=== PATIENT | female | born 1940 | race African-American/Black ===

== ENCOUNTER 2017-08-25 09:55 | Inpatient (IN) | payer MEDICARE, OTHER ==
[2017-08-25 10:29] LABS: #Eosinphils 0.1 thou/uL (0.0-0.7); #Lymphocytes 1.7 thou/uL (1.20-3.40); #Monocytes 0.5 thou/uL (0.11-0.59); #Neutrophils 5.6 thou/uL (1.40-6.50); %Basophils 0.5 % (0.0-1.0); %Eosinophils 0.6 % (0.0-10.0); %Lymphocytes 21.4 % (21.0-51.0); %Monocytes 6.2 % (0.0-10.0); Hematocrit 33.9 % (36.0-47.0); Mean Platelet Volume 8.8 fL (7.4-10.4); White Blood Cell (WBC) Count 7.8 thou/uL (4.8-10.8)
[2017-08-25] MEDS ORDERED: Furosemide 40 MG/4 ML VIAL ONE ×2 (10:45→12:10)
[2017-08-25 10:56] LABS: ALT (SGPT) 34 U/L (8-55); AST (SGOT) 26 U/L (5-34); Alkaline Phosphatase 83 U/L (40-150); Anion Gap 12 mmol/L (10-20); BUN (Urea Nitrogen) 51 mg/dL (9.8-20.1); Bilirubin, Total 0.4 mg/dL (0.2-1.2); CK (CPK) 75 U/L (29-168); Calc. Creatinine Clearance 0 mL/min (70-130); Calcium 8.8 mg/dL (7.8-10.44); Carbon Dioxide 16 mmol/L (23-31); Chloride 123 mmol/L (98-107); Estimated GFR-MDRD 13; Globulin 3.3 g/dL (2.4-3.5); Protein, Total 6.5 g/dL (6.0-8.3)
[2017-08-25 11:00] LABS: Troponin I 0.119 ng/mL (< 0.028)
--- NOTE | 2017-08-25 11:25 | RAD ---
AP VIEW OF THE CHEST: INDICATION: Dyspnea and shortness of breath. FINDINGS: There is cardiomegaly, pulmonary vascular congestion, and perihilar interstitial airspace opacities s uspicious for edema. There are tiny bilateral pleural effusions. There is a dual-lead pacemaker ove rlying the left chest wall. Chronic osseous changes are similar to a comparison dated 10/09/16. IMPRESSION: Findings suspicious for congestive heart failure. POS: BREANN
[2017-08-25 12:35] LABS: Bilirubin Negative (Negative); Blood, Urine Small (Negative); Glucose, Urine (Dipstick) Negative (Negative); Ketone, Urine Negative (Negative); Nitrite Negative (Negative); Protein, Urine (Dipstick) 300 mg/dL (Neg-Trace); Urobilinogen 0.2 mg/dL (0.2-1.0)
[2017-08-25 12:37] LABS: Bacteria/HPF None Seen HPF (None Seen); Hyaline Casts/LPF 4-6 HYALINE CAST LPF (0-3 Hyaline); WBC/HPF 0-3 HPF (0-3)
[2017-08-25 12:39] LABS: Renal Epithelial None Seen HPF (0-3); Transitional Epithelial NONE SEEN HPF (0-3)
[2017-08-25 14:08] LABS: Troponin I 0.108 ng/mL (< 0.028)
--- NOTE | 2017-08-25 15:25 | PDOC.EVN ---
Attending Addendum - Attending Addendum I personally evaluated the patient and discussed the management with Dr. Orlando. I agree with the History, Examination, Assessment and Plan documented in her H& P with any addition or exceptions noted below. Patient with 2 weeks of productive cough of bloody sputum, increased lower extremity swelling, orthopnea, and PND presenting due to 1 day of worsening shortness of breath. Patient with history of combined CHF with last EF 45-50% in 09/2016. She reports medication compliance. She is clinically hypervolemic, with 2+ pitting to mid melo, as well as rales bilaterally on lung exam. CXR consistent with CHF. Her BNP is greatly elevated above baseline. 1. cCHF with exacerbation- admit to tele, strict I/O, diuresis as tolerable though renal function may prohibit max diuresis. Will repeat echo as has been near 1 year since last. Trend troponins. Med augmentation to ensure she is maximally treated for CHF. 2. CKD4 with exacerbation- could be due to decreased intravascular volume. Will consult Dr. Anderson. Will need to keep close eye on patient renal function with effective diuresis. 3. Hyperchloremic metabolic acidosis- likely 2/2 renal function. Normal anion gap. Monitor. 4. HTN- maximize control with diuresis and med adjustments as necessary. 5. Hemoptysis- new onset. Sputum is grossly bloody. Unknown in pulmonary in origin or related to airway trauma due to cough though there is no evidence of that at this time. CXR does not show mass, but patient does have history of tobacco abuse with no history of similar issues. Will consult Pulm for possible further eval with bronchoscopy versus CT scanning.
[2017-08-25] MEDS ORDERED: Ondansetron ODT 4 MG TAB SL PRN (17:08)
[2017-08-25] MEDS ORDERED: Ondansetron HCl/PF 4 MG/2 ML Vial IVP PRN (17:08)
[2017-08-25] MEDS ORDERED: Acetaminophen 325 MG TAB PO PRN ×2 (17:08→17:47)
[2017-08-25] MEDS ORDERED: Dextrose 5% in Water 1,000 ML IV PRN (17:47)
[2017-08-25] MEDS ORDERED: Dextrose 50% Abboject 50 ML SYRINGE SLOW IVP PRN (17:47)
[2017-08-25] MEDS ORDERED: HumaLOG 300 UNITS/3 ML VIAL SC PRN ×2 (17:47)
[2017-08-25] MEDS ORDERED: Furosemide 40 MG/4 ML VIAL SLOW IVP SCH (18:00)
[2017-08-25 18:03] LABS: Troponin I 0.112 ng/mL (< 0.028)
[2017-08-25] MEDS ORDERED: FLU VACC TS2017-18 (>65YR) 0.5 ML SYRINGE IM ONE (18:15)
[2017-08-25 18:25] LABS: Amphetamine Not Detected (NotDetected); Methadone Not Detected (NotDetected); Methamphetamine Not Detected (NotDetected)
[2017-08-25 19:02] LABS: #Lymphocytes 0.9 thou/uL (1.20-3.40); #Monocytes 0.1 thou/uL (0.11-0.59); #Neutrophils 5.4 thou/uL (1.40-6.50); %Basophils 0.1 % (0.0-1.0); %Eosinophils 0.2 % (0.0-10.0); %Lymphocytes 14.3 % (21.0-51.0); %Monocytes 1.1 % (0.0-10.0); Hematocrit 33.1 % (36.0-47.0); Mean Platelet Volume 8.3 fL (7.4-10.4); Red Blood Cell (RBC) Count 3.31 mill/uL (4.20-5.40); White Blood Cell (WBC) Count 6.4 thou/uL (4.8-10.8)
[2017-08-25 19:10] LABS: Hemoglobin A1c 5.5 % (4.0-6.0)
[2017-08-25] MEDS: Nicotine 14 MG PATCH TD SCH (19:40)
[2017-08-25] MEDS ORDERED: Haloperidol 1 MG TAB PO SCH (23:45)
[2017-08-26] MEDS ORDERED: Sodium Chloride 0.9% 10 ML ONE ×3 (04:38→09:33)
[2017-08-26] MEDS ORDERED: Furosemide 40 MG/4 ML VIAL SLOW IVP SCH ×2 (06:00→09:00)
--- NOTE | 2017-08-26 06:11 | HP-2 ---
DATE OF ADMISSION: 08/25/2017 RESIDENT PHYSICIAN: Phillip Orlando M.D. ATTENDING PHYSICIAN: Marek Elias M.D. PRIMARY CARE PHYSICIAN: Virgie Jasso M.D. CHIEF COMPLAINT: Difficulty breathing. HISTORY OF PRESENT ILLNESS: This is a 77-year-old -F[place] female with past medical history as below, who presents to the ED via the EMS with complaint of shortness of breath since yesterday af ternoon when she is cleaning the house. Associated with productive cough and bloody sputum for about 2 weeks, but no fevers or chills. Patient also endorses increased lower extremity edema over the sa me time along with worsening paroxysmal nocturnal dyspnea. Patient was given a DuoNeb x1 and 125 mg of Solu-Medrol by EMS en route. She does not usually require oxygen at home. Denies any chest pain, palpitation. Denies missing any of her daily doses of her medications recently. Does not fluid res trict at home. 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 She states that she last saw her several months ago and wa s due to see her again tomorrow. Patient is slightly confused upon my interview and is a poor histor ngozi. In the ER, the patient received 40 mg of Lasix x2 and DuoNeb x1. PAST MEDICAL HISTORY: 1. Coronary artery disease, status post NSTEMI in 08/2016. 2. Hypertension. 3. Hyperlipidemia. 4. Type 2 diabetes mellitus. 5. Combined systolic and diastolic congestive heart failure (with EF of 45%-50% with global hypokine sis, on PTE in 09/2016.) 6. 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 7. Chronic kidney disease. 8. Chronic normocytic anemia. 9. Urge incontinence. 10. Peripheral vascular disease. PAST SURGICAL HISTORY: 1. Left femoral popliteal bypass. 2. Hysterectomy. 3. Thyroidectomy. 4. Pacemaker placement in 2012. SOCIAL HISTORY: Patient currently smokes 1 pack per day and has smoked for the past 50 years. Denie s alcohol or other illicit drug use. FAMILY HISTORY: Father had type 2 diabetes mellitus. Mother had hypertension and cancer. ALLERGIES: No known drug allergies. HOME MEDICATIONS: Patient was unable to supply me with an accurate list of her current home medicati ons, but preliminary list obtained from EMR. 1. Lasix 40 mg daily. 2. DuoNebs q.4 hours p.r.n. 3. Potassium chloride 20 mEq daily. 4. Tramadol 100 mg daily as needed. 5. Pletal 100 mg b.i.d. a.c. 6. Aspirin 81 mg daily. 7. Crestor 20 mg at bedtime. 8. Ranitidine 150 mg b.i.d. 9. Coreg 25 mg b.i.d. 10. Calcitriol 0.25 mcg daily. 11. Norvasc 10 mg daily. 12. Imdur 60 mg daily. Nurse to call pharmacy to verify her current medications; and it appears patient has not been taking her medications consistently. REVIEW OF SYSTEMS: Ten point review of systems including general, eyes, ENT, respiratory, CV, GI, , skin, musculoskeletal, and neurologic all negative except for those pertinent positives listed in t he HPI. PHYSICAL EXAMINATION: VITAL SIGNS: Temperature 97.9, respiratory rate 18, heart rate 65, blood pressure is 163/90, oxygen saturation 96% on 2 liters. Weight with 81.65 kg. Patient's I's and O's, the patient had put out 28 5 mL of urine on the 2-3 hours since arrival to the ED. GENERAL: Patient in no acute distress, awake, alert, and oriented x2. Slightly lethargic at time. EYES: EOMI, PERRLA, nonicteric. ENT: Mucous membranes dry. Oropharynx clear. CARDIOVASCULAR: Regular rate and rhythm. Pulses are equal, but diminished in lower extremities. RESPIRATORY: Mildly labored. Patient breathing with pursed lips, rales in the bilateral bases with scattered expiratory wheezes. ABDOMEN: Nontender, nondistended. No guarding or rebound, and central obesity. EXTREMITIES: She had 2+ pitting edema to the knee bilaterally. Equal movements bilaterally. SKIN: No rash or ulcer. No palpable lesions. NEUROLOGIC: Cranial nerves II through XII intact. No focal deficits. PSYCHIATRIC: She had mild confusion. Overall, mood and affect were appropriate. Judgment and insig ht intact. LABORATORY DATA: CBC: White blood cells 7.8, platelets 168, hemoglobin 10.6, hematocrit 32.9, MCV 9 9.7, RDW 15.8. CMP: Sodium 146, potassium 2.9, chloride 123, bicarbonate 16, BUN 51, creatinine 3.9 7. Glucose 128, calcium 8.8, GFR was 13, total protein 6.5, albumin 3.2, total bilirubin 0.4, AST 26 , ALT 34, alkaline phosphatase 83. CK was 75, CK-MB 4.3, troponin 0.119. BNP was extremely elevated at 9989 with patient's baseline in the 6590-7787 range. UA showed 300 protein, small blood, 4-6 squ amous cells, and 4-6 hyaline casts. IMAGING: EKG showed a left axis deviation and was ventricularly paced. Chest x-ray showed cardiomeg jadyn, pulmonary vascular congestion. Perihilar interstitial opacities, indicative of edema, and small bilateral pleural effusions. She had dual lead pacemaker over the left chest. ASSESSMENT AND PLAN: This is a 77-year-old black female with: 1. Acute hypoxic respiratory failure secondary to #2. Continue as needed heart failure treatment an d oxygen as needed. We will admit to telemetry. 2. Systolic and diastolic congestive heart failure exacerbation. We will repeat an echo. Continue 4 0 mg intravenous Lasix b.i.d. starting tomorrow. Continue oxygen, daily weights, strict I's and O's. We will consult the Cardiology if not improving or status deteriorates. Patient currently satting okay on 2 liters of oxygen, but will have low threshold for noninvasive positive pressure ventilation if required. 3. Acute kidney injury on chronic kidney 4. Patient appears intravascularly depleted due to third s pacing. We will continue Lasix and monitor daily checks of kidney function. If GFR continues to dec rease, patient may need dialysis. We will go ahead and get Nephrology on broad to follow. 4. Elevated troponin at baseline, possibly secondary to chronic kidney disease versus demand. We wi ll trend and see if worsening. 5. Metabolic acidosis. We will check lactate, no anion gap, likely secondary to renal failure versu s less likely hypoxia from heart failure. We will get ABG if worsening. 6. Suspected anemia of chronic disease. This is consistent with iron studies from 09/2016. 7. Anemia. Now appears more macrocytic. B12 has been normal in the past, but we will repeat and ch jose RBC folate to complete workup. 8. Hypertension. Home medications following a nurse med rec. 9. Hyperlipidemia. Continue statin. 10. Coronary artery disease, trending troponins. Continue aspirin, statin, and beta-hong. 11. Prediabetes versus type 2 diabetes mellitus, last known A1c was 6. We will recheck and verify t he patient is not on any antihyperglycemic medications at home. Mild sliding scale insulin. Accu-Ch eks a.c. and at bedtime. 12. Confusion. Check UDS. Unclear if this is her baseline. 13. Tobacco abuse, cessation counseling. 14. Peripheral vascular disease. Continue Pletal. 15. Continue Guevara, deep venous thrombosis prophylaxis with renally dosed Lovenox. PT, OT ordered. Symptomatic medications will be provided. History and physical exam as well as assessment and plan discussed with the attending physician, Dr. Elias, who agrees with above.
[2017-08-26 06:52] LABS: Anion Gap 16 mmol/L (10-20); BUN (Urea Nitrogen) 64 mg/dL (9.8-20.1); Calc. Creatinine Clearance 14 mL/min (70-130); Calcium 8.6 mg/dL (7.8-10.44); Carbon Dioxide 14 mmol/L (23-31); Chloride 122 mmol/L (98-107); Estimated GFR-MDRD 12
--- NOTE | 2017-08-26 08:22 | PDOC.FM ---
- Subjective Subjective: The patient reports that her breathing has improved some since yesterday. She was resting comfortably. Has no specific complaints. She states that her cough has not improved, but it is less bloody than it has been. - Objective MAR Reviewed: Yes Vital Signs & Weight: Vital Signs (12 hours) Temp Pulse Resp BP Pulse Ox 08/26/17 03:39 97.9 F 65 20 164/99 H 96 08/26/17 01:38 95 08/25/17 23:35 97 F L 65 20 137/74 96 Weight Weight 82.645 kg I&O: 08/25/17 08/26/17 08/27/17 06:59 06:59 06:59 Intake Total 134 Output Total 700 Balance -566 Result Diagrams: 08/25/17 18:47 08/26/17 05:55 <Pamella German - Last Filed: 08/26/17 08:20> - Objective Vital Signs & Weight: Vital Signs (12 hours) Temp Pulse Resp BP Pulse Ox 08/26/17 11:16 98.1 F 65 16 148/74 H 99 08/26/17 10:26 65 08/26/17 08:00 97.7 F 65 20 138/84 94 L 08/26/17 03:39 97.9 F 65 20 164/99 H 96 08/26/17 01:38 95 Weight Weight 82.645 kg I&O: 08/25/17 08/26/17 08/27/17 06:59 06:59 06:59 Intake Total 134 Output Total 700 Balance -566 Result Diagrams: 08/25/17 18:47 08/26/17 05:55 <Marek Elias - Last Filed: 08/26/17 12:42> Phys Exam - Physical Examination Constitutional: NAD HEENT: moist MMs Respiratory: wheezing present (expiratory wheezes bilaterally) rales at bilateral bases Cardiovascular: RRR, no significant murmur, no rub Gastrointestinal: soft, non-tender, no distention, positive bowel sounds Musculoskeletal: no edema, pulses present Neurological: non-focal, moves all 4 limbs Psychiatric: normal affect, A&O x 3 Skin: no rash, cap refill <2 seconds <Pamella German - Last Filed: 08/26/17 08:20> Dx/Plan (1) Acute respiratory failure with hypoxia Code(s): J96.01 - ACUTE RESPIRATORY FAILURE WITH HYPOXIA Status: Acute Plan: This is 2/2 CHF exacerbation with BNP 9989.9. Patient currently has a 2L O2 requirement, satting 95-96%, patient not on oxygen at home. -Will continue O2 prn, wean as tolerated -Monitor on tele -Duonebs with patients h/o COPD and expiratory wheezes on exam -Lasix for CHF exacerbation (2) CHF exacerbation Code(s): I50.9 - HEART FAILURE, UNSPECIFIED Status: Acute QualifierTitle: Congestive heart failure type: combined Qualified Code(s) : I50.43 - Acute on chronic combined systolic (congestive) and diastolic ( congestive) heart failure Plan: Patient does not fluid restrict and has been having increased PND, LE edema -Lasix 40mg IV BID -O2 prn -Fluid restrict -Strict I/O's -Daily weights -Echo as it has been about a year since last documented here. (3) Hemoptysis Code(s): R04.2 - HEMOPTYSIS Status: Acute Plan: Patient has been having about 2 wks of hemoptysis. Has 50 pack year smoking history. Concern for malignancy vs infection The sputum is less bloody this AM. -Will get CT chest -Will consult pulmonology -Will monitor closely (4) [id number]-hqpqoxf kidney injury Code(s): N17.9 - ACUTE KIDNEY FAILURE, UNSPECIFIED; N18.9 - CHRONIC KIDNEY DISEASE, UNSPECIFIED Status: Acute QualifierTitle: Acute renal failure type: unspecified Chronic kidney disease stage: stage 4 (severe) Qualified Code(s): N17.9 - Acute kidney failure, unspecified; N18.4 - Chronic kidney disease, stage 4 (severe); N18.4 - Chronic kidney disease, stage 4 (severe); N18.4 - Chronic kidney disease, stage 4 (severe); N18.4 - Chronic kidney disease, stage 4 (severe) Plan: This is likely 2/2 third spacing with fluid overload. Will fluid restrict patient 2/2 CHF exacerbation. -Monitor renal function closely. -Dr. Anderson with nephrology has been consulted (5) Hyperchloremic metabolic acidosis Code(s): E87.2 - ACIDOSIS Status: Acute Plan: Non-anion gap metabolic acidosis. Likely 2/2 renal failure. Lactate normal. Will monitor (6) Confusion Code(s): R41.0 - DISORIENTATION, UNSPECIFIED Status: Acute Plan: Patient is mildly confused during the day. Overnight she had some sundowning and became pleasantly agitated and required a small dose of haldol to not pull out her IV and Oxygen. Will get her a sitter for tonight. will restart all her home medications. (7) Elevated troponin Code(s): R79.89 - OTHER SPECIFIED ABNORMAL FINDINGS OF BLOOD CHEMISTRY Status : Resolved Plan: Will trend trops (8) Tobacco abuse Code(s): Z72.0 - TOBACCO USE Status: Acute Plan: 50 pack year smoking history -Nicoderm patch -Counseling (9) Hyperlipidemia Code(s): E78.5 - HYPERLIPIDEMIA, UNSPECIFIED Status: Acute QualifierTitle: Hyperlipidemia type: unspecified Qualified Code(s): E78.5 - Hyperlipidemia, unspecified Plan: Will continue rosuvastatin (10) Hypertension Code(s): I10 - ESSENTIAL (PRIMARY) HYPERTENSION Status: Acute QualifierTitle: Hypertension type: essential hypertension Qualified Code( s): I10 - Essential (primary) hypertension Plan: Will continue home meds and monitor <Pamella German - Last Filed: 08/26/17 08:20> Attending Addendum - Attending Addendum I personally evaluated the patient and discussed the management with Dr. German. I agree with the History, Examination, Assessment and Plan documented above with any addition or exceptions noted below. Patient with improvement in respiratory status as well as lower extremity edema with diuresis. However, her renal function continues to decline. Electrolytes are not abnormal, but her GFR is placing her in the ESRD category. Nephrology is on board. We may be in a place where we cannot effectively diurese due to further risk to kidneys. Her BP is increased and we will need to make medication changes to obtain better control. We will add breathing treatments due to wheezing. Further, patient has continued to have blood tinged sputum, in addition to the kathi blood yesterday. CT of chest has been obtained and we will consult Pulmonology. <Marek Elias - Last Filed: 08/26/17 12:42>
--- NOTE | 2017-08-26 09:37 | CON ---
DATE OF CONSULTATION: 08/26/2017 HISTORY OF PRESENT ILLNESS: Ms. Maya is a 77-year-old black female with known history of chronic renal failure secondary to presumed hypertensive nephropathy. She was admitted due to progressive sh ortness of breath. She was empirically treated with IV Lasix yesterday. Her shortness of breath is much improved this morning. In addition, the diuretics has been placed on hold due to the higher cre atinine today. We are being consulted for further management of her chronic renal failure and acute kidney injury. REVIEW OF SYSTEMS: Positive for shortness of breath, no nausea, no vomiting, no chest pain, no synco pal episodes. Decreased appetite, decreased energy level. No headache, no diplopia, no fever or chi lls. No gross hematuria. No dysuria, no urinary frequency. No abdominal pain. No occasional joint pains, no new skin rash, no headache, no diplopia, no sore throat. MEDICATIONS: Tylenol 650 mg q.4 hours p.r.n., Coreg 12.5 mg p.o. b.i.d., Norvasc 10 mg daily, Pletal 100 mg tablet b.i.d., Catapres 0.2 mg b.i.d., Lasix 40 mg IV q.12 hours, Humalog sliding scale, Imdu r ER 60 mg daily, and rosuvastatin 20 mg tablet at bedtime. PAST MEDICAL HISTORY: 1. Peripheral vascular disease. 2. Type 2 diabetes mellitus, on diet. 3. Hyperlipidemia. 4. Chronic low back pain secondary to lumbar spondylosis. 5. Chronic renal failure with hypertensive nephropathy. 6. Longstanding hypertension. PAST SURGICAL HISTORY: 1. Status post hysterectomy. 2. Status post colonoscopy. 3. Status post pacemaker placement secondary to severe bradycardia, status post left common femoral artery endarterectomy, status post left fem-pop bypass. SOCIAL HISTORY: The patient lives alone, lives in [place]. No children. Smoked for 40 years, half a pack per day. Still occasional smoking. Alcohol none. Education high school. 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 No IV drug abuse. FAMILY HISTORY: No family history of ESRD. ALLERGIES: None. TRAUMA: None. IMMUNIZATIONS: Up to date. HOSPITALIZATIONS: Please see past medical history. PHYSICAL EXAMINATION: VITAL SIGNS: Blood pressure is noted at 164/99, heart rate 65, respiratory rate 20, temperature 97.9 , and pulse ox 96%. GENERAL: Noted to be awake, supine, comfortable, not in distress. SKIN: Adequate turgor. HEENT: Pinkish conjunctivae, anicteric sclerae. NECK: No neck mass, no carotid bruits, no JVD. CHEST: No deformities. LUNGS: Decreased breath sounds. No wheezing, no crackles. HEART: Normal sinus rhythm. No murmur, no gallops, no rubs. ABDOMEN: Globular, soft, nontender, no masses. EXTREMITIES: No edema, no deformities. NEUROLOGIC: Awake, alert, not moving all extremities. No tremors or asterixis. Oriented to 3 spher es. LABORATORY DATA: 08/25/2017 - White count 6.4, hemoglobin 10.7. Sodium 147, potassium 4.9, chloride 122, carbon dioxide 14, BUN 64, creatinine 4.21, glucose 121, calcium 8.6. Urinalysis of 08/25/2017, protein is 300. Chest x-ray of 08/25/2017 shows findings of congestive heart failure. ASSESSMENT AND PLAN: 1. Acute kidney injury on top of her chronic renal failure superimposed hemodynamically mediated richard al dysfunction secondary to her underlying congestive heart failure. Due to the much improved shortn ess of breath with this patient, I would suggest that we decrease the Lasix 40 mg IV from q.12 to onc e a day dosing for the moment. If renal function further worsens, we can always empirically hold off the diuretics. 2. Congestive heart failure, clinically much improved with IV diuresis. 3. Borderline anemia. We will simply observe this. There is no indication at the present time for any dialytic intervention. Overall, agree with current management.
[2017-08-26 09:50] LABS: Troponin I 0.199 ng/mL (< 0.028)
[2017-08-26] MEDS: Sodium Bicarbonate Tab 325 MG TAB PO SCH ×3 (10:24→20:33)
[2017-08-26] MEDS: Enoxaparin Sodium 30 MG/0.3 ML SYRINGE SC SCH (10:25)
[2017-08-26] MEDS: cloNIDine 0.2 MG TAB PO SCH (10:26)
[2017-08-26] MEDS: Amlodipine 10 MG TAB PO SCH (10:26)
[2017-08-26] MEDS: Carvedilol 25 MG TAB PO SCH ×2 (10:26→20:33)
[2017-08-26] MEDS: Calcitriol 0.25 MCG CAP PO SCH (10:26)
[2017-08-26] MEDS: Famotidine 20 MG TAB PO SCH (10:35)
--- NOTE | 2017-08-26 11:26 | CT ---
CT CHEST WITHOUT CONTRAST: Date: 08/26/17 HISTORY: Hemoptysis, tobacco abuse. FINDINGS: Absence of IV contrast reduces the sensitivity of exam, particularly for evaluation of mediastinal, h ilar, and vascular structures. There are vascular calcifications without evidence of aneurysmal dilatation of the thoracic aorta. No pericardial effusion is seen. There are bilateral pleural effusions, right larger than left. No lung masses are identified in the visualized lung keita. Patchy ground-glass opacities are seen in the m id and lower lung ekita. There are degenerative changes in the spine. There is a 4.0 cm lesion in th e right lobe of the thyroid gland. IMPRESSION: 1. Cardiomegaly. 2. Bilateral pleural effusions (right greater than left). 3. Mild patchy ground-glass opacities. 4. 4.0 cm right thyroid lobe lesion. Dedicated thyroid ultrasound would be helpful. POS: BREANN
[2017-08-26] MEDS: Potassium Chloride 20 MEQ TAB PO SCH (11:55)
--- NOTE | 2017-08-26 12:54 | CON ---
DATE OF CONSULTATION: 08/26/2017 She is a 77-year-old female who has been in the hospital several days. We were cons ulted this morning regarding hemoptysis. When I came to ask the patient how much blood she has coughed, the sitter who was at the bedside stat ed that she was coughing maybe no more than a quarter of a teaspoon of dark blood. It appears she ny s no epistasis. She has done this before. She has seen Dr. Gary in the past. I felt more than lik kami this was secondary to bronchitis aggravated by her congestive heart failure. She was a smoker in the past. She denies any difficulty breathing at the present time. She denies any chest pain, chills or sweats . It was difficult to get additional information from the patient. She was here in September with symptoms of hemoptysis. PAST MEDICAL HISTORY: Pertinent for congestive heart failure, renal failure, diabetes, chronic obstr uctive pulmonary disease. Previous sepsis syndrome. Hypertension, degenerative joint disease. PAST SURGICAL HISTORY: Hysterectomy, thyroid, pacemaker, left femoral popliteal bypass. REVIEW OF SYSTEMS: Otherwise 10-point negative. ALLERGIES: None. PHYSICAL EXAMINATION: VITAL SIGNS: Blood pressure 138/84, sats are 96%, respirations 20. CHEST: Chest revealed bilateral crackles. CARDIAC: Normal S1, S2. ABDOMEN: Soft, no masses. LABORATORY: White count 6, H&H 10 and 30, platelet count normal. Creatinine is 4.2, BUN 64. X-ray shows cardiomegaly, cephalization. CAT scan showed bilateral pleural effusion. IMPRESSION: 1. Hemoptysis. 2. Bronchitis. 3. Congestive heart failure. 4. Worsening renal failure. PLAN: Regarding the hemoptysis no other further workup is needed. They put her on empiric antibioti cs. Dr. Gary will follow at a later time.
[2017-08-26] MEDS: Cilostazol 100 MG TAB PO SCH (16:10)
[2017-08-26] MEDS: Cefuroxime Axetil 250 MG TAB PO SCH (20:34)
[2017-08-26] MEDS: Nicotine 14 MG PATCH TD SCH (20:36)
[2017-08-26] MEDS: Cyclobenzaprine 10 MG TAB PO SCH (20:40)
[2017-08-27] MEDS: cloNIDine 0.2 MG TAB PO SCH ×4 (00:14→23:59)
[2017-08-27 06:16] LABS: Anion Gap 13 mmol/L (10-20); BUN (Urea Nitrogen) 72 mg/dL (9.8-20.1); Calc. Creatinine Clearance 15 mL/min (70-130); Calcium 8.1 mg/dL (7.8-10.44); Carbon Dioxide 15 mmol/L (23-31); Chloride 120 mmol/L (98-107); Estimated GFR-MDRD 13
--- NOTE | 2017-08-27 08:22 | PDOC.FM ---
- Subjective Subjective: The patient reports that she is doing much better this AM. She is breathing comfortably on RA. She reports that her cough has improved some and she is producing less sputum. She is tolerating PO well. - Objective MAR Reviewed: Yes Vital Signs & Weight: Vital Signs (12 hours) Temp Pulse Resp BP BP Pulse Ox 08/27/17 07:46 96.4 F L 75 18 132/79 95 08/27/17 03:30 97.7 F 65 16 121/69 97 08/27/17 00:14 137/68 08/26/17 23:32 98.0 F 65 16 137/68 95 Weight Weight 82.554 kg I&O: 08/26/17 08/27/17 08/28/17 06:59 06:59 06:59 Intake Total 134 1400 Output Total 700 1000 Balance -566 400 Result Diagrams: 08/25/17 18:47 08/27/17 05:13 <Pamella German - Last Filed: 08/27/17 08:20> - Objective Vital Signs & Weight: Vital Signs (12 hours) Temp Pulse Resp BP BP Pulse Ox 08/27/17 09:17 75 132/79 08/27/17 08:00 96.4 F L 65 16 95 08/27/17 07:46 96.4 F L 75 18 132/79 95 08/27/17 03:30 97.7 F 65 16 121/69 97 08/27/17 00:14 137/68 Weight Weight 82.554 kg I&O: 08/26/17 08/27/17 08/28/17 06:59 06:59 06:59 Intake Total 134 1400 Output Total 700 1000 200 Balance -566 400 -200 Result Diagrams: 08/25/17 18:47 08/27/17 05:13 <Marek Elias - Last Filed: 08/27/17 12:01> Phys Exam - Physical Examination Constitutional: NAD HEENT: moist MMs Respiratory: no wheezing Rales in bilateral lung bases Cardiovascular: RRR, no significant murmur, no rub Gastrointestinal: soft, non-tender, positive bowel sounds Musculoskeletal: edema present (1+ pitting edema to mid melo bilaterally) Neurological: non-focal, moves all 4 limbs Psychiatric: normal affect, A&O x 3 (mildly confused) <Pamella German - Last Filed: 08/27/17 08:20> Dx/Plan (1) Acute respiratory failure with hypoxia Code(s): J96.01 - ACUTE RESPIRATORY FAILURE WITH HYPOXIA Status: Acute Plan: This is 2/2 CHF exacerbation with BNP 9989.9. Patient currently has a 2L O2 requirement, satting 95-96%, patient not on oxygen at home. -Patient is now satting great on RA, will continue to monitor -Monitor on tele -Duonebs with patients h/o COPD -Lasix for CHF exacerbation (2) CHF exacerbation Code(s): I50.9 - HEART FAILURE, UNSPECIFIED Status: Acute QualifierTitle: Congestive heart failure type: combined Qualified Code(s) : I50.43 - Acute on chronic combined systolic (congestive) and diastolic ( congestive) heart failure Plan: Patient does not fluid restrict and has been having increased PND, LE edema -Lasix 40mg IV daily -O2 prn -Fluid restrict -Strict I/O's -Daily weights -Echo as it has been about a year since last documented here. (3) Hemoptysis Code(s): R04.2 - HEMOPTYSIS Status: Acute Plan: Patient has been having about 2 wks of hemoptysis. Has 50 pack year smoking history. This is likely 2/2 bronchitis The sputum is less bloody this AM. CT chest showed bilateral pleural effusions, mild patchy ground glass opacities -Pulmonology has been consulted, recommended Cefuroxime for bronchitis -Cefuroxime day 2 -Will monitor closely (4) Acute bronchitis Code(s): J20.9 - ACUTE BRONCHITIS, UNSPECIFIED Status: Resolved QualifierTitle: Bronchitis organism: unspecified organism Qualified Code( s): J20.9 - Acute bronchitis, unspecified Plan: Patient has acute bronchitis and has had episodes of this in the past. She has seen Dr. Gary for this problem before -Cefuroxime day 2 -Pulm has been consulted, appreciate recs (5) Ligqi-gv-jpvekfh kidney injury Code(s): N17.9 - ACUTE KIDNEY FAILURE, UNSPECIFIED; N18.9 - CHRONIC KIDNEY DISEASE, UNSPECIFIED Status: Acute QualifierTitle: Acute renal failure type: unspecified Chronic kidney disease stage: stage 4 (severe) Qualified Code(s): N17.9 - Acute kidney failure, unspecified; N18.4 - Chronic kidney disease, stage 4 (severe); N18.4 - Chronic kidney disease, stage 4 (severe); N18.4 - Chronic kidney disease, stage 4 (severe); N18.4 - Chronic kidney disease, stage 4 (severe) Plan: This is likely 2/2 third spacing with fluid overload. Will fluid restrict patient 2/2 CHF exacerbation. -Monitor renal function closely. -Dr. Anderson with nephrology has been consulted (6) Hyperchloremic metabolic acidosis Code(s): E87.2 - ACIDOSIS Status: Acute Plan: Non-anion gap metabolic acidosis. Likely 2/2 renal failure. Lactate normal. Will monitor (7) Confusion Code(s): R41.0 - DISORIENTATION, UNSPECIFIED Status: Acute Plan: Patient is mildly confused during the day. Overnight she had some sundowning and became pleasantly agitated and required a small dose of haldol to not pull out her IV and Oxygen. Will get her a sitter for tonight. will restart all her home medications. (8) Tobacco abuse Code(s): Z72.0 - TOBACCO USE Status: Acute Plan: 50 pack year smoking history -Nicoderm patch -Counseling (9) Hyperlipidemia Code(s): E78.5 - HYPERLIPIDEMIA, UNSPECIFIED Status: Acute QualifierTitle: Hyperlipidemia type: unspecified Qualified Code(s): E78.5 - Hyperlipidemia, unspecified Plan: Will continue rosuvastatin (10) Hypertension Code(s): I10 - ESSENTIAL (PRIMARY) HYPERTENSION Status: Acute QualifierTitle: Hypertension type: essential hypertension Qualified Code( s): I10 - Essential (primary) hypertension Plan: Will continue home meds and monitor (11) Thyroid nodule Code(s): E04.1 - NONTOXIC SINGLE THYROID NODULE Status: Acute Plan: 4.0 cm R thyroid lobe lesion seen on CT chest. Patient is asymptomatic and has no history of thyroid disease. -Will consider outpatient f/u for work-up of this lesion <Pamella German - Last Filed: 08/27/17 08:20> Attending Addendum - Attending Addendum I personally evaluated the patient and discussed the management with Dr. German. I agree with the History, Examination, Assessment and Plan documented above with any addition or exceptions noted below. Patient reports improvement in breathing status today. We will decrease Lasix therapy to help with salvaging renal function. Await further recs per Dr. Anderson. Renal function overall stable. Will discuss with family and CM the potential of SNF or rehab placement after ready for discharge. <Marek Elias - Last Filed: 08/27/17 12:01>
[2017-08-27] MEDS: Furosemide 40 MG/4 ML VIAL SLOW IVP SCH (09:15)
[2017-08-27] MEDS: Enoxaparin Sodium 30 MG/0.3 ML SYRINGE SC SCH (09:15)
[2017-08-27] MEDS: Carvedilol 25 MG TAB PO SCH ×3 (09:16→21:50)
[2017-08-27] MEDS: Cilostazol 100 MG TAB PO SCH ×2 (09:17→16:01)
[2017-08-27] MEDS: Calcitriol 0.25 MCG CAP PO SCH (09:17)
[2017-08-27] MEDS: Cefuroxime Axetil 250 MG TAB PO SCH ×2 (09:17→21:04)
[2017-08-27] MEDS: Amlodipine 10 MG TAB PO SCH (09:17)
[2017-08-27] MEDS: Sodium Bicarbonate Tab 325 MG TAB PO SCH ×3 (09:18→21:50)
--- NOTE | 2017-08-27 09:26 | PRG ---
DATE OF SERVICE: 08/27/2017 SERVICE: Renal Medicine. SUBJECTIVE: Ms. Maya is a 77-year-old black female with chronic renal failure and admitted for sh ortness of breath. She was found to be in congestive heart failure. She was started on Lasix and di uresed. Her shortness of breath is actually much improved this morning. No new complaints. She denies any chest pain. Appetite fair. OBJECTIVE: VITAL SIGNS: Blood pressure is 132/79, heart rate 75, respiratory rate 18, temperature 96.4, pulse o x 95%. GENERAL: Awake, alert, supine, comfortable, not in distress. SKIN: Adequate turgor. HEENT: She has pinkish conjunctivae, anicteric sclerae. NECK: No neck mass, no carotid bruits, no JVD. CHEST: No deformities. LUNGS: Decreased breath sounds. HEART: Normal sinus rhythm. No murmur, no gallops, no rubs. ABDOMEN: Globular, soft, nontender, no masses. EXTREMITIES: No edema, no deformities. MEDICATIONS: Of 08/27/2017 was reviewed. LABORATORY DATA: Of 08/25/2017, hemoglobin 10.7. On 08/27/2017, sodium 143, potassium 4.6, chloride 120, carbon dioxide 15, BUN 72, creatinine of 4.13, GFR 13 mL per minute, glucose 86, calcium 8.1. ASSESSMENT AND PLAN: 1. Shortness of breath - secondary to possible congestive heart failure versus chronic obstructive p ulmonary disease exacerbation. Shortness of breath is much better. Adjustment of diuretics has been on made. Continue supportive care. 2. Acute kidney injury on top of her chronic renal failure, superimposed prerenal azotemia. Creatin ine is plateauing in the last 24 hours. Continue current management. As previously mentioned, she i s on decreased dose of her diuretics. There is no indication for any dialytic intervention with this patient. 3. Metabolic acidosis. Sodium bicarbonate 650 mg 1 tab t.i.d. was initiated yesterday. 4. Recheck basic met and CBC in a.m.
[2017-08-27] MEDS: Potassium Chloride 20 MEQ TAB PO SCH (13:13)
[2017-08-27 13:16] LABS: Hematocrit 30.8 % (34.0-46.6); RBC Folate Test Component 1799 ng/mL (>498)
[2017-08-27] MEDS: Nicotine 14 MG PATCH TD SCH (19:16)
[2017-08-27] MEDS: Cyclobenzaprine 10 MG TAB PO SCH (21:04)
--- NOTE | 2017-08-27 22:05 | PRG ---
DATE OF SERVICE: 08/27/2017 SUBJECTIVE: Ms. Maya was seen in followup. She is doing well. She is sitting up in the chair at bedside. She said she was feeling well. She said she right out of the gate and wanted to be home [facility]. OBJECTIVE: VITAL SIGNS: She is afebrile, heart rate 76, respiratory rate 17, blood pressure 108/58 this afterno on. LUNGS: Remarkable for crackles at both bases. She is in no distress. HEART: Regular rhythm. ABDOMEN: Soft. IMPRESSION: 1. Acute bronchitis. 2. Cardiomyopathy. 3. Chronic kidney disease. 4. Anemia with a normal mean corpuscular volume. PLAN: Continue current care and should continue with p.o. antimicrobial therapy.
[2017-08-28 05:32] VITALS: BMI 29.5
[2017-08-28 05:58] LABS: #Eosinphils 0.1 thou/uL (0.0-0.7); #Lymphocytes 1.3 thou/uL (1.20-3.40); #Monocytes 0.6 thou/uL (0.11-0.59); #Neutrophils 3.6 thou/uL (1.40-6.50); %Basophils 0.4 % (0.0-1.0); %Eosinophils 1.7 % (0.0-10.0); %Lymphocytes 23.3 % (21.0-51.0); %Monocytes 10.2 % (0.0-10.0); Hematocrit 28.5 % (36.0-47.0); Mean Platelet Volume 7.7 fL (7.4-10.4); Red Blood Cell (RBC) Count 2.88 mill/uL (4.20-5.40); White Blood Cell (WBC) Count 5.5 thou/uL (4.8-10.8)
[2017-08-28 06:14] LABS: Anion Gap 12 mmol/L (10-20); BUN (Urea Nitrogen) 77 mg/dL (9.8-20.1); Calc. Creatinine Clearance 15 mL/min (70-130); Calcium 8.1 mg/dL (7.8-10.44); Carbon Dioxide 16 mmol/L (23-31); Chloride 121 mmol/L (98-107); Estimated GFR-MDRD 12
[2017-08-28] MEDS: Cilostazol 100 MG TAB PO SCH ×2 (09:04→15:17)
[2017-08-28] MEDS ORDERED: Epoetin (ESRD) 20,000 UNITS/ML SC SCH (09:30)
[2017-08-28] MEDS: Cefuroxime Axetil 250 MG TAB PO SCH ×2 (09:56→20:26)
[2017-08-28] MEDS: Carvedilol 25 MG TAB PO SCH ×2 (09:56→20:26)
[2017-08-28] MEDS: cloNIDine 0.2 MG TAB PO SCH ×2 (09:57→20:27)
[2017-08-28] MEDS: Sodium Bicarbonate Tab 325 MG TAB PO SCH ×3 (09:57→20:28)
[2017-08-28] MEDS: Amlodipine 10 MG TAB PO SCH (09:58)
[2017-08-28] MEDS: Calcitriol 0.25 MCG CAP PO SCH (09:58)
[2017-08-28] MEDS: Famotidine 20 MG TAB PO SCH (09:58)
[2017-08-28] MEDS: Enoxaparin Sodium 30 MG/0.3 ML SYRINGE SC SCH (09:59)
[2017-08-28] MEDS: Furosemide 40 MG/4 ML VIAL SLOW IVP SCH (10:00)
--- NOTE | 2017-08-28 10:30 | PDOC.FM ---
- Subjective Subjective: Patient feeling better this morning and reports wanting to go home. She states she will consider rehab next week if she does not do well at home but refused rehab at this time. Cough improved. - Objective MAR Reviewed: Yes Vital Signs & Weight: Vital Signs (12 hours) Temp Pulse Resp BP BP BP Pulse Ox 08/28/17 09:58 65 127/61 08/28/17 09:57 127/61 08/28/17 08:05 97.6 F 65 18 127/61 98 08/28/17 05:07 98.2 F 66 21 H 124/67 95 08/27/17 23:59 131/78 08/27/17 23:58 97.8 F 65 18 131/78 93 L Weight Weight 85.139 kg I&O: 08/27/17 08/28/17 08/29/17 06:59 06:59 06:59 Intake Total 1400 1050 Output Total 1000 800 Balance 400 250 Result Diagrams: 08/28/17 05:26 08/28/17 05:26 <Pamella Tinajero A - Last Filed: 08/28/17 10:29> - Objective Vital Signs & Weight: Vital Signs (12 hours) Temp Pulse Resp BP BP BP Pulse Ox 08/28/17 09:58 65 127/61 08/28/17 09:57 127/61 08/28/17 08:05 97.6 F 65 18 127/61 98 08/28/17 05:07 98.2 F 66 21 H 124/67 95 08/27/17 23:59 131/78 08/27/17 23:58 97.8 F 65 18 131/78 93 L Weight Weight 85.139 kg I&O: 08/27/17 08/28/17 08/29/17 06:59 06:59 06:59 Intake Total 1400 1050 Output Total 1000 800 Balance 400 250 Result Diagrams: 08/28/17 05:26 08/28/17 05:26 <Marek Elias - Last Filed: 08/28/17 11:13> Phys Exam - Physical Examination Constitutional: NAD Respiratory: no wheezing, no rales, no rhonchi crackles in Bilateral lower lobes Cardiovascular: RRR systolic murmur Gastrointestinal: soft, non-tender 1 + pitting edema BLE Neurological: non-focal, normal sensation Psychiatric: normal affect <LiorPamella - Last Filed: 08/28/17 10:29> Dx/Plan (1) Acute respiratory failure with hypoxia Code(s): J96.01 - ACUTE RESPIRATORY FAILURE WITH HYPOXIA Status: Resolved Plan: No longer requiring oxygen. 2/2 CHF exacerbation, improving. (2) CHF exacerbation Code(s): I50.9 - HEART FAILURE, UNSPECIFIED Status: Acute QualifierTitle: Congestive heart failure type: combined Qualified Code(s) : I50.43 - Acute on chronic combined systolic (congestive) and diastolic ( congestive) heart failure Plan: BNP 9989. eveidence for fluid overload in presence of CKD . on 30 mg IV lasix and will cont for today and discuss with nephrology home dosing. Possibly home alter today if cont to do well throughout the day. Will need close follow up with nephrology. ECHO performed but not resulted. (3) Hfxyj-lw-yieqgde kidney injury Code(s): N17.9 - ACUTE KIDNEY FAILURE, UNSPECIFIED; N18.9 - CHRONIC KIDNEY DISEASE, UNSPECIFIED Status: Chronic QualifierTitle: Acute renal failure type: unspecified Chronic kidney disease stage: stage 4 (severe) Qualified Code(s): N17.9 - Acute kidney failure, unspecified; N18.4 - Chronic kidney disease, stage 4 (severe); N18.4 - Chronic kidney disease, stage 4 (severe); N18.4 - Chronic kidney disease, stage 4 (severe); N18.4 - Chronic kidney disease, stage 4 (severe) Plan: Following up with Dr. Anderson. Not currently requiring dialysis. (4) Hemoptysis Code(s): R04.2 - HEMOPTYSIS Status: Acute Plan: suspected bronchitis and placed on ceftin. Improving. (5) Hyperchloremic metabolic acidosis Code(s): E87.2 - ACIDOSIS Status: Acute Plan: 2/2 renal failure. Currently on bicarb tab with little improvement. Ultimately will need f/u with nephrology (6) Thyroid nodule Code(s): E04.1 - NONTOXIC SINGLE THYROID NODULE Status: Acute Plan: outpatient thyroid US recommended. (7) Tobacco abuse Code(s): Z72.0 - TOBACCO USE Status: Acute Plan: currently on nicotine patch. Can DC with nicotine patch. (8) Hyperlipidemia Code(s): E78.5 - HYPERLIPIDEMIA, UNSPECIFIED Status: Acute QualifierTitle: Hyperlipidemia type: unspecified Qualified Code(s): E78.5 - Hyperlipidemia, unspecified (9) Hypertension Code(s): I10 - ESSENTIAL (PRIMARY) HYPERTENSION Status: Acute QualifierTitle: Hypertension type: essential hypertension Qualified Code( s): I10 - Essential (primary) hypertension Plan: well controlled on home regimen. <Pamella Tinajero - Last Filed: 08/28/17 10:29> Attending Addendum - Attending Addendum I personally evaluated the patient and discussed the management with Dr. Tinajero. I agree with the History, Examination, Assessment and Plan documented above with any addition or exceptions noted below. Patient feels well today and desires to go home. Her respiratory status is improved and she reports being at baseline activity without significant dyspnea. Will discuss case with Dr. Anderson and see if changes to her diuretic regimen is needed. If doing well, consider discharge this afternoon. <Marek Elias - Last Filed: 08/28/17 11:13>
[2017-08-28] MEDS: Potassium Chloride 20 MEQ TAB PO SCH (12:14)
--- NOTE | 2017-08-28 13:40 | PRG ---
DATE OF SERVICE: 08/28/2017 SUBJECTIVE: Ms. Maya is a 77-year-old black female, who was seen for acute kidney injury on top o f her chronic renal failure. She has a superimposed prerenal azotemia. She came in with shortness o f breath with multifactorial etiology. She has also been gently diuresed with this. has been adjusted. This morning she is feeling better. She is noted be sitting down and comfortable. Her sh ortness of breath is much improved. OBJECTIVE: VITAL SIGNS: Blood pressure is noted at 127/61, heart rate 65, respiratory rate 18, temperature 97.6 , and pulse ox 98%. GENERAL: Noted to be awake, sitting comfortable, not in distress. SKIN: Adequate turgor. HEENT: She has slightly pale conjunctivae, anicteric sclerae. NECK: No neck mass. No carotid bruits, no JVD. CHEST: No deformities. LUNGS: Decreased breath sounds, positive for basilar crackles. HEART: Normal sinus rhythm. No murmur, no gallops, no rubs. ABDOMEN: Globular, soft, nontender, no masses. EXTREMITIES: No edema. MEDICATIONS: 08/28/2017 was reviewed. LABORATORY DATA: 08/28/2017 - White count 5.5, hemoglobin 9.1. Sodium 143, potassium 4.6, chloride 120, carbon dioxide 15, BUN 72, creatinine 4.13, glucose 86, and calcium 8.1. ASSESSMENT AND PLAN: 1. Acute kidney injury/chronic renal failure, relatively stable renal function. GFR still 13 mL per minute. Clinically, the patient is not uremic. There is no indication for any emergent dialytic in tervention with this patient. Overall, agree with current management. Please note the patient is cu rrently on diuretic regimen. She is also on antibiotics. 2. Shortness of breath - multifactorial - congestive heart failure/bronchitis - on diuretics and ant ibiotics. 3. Anemia. We will start Epogen and iron supplementation. We will give Epogen 7500 units subcu q. day and start with p.o. ferrous sulfate. Overall, agree with current management.
[2017-08-28] MEDS: Ferrous Sulfate 325 MG TAB PO SCH (15:17)
[2017-08-28] MEDS: Nicotine 14 MG PATCH TD SCH (17:00)
[2017-08-28] MEDS: Cyclobenzaprine 10 MG TAB PO SCH (20:25)
--- NOTE | 2017-08-28 21:19 | PRG ---
DATE OF SERVICE: 08/28/2017 SUBJECTIVE: Dana Maya continues to be stable. She is afebrile. She says she is feeling well. OBJECTIVE: VITAL SIGNS: Heart rate 65, respiratory rate 15, oximetry is 95 on room air. Blood pressure 110/78. LUNGS: Remarkable for fine crackles at the lung bases. CARDIOVASCULAR: Regular rhythm. ABDOMEN: Soft. Intake and output is positive 250 mL White count 5.5, hemoglobin 9.1, platelets 172,000. Sodium 144, potassium 4.5, chloride 121, bicarbo lauren 16, BUN 77, creatinine 4.23. Yesterday, creatinine was 4.13. IMPRESSION: 1. Acute on chronic kidney disease. 2. Acute bronchitis. 3. Cardiomyopathy. 4. Anemia with a normal mean corpuscular volume. PLAN: Continue to monitor renal function. Continue with antimicrobial therapy. If we can document stability of her renal function, she would hopefully be a candidate to be followed closely as an outp atient, so she could be at home by [facility].
[2017-08-29 06:31] LABS: Anion Gap 12 mmol/L (10-20); BUN (Urea Nitrogen) 71 mg/dL (9.8-20.1); Calc. Creatinine Clearance 16 mL/min (70-130); Calcium 7.7 mg/dL (7.8-10.44); Carbon Dioxide 15 mmol/L (23-31); Chloride 119 mmol/L (98-107); Estimated GFR-MDRD 14
--- NOTE | 2017-08-29 07:53 | PDOC.FM ---
- Subjective Subjective: Patient cont to do well this morning and is sitting up in bed. She states she has gotten up to bathroom yesterday. - Objective MAR Reviewed: Yes Vital Signs & Weight: Vital Signs (12 hours) Temp Pulse Resp BP BP Pulse Ox 08/29/17 07:26 97.9 F 65 17 94 L 08/29/17 07:25 97.9 F 65 17 125/70 94 L 08/29/17 04:00 97.4 F L 65 20 127/76 95 08/28/17 20:27 121/64 08/28/17 20:00 97.5 F L 70 22 H 121/64 98 Weight Weight 86.545 kg I&O: 08/28/17 08/29/17 08/30/17 06:59 06:59 06:59 Intake Total 1050 775 Output Total 800 1150 Balance 250 -375 Result Diagrams: 08/28/17 05:26 08/29/17 05:26 Phys Exam - Physical Examination Constitutional: NAD Respiratory: no wheezing, no rhonchi BLL crackles, good air movement Cardiovascular: RRR systolic murmur Gastrointestinal: soft, non-tender 1+ edema BLE Dx/Plan (1) CHF exacerbation Code(s): I50.9 - HEART FAILURE, UNSPECIFIED Status: Acute Qualifiers: Congestive heart failure type: combined Qualified Code(s): I50.43 - Acute on chronic combined systolic (congestive) and diastolic (congestive) heart failure Plan: BNP 9989. evidence for fluid overload in presence of CKD . Home on lasix PO 20 mg Home this morning and this has been discussed with pt's sister Will need close follow up with nephrology, planned for 08/31. If at that time she would benefit from rehab, she has agree to go to the [facility]. ECHO performed but not resulted. (2) Acute respiratory failure with hypoxia Code(s): J96.01 - ACUTE RESPIRATORY FAILURE WITH HYPOXIA Status: Resolved Plan: No longer requiring oxygen. 2/2 CHF exacerbation, improving. (3) Wbskl-rp-sdavcmd kidney injury Code(s): N17.9 - ACUTE KIDNEY FAILURE, UNSPECIFIED; N18.9 - CHRONIC KIDNEY DISEASE, UNSPECIFIED Status: Chronic Qualifiers: Acute renal failure type: unspecified Chronic kidney disease stage: stage 4 (severe) Qualified Code(s): N17.9 - Acute kidney failure, unspecified; N18.4 - Chronic kidney disease, stage 4 (severe); N18.4 - Chronic kidney disease , stage 4 (severe); N18.4 - Chronic kidney disease, stage 4 (severe); N18.4 - Chronic kidney disease, stage 4 (severe) Plan: Following up with Dr. Anderson. Not currently requiring dialysis. (4) Hemoptysis Code(s): R04.2 - HEMOPTYSIS Status: Acute Plan: suspected bronchitis and placed on ceftin. Improving. Home on 7 additional day ceftin. (5) Hyperchloremic metabolic acidosis Code(s): E87.2 - ACIDOSIS Status: Acute Plan: 2/2 renal failure. Currently on bicarb tab with little improvement. Home on bicarb tabs. Ultimately will need f/u with nephrology (6) Thyroid nodule Code(s): E04.1 - NONTOXIC SINGLE THYROID NODULE Status: Acute Plan: outpatient thyroid US recommended. (7) Tobacco abuse Code(s): Z72.0 - TOBACCO USE Status: Acute Plan: currently on nicotine patch. Plan to DC on nicotine patch. (8) Hyperlipidemia Code(s): E78.5 - HYPERLIPIDEMIA, UNSPECIFIED Status: Acute Qualifiers: Hyperlipidemia type: unspecified Qualified Code(s): E78.5 - Hyperlipidemia , unspecified (9) Hypertension Code(s): I10 - ESSENTIAL (PRIMARY) HYPERTENSION Status: Acute Qualifiers: Hypertension type: essential hypertension Qualified Code(s): I10 - Essential (primary) hypertension Plan: well controlled on home regimen.
[2017-08-29] MEDS: Cilostazol 100 MG TAB PO SCH ×2 (08:53→16:15)
[2017-08-29] MEDS: Carvedilol 25 MG TAB PO SCH ×2 (08:53→22:11)
[2017-08-29] MEDS: Sodium Bicarbonate Tab 325 MG TAB PO SCH ×3 (08:53→22:11)
[2017-08-29] MEDS: Cefuroxime Axetil 250 MG TAB PO SCH ×2 (08:53→22:10)
[2017-08-29] MEDS: Ferrous Sulfate 325 MG TAB PO SCH ×2 (08:53→16:15)
[2017-08-29] MEDS: cloNIDine 0.2 MG TAB PO SCH ×2 (08:54→22:10)
[2017-08-29] MEDS: Calcitriol 0.25 MCG CAP PO SCH (08:54)
[2017-08-29] MEDS: Amlodipine 10 MG TAB PO SCH (08:54)
[2017-08-29] MEDS: Furosemide 20 MG TAB PO SCH (08:54)
[2017-08-29] MEDS: Enoxaparin Sodium 30 MG/0.3 ML SYRINGE SC SCH (08:55)
--- NOTE | 2017-08-29 10:27 | PRG ---
DATE OF SERVICE: 08/29/2017 RENAL MEDICINE SUBJECTIVE: No new complaints today. Patient is ambulating, no worsening shortness of breath. OBJECTIVE: VITAL SIGNS: Blood pressure is 125/70, heart rate 65, respiratory rate 17, temperature 97.9, and pul se ox 94%. GENERAL: Awake, alert, ambulatory, comfortable, not in overt distress. SKIN: Adequate turgor. HEENT: She has slightly pale conjunctivae, anicteric sclerae. NECK: No neck mass, no carotid bruits, no JVD. CHEST: No deformities. LUNGS: Decreased breath sounds. Occasional basilar crackles. HEART: Normal sinus rhythm. No murmurs, gallops or rubs. ABDOMEN: Globular, soft, nontender, no masses. EXTREMITIES: Trace edema. MEDICATIONS: Of 08/29/2017 reviewed. LABORATORY DATA: Of 08/28/2017, white count 5.5, hemoglobin 9.1. 08/29/2017. Sodium 142, potassium 4.3, chloride 119, carbon dioxide 15, BUN 71, creatinine 3.85, GFR of 14 mL per minute. Calcium 7.7 . ASSESSMENT AND PLAN: 1. Acute kidney injury on top of her chronic renal failure - superimposed prerenal azotemia, slowly improving renal function. Lasix has been decreased to 20 mg tab once a day. Continue supportive car e. There is no indication for any dialytic intervention. I feel that she will equilibrate with her renal function. 2. Anemia - we will continue weekly Epogen. We will make arrangements as an outpatient. 3. Metabolic acidosis. Continue sodium bicarbonate 650 mg tab t.i.d. 4. Shortness of breath, multifactorial. 5. Possible chronic obstructive pulmonary disease with mild congestive heart failure. Continue low dose diuretics. I would suggest we continue DuoNeb at home. Agree with current management.
--- NOTE | 2017-08-29 12:15 | PDOC.EVN ---
Attending Addendum - Attending Addendum I personally evaluated the patient and discussed the management with Dr. Tinajero. I agree with the History, Examination, Assessment and Plan documented above with any addition or exceptions noted below. Patient doing well. She is ambulating at baseline with no shortness of breath. Will work to discharge patient home this morning. She has close follow up with Dr. Anderson on Wednesday and will consider SNF at the [facility] after that visit. She will also need follow up with her [employer] outpatient.
[2017-08-29] MEDS: Potassium Chloride 20 MEQ TAB PO SCH (12:17)
[2017-08-29] MEDS: Nicotine 14 MG PATCH TD SCH (18:52)
[2017-08-29] MEDS: Cyclobenzaprine 10 MG TAB PO SCH (22:09)
[2017-08-29] MEDS: hydrALAZINE 25 MG TAB PO SCH (22:10)
--- NOTE | 2017-08-29 23:40 | CON ---
DATE OF CONSULTATION: 08/29/2017 HISTORY OF PRESENT ILLNESS: The patient is a 77-year-old woman with a history of congestive heart fa ilure, who presented with increasing dyspnea. The patient has previous history of pacemaker placemen t. She has been admitted previously with diastolic heart failure. She also has chronic renal insuff iciency. Earlier this year, she was found to have a mild decreased left ventricular ejection fractio n 40-45%. She has been on medical therapy. She presented several days ago with increasing dyspnea a nd lower extremity swelling. The patient denied having any chest discomfort. PAST MEDICAL HISTORY: Significant for, 1. Congestive heart failure. 2. Hypertension. 3. Hyperlipidemia. 4. Diabetes mellitus. 5. Peripheral vascular disease. 6. Chronic renal failure. PAST SURGICAL HISTORY: She has had a left femoral popliteal bypass. She has had a hysterectomy, and thyroidectomy. SOCIAL HISTORY: Long history of tobacco abuse. FAMILY HISTORY: Positive family history of coronary artery disease. ALLERGIES: None. MEDICATIONS: See nursing list. REVIEW OF SYSTEMS: No bright red blood per rectum or hematuria. Ten-point system otherwise unremark able. PHYSICAL EXAMINATION: GENERAL: Elderly woman with a blood pressure of 125/73. NECK: Showed jugular venous distention. LUNGS: Few crackles in both bases. HEART: Regular rate and rhythm, normal S1, S2 with a 2/6 systolic murmur. ABDOMEN: Mildly distended. EXTREMITIES: Showed severe bilateral edema. SKIN: Warm and dry. NEUROLOGIC: Nonfocal. VASCULAR: Radial pulses are 2+. LABORATORY RESULTS: Sodium of 142, potassium 4.3, chloride 119, bicarbonate 19, BUN 71, creatinine 3 .85. Her white blood cell count is 5.5, hemoglobin 9.1, hematocrit 28.5 and her platelets were 172. Her EKG revealed an electronic ventricular pacemaker. IMPRESSION: 1. Congestive heart failure. 2. Cardiomyopathy. 3. Hypertension. 4. Diabetes mellitus. 5. Chronic renal failure. 6. Peripheral vascular disease. 7. History of pacemaker placement. This patient presents with worsening congestive heart failure. Her ejection fraction has significant ly decreased. The patient is on Coreg with her renal insufficiency. She is not on an PATRICIA inhibitor therapy, would recommend that the patient be started on BiDil or nitrates or Imdur or Isordil and hyd ralazine. The patient's prognosis is guarded. The patient has been highly advised to discontinue sm oking. We will follow this patient with you. We will obtain a LifeVest for this patient and follow her with you through her hospitalization placement in my office.
[2017-08-30 06:02] LABS: Anion Gap 13 mmol/L (10-20); BUN (Urea Nitrogen) 66 mg/dL (9.8-20.1); Calc. Creatinine Clearance 16 mL/min (70-130); Carbon Dioxide 17 mmol/L (23-31); Chloride 117 mmol/L (98-107); Estimated GFR-MDRD 14
--- NOTE | 2017-08-30 07:39 | PDOC.FM ---
- Subjective Subjective: The patient is improving significantly. She has no complaints this AM. She is breathing comfortably on room air with minimal cough. She denies any chest pain. - Objective MAR Reviewed: Yes Vital Signs & Weight: Vital Signs (12 hours) Temp Pulse Resp BP BP BP Pulse Ox 08/30/17 04:00 97.9 F 65 18 143/83 H 96 08/30/17 00:00 97.5 F L 65 18 146/78 H 94 L 08/29/17 22:10 65 120/73 08/29/17 21:05 97.5 F L 65 18 120/73 95 Weight Weight 86.545 kg I&O: 08/29/17 08/30/17 08/31/17 06:59 06:59 06:59 Intake Total 775 1220 Output Total 1150 1000 Balance -375 220 Result Diagrams: 08/28/17 05:26 08/30/17 04:48 <Pamella German - Last Filed: 08/30/17 07:37> - Objective Vital Signs & Weight: Vital Signs (12 hours) Temp Pulse Resp BP BP BP Pulse Ox 08/30/17 08:05 128/72 08/30/17 08:04 64 08/30/17 08:00 97.8 F 64 17 128/72 94 L 08/30/17 04:00 97.9 F 65 18 143/83 H 96 08/30/17 00:00 97.5 F L 65 18 146/78 H 94 L 08/29/17 22:10 65 120/73 Weight Weight 86.545 kg I&O: 08/29/17 08/30/17 08/31/17 06:59 06:59 06:59 Intake Total 775 1220 Output Total 1150 1000 Balance -375 220 Result Diagrams: 08/28/17 05:26 08/30/17 04:48 <Marek Elias - Last Filed: 08/30/17 10:06> Phys Exam - Physical Examination Constitutional: NAD HEENT: moist MMs Respiratory: no wheezing, no rales, no rhonchi, clear to auscultation bilateral Cardiovascular: RRR, no significant murmur, no rub Gastrointestinal: soft, non-tender, no distention, positive bowel sounds Musculoskeletal: edema present (1+ pitting edema to mid-calves) Neurological: non-focal, moves all 4 limbs Psychiatric: normal affect, A&O x 3 <Pamella German - Last Filed: 08/30/17 07:37> Dx/Plan (1) Acute respiratory failure with hypoxia Code(s): J96.01 - ACUTE RESPIRATORY FAILURE WITH HYPOXIA Status: Resolved Plan: This is 2/2 CHF exacerbation with BNP 9989.9. Patient currently has a 2L O2 requirement, satting 95-96%, patient not on oxygen at home. -Patient is now satting great on RA, will continue to monitor -Monitor on tele -Duonebs with patients h/o COPD -Lasix 20mg po for CHF (2) CHF exacerbation Code(s): I50.9 - HEART FAILURE, UNSPECIFIED Status: Acute QualifierTitle: Congestive heart failure type: combined Qualified Code(s) : I50.43 - Acute on chronic combined systolic (congestive) and diastolic ( congestive) heart failure Plan: Patient does not fluid restrict and has been having increased PND, LE edema -Dr. Estrada with Cards has been consulted, appreciate recs -Lasix has been decreased to 20mg PO due to patient's kidney function -O2 prn -Fluid restrict -Strict I/O's -Daily weights -Echo showed EF of 20-25%, patient is being evaluated for Life Vest and was started on Hydralazine (3) Hemoptysis Code(s): R04.2 - HEMOPTYSIS Status: Acute Plan: Patient has been having about 2 wks of hemoptysis. Has 50 pack year smoking history. This is likely 2/2 bronchitis This has improved. CT chest showed bilateral pleural effusions, mild patchy ground glass opacities -Pulmonology has been consulted, recommended Cefuroxime for bronchitis -Cefuroxime day 5 -Will monitor closely (4) Mvbtk-ew-okfbium kidney injury Code(s): N17.9 - ACUTE KIDNEY FAILURE, UNSPECIFIED; N18.9 - CHRONIC KIDNEY DISEASE, UNSPECIFIED Status: Chronic QualifierTitle: Acute renal failure type: unspecified Chronic kidney disease stage: stage 4 (severe) Qualified Code(s): N17.9 - Acute kidney failure, unspecified; N18.4 - Chronic kidney disease, stage 4 (severe); N18.4 - Chronic kidney disease, stage 4 (severe); N18.4 - Chronic kidney disease, stage 4 (severe); N18.4 - Chronic kidney disease, stage 4 (severe) Plan: This is likely 2/2 third spacing with fluid overload. Will fluid restrict patient 2/2 CHF exacerbation. -Monitor renal function closely. -Dr. Anderson with nephrology has been consulted -Decreased patient's lasix dose (5) Hyperchloremic metabolic acidosis Code(s): E87.2 - ACIDOSIS Status: Acute Plan: Non-anion gap metabolic acidosis. Likely 2/2 renal failure. Lactate normal. -Continue sodium bicarb (6) Confusion Code(s): R41.0 - DISORIENTATION, UNSPECIFIED Status: Resolved Plan: Patient was mildly confused initially with some sundowning, but this has improved. (7) Tobacco abuse Code(s): Z72.0 - TOBACCO USE Status: Acute Plan: 50 pack year smoking history -Nicoderm patch -Counseling (8) Hyperlipidemia Code(s): E78.5 - HYPERLIPIDEMIA, UNSPECIFIED Status: Acute QualifierTitle: Hyperlipidemia type: unspecified Qualified Code(s): E78.5 - Hyperlipidemia, unspecified Plan: Will continue rosuvastatin (9) Hypertension Code(s): I10 - ESSENTIAL (PRIMARY) HYPERTENSION Status: Acute QualifierTitle: Hypertension type: essential hypertension Qualified Code( s): I10 - Essential (primary) hypertension Plan: Will continue home meds and monitor (10) Thyroid nodule Code(s): E04.1 - NONTOXIC SINGLE THYROID NODULE Status: Acute Plan: 4.0 cm R thyroid lobe lesion seen on CT chest. Patient is asymptomatic and has no history of thyroid disease. -Will consider outpatient f/u for work-up of this lesion <Pamella German - Last Filed: 08/30/17 07:37> Attending Addendum - Attending Addendum I personally evaluated the patient and discussed the management with Dr. German. I agree with the History, Examination, Assessment and Plan documented above with any addition or exceptions noted below. Patient reports feeling well. Her edema is improved, she is breathing well, and has no evidence of volume overload. Echo shows worsening EF compared to previous. Awaiting Lifevest consultation. Consider discharge this afternoon after Lifevest if feeling well. <Marek Elias - Last Filed: 08/30/17 10:06>
[2017-08-30] MEDS: Sodium Bicarbonate Tab 325 MG TAB PO SCH ×3 (08:04→20:19)
[2017-08-30] MEDS: Cefuroxime Axetil 250 MG TAB PO SCH ×2 (08:04→20:17)
[2017-08-30] MEDS: Cilostazol 100 MG TAB PO SCH ×2 (08:04→16:54)
[2017-08-30] MEDS: Ferrous Sulfate 325 MG TAB PO SCH ×2 (08:04→16:54)
[2017-08-30] MEDS: hydrALAZINE 25 MG TAB PO SCH ×3 (08:04→20:19)
[2017-08-30] MEDS: Carvedilol 25 MG TAB PO SCH ×2 (08:05→20:18)
[2017-08-30] MEDS: Aspirin 81 mg Enteric Coated Tablet PO SCH (08:05)
[2017-08-30] MEDS: cloNIDine 0.2 MG TAB PO SCH ×2 (08:05→20:17)
[2017-08-30] MEDS: Furosemide 20 MG TAB PO SCH (08:05)
[2017-08-30] MEDS: Calcitriol 0.25 MCG CAP PO SCH (08:05)
[2017-08-30] MEDS: Famotidine 20 MG TAB PO SCH (08:06)
[2017-08-30] MEDS: Enoxaparin Sodium 30 MG/0.3 ML SYRINGE SC SCH (08:06)
[2017-08-30] MEDS ORDERED: guaiFENesin 100 MG/5 ML UDCUP PO PRN (10:05)
[2017-08-30] MEDS ORDERED: Furosemide 20 MG/2 ML VIAL SLOW IVP SCH (10:15)
[2017-08-30] MEDS: Potassium Chloride 20 MEQ TAB PO SCH (11:15)
[2017-08-30] MEDS ORDERED: Diabetic Tussin 200 MG/10 ML UDCUP PO PRN (11:19)
--- NOTE | 2017-08-30 15:59 | PRG ---
DATE OF SERVICE: 08/30/2017 SUBJECTIVE: Ms. Maya is a 77-year-old female with acute kidney injury on top of her chronic renal failure. She was seen by Cardiology. Her . She has had decreased EF. She denies any new com plaints today. She is on a low dose diuretic. OBJECTIVE: VITAL SIGNS: Blood pressure is (00:32). GENERAL: She is not in distress. SKIN: Adequate turgor. HEENT: Pinkish conjunctivae, anicteric sclerae. NECK: , no carotid bruits, no JVD. CHEST: No deformities. LUNGS: Decreased breath sounds. HEART: Normal sinus rhythm. No murmur, no gallops, no rubs. ABDOMEN: Globular, soft, nontender. No masses. EXTREMITIES: Positive for edema. MEDICATIONS: Medications of 08/30/2017 was reviewed. LABORATORY DATA: Laboratories of 08/30/2017, sodium of 142, potassium 4.5, chloride 117, carbon diox earl 17, BUN , GFR 14 mL per minute. Calcium is 8.0. ASSESSMENT AND PLAN: 1. Acute kidney injury/chronic renal failure, stable renal function. Continue low dose diuretics. No indication for any dialytic intervention. 2. Decreased EF/congestive heart failure. Cardiology following. Lipase is recommended. 3. Anemia. . Continue Epogen. Overall, agree with current management.
[2017-08-30] MEDS: Cyclobenzaprine 10 MG TAB PO SCH (20:17)
[2017-08-30] MEDS: Nicotine 14 MG PATCH TD SCH (20:20)
[2017-08-31 05:32] LABS: #Eosinphils 0.1 thou/uL (0.0-0.7); #Lymphocytes 1.4 thou/uL (1.20-3.40); #Monocytes 0.5 thou/uL (0.11-0.59); #Neutrophils 2.8 thou/uL (1.40-6.50); %Basophils 0.9 % (0.0-1.0); %Eosinophils 1.3 % (0.0-10.0); %Lymphocytes 29.3 % (21.0-51.0); %Monocytes 11.1 % (0.0-10.0); Hematocrit 28.3 % (36.0-47.0); Mean Platelet Volume 7.7 fL (7.4-10.4); Red Blood Cell (RBC) Count 2.86 mill/uL (4.20-5.40); White Blood Cell (WBC) Count 4.8 thou/uL (4.8-10.8)
[2017-08-31 05:56] LABS: Anion Gap 12 mmol/L (10-20); BUN (Urea Nitrogen) 61 mg/dL (9.8-20.1); Calc. Creatinine Clearance 18 mL/min (70-130); Carbon Dioxide 17 mmol/L (23-31); Chloride 116 mmol/L (98-107); Estimated GFR-MDRD 14
--- NOTE | 2017-08-31 08:05 | PRG ---
DATE OF SERVICE: 08/31/2017 SUBJECTIVE: The patient has no new complaints. She denies any chest pain or shortness of breath. S he tells me she is feeling better. She has been evaluated by Cardiology and we are awaiting for a Li feVest ?. PHYSICAL EXAMINATION: VITAL SIGNS: Blood pressure is 148/88, heart rate 65, respiratory rate 18, temperature 97.8, pulse o x 97%. GENERAL: Noted to be awake, supine, comfortable, not in distress. SKIN: Adequate turgor. HEENT: Slightly pale conjunctivae, anicteric sclerae. NECK: No neck mass, no carotid bruits, no JVD. CHEST: No deformities. LUNGS: Decreased breath sounds. HEART: Normal sinus rhythm. No murmur, no gallops, no rubs. ABDOMEN: Globular, soft, nontender, no masses. EXTREMITIES: Trace edema. MEDICATIONS: 08/31/2017 - Reviewed. LABORATORY: 08/31/2017 - White count 4.8, hemoglobin 9.1, sodium 140, potassium 4.5, chloride 116, c arbon dioxide 17, BUN 61, creatinine 3.67. Calcium 8.0. ASSESSMENT AND PLAN: 1. Congestive heart failure/shortness of breath - decreased ejection fraction. Cardiology is follow ing. Awaiting for LifeVest. In addition, symptoms are much improved. She is currently on low dose diuretics. She seems to be tolerating this from the renal point of view. 2. Acute kidney injury/chronic renal failure, stabilizing renal function. Creatinine of 3.67, sligh tly improved from a peak of 4.23 mg percent. Her GFR is noted at 14 mL per minute. There is no seymour cation for any dialytic intervention. Continue current management. Hopefully the renal function peace l further improve over time. Continue current diuretic regimen. 3. Anemia - continuing weekly Epogen and iron supplementation, p.r.n. blood transfusion. Agree with current management, recheck basic metabolic panel and CBC in a.m.
--- NOTE | 2017-08-31 08:25 | PDOC.FM ---
- Subjective Subjective: Patient doing well this AM. She was resting comfortably on RA. She denies any complaints. She reports that she got up and moved around her room a lot yesterday. She has some swelling in her legs, but thinks it's a little better than yesterday. She is tolerating PO well and having regular BM's. - Objective MAR Reviewed: Yes Vital Signs & Weight: Vital Signs (12 hours) Temp Pulse Resp BP Pulse Ox 08/31/17 08:00 98.0 F 65 16 131/70 95 08/31/17 04:00 97.8 F 65 18 148/88 H 97 Weight Weight 87.861 kg I&O: 08/30/17 08/31/17 09/01/17 06:59 06:59 06:59 Intake Total 1220 1180 Output Total 1000 700 Balance 220 480 Result Diagrams: 08/31/17 05:06 08/31/17 05:06 <Pamella German - Last Filed: 08/31/17 08:23> - Objective Vital Signs & Weight: Vital Signs (12 hours) Temp Pulse Resp BP Pulse Ox 08/31/17 08:29 65 08/31/17 08:00 98.0 F 65 16 131/70 95 08/31/17 04:00 97.8 F 65 18 148/88 H 97 Weight Weight 87.861 kg I&O: 08/30/17 08/31/17 09/01/17 06:59 06:59 06:59 Intake Total 1220 1180 Output Total 1000 700 Balance 220 480 Result Diagrams: 08/31/17 05:06 08/31/17 05:06 <Marek Elias - Last Filed: 08/31/17 10:49> Phys Exam - Physical Examination Constitutional: NAD HEENT: moist MMs Respiratory: no wheezing, no rales, no rhonchi, clear to auscultation bilateral Cardiovascular: RRR, no significant murmur, no rub Gastrointestinal: soft, non-tender, no distention, positive bowel sounds Musculoskeletal: pulses present, edema present (1+ pitting edema to bilateral mid calves) Neurological: non-focal, moves all 4 limbs Psychiatric: normal affect, A&O x 3 <Pamella German - Last Filed: 08/31/17 08:23> Dx/Plan (1) Acute respiratory failure with hypoxia Code(s): J96.01 - ACUTE RESPIRATORY FAILURE WITH HYPOXIA Status: Resolved Plan: This is 2/2 CHF exacerbation with BNP 9989.9. Patient currently has a 2L O2 requirement, satting 95-96%, patient not on oxygen at home. -Patient is now satting great on RA, will continue to monitor -Monitor on tele -Duonebs with patients h/o COPD -Lasix 20mg po for CHF (2) CHF exacerbation Code(s): I50.9 - HEART FAILURE, UNSPECIFIED Status: Acute QualifierTitle: Congestive heart failure type: combined Qualified Code(s) : I50.43 - Acute on chronic combined systolic (congestive) and diastolic ( congestive) heart failure Plan: Patient does not fluid restrict and has been having increased PND, LE edema -Dr. Estrada with Cards has been consulted, appreciate recs -Lasix has been decreased to 20mg PO due to patient's kidney function -Fluid restrict -Strict I/O's -Daily weights -Echo showed EF of 20-25%, patient is being evaluated for Life Vest and was started on Hydralazine (3) Hemoptysis Code(s): R04.2 - HEMOPTYSIS Status: Acute Plan: Patient has been having about 2 wks of hemoptysis. Has 50 pack year smoking history. This is likely 2/2 bronchitis This has improved. CT chest showed bilateral pleural effusions, mild patchy ground glass opacities -Pulmonology has been consulted, recommended Cefuroxime for bronchitis -Cefuroxime day 6 -Will monitor closely (4) Hhays-ex-qgpmkro kidney injury Code(s): N17.9 - ACUTE KIDNEY FAILURE, UNSPECIFIED; N18.9 - CHRONIC KIDNEY DISEASE, UNSPECIFIED Status: Chronic QualifierTitle: Acute renal failure type: unspecified Chronic kidney disease stage: stage 4 (severe) Qualified Code(s): N17.9 - Acute kidney failure, unspecified; N18.4 - Chronic kidney disease, stage 4 (severe); N18.4 - Chronic kidney disease, stage 4 (severe); N18.4 - Chronic kidney disease, stage 4 (severe); N18.4 - Chronic kidney disease, stage 4 (severe) Plan: This is likely 2/2 third spacing with fluid overload. Will fluid restrict patient 2/2 CHF exacerbation. -Monitor renal function closely. -Dr. Anderson with nephrology has been consulted -Decreased patient's home lasix dose to 20mg daily (5) Hyperchloremic metabolic acidosis Code(s): E87.2 - ACIDOSIS Status: Acute Plan: Non-anion gap metabolic acidosis. Likely 2/2 renal failure. Lactate normal. -Continue sodium bicarb (6) Confusion Code(s): R41.0 - DISORIENTATION, UNSPECIFIED Status: Resolved Plan: Patient was mildly confused initially with some sundowning, but this has improved. (7) Tobacco abuse Code(s): Z72.0 - TOBACCO USE Status: Acute Plan: 50 pack year smoking history -Nicoderm patch -Counseling (8) Hyperlipidemia Code(s): E78.5 - HYPERLIPIDEMIA, UNSPECIFIED Status: Acute QualifierTitle: Hyperlipidemia type: unspecified Qualified Code(s): E78.5 - Hyperlipidemia, unspecified Plan: Will continue rosuvastatin (9) Hypertension Code(s): I10 - ESSENTIAL (PRIMARY) HYPERTENSION Status: Acute QualifierTitle: Hypertension type: essential hypertension Qualified Code( s): I10 - Essential (primary) hypertension Plan: Will continue home meds and monitor (10) Thyroid nodule Code(s): E04.1 - NONTOXIC SINGLE THYROID NODULE Status: Acute Plan: 4.0 cm R thyroid lobe lesion seen on CT chest. Patient is asymptomatic and has no history of thyroid disease. -Will consider outpatient f/u for work-up of this lesion - Plan Plan: d/c home after getting LifeVest <Pamella German - Last Filed: 08/31/17 08:23> Attending Addendum - Attending Addendum I personally evaluated the patient and discussed the management with Dr. German. I agree with the History, Examination, Assessment and Plan documented above with any addition or exceptions noted below. Patient feels well and has had no clinical change in 48 hours. We have been waiting for discharge due to LifeVest rep not having seen patient. Once they have seen patient today, she is stable for discharge home. <Marek Elias - Last Filed: 08/31/17 10:49>
[2017-08-31] MEDS: Ferrous Sulfate 325 MG TAB PO SCH (08:29)
[2017-08-31] MEDS: Cefuroxime Axetil 250 MG TAB PO SCH (08:29)
[2017-08-31] MEDS: Furosemide 20 MG TAB PO SCH (08:29)
[2017-08-31] MEDS: Sodium Bicarbonate Tab 325 MG TAB PO SCH ×2 (08:29→14:42)
[2017-08-31] MEDS: Aspirin 81 mg Enteric Coated Tablet PO SCH (08:29)
[2017-08-31] MEDS: Calcitriol 0.25 MCG CAP PO SCH (08:29)
[2017-08-31] MEDS: Carvedilol 25 MG TAB PO SCH (08:29)
[2017-08-31] MEDS: cloNIDine 0.2 MG TAB PO SCH (08:29)
[2017-08-31] MEDS: Cilostazol 100 MG TAB PO SCH (08:29)
[2017-08-31] MEDS: hydrALAZINE 25 MG TAB PO SCH ×2 (08:29→14:42)
[2017-08-31] MEDS: Enoxaparin Sodium 30 MG/0.3 ML SYRINGE SC SCH (08:30)
--- NOTE | 2017-08-31 11:42 | PRG ---
DATE OF SERVICE: 08/31/2017 No further hemoptysis. No shortness of breath. Coughing has improved. PHYSICAL EXAMINATION: VITAL SIGNS: Blood pressure is 130/70, sats 90%, temperature is 98, pulse 69. CHEST: Chest revealed no wheezing. CARDIAC: Normal S1, S2, no gallops. ABDOMEN: Soft, no masses. LABORATORY: White count 4000, H&H 9 and 28, platelet count 176, creatinine 3.6. IMPRESSION: 1. Congestive heart failure. 2. Chronic renal failure. 3. Bronchitis. 4. Hemoptysis, stable. PLAN: From a pulmonary standpoint of view she will be discharged home anytime, probably will follow at a distance.
[2017-08-31] MEDS: Potassium Chloride 20 MEQ TAB PO SCH (13:00)
[2017-08-31 16:39] VITALS: BP 132/69; TEMP 97.8
--- NOTE | 2017-09-01 11:55 | DIS-2 ---
DATE OF ADMISSION: 08/25/2017 DATE OF DISCHARGE: 08/31/2017 ADMITTING RESIDENT: Phillip Orlando MD DISCHARGE RESIDENT: Pamella German MD ADMITTING ATTENDING: Marek Elias MD DISCHARGE ATTENDING: Marek Elias MD CONSULTATIONS: Dr. Anderson with Nephrology, Dr. Gary with Pulmonology, and Dr. Estrada with Cardiology . PROCEDURES: None. IMAGIN. Chest x-ray, findings suspicious for congestive heart failure. 2. Echocardiogram, ejection fraction 20% to 25% with mildly dilated left atrium, severe mitral regur gitation, moderate aortic regurgitation, moderate to severe tricuspid regurgitation. 3. Chest CT showed cardiomegaly, bilateral pleural effusions, right greater than left, mild patchy g round-glass opacities, 4.0 cm right thyroid lobe lesion. PRIMARY DIAGNOSES: 1. Acute hypoxic respiratory failure. 2. Systolic congestive heart failure exacerbation. 3. Acute kidney injury on chronic kidney disease, stage 4. 4. Elevated troponins. 5. Hyperchloremic metabolic acidosis. 6. Acute bronchitis. SECONDARY DIAGNOSES: 1. Tobacco abuse. 2. Hyperlipidemia. 3. Hypertension. 4. Thyroid nodule. DISCHARGE MEDICATIONS: 1. Amlodipine 10 mg p.o. daily. 2. Aspirin 81 mg p.o. daily. 3. Calcitriol 0.25 mcg p.o. daily. 4. Carvedilol 12.5 mg p.o. b.i.d. 5. Cefuroxime 250 mg p.o. q.12 hours for 7 days. 6. Cilostazol 100 mg p.o. b.i.d. 7. Clonidine 0.2 mg p.o. b.i.d. 8. Flexeril 5 mg p.o. at bedtime. 9. Procrit 7500 units subcu q.7 days. 10. Ferrous sulfate 325 mg p.o. b.i.d. with meals. 11. Lasix 20 mg p.o. daily. 12. Hydralazine 25 mg p.o. t.i.d. 13. Isosorbide mononitrate 60 mg p.o. daily. 14. Nicotine 14 mg transdermal daily. 15. Potassium chloride 20 mEq p.o. daily. 16. Ranitidine 150 mg p.o. b.i.d. 17. Rosuvastatin 20 mg p.o. at bedtime. 18. Sodium bicarbonate 650 mg p.o. t.i.d. 19. Tramadol 100 mg p.o. daily p.r.n. pain. DISCONTINUED MEDICATIONS: None. HISTORY OF PRESENT ILLNESS AND HOSPITAL COURSE: This is a 77-year-old female, who presented in acute hypoxic respiratory failure, initially requiring 2 liters of oxygen and with gross hemoptysis, who w as found to be in an acute congestive heart failure exacerbation with significant volume overload on chest x-ray as well as lower extremity edema. The patient had an elevated BNP at 9989.9. The patien t received IV Lasix and her swelling and breathing status improved. The patient continued to have th giorgio episodes of hemoptysis and Dr. Castillo was consulted with Pulmonology and stated that this was likel y bronchitis. The patient has had episodes of this before and he prescribed cefuroxime for this. Th e patient's hemoptysis improved through course of her hospitalization. The patient was able to be we aned off of oxygen and her breathing status improved. So, the patient's Lasix dose was decreased. S he had a significant kidney injury with a GFR in the 13-14 range and creatinine around 4. Initially on admission, this is worsened from her baseline. Dr. Anderson was consulted with Nephrology and he recom mended that there was no need for dialysis at this time, but recommended decreasing the Lasix dose as tolerated and started the patient on sodium bicarbonate and decrease the nephrotoxic agents patient was on. The patient's kidney function was improved slightly and stabilized, so she remained on 20 mg p.o. Lasix status and will be monitored, but will likely eventually need to be put on dialysis as the patient's heart failures are significant and she will eventually be in a state of volume over load and will need more Lasix, or her kidney function will get worse. The patient's echo showed that her ejection fraction was 20% to 25%, and so the patient was evaluated for a LifeVest and was approv ed for this and she was discharged with a LifeVest. The patient sees Dr. Liz, who is her cardiologi st and will follow up with her outpatient regarding this. DISPOSITION: Stable. DISCHARGE INSTRUCTIONS: 1. Location: Home. 2. Diet: Heart healthy, renal diet with 1500 mL of fluid restriction. 3. Activity: As tolerated. 4. Follow up with Dr. Ng within 1 week. 5. Follow up with Dr. Anderson within 1 month. 6. Follow up with Dr. Castillo within 1 month. 7. Follow up with cardiac rehabilitation.
== END 2017-08-31 15:20 | disposition home or self-care (01) | DRG 291 ==
LOC: ERS 09:55 → ERHOLD 13:00 → 2NO 17:06
PROVIDERS: ADMIT Student in an Organized Health Care Education/Training Program; ATTEND Student in an Organized Health Care Education/Training Program
DX: I13.0 Hypertensive heart and chronic kidney disease with heart failure and stage 1 through stage 4 chronic kidney disease, or unspecified chronic kidney disease (principal); J96.01 Acute respiratory failure with hypoxia; E87.2 Acidosis; N17.9 Acute kidney failure, unspecified; N18.4 Chronic kidney disease, stage 4 (severe); E11.9 Type 2 diabetes mellitus without complications; D63.1 Anemia in chronic kidney disease; I50.43 Acute on chronic combined systolic (congestive) and diastolic (congestive) heart failure; R04.2 Hemoptysis; F05 Delirium due to known physiological condition; I42.9 Cardiomyopathy, unspecified; E78.5 Hyperlipidemia, unspecified; F17.210 Nicotine dependence, cigarettes, uncomplicated; I25.10 Atherosclerotic heart disease of native coronary artery without angina pectoris; I25.2 Old myocardial infarction; N39.41 Urge incontinence; I73.9 Peripheral vascular disease, unspecified; Z95.0 Presence of cardiac pacemaker; J40 Bronchitis, not specified as acute or chronic; E04.1 Nontoxic single thyroid nodule
CPT/HCPCS: 36415; 36416; 51702; 71010; 71250; 80048; 80053; 80306; 81003; 81015; 82550; 82553; 82607; 82747; 83036; 83605; 83880; 84443; 84484; 85025; 90471; 90682; 93005; 93306; 93798; 94640; 96374; 96376; A4216; G0008; G8978-GP-CM; G8979-GP-CK; G8987-GO-CJ; G8988-GO-CI; J1650; J1940; J7620; Q2036; Q4081

== ENCOUNTER 2017-09-05 22:41 | Inpatient (IN) | payer MEDICARE, OTHER ==
[2017-09-05] MEDS ORDERED: Furosemide 40 MG/4 ML VIAL ONE (22:56)
[2017-09-05] MEDS ORDERED: Nitroglycerin 50 MG/250 ML BOT 250 ML ONE (23:03)
[2017-09-05 23:07] LABS: Actual Bicarbonate (HCO3a) 15.5 mEq/L (22-26); Base Excess (BEa) -8.8 mEq/L (0 (+/-) 2.5); CO2 Tension 27.7 mmHg (35.0-45.0); Calcium, Ionized 1.2 mmol/L (1.12-1.30); Hematocrit-ABG 28.5 % (36.0-47.0); O2 Tension (PaO2) 54.5 mmHg (80.0-100.0); pH, Arterial 7.37 (7.35-7.45)
[2017-09-05 23:08] LABS: Analyzer IN Cardio ER; Puncture Site RR
[2017-09-05 23:09] LABS: ALV-art Gradient 345.875 (0-20)
--- NOTE | 2017-09-05 23:12 | RAD ---
AP VIEW OF THE CHEST: INDICATIONS: History of dyspnea, CHF, and atrial fibrillation. COMPARISON: 08/25/2017 FINDINGS: There is cardiomegaly and mild pulmonary vascular congestion. There is prominent air space opacity o f the right lower lobe, which is suspicious for pneumonia. There are small bilateral pleural effusio ns. There are scattered vascular calcifications seen within the upper extremities, as well as within the thoracic aorta. There is a dual-lead pacemaker overlying the left chest wall. There are areas of prominent osteoarthritic changes of both glenohumeral joints. IMPRESSION: 1. Prominent air space opacity in the right lower lobe is most suspicious for pneumonia. 2. There is suspicion for mild congestive heart failure. There is cardiomegaly, pulmonary vascular congestion, and small bilateral pleural effusions. POS: [facility]
[2017-09-05 23:18] LABS: Hemoglobin 10.7 g/dL (12.0-16.0); Mean Corpuscular Hemoglobin 31.2 pg (27.0-31.0); Mean Platelet Volume 7.8 fL (7.4-10.4); Platelet Count 206 thou/uL (130-400); RBC Distribution Width 15.4 % (11.5-14.5); Red Blood Cell (RBC) Count 3.43 mill/uL (4.20-5.40); White Blood Cell (WBC) Count 11.7 thou/uL (4.8-10.8)
[2017-09-05] MEDS ORDERED: Cefepime 2 GM/10 ML SYR ONE (23:22)
[2017-09-05 23:25] LABS: Bilirubin Negative (Negative); Blood, Urine Small (Negative); Clarity TURBID (Clear); Glucose, Urine (Dipstick) Negative (Negative); Leukocyte Negative (Negative); Nitrite Negative (Negative); Protein, Urine (Dipstick) > or equal to 300 mg/dL (Neg-Trace); Specific Gravity, Urine 1.025 (1.002-1.036); Urobilinogen 0.2 mg/dL (0.2-1.0); pH, Urine 5.5 (5.0-9.0)
[2017-09-05 23:27] LABS: ALT (SGPT) 33 U/L (8-55); AST (SGOT) 19 U/L (5-34); Albumin 3.1 g/dL (3.4-4.8); Alkaline Phosphatase 73 U/L (40-150); Anion Gap 13 mmol/L (10-20); BUN (Urea Nitrogen) 51 mg/dL (9.8-20.1); Bilirubin, Total 0.4 mg/dL (0.2-1.2); Calc. Creatinine Clearance 0 mL/min (70-130); Calcium 8.6 mg/dL (7.8-10.44); Carbon Dioxide 16 mmol/L (23-31); Chloride 117 mmol/L (98-107); Estimated GFR-MDRD 15; Globulin 3.3 g/dL (2.4-3.5); Glucose 146 mg/dL (83-110); Potassium 4.2 mmol/L (3.5-5.1); Protein, Total 6.4 g/dL (6.0-8.3); Sodium 142 mmol/L (136-145)
[2017-09-05 23:27] LABS: Bacteria/HPF None Seen HPF (None Seen); WBC/HPF 0-3 HPF (0-3)
[2017-09-05 23:28] LABS: Pathc Cast-AUWi Flag 4.49 (0-2.49); Yeast-AUWi Flag 41.8 (0-25.0)
[2017-09-05 23:32] LABS: CKMB 4.6 ng/mL (0-6.6); Troponin I 0.099 ng/mL (< 0.028)
[2017-09-05 23:36] LABS: Hyaline Casts/LPF 0-3 HYALINE CAST LPF (0-3 Hyaline)
[2017-09-05 23:42] LABS: Band 11 % (5-11); Lymphocytes 10 % (21-51); MDiff Complete? YES; Manual Diff?? YES; Monocytes 7 % (0-10); Neutrophil 71 % (42-75)
[2017-09-05 23:43] LABS: Anisocytosis SLIGHT = 6-15 cells (100X) (0-5/hpf)
[2017-09-05 23:44] LABS: Macrocytosis SLIGHT = 6-15 cells (100X) (0-5/hpf); Polychromasia SLIGHT = 2-3 cells (100X) (0-2/hpf)
[2017-09-05 23:45] LABS: Ovalocytes SLIGHT = 2-5 cells (100X) (0-1/hpf); Schistocytes SLIGHT = 2-5 cells (100X) (0-1/hpf)
[2017-09-05] MEDS ORDERED: Vancomycin HCl 750 MG in Sodium Chloride 0.9% 250 ML 250 ML IVPB SCH (23:45)
[2017-09-05 23:46] LABS: PLT Morphology Comment Appears Adequate; Target Cells SLIGHT = 2-5 cells (100X) (0-1/hpf)
[2017-09-06] MEDS ORDERED: Ondansetron HCl/PF 4 MG/2 ML Vial IVP PRN (02:13)
[2017-09-06] MEDS ORDERED: Ondansetron ODT 4 MG TAB SL PRN (02:13)
[2017-09-06] MEDS ORDERED: traMADol HCl 50 MG TAB PO PRN (02:21)
[2017-09-06] MEDS ORDERED: Cefepime 2 GM in Sodium Chloride 0.9% 100 ML IVPB SCH ×2 (02:26→23:00)
[2017-09-06] MEDS ORDERED: Acetaminophen 325 MG TAB PO PRN (02:26)
[2017-09-06] MEDS ORDERED: Gentamicin 80 MG/2 ML VIAL IVPB SCH (02:26)
[2017-09-06 04:51] LABS: CKMB 3.8 ng/mL (0-6.6); Troponin I 0.088 ng/mL (< 0.028)
[2017-09-06 04:52] LABS: Anion Gap 16 mmol/L (10-20); BUN (Urea Nitrogen) 52 mg/dL (9.8-20.1); Calc. Creatinine Clearance 19 mL/min (70-130); Calcium 8.1 mg/dL (7.8-10.44); Carbon Dioxide 12 mmol/L (23-31); Chloride 121 mmol/L (98-107); Estimated GFR-MDRD 16; Glucose 103 mg/dL (83-110); Potassium 4.2 mmol/L (3.5-5.1); Sodium 145 mmol/L (136-145)
[2017-09-06 04:54] LABS: Band 10 % (5-11); Hemoglobin 10.1 g/dL (12.0-16.0); Lymphocytes 10 % (21-51); MDiff Complete? YES; Mean Corpuscular HGB CONC 31.9 g/dL (32.0-36.0); Mean Corpuscular Hemoglobin 31.5 pg (27.0-31.0); Mean Corpuscular Volume 98.8 fl (81.0-99.0); Mean Platelet Volume 8.8 fL (7.4-10.4); Monocytes 6 % (0-10); Neutrophil 74 % (42-75); PLT Morphology Comment Appears Decreased; Platelet Count 126 thou/uL (130-400); RBC Distribution Width 15.3 % (11.5-14.5); Red Blood Cell (RBC) Count 3.22 mill/uL (4.20-5.40); White Blood Cell (WBC) Count 10.5 thou/uL (4.8-10.8)
[2017-09-06] MEDS ORDERED: Furosemide 40 MG/4 ML VIAL SLOW IVP SCH (06:00)
[2017-09-06] MEDS: Cilostazol 100 MG TAB PO SCH ×2 (06:27→16:37)
--- NOTE | 2017-09-06 07:03 | HP-2 ---
CODE STATUS: FULL. PRIMARY CARE PHYSICIAN: Dr. Kelly at [facility] ATTENDING PHYSICIAN: Dr. Otis Mitchell RESIDENT: Dr. Shelley Goddard HISTORIAN: Patient. CHIEF COMPLAINT: Shortness of breath. HISTORY OF PRESENT ILLNESS: The patient is a 77-year-old female with recent admission for a congestive heart failure exacerbation, ejection fraction of 20- 25%, presented via EMS for shortness of breath. She was found to have an O2 sat in the 70s upon EMS arrival. Patient reports difficulty breathing for 3 to 4 days associated with worsening cough. The patient denies fever and ill contacts. The patient reports increased leg swelling over the past 3-4 days. The patient was discharged home with fluid restriction and has not been compliant. The patient denies chest pain at this time. Patient is supposed to be wearing lifevest but does not have it with her. In the ER was given DuoNebs, cefepime, gentamicin, vancomycin and 40 mg IV Lasix and placed on a nitro drip. PAST MEDICAL HISTORY: 1. Coronary artery disease. 2. Systolic congestive heart failure with ejection fraction of 20-25% in 2016. 3. Hypertension. 4. Atrial fibrillation. 5. Hyperlipidemia. 6. Chronic kidney disease stage 4. 7. Thyroid nodule. PAST SURGICAL HISTORY: 1. Hysterectomy. 2. Thyroidectomy. 3. Surgery on a vein in her left leg. ALLERGIES: No known drug allergies. MEDICATIONS: 1. Amlodipine 10 mg daily. 2. Aspirin 81 mg. 3. Calcitriol 0.25 mcg daily. 4. Carvedilol 12.5 mg b.i.d. 5. Cefuroxime 250 mg b.i.d. 6. Danazol 100 mg b.i.d. 7. Clonidine 0.2 mg b.i.d. 8. Flexeril 5 mg p.o. 9. Procrit 7500 mg subcu q. 7 days. 10. Ferrous sulfate 325 mg b.i.d. 11. Lasix 20 mg daily. 12. Hydralazine 25 mg t.i.d. 13. Isosorbide mononitrate 60 mg daily. 14. Nicotine 14 mg transdermal patch daily. 15. Potassium chloride 20 mEq daily. 16. Ranitidine 150 mg b.i.d. 17. Rosuvastatin 20 mg daily. 18. Sodium bicarbonate 650 mg t.i.d. 19. Tramadol 100 mg p.r.n. SOCIAL HISTORY: The patient was a smoker, smoking a half pack for greater than 10 years, but quit 10 days ago with recent hospital discharge. Denies alcohol and drug use. The patient lives at home alone, does have home health that comes and sees her. REVIEW OF SYSTEMS: GENERAL: Patient denies fever or chills. Does report increased weight gain. No night sweats. EYES: No vision changes. ENT: Denies nasal congestion, rhinorrhea. RESPIRATORY: Reports cough, no congestion. Does report shortness of breath. CARDIOVASCULAR: Denies chest pain, palpitations. Reports edema and orthopnea. GI: Denies nausea, vomiting, diarrhea, constipation, abdominal pain. GENITOURINARY: Denies dysuria and polyuria. SKIN: Denies rashes. MUSCULOSKELETAL: Denies pain. NEURO: Denies weakness. PSYCHIATRIC: Denies anxiety or depression. PHYSICAL EXAMINATION: VITAL SIGNS: Blood pressure 131/66, pulse 67, respiratory rate 32, T-max 100.2 , pulse ox 98% on BiPAP, current weight 89.37 kilograms. GENERAL: The patient is alert and oriented x4 and on the BiPAP, does have a little bit of increased work of breathing, but in no acute distress, obese, and appropriately interactive. HEENT: EOMI. ENT: Did not examine mouth. The patient is on BiPAP. CARDIAC: Regular rate and rhythm. No murmurs, but does have distant heart sounds. RESPIRATORY: Increased effort, no retractions. Coarse sounding breath sounds that appear wet. SKIN: Warm and dry. ABDOMEN: Soft, nontender with hypoactive bowel sounds. The patient does have mild erythema under pannus. EXTREMITIES: 2+ pitting edema in bilateral lower extremities. MUSCULOSKELETAL: Structure within normal limits. Tone within normal limits. NEUROLOGIC: No focal deficits. GCS 15. PSYCHIATRIC: Appropriate. LABORATORY DATA: CBC; white blood cell count 11.7, hemoglobin 10.7, hematocrit 34.6, platelets 206, MCV 101, 11% bands, 71% neutrophils. Chemistry: Sodium 142, potassium 4.2, chloride 117, CO2 16, BUN 51, creatinine 3.53, glucose 146, GFR 15, calcium 8.6, total protein 6.4, albumin 3.1, AST 19, ALT 33, alkaline phosphatase 73, total bilirubin 0.4. Troponin 0.099. BNP is 8419. Lactic acid 1.7. UA; specific gravity 1.025, blood small, protein greater than or equal to 300, leukocyte esterase negative, nitrate negative, ketones negative, glucose negative, red blood cells 7-10, white blood cells 0-3, bacteria none, squamous 11-20. ABG; pH 7.37, pCO2 of 27.7, PaO2 54.5, bicarb 15.5. EKG with T-wave inversion in lead V1 through V6, paced rhythm, does have prolonged QT at 502. Chest x-ray reveals a right lower lobe airspace opacity consistent with pneumonia, mild CHF findings with bilateral pleural effusion. ASSESSMENT AND PLAN: 1. Acute hypoxic respiratory failure secondary to hospital acquired pneumonia and compounded by congestive heart failure exacerbation. We will continue broad spectrum antibiotics for hospital acquired pneumonia, gentamicin, cefepime and vancomycin. Blood cultures are pending. We will also get a respiratory viral panel, Tylenol for fever. DuCyrilbs p.r.n. Repeat ABG in 4-6 hours, place on BiPAP and admit to the ICU. The patient will receive IV Lasix. Strict I's and O's, daily weights, and fluid restriction for congestive heart failure exacerbation, oxygen as needed. The patient does have baseline oxygen requirement of 1 liter at night. 2. Systolic congestive heart failure. Last echo was 20-25% this past month. We will continue home medication and increase the Lasix dose currently at 20 mg daily p.o. We will do 40 mg IV Lasix b.i.d. for now and discharged home on increased Lasix dose. 3. Increased troponins. The patient's lowest troponin levels since last year according to records. We will continue to trend these, but likely at baseline. 4. Hypertension. The patient was placed on a nitro drip in the ED for congestive heart failure exacerbation. We will discontinue the nitro drip and slowly start back on home hypertensive medications. Blood pressure is stable at this time. 5. Chronic kidney disease, stage 4. The patient at baseline. We will renally dose meds. 6. Coronary artery disease. We will repeat the EKG and trend the troponins, likely EKG and troponins are stable and at baseline. We will gather up old EKG to compare, and continue home medications. 7. Hyperlipidemia. We will continue home statin. 8. Atrial fibrillation. The patient is not on any rate controlling medication at this time and aspirin for anticoagulation. We will continue to monitor for now. 9. Macrocytic anemia, stable from last discharge. 10. VTE prophylaxis, give Lovenox. DISPOSITION/LENGTH OF HOSPITAL STAY: 1-2 days. Symptomatic medications will be provided. History and physical exam as well as management was discussed with Dr. Otis Mitchell. RADHA
--- NOTE | 2017-09-06 07:41 | HP ---
DATE OF ADMISSION: 09/06/2017 CHIEF COMPLAINT: Shortness of breath. HISTORY OF PRESENT ILLNESS: This is a 77-year-old female with recent discharge 5 days ago; at that time was diagnosed with new onset congestive heart failure, ejection fraction 20% to 25%. Discharged home on LifeVest after diuresis and with diagnosis also of bronchitis. She presents with worsening shortness of breath over the last 2 days associated with a cough and some congestion. She also feels like her legs are getting more swollen and she is not urinating as much. She is unsure she has had any fever, has had some chills. Denies chest pain or palpitations. All other systems are reviewed and are negative. PAST MEDICAL HISTORY: Significant for systolic congestive heart failure, chronic kidney disease stage 4, tobacco abuse, hyperlipidemia, hypertension, and thyroid nodule. PAST SURGICAL HISTORY: Significant for left fem-pop bypass, hysterectomy, thyroidectomy, pacemaker placement in 2012. SOCIAL HISTORY: She smokes 1 pack per day. Denies alcohol or drug use. FAMILY HISTORY: Positive for diabetes mellitus, hypertension, and cancer in her mother. ALLERGIES: No known drug allergies. MEDICATIONS: Upon discharge included Norvasc 10 mg, aspirin 81, calcitriol 0.25 mcg, Coreg 12.5 mg, cefuroxime 250 mg q.12 for 7 days, cilostazol 100 mg p.o. b.i.d., clonidine 0.2 mg p.o. b.i.d., Flexeril 5 mg p.o. at bedtime, Procrit 7500 units subcu q.7 days, ferrous sulfate 325 mg p.o. b.i.d. with meals , Lasix 20 mg p.o. daily, hydralazine 25 mg p.o. t.i.d., isosorbide mononitrate 60 mg p.o. daily, nicotine 14 mg transdermal daily, potassium chloride 20 mEq p.o. daily, ranitidine 150 mg p.o. b.i.d., rosuvastatin 20 mg p.o. at bedtime, sodium bicarbonate 650 mg p.o. t.i.d. and tramadol 100 mg p.o. daily p.r.n. pain. PHYSICAL EXAMINATION: VITAL SIGNS: Most recent vital were heart rate in the 60s, blood pressure 130/ 80, satting 100%, respirations 18. She is on BiPAP settings of 15/5 with 60% FiO2. GENERAL: She is in no acute distress. Talks with me conversantly and is joking. HEENT: Without icterus or injection. Pupils equal, round, reactive to light. Nares patent. No obvious rhinorrhea and unable to assess oropharynx because of mask and we will defer at this time. NECK: Trachea midline and mobile. CARDIOVASCULAR: Regular rate and rhythm, no prominent murmur, but difficult to hear over the mask. She is on BiPAP. LUNGS: She has diffuse crackles in the bases and rhonchi in the right lung. No expiratory wheezes on my exam. ABDOMEN: Bowel sounds positive, nontender to palpation. No palpable organomegaly. GENITOURINARY: Deferred. MUSCULOSKELETAL: No obvious deformity or contracture. She does have 3+ pitting edema in bilateral lower extremities. SKIN: No obvious wound or rash. Warm and dry. She has nitro paste on her chest. NEUROLOGIC: Cranial nerves II-XII intact and symmetric. Motor 5/5 in upper extremities and lower extremities. PSYCHIATRIC: Alert and oriented x3. Mood and affect: Quite jovial for current medical condition. LABORATORY DATA: Include a blood gas with a pH of 7.37, CO2 of 27.7, base deficit of 8.8, deoxyhemoglobin of 11.7, a gradient of 345. White count of 11.7 , hemoglobin 10.7, MCV 101, platelets 206. CMP includes a sodium 142, potassium 4.2, chloride 117, bicarbonate 16, gap 13, BUN of 51, creatinine 3.53 , both of which are lower than on discharge. Glucose 146. Normal LFTs with the exception of albumin of 3.1 and a BNP of 8419. Troponin of 0.099, which are also decreased from her admission last time. Urine today is greater than 300 protein, small blood, 17 rbc's, and 11-12 squamous cells. Toxicology from last visit was negative. Chest x-ray, my read demonstrates cardiomegaly, infiltrate and suspected bilateral effusions and mild cephalization of vessels. ECG, I have to check down. ASSESSMENT AND PLAN: This is a 77-year-old female with: 1. Sepsis secondary to pneumonia. She has been given vancomycin, gentamicin, and cefepime, I presume because of her recent history of cefuroxime use. We will reassess this after the dose of gentamicin is given. Blood cultures to be drawn as appropriate. 2. Acute hypoxic respiratory failure, presumably secondary to pneumonia as well as congestive heart failure exacerbation. We will begin diuresis, support with BiPAP as necessary, and closely monitor her. Repeat blood gas in several hours. 3. Acute on chronic systolic heart failure. Will go ahead and give 40 of IV Lasix and begin diuresis. She is not febrile currently here. While she may have a superimposed pneumonia, I believe her primary issue is acute on chronic heart failure. Monitor I's and O's closely. Fluid restrict to 1500 a day. 4. Coronary artery disease. Continue aspirin and statin. Hold all antihypertensives in light of her blood pressure being 130 and she is on a small nitro drip and just been given nitro paste. We will cautiously add them back over the coming hours to days as necessary. 5. Hypertension. See above. 6. Hyperlipidemia. Continue statin. 7. Acute kidney injury on chronic kidney disease. We will consult Nephrology in the morning. Hold off on beginning any of her sodium tablets or restarting them. 8. Peripheral vascular disease. Continue aspirin. 9. Gastroesophageal reflux disease. Continue ranitidine. 10. Tobacco abuse, counseled cessation as well as nicotine patch p.r.n. 11. Elevated TnI, likely 2/2 demand, trend and repeat ECG. Deep venous thrombosis prophylaxis with heparin SQ and sequential compression devices. Gastrointestinal prophylaxis with H2 hong. MTDD
[2017-09-06 08:59] LABS: Troponin I 0.095 ng/mL (< 0.028)
[2017-09-06] MEDS: Epoetin (ESRD) 20,000 UNITS/ML SC SCH (09:27)
[2017-09-06] MEDS: Sodium Bicarbonate Tab 325 MG TAB PO SCH ×3 (09:28→20:03)
[2017-09-06] MEDS: Famotidine 20 MG TAB PO SCH (09:28)
[2017-09-06] MEDS: Aspirin 81 mg Enteric Coated Tablet PO SCH (09:28)
[2017-09-06] MEDS: Potassium Chloride 20 MEQ TAB PO SCH (09:28)
[2017-09-06] MEDS: Calcitriol 0.25 MCG CAP PO SCH (09:28)
[2017-09-06] MEDS: Enoxaparin Sodium 40 MG/0.4 ML SYRINGE SC SCH (09:28)
[2017-09-06] MEDS: Ferrous Sulfate 325 MG TAB PO SCH ×2 (09:28→16:37)
[2017-09-06] MEDS: Piperacillin/Tazobactam 2.25 GM in Sodium Chloride 0.9% 100 ML IVPB SCH ×3 (10:58→23:04)
[2017-09-06] MEDS ORDERED: Albumin 25% 25 GM/100 ML BOT IVPB SCH (11:00)
--- NOTE | 2017-09-06 12:23 | PRG ---
DATE OF SERVICE: 09/06/2017 RENAL MEDICINE SUBJECTIVE: Ms. Maya is a 77-year-old black female with chronic renal failure who was admitted fo r shortness of breath. Chest x-ray suggested concomitant pneumonia and CHF. She was started on IV d iuretics. My plan is to at least increase the Lasix to 80 mg IV q.12 for today and decrease as neede d. This is to tie over from CHF. Shortness of breath may also being contributed by the pneumonia. She is currently on empiric IV antibiotics. Her shortness of breath slightly improved this morning. OBJECTIVE: VITAL SIGNS: Blood pressure is 130/62, heart rate 65, respiratory rate 17, pulse ox 96%. GENERAL: Noted to be awake, alert, comfortable, not in overt distress. SKIN: Adequate turgor. HEENT: Pinkish conjunctivae, anicteric sclerae. NECK: No neck mass, no carotid bruits, no JVD. CHEST: No deformities. LUNGS: Decreased breath sounds. HEART: Normal sinus rhythm. No murmur, no gallops, no rubs. ABDOMEN: Globular, soft, nontender, no masses. EXTREMITIES: Positive for edema. MEDICATIONS: Medications of 09/06/2017 was reviewed. LABORATORY DATA AND IMAGING DATA: 1. Laboratories of 09/06/2017; white count 10.5, hemoglobin 10.1, sodium 145, potassium 4.2, chlorid e 121, carbon dioxide 12, BUN 52, creatinine 3.45, GFR 16 mL per minute. Calcium 8.1. Troponin I 0. 095. 2. BNP 1419, albumin 3.1. 3. White count is 10.5 and hemoglobin 10.1. 4. Chest x-ray shows CHF with airspace opacity in the right lower lobe. ASSESSMENT AND PLAN: 1. Shortness of breath - multifactorial. This could be combined congestive heart failure/pneumonia - on IV diuretic. Lasix is at 80 mg IV q.12. We will be adjusting this as needed. 2. Pneumonia - currently on IV antibiotics. 3. Chronic renal failure - continue supportive care. No indication for any dialytic intervention. We will start patient on Lasix 80 mg IV q.12. Due to the low albumin and renal dysfunction, I would at least start this patient on some salt poor albumin 25 grams IV q.6 x3 days. No indication for any dialytic intervention.
[2017-09-06] MEDS: Furosemide 100 MG/10 ML VIAL SLOW IVP SCH (13:40)
--- NOTE | 2017-09-06 15:24 | ADD-PRG ---
DATE OF SERVICE: 09/06/2017 This is an addendum to the note of Dr. Glen Clark. Ms. Maya was admitted with an exacerbation of heart failure. She is feeling much better, having b een weaned off of BiPAP. We will transfer her to the regular floor possibly later today after consul ting with the hr representative. She also has a very mild anemia which we will begin to workup as well. S he has a history of thyroid nodule as well. In any event, clinically she is much improved from her a dmission shortness of breath.
[2017-09-06] MEDS: Nicotine 14 MG PATCH TD SCH (18:27)
[2017-09-06] MEDS: Cyclobenzaprine 10 MG TAB PO SCH (20:03)
[2017-09-06] MEDS: Rosuvastatin 20 MG TAB PO SCH (20:03)
--- NOTE | 2017-09-06 22:46 | CON ---
DATE OF CONSULTATION: 09/06/2017 SERVICE: Pulmonary Medicine. REASON FOR CONSULTATION: Respiratory failure. HISTORY OF PRESENT ILLNESS: The patient is a pleasant 77-year-old - [place] female with past medical history significant for stage 4 chronic kidney disease, cardiomyopathy, and excessive salt and water intake during the holiday. She has been in the hospital on multiple occasions here recently. Of note, she was discharged from the hospital a week ago. She was told to wear a LifeVest, but ultimately did not wear that thing. She came back to the emergency department because of increasing dyspnea. She was placed on noninvasive ventilation and tucked in the ICU. This was rapidly deescalated and ultimately, her oxygen saturations are fantastic with 2 liters nasal cannula. She indicates her breathing is comfortable. She denies any current fevers, chills, nausea and vomiting that precipitated this event. PAST MEDICAL HISTORY: 1. Coronary artery disease. 2. Chronic systolic heart failure with 20% ejection fraction. 3. Hypertension. 4. Dyslipidemia. 5. Chronic kidney disease, stage 4. 6. Atrial fibrillation, chronic. 7. Thyroid nodule. PAST SURGICAL HISTORY: 1. Hysterectomy. 2. Thyroidectomy. 3. Left leg vein surgery. ALLERGIES: No known drug allergies. MEDICATIONS: List of her inpatient medications were reviewed. No updates were made at this time. SOCIAL HISTORY: Negative for alcohol, tobacco or illicit drug use. She has a greater than [id number] history of smoking, but quit about a week ago. She has no exposure to chemicals, dust, asbestos or tuberculosis. FAMILY HISTORY: Noncontributory. REVIEW OF SYSTEMS: General, head, ears, eyes, nose, throat, cardiovascular, respiratory, GI, , musculoskeletal, neurologic and skin is negative except as mentioned in the HPI. PHYSICAL EXAMINATION: VITAL SIGNS: Afebrile, pulse 65, blood pressure 111/63, respirations 17, saturation 95% on room air. GENERAL: Patient is awake, alert, in no apparent distress. LUNGS: Decent air entry. There is no prolonged expiratory phase or wheezing. There are both crackles and rhonchi present. HEART: Normal rate, regular. ABDOMEN: Soft, nontender, nondistended, bowel sounds positive. MUSCULOSKELETAL: No cyanosis or clubbing. There is diffuse 2+ edema throughout. GENITOURINARY: Guevara catheter in place. NEUROLOGIC: Grossly nonfocal. LABORATORY DATA: WBC 10.5, hemoglobin 10.1, platelets 126,000. Band count is 10%. A pH 7.37, pCO2 27, pO2 54, creatinine 3.45 and gently down trending. Basic metabolic profile is otherwise unremarkable. Chloride is 121 with an elevated sodium of 145. Troponin 0.095 and roughly stable. BNP is 8400. Urinalysis is unremarkable. Respiratory virus profile, PCR is negative. IMAGING: Chest x-ray demonstrates bilateral pleural parenchymal opacification. There is a right lower lobe infiltrate. Interstitial markings are very prominent, but more so in the dependent regions of the lung. The cardiac silhouette is quite enlarged. There is evidence of pulmonary vascular congestion. Overall, these features are likely consistent with volume overload , though an infectious process in the right lung cannot be excluded. ASSESSMENT: 1. Acute hypoxic respiratory failure. 2. Acute on chronic systolic and diastolic heart failure. 3. Healthcare-associated pneumonia, unlikely. 4. Chronic kidney disease, stage 4. 5. Medical noncompliance. PLAN: At this point, I would continue diuresing the patient until she returns to euvolemia. She will ultimately need a repeat chest x-ray in 2-3 days. If the infiltrate is cleared at that point, all antibiotics can be deescalated/ discontinued. If on the other hand it persists, I would treat a full 5-day course with the IV antibiotics that we have currently selected. If her sodium trends upward, we may need to encourage her to drink a little bit of extra free or p.o. free water. Pulmonary will continue to follow up for the time being, but from my perspective, she is stable for transition to the telemetry unit. 70 minutes have been devoted to this patient in various activities. For at least half of this time, I was at the bedside in direct patient interaction or coordinating care with the care team. For the remainder of the time I was immediately available to the patient in the hospital unit. RADHA
[2017-09-07] MEDS ORDERED: Vancomycin HCl 1 GM in Premix Bag 1 BAG IVPB SCH (01:00)
[2017-09-07] MEDS ORDERED: Gentamicin 80 MG/2 ML VIAL IVPB SCH (01:00)
[2017-09-07 05:24] LABS: #Eosinphils 0.1 thou/uL (0.0-0.7); #Lymphocytes 1.4 thou/uL (1.20-3.40); #Monocytes 0.8 thou/uL (0.11-0.59); #Neutrophils 6.9 thou/uL (1.40-6.50); %Basophils 0.1 % (0.0-1.0); %Eosinophils 0.8 % (0.0-10.0); %Lymphocytes 15.1 % (21.0-51.0); %Monocytes 8.4 % (0.0-10.0); %Neutrophils 75.6 % (42.0-75.0); Hemoglobin 9.6 g/dL (12.0-16.0); Mean Corpuscular HGB CONC 32.1 g/dL (32.0-36.0); Mean Corpuscular Hemoglobin 32.1 pg (27.0-31.0); Mean Platelet Volume 8.1 fL (7.4-10.4); Platelet Count 156 thou/uL (130-400); RBC Distribution Width 15.3 % (11.5-14.5); Red Blood Cell (RBC) Count 2.99 mill/uL (4.20-5.40); White Blood Cell (WBC) Count 9.2 thou/uL (4.8-10.8)
--- NOTE | 2017-09-07 05:30 | PDOC.FM ---
- Subjective Subjective: Pt is feeling better today and has no specific complaints. She denies chest pain or SOB. She is not currently wearing her Life Vest, however states that she is working on getting her family to bring it to the hospital. She was moved to [facility] last night, there were no acute events. - Objective MAR Reviewed: Yes Vital Signs & Weight: Vital Signs (12 hours) Temp Pulse Resp BP Pulse Ox 09/07/17 04:00 97.8 F 65 23 H 148/74 H 93 L 09/07/17 01:40 98.2 F 85 18 125/87 94 L 09/07/17 00:00 98.7 F 09/06/17 20:00 98.7 F 65 17 95 Weight Weight 85.502 kg Most Recent Monitor Data Heart Rate from ECG 67 NIBP 146/65 NIBP BP-Mean 74 Respiration from ECG 21 SpO2 95 I&O: 09/05/17 09/06/17 09/07/17 06:59 06:59 06:59 Intake Total 30 1310 Output Total 510 1405 Balance -480 -95 Result Diagrams: 09/07/17 04:34 09/07/17 04:34 EKG Reviewed by me: Yes <Glen Clark - Last Filed: 09/07/17 08:39> - Objective Vital Signs & Weight: Vital Signs (12 hours) Temp Pulse Pulse Pulse Resp BP BP 09/07/17 10:30 65 67 134/64 136/69 09/07/17 04:30 09/07/17 04:00 97.8 F 65 23 H 09/07/17 01:40 98.2 F 85 18 BP Pulse Ox 09/07/17 10:30 09/07/17 04:30 93 L 09/07/17 04:00 148/74 H 93 L 09/07/17 01:40 125/87 94 L Weight Weight 85.23 kg Most Recent Monitor Data Heart Rate from ECG 67 NIBP 146/65 NIBP BP-Mean 74 Respiration from ECG 21 SpO2 95 I&O: 09/06/17 09/07/17 09/08/17 06:59 06:59 06:59 Intake Total 30 1470 Output Total 510 1980 Balance -480 -510 Result Diagrams: 09/07/17 04:34 09/07/17 04:34 <Virgie Jasso - Last Filed: 09/07/17 12:49> Phys Exam - Physical Examination Constitutional: NAD HEENT: PERRLA, moist MMs Neck: no nodes, no JVD rhonchi most apparent in RLL. Decreased air movement throughout Cardiovascular: RRR, no significant murmur Gastrointestinal: soft, non-tender, no distention, positive bowel sounds 2+ pitting edema to mid tib Neurological: non-focal Lymphatic: no nodes Psychiatric: normal affect, A&O x 3 Skin: no rash <Glen Clark - Last Filed: 09/07/17 08:39> Dx/Plan (1) Right lower lobe pneumonia Code(s): J18.1 - LOBAR PNEUMONIA, UNSPECIFIED ORGANISM Status: Acute (2) CHF exacerbation Code(s): I50.9 - HEART FAILURE, UNSPECIFIED Status: Acute QualifierTitle: Congestive heart failure type: combined Qualified Code(s) : I50.43 - Acute on chronic combined systolic (congestive) and diastolic ( congestive) heart failure (3) CKD (chronic kidney disease) stage 3, GFR 30-59 ml/min Status: Chronic (4) COPD (chronic obstructive pulmonary disease) Status: Chronic QualifierTitle: COPD type: COPD with acute lower respiratory infection Qualified Code(s): J44.0 - Chronic obstructive pulmonary disease with acute lower respiratory infection (5) Elevated brain natriuretic peptide (BNP) level Code(s): R79.89 - OTHER SPECIFIED ABNORMAL FINDINGS OF BLOOD CHEMISTRY Status : Chronic - Plan Plan: 1. RLL PNA - O2 sats mid-low 90's on 2L. Will attempt to wean O2 - afebrile - resp rate 18-23 - currently on Vanc, zosy, cefepime. Vanc trough due 09/10. - blood cx pending - resp viral panel is negative 2. CHF exacerbation - net output 500ml yesterday - continue diuresis w/IV lasix - fluid restriction - pt's life vest was brought by family. She agrees to wear it today. EF 20-35% 3. CKD IV - Dr Anderson has been consulted. Pt does not currently need dialysis - Renal dosing for all abx 4. Prolonged QT - currently stable at ~0.483 - pt to wear life vest 5. HTN - currently controlled w/home meds 6. CAD - continue home statin and aspirin <Glen Clark - Last Filed: 09/07/17 08:39> Attending Addendum - Attending Addendum I personally evaluated the patient and discussed the management with Dr. Clark. I agree with the History, Examination, Assessment and Plan documented above with any addition or exceptions noted below. The patient is feeling better. Seen prior to working with PT. Will continue to wean O2. Dr. Anderson is following for CKD4. Continue to monitor electrolytes. <Virgie Jasso - Last Filed: 09/07/17 12:49>
[2017-09-07 05:36] LABS: Anion Gap 16 mmol/L (10-20); BUN (Urea Nitrogen) 59 mg/dL (9.8-20.1); Calc. Creatinine Clearance 18 mL/min (70-130); Calcium 8.7 mg/dL (7.8-10.44); Carbon Dioxide 17 mmol/L (23-31); Chloride 117 mmol/L (98-107); Estimated GFR-MDRD 15; Glucose 98 mg/dL (83-110); Potassium 4.2 mmol/L (3.5-5.1); Sodium 146 mmol/L (136-145)
[2017-09-07] MEDS: Furosemide 100 MG/10 ML VIAL SLOW IVP SCH ×2 (06:11→10:19)
[2017-09-07] MEDS: Piperacillin/Tazobactam 2.25 GM in Sodium Chloride 0.9% 100 ML IVPB SCH ×3 (09:29→21:53)
[2017-09-07] MEDS: Cilostazol 100 MG TAB PO SCH ×2 (09:30→16:25)
[2017-09-07] MEDS: Sodium Bicarbonate Tab 325 MG TAB PO SCH ×3 (09:30→21:55)
[2017-09-07] MEDS: Aspirin 81 mg Enteric Coated Tablet PO SCH (09:30)
[2017-09-07] MEDS: Ferrous Sulfate 325 MG TAB PO SCH ×2 (09:30→16:26)
[2017-09-07] MEDS: Famotidine 20 MG TAB PO SCH (09:30)
[2017-09-07] MEDS: Calcitriol 0.25 MCG CAP PO SCH (09:30)
[2017-09-07] MEDS: Potassium Chloride 20 MEQ TAB PO SCH (09:30)
[2017-09-07] MEDS: Enoxaparin Sodium 40 MG/0.4 ML SYRINGE SC SCH (09:30)
--- NOTE | 2017-09-07 09:36 | PRG ---
DATE OF SERVICE: 09/07/2017 RENAL MEDICINE SUBJECTIVE: Ms. Maya is a 77-year-old black female with chronic renal failure, who was seen by [facility] due to CHF and concomitant chronic renal failure. Her diuretics were increased from 40 to 80 mg IV q.12. She was also incidentally found to have an underlying pneumonia. Everything is a little better. She is noted to be diuresing and made about 1400 mL of urine output in the last 24 hours. PHYSICAL EXAMINATION: VITAL SIGNS: Blood pressure is 148/74, heart rate 65, respiratory rate 23, temperature 97.8, pulse o x 93%. GENERAL: Noted to be awake, alert, comfortable, not in overt distress. SKIN: Adequate turgor. HEENT: She has slightly pale conjunctiva, anicteric sclerae. NECK: No neck mass, no carotid bruits, no JVD. CHEST: No deformities. LUNGS: Decreased breath sounds. Occasional wheezing. HEART: Normal sinus rhythm. No murmur, no gallops, no rubs. ABDOMEN: Globular, soft, nontender, no masses. EXTREMITIES: Positive for edema. MEDICATIONS: Medications of 09/07/2017 was reviewed. LABORATORY DATA: Laboratories of 09/07/2017; white count 9.2, hemoglobin 9.6. Sodium 146, potassium 4.2, chloride 117, carbon dioxide 17, BUN is 59, creatinine 3.54, GFR 15 mL per minute, glucose 98, calcium 8.7, troponin I 0.095. ASSESSMENT AND PLAN: 1. Shortness of breath - multifactorial - combined congestive heart failure with pneumonia. We will decrease now Lasix from 80 to 40 mg IV q.12 to keep adjusting as needed. 2. Chronic renal failure - relatively stable renal function. No indication for any emergent dialyti c intervention. 3. Anemia. Continue weekly Epogen. 4. Pneumonia - on intravenous antibiotics. Recheck basic met and CBC in a.m.
[2017-09-07] MEDS: Nicotine 14 MG PATCH TD SCH (19:39)
[2017-09-07] MEDS: Cyclobenzaprine 10 MG TAB PO SCH (21:53)
[2017-09-07] MEDS: Rosuvastatin 20 MG TAB PO SCH (21:53)
[2017-09-08] MEDS ORDERED: Vancomycin HCl 1 GM in Premix Bag 1 BAG IVPB SCH (01:00)
[2017-09-08] MEDS: Piperacillin/Tazobactam 2.25 GM in Sodium Chloride 0.9% 100 ML IVPB SCH ×4 (03:03→21:19)
[2017-09-08 06:20] LABS: #Eosinphils 0.1 thou/uL (0.0-0.7); #Lymphocytes 1.1 thou/uL (1.20-3.40); #Monocytes 0.7 thou/uL (0.11-0.59); %Basophils 0.5 % (0.0-1.0); %Eosinophils 1.3 % (0.0-10.0); %Lymphocytes 13.9 % (21.0-51.0); %Monocytes 9.1 % (0.0-10.0); %Neutrophils 75.2 % (42.0-75.0); Hemoglobin 9.2 g/dL (12.0-16.0); Mean Corpuscular HGB CONC 32.5 g/dL (32.0-36.0); Mean Corpuscular Hemoglobin 32.2 pg (27.0-31.0); Mean Corpuscular Volume 99.1 fl (81.0-99.0); Mean Platelet Volume 8.2 fL (7.4-10.4); Platelet Count 161 thou/uL (130-400); RBC Distribution Width 15.1 % (11.5-14.5); Red Blood Cell (RBC) Count 2.85 mill/uL (4.20-5.40); White Blood Cell (WBC) Count 7.9 thou/uL (4.8-10.8)
[2017-09-08 06:25] LABS: Anion Gap 15 mmol/L (10-20); BUN (Urea Nitrogen) 60 mg/dL (9.8-20.1); Calc. Creatinine Clearance 17 mL/min (70-130); Calcium 8.4 mg/dL (7.8-10.44); Carbon Dioxide 16 mmol/L (23-31); Chloride 118 mmol/L (98-107); Estimated GFR-MDRD 15; Glucose 106 mg/dL (83-110); Potassium 3.5 mmol/L (3.5-5.1); Sodium 145 mmol/L (136-145)
--- NOTE | 2017-09-08 08:13 | PDOC.FM ---
- Subjective Subjective: Pt feeling well today. She states that she has continued cough, but it is improving. She states that she is trying to be compliant with her fluid restrictions. She is not wearing her life vest. - Objective MAR Reviewed: Yes Vital Signs & Weight: Vital Signs (12 hours) Temp Pulse Resp BP Pulse Ox 09/08/17 04:00 97.9 F 65 20 138/65 96 09/07/17 23:55 97.9 F 66 21 H 144/63 H 96 Weight Weight 84.55 kg Most Recent Monitor Data Heart Rate from ECG 67 NIBP 146/65 NIBP BP-Mean 74 Respiration from ECG 21 SpO2 95 I&O: 09/07/17 09/08/17 09/09/17 06:59 06:59 06:59 Intake Total 147 1780 Output Total 1979 1450 Balance -510 330 Result Diagrams: 09/08/17 05:35 09/08/17 05:35 <Glen Clark - Last Filed: 09/08/17 08:11> - Objective Vital Signs & Weight: Vital Signs (12 hours) Temp Pulse Pulse Pulse Resp BP BP 09/08/17 12:00 97.4 F L 74 21 H 09/08/17 08:12 65 65 169/83 H 187/81 H 09/08/17 04:00 97.9 F 65 20 BP Pulse Ox Pulse Ox Pulse Ox 09/08/17 12:00 179/86 H 95 09/08/17 08:12 93 L 91 L 09/08/17 04:00 138/65 96 Weight Weight 84.55 kg Most Recent Monitor Data Heart Rate from ECG 67 NIBP 146/65 NIBP BP-Mean 74 Respiration from ECG 21 SpO2 95 I&O: 09/07/17 09/08/17 09/09/17 06:59 06:59 06:59 Intake Total 1470 1780 Output Total 1979 145 Balance -510 330 Result Diagrams: 09/08/17 05:35 09/08/17 05:35 <Virgie Jasso - Last Filed: 09/08/17 13:07> Phys Exam - Physical Examination Constitutional: NAD HEENT: PERRLA, moist MMs Neck: no nodes, no JVD, supple Rhonchi most prominent over R mid/lower lobe. Mild crackles throughout Cardiovascular: RRR, no significant murmur Gastrointestinal: soft, non-tender, no distention 2+ pitting edema to knee b/l Neurological: non-focal, normal sensation, moves all 4 limbs Lymphatic: no nodes Psychiatric: normal affect, A&O x 3 Skin: no rash <Glen Clark - Last Filed: 09/08/17 08:11> Dx/Plan (1) Right lower lobe pneumonia Code(s): J18.1 - LOBAR PNEUMONIA, UNSPECIFIED ORGANISM Status: Acute (2) CHF exacerbation Code(s): I50.9 - HEART FAILURE, UNSPECIFIED Status: Acute QualifierTitle: Congestive heart failure type: combined Qualified Code(s) : I50.43 - Acute on chronic combined systolic (congestive) and diastolic ( congestive) heart failure (3) CKD (chronic kidney disease) stage 3, GFR 30-59 ml/min Status: Chronic (4) COPD (chronic obstructive pulmonary disease) Status: Chronic QualifierTitle: COPD type: COPD with acute lower respiratory infection Qualified Code(s): J44.0 - Chronic obstructive pulmonary disease with acute lower respiratory infection (5) Elevated brain natriuretic peptide (BNP) level Code(s): R79.89 - OTHER SPECIFIED ABNORMAL FINDINGS OF BLOOD CHEMISTRY Status : Chronic - Plan Plan: 1. RLL PNA - O2 sats high 90s on 2L, this is an improvement from yesterday. Will attempt to wean O2 - afebrile - resp rate in 20-26 when attempting to wean yesterday - currently on Vanc, zosy, cefepime. Vanc trough due 09/10. - blood cx pending - resp viral panel is negative 2. CHF exacerbation - net volume increase of 330 ml yesterday - rate of diuresis has slowed, will continue to follow Dr Carter recommendation - fluid restriction - pt's life vest was brought by family. She agrees to wear it today. EF 20-35% 3. CKD IV - Dr Anderson has been consulted. Pt does not currently need dialysis - Renal dosing for all abx 4. Prolonged QT - currently stable at ~0.483 - pt to wear life vest 5. HTN - currently controlled w/home meds 6. CAD - continue home statin and aspirin <Glen Clark - Last Filed: 09/08/17 08:11> Attending Addendum - Attending Addendum I personally evaluated the patient and discussed the management with Dr. Clark. I agree with the History, Examination, Assessment and Plan documented above with any addition or exceptions noted below. The patient is sitting up in bed and has life vest on. She was fluid positive in the last 24 hours. Will continue IV lasix per Dr. Anderson's recommendations. Continue PT. <Virgie Jasso - Last Filed: 09/08/17 13:07>
--- NOTE | 2017-09-08 09:02 | PRG ---
DATE OF SERVICE: 09/08/2017 RENAL MEDICINE SUBJECTIVE: Ms. Maya is a 77-year-old black female who was seen for her chronic renal failure/acu te kidney injury. She was admitted for shortness of breath. She has concomitant CHF as well as pneu monia. Adjustment of diuretics has been made. She is now currently on 80 mg IV daily. No worsening of the shortness of breath, but on close questioning, she has shortness of breath on exertion. OBJECTIVE: VITAL SIGNS: Blood pressure is 138/65, heart rate 65, respiratory rate 20, temperature 97.9, pulse o x 96%. GENERAL: Noted to be awake, supine, comfortable, not in overt distress. SKIN: Adequate turgor. HEENT: Slightly pale conjunctivae, anicteric sclerae. NECK: No neck mass, no carotid bruits, no JVD. CHEST: No deformities. LUNGS: Decreased breath sounds. HEART: Normal sinus rhythm. No murmur, no gallops, no rubs. ABDOMEN: Globular, soft, nontender, no masses. EXTREMITIES: Trace edema. MEDICATIONS: Of 09/08/2016 was reviewed. LABORATORY DATA: Of 09/08/2017, white count 7.9, hemoglobin 9.2, sodium 145, potassium 3.5, chloride 118, carbon dioxide 16, BUN 60, creatinine 3.6, GFR of 15 mL per minute, glucose 106, calcium 8.4. ASSESSMENT AND PLAN: 1. Congestive heart failure, slightly improved. However, the patient still has shortness of breath on exertion. Continue current IV diuretics. Currently, on IV Lasix 80 mg IV daily. If no significa nt improvement with shortness of breath on exertion, we can always go back to 80 mg IV q.12 h. 2. Acute kidney injury/chronic renal failure - stable. No indication for any emergent hemodialysis. I have not ruled out initiating the dialysis if the patient's overall CHF does not improve over nelly e. Continue current diuretic regimen. 3. Anemia, continuing weekly Epogen. 4. Pneumonia - continue current IV antibiotics.
--- NOTE | 2017-09-08 09:45 | RAD ---
CHEST TWO VIEWS: History: Pneumonia. Comparison: Chest one view, 09-05-17 FINDINGS: Heart size is enlarged. There are layering effusions. Right basilar airspace opacity is improving, le ft basilar airspace opacity is similar. Severe degenerative change of both glenohumeral joints. No pneumothorax. IMPRESSION: 1. Mild improvement in right basilar airspace opacity. 2. Similar appearance of the left layering pleural effusion . 3. Mild pulmonary edema and pulmonary vascular congestion. POS: [facility]
[2017-09-08] MEDS: Ferrous Sulfate 325 MG TAB PO SCH ×2 (11:03→16:35)
[2017-09-08] MEDS: Calcitriol 0.25 MCG CAP PO SCH (11:03)
[2017-09-08] MEDS: Potassium Chloride 20 MEQ TAB PO SCH (11:03)
[2017-09-08] MEDS: Cilostazol 100 MG TAB PO SCH ×2 (11:03→16:34)
[2017-09-08] MEDS: Sodium Bicarbonate Tab 325 MG TAB PO SCH ×3 (11:03→21:20)
[2017-09-08] MEDS: Enoxaparin Sodium 40 MG/0.4 ML SYRINGE SC SCH (11:03)
[2017-09-08] MEDS: Aspirin 81 mg Enteric Coated Tablet PO SCH (11:04)
[2017-09-08] MEDS: Famotidine 20 MG TAB PO SCH (11:04)
[2017-09-08] MEDS: Furosemide 100 MG/10 ML VIAL SLOW IVP SCH (11:04)
--- NOTE | 2017-09-08 11:44 | PQF ---
CLINICAL DOCUMENTATION IMPROVEMENT CLARIFICATION FORM: ICD-10 Updated PLEASE DO AN ADDENDUM TO THE PROGRESS NOTE WITH ANY DOCUMENTATION UPDATES OR ADDITIONS AND CARRY THROUGH TO DC SUMMARY. THANK YOU. DATE: 09/08 ATTN : DR. KINA KOO/ DR. Alex FIELDS Please exercise your independent, professional judgment in responding to the clarification form. Clinical indicators are provided on the bottom of this form for your review Please check appropriate box(s) to clarify if the following diagnosis has been ruled in or ruled out: SEPSIS 2/2 PNEUMONIA [x ] Ruled in diagnosis [ x ] Continue to treat [ ] Resolved [ ] Ruled out diagnosis [ ] Other diagnosis [ ] Unable to determine For continuity of documentation, please document condition throughout progress notes and discharge summary. Thank You. CLINICAL INDICATORS - SIGNS / SYMPTOMS / LABS ER PRESENTATION 09/06: T: 100.2 RR: 17-38 WBC: 11.7 ER PHYSICIAN DOCUMENTATION 09/06: PNEUMONIA, HYPOXIA, RESPIRATORY FAILURE ATTENDING PHYSICIAN H&P DOCUMENTATION 09/06: HX OF PRESENT ILLNESS: ...SHE IS UNSURE SHE HAS HAD ANY FEVER, HAS HAD SOME CHILLS. ASSESSMENT & PLAN: 1) SEPSIS 2/2 PNEUMONIA; 2) ACUTE HYPOXIC RESPIRATORY FAILURE , PRESUMABLY 2/2 PNEUMONIA; 7) ACUTE KIDNEY INJURY NO FURTHER MENTION OF SEPSIS TO DATE RISK FACTORS: PNEUMONIA WINSOME TREATMENT: IV ANTIBIOTICS (VANCOMYCIN & ZOSYN 09/06 - PRESENT) THANK YOU! Caterina (This form is maintained as a part of the permanent medical record) 2014 [employer] (acquired by [email or web address] All Rights Reserved Caterina Mackay RN, BSN [email or web address] Office: [phone] [facility]
[2017-09-08] MEDS: Cyclobenzaprine 10 MG TAB PO SCH (21:19)
[2017-09-08] MEDS: Nicotine 14 MG PATCH TD SCH (21:19)
[2017-09-08] MEDS: Rosuvastatin 20 MG TAB PO SCH (21:19)
[2017-09-09] MEDS: Piperacillin/Tazobactam 2.25 GM in Sodium Chloride 0.9% 100 ML IVPB SCH ×2 (03:30→09:14)
--- NOTE | 2017-09-09 06:04 | PDOC.FM ---
- Subjective Subjective: Pt states that she feels better today and has improved cough and SOB. She denies worsening of symptoms or onset of new symptoms. There were no acute events over night. She states that she understands her volume and dietary restrictions and is working to comply. - Objective MAR Reviewed: Yes Vital Signs & Weight: Vital Signs (12 hours) Temp Pulse Resp BP Pulse Ox 09/09/17 04:00 97.3 F L 90 20 138/108 H 95 09/08/17 20:00 97.7 F 70 18 157/78 H 92 L Weight Weight 86.183 kg Most Recent Monitor Data Heart Rate from ECG 67 NIBP 146/65 NIBP BP-Mean 74 Respiration from ECG 21 SpO2 95 I&O: 09/07/17 09/08/17 09/09/17 06:59 06:59 06:59 Intake Total 1470 1780 1080 Output Total 1980 1450 1050 Balance -510 330 30 Result Diagrams: 09/09/17 05:44 09/09/17 05:44 <Glen Clark - Last Filed: 09/09/17 11:19> - Objective Vital Signs & Weight: Vital Signs (12 hours) Temp Pulse Resp BP Pulse Ox 09/09/17 08:00 97.6 F 82 20 138/82 95 09/09/17 04:00 97.3 F L 90 20 138/108 H 95 Weight Weight 86.183 kg Most Recent Monitor Data Heart Rate from ECG 67 NIBP 146/65 NIBP BP-Mean 74 Respiration from ECG 21 SpO2 95 I&O: 09/08/17 09/09/17 09/10/17 06:59 06:59 06:59 Intake Total 1780 1560 Output Total 1450 1550 Balance 330 10 Result Diagrams: 09/09/17 05:44 09/09/17 05:44 <Virgie Jasso - Last Filed: 09/09/17 13:01> Phys Exam - Physical Examination Constitutional: NAD HEENT: PERRLA, moist MMs Neck: no nodes, no JVD Improved air movement and crackles throughout. Continued mild rhonchi RLL Cardiovascular: RRR Gastrointestinal: soft, non-tender, no distention 2+ pitting edema to knee bl Neurological: non-focal Lymphatic: no nodes Psychiatric: normal affect, A&O x 3 Skin: no rash <Glen Clark - Last Filed: 09/09/17 11:19> Dx/Plan (1) Right lower lobe pneumonia Code(s): J18.1 - LOBAR PNEUMONIA, UNSPECIFIED ORGANISM Status: Acute (2) CHF exacerbation Code(s): I50.9 - HEART FAILURE, UNSPECIFIED Status: Acute QualifierTitle: Congestive heart failure type: combined Qualified Code(s) : I50.43 - Acute on chronic combined systolic (congestive) and diastolic ( congestive) heart failure (3) CKD (chronic kidney disease) stage 3, GFR 30-59 ml/min Status: Chronic (4) COPD (chronic obstructive pulmonary disease) Status: Chronic QualifierTitle: COPD type: COPD with acute lower respiratory infection Qualified Code(s): J44.0 - Chronic obstructive pulmonary disease with acute lower respiratory infection (5) Elevated brain natriuretic peptide (BNP) level Code(s): R79.89 - OTHER SPECIFIED ABNORMAL FINDINGS OF BLOOD CHEMISTRY Status : Chronic - Plan Plan: 1. RLL PNA - Pt has been slowly weaning from O2 and is largely able to maintain O2 sat w/o supplemental O2. She does still need intermittent O2 by NC - afebrile - resp rate in high teens. - move to PO abx today - blood cx negative - resp viral panel is negative 2. CHF exacerbation - net volume increase of 30 ml yesterday - rate of diuresis has slowed, will continue to follow Dr Carter recommendation - fluid restriction is being met - life vest is in place. EF 20-35% 3. CKD IV - Dr Anderson has been consulted. HD is now being recommended dt worsening kidney fxn. - Renal dosing for all abx 4. Prolonged QT - currently stable at ~0.483 - pt to wear life vest 5. HTN - currently controlled w/home meds 6. CAD - continue home statin and aspirin Dispo: pt is stable, but will still need a few days of inpatient care while weaning O2 and diuresing. <Glen Clark - Last Filed: 09/09/17 11:19> Attending Addendum - Attending Addendum I personally evaluated the patient and discussed the management with Dr. Clark. I agree with the History, Examination, Assessment and Plan documented above with any addition or exceptions noted below. The patient's lasix is not leading to adequate diuresis but kidney function is worsening. Patient will likely need dialysis and the patient is supposed to give Dr. Anderson an answer after speaking with family. Continue therapy. <Virgie Jasso - Last Filed: 09/09/17 13:01>
[2017-09-09 06:21] LABS: #Monocytes 0.6 thou/uL (0.11-0.59); #Neutrophils 5.7 thou/uL (1.40-6.50); %Basophils 0.2 % (0.0-1.0); %Eosinophils 0.7 % (0.0-10.0); %Lymphocytes 13.5 % (21.0-51.0); %Monocytes 8.6 % (0.0-10.0); Hemoglobin 10.1 g/dL (12.0-16.0); Mean Corpuscular HGB CONC 32.7 g/dL (32.0-36.0); Mean Corpuscular Hemoglobin 32.3 pg (27.0-31.0); Mean Corpuscular Volume 98.8 fl (81.0-99.0); Mean Platelet Volume 8.3 fL (7.4-10.4); Platelet Count 175 thou/uL (130-400); RBC Distribution Width 14.9 % (11.5-14.5); Red Blood Cell (RBC) Count 3.12 mill/uL (4.20-5.40); White Blood Cell (WBC) Count 7.4 thou/uL (4.8-10.8)
[2017-09-09 06:46] LABS: Anion Gap 17 mmol/L (10-20); BUN (Urea Nitrogen) 57 mg/dL (9.8-20.1); Calc. Creatinine Clearance 17 mL/min (70-130); Calcium 9.1 mg/dL (7.8-10.44); Carbon Dioxide 17 mmol/L (23-31); Chloride 118 mmol/L (98-107); Estimated GFR-MDRD 14; Glucose 117 mg/dL (83-110); Potassium 3.7 mmol/L (3.5-5.1); Sodium 148 mmol/L (136-145)
[2017-09-09] MEDS: Ferrous Sulfate 325 MG TAB PO SCH ×2 (09:13→16:00)
[2017-09-09] MEDS: Famotidine 20 MG TAB PO SCH (09:13)
[2017-09-09] MEDS: Cilostazol 100 MG TAB PO SCH ×2 (09:13→15:59)
[2017-09-09] MEDS: Aspirin 81 mg Enteric Coated Tablet PO SCH (09:13)
[2017-09-09] MEDS: Calcitriol 0.25 MCG CAP PO SCH (09:14)
[2017-09-09] MEDS: Potassium Chloride 20 MEQ TAB PO SCH (09:14)
[2017-09-09] MEDS: Enoxaparin Sodium 40 MG/0.4 ML SYRINGE SC SCH (09:14)
[2017-09-09] MEDS: Furosemide 100 MG/10 ML VIAL SLOW IVP SCH (09:14)
--- NOTE | 2017-09-09 09:44 | PRG ---
DATE OF SERVICE: 09/09/2017 SUBJECTIVE: Ms. Maya is a 77-year-old black female who was admitted for congestive heart failure. Currently on Lasix 80 mg IV daily. We are following this patient for her chronic renal failure/acu te kidney injury. The patient is still short of breath on exertion. I would maintain her Lasix at 8 0 mg IV daily. At rest she says she is feeling better, but on exertion I noticed she is short of breath. PHYSICAL EXAMINATION: VITAL SIGNS: Blood pressure is 138/108, heart rate 90, temperature 97.3, pulse ox 95%. GENERAL: Awake, alert, comfortable, not in distress. SKIN: Adequate turgor. HEENT: Pinkish conjunctivae. Anicteric sclerae. NECK: No neck mass, no carotid bruits, no JVD. CHEST: No deformities. LUNGS: Decreased breath sounds. HEART: Normal sinus rhythm. No murmur, no gallops or rubs. ABDOMEN: Globular, soft, nontender, no masses. EXTREMITIES: Positive for edema. MEDICATIONS: 09/09/2017 - Reviewed. LABORATORY: 09/09/2017 - White count 7.4, hemoglobin 10.1, sodium 148, potassium 2.7, chloride 118, carbon dioxide 17, BUN 57, creatinine 3.73, GFR 14 mL per minute. Calcium 9.1. ASSESSMENT AND PLAN: 1. Acute kidney injury/chronic renal failure. The patient is still short of breath, still on diuret ics and renal function is not improving, as a matter of fact, slightly worsened from yesterday. My b ias is to initiate hemodialysis with this patient. I do not think she will do well with simple diure tics alone since it will probably worsen the renal dysfunction. I had a long discussion with her. S he would like to think about the dialysis. She will discuss it with her relatives. I told the patie nt to call me anytime if she is ready to proceed with the dialysis. 2. Congestive heart failure. Continue IV Lasix 80 mg IV daily. 3. Anemia, stable, continuing weekly Epogen. Recheck basic met and CBC in a.m.
[2017-09-09] MEDS: Sodium Bicarbonate Tab 325 MG TAB PO SCH ×3 (10:53→21:21)
[2017-09-09] MEDS ORDERED: Amoxicillin/Potassium Clav 500 MG TAB PO SCH (11:30)
[2017-09-09] MEDS: Nicotine 14 MG PATCH TD SCH (20:00)
[2017-09-09] MEDS: Cyclobenzaprine 10 MG TAB PO SCH (21:21)
[2017-09-09] MEDS: Rosuvastatin 20 MG TAB PO SCH (21:21)
[2017-09-10 00:55] LABS: Vancomycin, Trough 10.3 ug/mL
--- NOTE | 2017-09-10 06:17 | PDOC.FM ---
- Subjective Subjective: Pt doing well today. States that she has improved SOB and cough. She is ambulating daily. She denies no new symptoms. There were no acute events over night. We discussed Dr Anderson's recommendation of HD, she states that she has not decided and will wait to speak with him today. - Objective Vital Signs & Weight: Vital Signs (12 hours) Temp Pulse Resp BP Pulse Ox 09/10/17 04:00 97.5 F L 78 20 157/91 H 92 L 09/10/17 00:00 97.5 F L 78 20 142/82 H 98 09/09/17 20:00 97.2 F L 90 18 148/70 H 95 Weight Weight 86.183 kg Most Recent Monitor Data Heart Rate from ECG 67 NIBP 146/65 NIBP BP-Mean 74 Respiration from ECG 21 SpO2 95 I&O: 09/08/17 09/09/17 09/10/17 06:59 06:59 06:59 Intake Total 1780 1560 480 Output Total 1450 1550 950 Balance 330 10 -470 Result Diagrams: 09/10/17 05:39 09/10/17 05:39 <Glen Clark - Last Filed: 09/10/17 11:53> - Objective Vital Signs & Weight: Vital Signs (12 hours) Temp Pulse Resp BP Pulse Ox 09/10/17 16:00 97.2 F L 83 16 135/86 85 L 09/10/17 12:00 97.6 F 80 22 H 148/84 H 93 L 09/10/17 08:00 97.7 F 73 28 H 128/78 92 L Weight Weight 85.729 kg Most Recent Monitor Data Heart Rate from ECG 67 NIBP 146/65 NIBP BP-Mean 74 Respiration from ECG 21 SpO2 95 I&O: 09/09/17 09/10/17 09/11/17 06:59 06:59 06:59 Intake Total 1560 960 Output Total 1550 1350 Balance 10 -390 Result Diagrams: 09/10/17 18:37 09/10/17 05:39 <Virgie Jasso - Last Filed: 09/10/17 19:41> Phys Exam - Physical Examination Constitutional: NAD HEENT: PERRLA, moist MMs Neck: no nodes, full ROM RLL rhonchi, improving. Otherwise clear Cardiovascular: RRR, no significant murmur Gastrointestinal: soft, non-tender, no distention 2+ edema to the knee b/l Neurological: non-focal Lymphatic: no nodes Psychiatric: normal affect, A&O x 3 Skin: no rash <Glen Clark - Last Filed: 09/10/17 11:53> Dx/Plan (1) Right lower lobe pneumonia Code(s): J18.1 - LOBAR PNEUMONIA, UNSPECIFIED ORGANISM Status: Acute (2) CHF exacerbation Code(s): I50.9 - HEART FAILURE, UNSPECIFIED Status: Acute QualifierTitle: Congestive heart failure type: combined Qualified Code(s) : I50.43 - Acute on chronic combined systolic (congestive) and diastolic ( congestive) heart failure (3) CKD (chronic kidney disease) stage 3, GFR 30-59 ml/min Status: Chronic (4) COPD (chronic obstructive pulmonary disease) Status: Chronic QualifierTitle: COPD type: COPD with acute lower respiratory infection Qualified Code(s): J44.0 - Chronic obstructive pulmonary disease with acute lower respiratory infection (5) Elevated brain natriuretic peptide (BNP) level Code(s): R79.89 - OTHER SPECIFIED ABNORMAL FINDINGS OF BLOOD CHEMISTRY Status : Chronic (6) Altered mental status Code(s): R41.82 - ALTERED MENTAL STATUS, UNSPECIFIED Status: Acute QualifierTitle: Altered mental status type: delirium Qualified Code(s): R41.0 - Disorientation, unspecified - Plan Plan: 1. RLL PNA - Pt was without supplemental O2 all day yesterday and has been able to maintain her O2 sat. - afebrile - resp rate 18-20 - Stopped IV abx yesterday in an effort to minimize fluid intake. Tolerating PO abx well - blood cx negative - resp viral panel is negative 2. CHF exacerbation - net diuresis of 470mL - This is an effect of decreased input, not increased output. - fluid restriction is being met - life vest is in place. EF 20-35% 3. CKD IV - Dr Anderson has been consulted. HD is now being recommended dt worsening kidney fxn. - HD pending pt's decision - Renal dosing for all abx 4. AMS - New change this morning. Pt is A&O x4, however is hallucinating - CXR, UA, blood cx, urine ex, trop/ckmb, ekg - It is possible that this is hospital related delirium, however will look for organic cause 4. Prolonged QT - currently stable at ~0.440 - pt to wear life vest 5. HTN - Pt has been elevated for the past day - Continue to monitor and consider adjusting meds if pt does not have HD soon. 6. CAD - continue home statin and aspirin 7. hypernatremia - related to renal failure. pt needs HD 8. 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 pt needs HD Dispo: pt is stable, but CKD is worsening. Discharge planning pending HD <Glen Clark - Last Filed: 09/10/17 11:53> Attending Addendum - Attending Addendum I personally evaluated the patient and discussed the management with Dr. Clark. I agree with the History, Examination, Assessment and Plan documented above with any addition or exceptions noted below. Patient was altered this morning. New blood and urine cultures have been drawn. The patient cleared as the morning progressed but became confused again this afternoon. She also went into atrial fibrillation today but was rate controlled and troponins started increasing. Cardiology has been consulted. Heparin is being started. Continue trending trops. Pt will be startign dialysis as well. <Virgie Jasso - Last Filed: 09/10/17 19:41>
[2017-09-10 06:48] LABS: Anion Gap 19 mmol/L (10-20); BUN (Urea Nitrogen) 58 mg/dL (9.8-20.1); Calc. Creatinine Clearance 16 mL/min (70-130); Calcium 9.2 mg/dL (7.8-10.44); Carbon Dioxide 16 mmol/L (23-31); Chloride 116 mmol/L (98-107); Estimated GFR-MDRD 14; Glucose 123 mg/dL (83-110); Potassium 3.5 mmol/L (3.5-5.1); Sodium 147 mmol/L (136-145)
[2017-09-10 07:40] LABS: Anisocytosis SLIGHT = 6-15 cells (100X) (0-5/hpf); Band 2 % (5-11); Eosinophils 1 % (0-10); Hemoglobin 10.1 g/dL (12.0-16.0); Hypochromia SLIGHT = 6-15 cells (100X) (0-5/hpf); Lymphocytes 6 % (21-51); MDiff Complete? YES; Mean Corpuscular HGB CONC 31.6 g/dL (32.0-36.0); Mean Corpuscular Hemoglobin 31.6 pg (27.0-31.0); Mean Platelet Volume 8.3 fL (7.4-10.4); Monocytes 7 % (0-10); Neutrophil 84 % (42-75); Platelet Count 174 thou/uL (130-400); Poikilocytosis SLIGHT = 6-15 cells (100X) (0-5/hpf); White Blood Cell (WBC) Count 12.9 thou/uL (4.8-10.8)
[2017-09-10] MEDS: Sodium Bicarbonate Tab 325 MG TAB PO SCH ×3 (09:00→21:58)
--- NOTE | 2017-09-10 09:32 | RAD ---
PORTABLE AP CHEST: Date: 09-10-17 History: Acute change in mental status. Comparison: 09-05-17 FINDINGS: Dual-lead left subclavian cardiac pacemaking device remains in place and unchanged in position. Cardi ac silhouette remains enlarged. Pulmonary vasculature is at upper limits of normal, similar to prior exam. Small bilateral pleural effusions are again seen. There is parenchymal opacity again seen at th e right lung base, but there has been mild improvement in aeration compared to the prior exam. Again noted is deviation of the trachea to the left with mass-like area of increased density to the right o f the trachea corresponding to thyroid lesion noted on prior CT thorax on 08-26-17. Vascular calcific ations are again seen in the thoracic aorta and there is severe bilateral glenohumeral osteoarthropat hy. Vascular calcifications are seen in the subclavian and axillary vessels. IMPRESSION: 1. Moderate improvement aeration at the right lung base, but the focal parenchymal opacity does persi st and is suspicious for pneumonia. 2. Small bilateral pleural effusions. 3. Cardiomegaly. 4. Mass in the upper mediastinum to the right of the trachea with tracheal deviation. This correspond s to mass seen within the right lobe of the thyroid gland on CT exam on 08-26-17. POS: [facility]
[2017-09-10] MEDS: Calcitriol 0.25 MCG CAP PO SCH (09:45)
[2017-09-10] MEDS: Famotidine 20 MG TAB PO SCH (09:45)
[2017-09-10] MEDS: Aspirin 81 mg Enteric Coated Tablet PO SCH (09:46)
[2017-09-10] MEDS: Cilostazol 100 MG TAB PO SCH ×2 (09:46→21:24)
[2017-09-10] MEDS: Azithromycin 250 MG TAB PO SCH (09:46)
[2017-09-10] MEDS: Cefdinir 300 MG CAP PO SCH (09:46)
[2017-09-10] MEDS: Furosemide 100 MG/10 ML VIAL SLOW IVP SCH (09:47)
[2017-09-10] MEDS: Ferrous Sulfate 325 MG TAB PO SCH ×2 (09:49→21:08)
[2017-09-10] MEDS: Potassium Chloride 20 MEQ TAB PO SCH (09:54)
[2017-09-10] MEDS ORDERED: Tuberculin PPD 0.1 ML VIAL I-DERMAL SCH (10:30)
[2017-09-10 10:55] LABS: HBSAg Index 0.27 S/CO (0-0.99); Hep B Surf Ag Non-Reactive S/CO (NonReactive)
[2017-09-10 11:50] LABS: CKMB 8.2 ng/mL (0-6.6); Troponin I 1.105 ng/mL (< 0.028)
--- NOTE | 2017-09-10 12:02 | PRG ---
DATE OF SERVICE: 09/10/2017 SUBJECTIVE: Ms. Maya is a 77-year-old black female with chronic renal failure/acute kidney injury and was admitted for shortness of breath. She was found to have concomitant CHF and pneumonia. She is currently on diuretic regimen and IV antibiotics. However, renal function has remained unimprove d and actually has worsened. Her shortness of breath is still persistent this patient in exertion. She continues to have leg edema. I feel strongly that this patient will need to be dialyzed. I had a long discussion with her yesterday regarding this. Today, I will discuss dialysis and she has agre ed to do this. There is also a possibility she need a fci. Shortness of breath still present, this patient with extension. OBJECTIVE: VITAL SIGNS: Blood pressure 128/78, heart rate 73, respiratory rate 20, temperature 97.7, pulse ox 9 2%. GENERAL: She is noted to be awake, supine, comfortable, not in overt distress. SKIN: Adequate turgor. HEENT: She has pinkish conjunctivae, anicteric sclerae. NECK: No neck mass, no carotid bruits, no JVD. CHEST: No deformities. LUNGS: Decreased breath sounds, occasional crackles. HEART: Normal sinus rhythm. No murmur, no gallops, no rubs. ABDOMEN: Globular, soft, nontender. EXTREMITIES: +2 edema. MEDICATIONS: Of 09/10/2017 was reviewed. LABORATORY DATA: Of 09/10/2017 white count 12.9, hemoglobin 10.1, sodium 147, potassium 3.5, chlorid e 116, carbon dioxide 16, BUN 58, creatinine 3.83, GFR 14 mL per minute, glucose 123, calcium is 9.2. ASSESSMENT AND PLAN: 1. Congestive heart failure - continue IV Lasix. Still with persistent shortness of breath on exert ion. Due to the worsening renal dysfunction and continued use of diuretics, may bias is to initiate dialysis with this patient. 2. Chronic renal failure/acute kidney injury - GFR noted at 14 mL per minute. Renal function has be en worsening. Due to the volume overload, we will initiate dialysis. I have consulted Surgery for p lacement of a cuffed dialysis catheter. 3. Anemia. Continue weekly Epogen. 4. Pneumonia, on p.o. antibiotics. 5. Recheck basic met and CBC in a.m.
[2017-09-10 12:51] LABS: CKMB 7.9 ng/mL (0-6.6); Troponin I 1.498 ng/mL (< 0.028)
--- NOTE | 2017-09-10 13:19 | ULT ---
EXAM: DIALYSIS MAPPING: HISTORY: Renal failure. Dialysis. COMPARISON: None. TECHNIQUE: Florez scale, color flow, Doppler imaging, and spectral waveform analysis is performed of the left and right lower extremity venous and arterial system. FINDINGS: RIGHT UPPER EXTREMITY: Brachial artery 6.2 mm Radial artery 1.6 mm Ulnar artery 1.1 mm Cephalic vein: Proximal humerus 1.7 mm Mid humerus 1.0 mm Distal humerus 1.1 mm There is a clot in the antecubital fossa and throughout the entire forearm. Basilic vein: Proximal humerus 6.6 mm Mid humerus 1.9 mm Distal humerus 2.4 mm Antecubital fossa 2.7 mm Proximal forearm 2.5 mm Mid forearm 0.9 mm Distal forearm 1.2 mm LEFT UPPER EXTREMITY: Brachial artery 4.9 mm Radial artery 1.8 mm Ulnar artery 1.2 mm Cephalic vein: Proximal humerus measurement was not given Mid humerus 1.1 mm Distal humerus 2.7 mm Antecubital fossa 2.3 mm Proximal forearm 1.2 mm Mid forearm 1.7 mm Distal forearm 1.4 mm Basilic vein: There is clot in the proximal, mid, and distal humerus. Antecubital fossa 3.5 mm Proximal forearm 1.5 mm Mid forearm 1.5 mm Distal forearm measurement was not given IMPRESSION: Vein mapping as above. POS: BREANN
[2017-09-10] MEDS: Enoxaparin Sodium 40 MG/0.4 ML SYRINGE SC SCH (14:09)
[2017-09-10 14:28] LABS: Bilirubin Negative (Negative); Blood, Urine Moderate (Negative); Clarity CLOUDY (Clear); Glucose, Urine (Dipstick) Negative (Negative); Leukocyte Small (Negative); Nitrite Negative (Negative); Protein, Urine (Dipstick) > or equal to 300 mg/dL (Neg-Trace); Specific Gravity, Urine 1.024 (1.002-1.036); Urobilinogen 0.2 mg/dL (0.2-1.0); pH, Urine 5.5 (5.0-9.0)
[2017-09-10 14:30] LABS: WBC/HPF 21-50 HPF (0-3)
[2017-09-10 14:33] LABS: Pathc Cast-AUWi Flag 2.84 (0-2.49); Yeast-AUWi Flag 473.4 (0-25.0)
[2017-09-10 14:44] LABS: Bacteria/HPF 1+ HPF (None Seen); Hyaline Casts/LPF 0-3 HYALINE CAST LPF (0-3 Hyaline); Manual Microscopic Reviewed? No Path Casts Seen; Yeast-All Forms 1+ HPF (None Seen)
[2017-09-10 15:53] LABS: CKMB 7.6 ng/mL (0-6.6)
--- NOTE | 2017-09-10 16:30 | HP ---
HISTORY OF PRESENT ILLNESS: Dana Maya is a 77-year-old black female who lives alone in [place]. The patient has end-stage renal disease. I have been asked by Dr. Anderson to place a hemodialysis cath eter. [facility] has admitted her. Patient has had ultrasound vein mapping, has had multiple c lots and small veins in her antecubital area bilaterally. She has a left subclavian vein pacemaker. I was called this afternoon, asked to place a hemodialysis catheter; however, I was informed that th e patient ate breakfast. She was to be n.p.o. I entered the room this afternoon and the patient sta misty that she never ate breakfast, never ate a biscuit. She however, ate lunch. I have talked to Dr. Anderson. He wants to initiate dialysis this weekend. Plan is to place a temporary femoral vein dialysi s catheter and then place a cuffed tunneled dialysis catheter on Wednesday. She will need a right arm p rimary fistula, most likely prosthetic graft due to multiple thrombus in her right antecubital area. She possibly could have a basilic vein transposition, pending operative findings, but most likely wi ll need a prosthetic dialysis graft. HOME MEDICATIONS: Calcitriol 0.25 mcg a day, Norvasc 10 mg a day, aspirin 81 mg a day, Ceftin 250 mg b.i.d., carvedilol 12.5 mg b.i.d., Procrit 7500 units every 7 days, Flexeril as needed 5 mg at bedti me, Pletal 100 mg p.o. b.i.d., Imdur 60 mg daily, Lasix 20 mg a day, ferrous sulfate 325 b.i.d., sodi um bicarbonate 650 t.i.d., Crestor 20 mg at bedtime, ranitidine 150 b.i.d., potassium chloride 20 jeremie ry day, nicotine 14 patch, tramadol as needed for pain 100 mg, hydralazine 25 mg t.i.d., Clonidine 0. 2 mg b.i.d. ALLERGIES: None. TOBACCO: None. ALCOHOL: None. PAST SURGICAL HISTORY: Total abdominal hysterectomy. She has had a colonoscopy in the past. Left f em-pop bypass, hysterectomy, thyroidectomy, pacemaker placement in 2012. PAST MEDICAL HISTORY: History of systolic congestive heart failure, history of tobacco abuse, hypert ension. SOCIAL HISTORY: Patient tells me that she does not smoke, but recent history and physical states pola t she smokes a pack a day. She was admitted for dyspnea. PHYSICAL EXAMINATION: VITAL SIGNS: 5 feet 9, 189 pounds, 27 BMI, 97.6 degrees, 80, 148/84. HEENT: Unremarkable. LUNGS: Clear to auscultation. CARDIAC: Regular rate and rhythm without murmur or gallop. ABDOMEN: Soft, nontender, obese. EXTREMITIES: Right mid forearm IV manages antecubital area reflective of blood draws, pacemaker in l eft subclavian vein. Extremities otherwise unremarkable. LABORATORY DATA: White count 12, hemoglobin 10, sodium 147, potassium 3.5, chloride 116, carbon diox earl 16, BUN 58, creatinine 3.83, GFR 14. ASSESSMENT AND PLAN: 1. Pacemaker, left subclavian vein, end-stage renal disease, multiple thrombus of antecubital areas, both arms, probably cephalic veins are unavailable for primary fistula due to iatrogenic venous acce ss. Patient's basilic vein on the right, possibly could be used according to vein ultrasound vein [facility]. Physical examination does not reveal any visible vein. Plan is to place a temporary hemodial ysis catheter in the right groin to initiate dialysis this weekend. Although her potassium is normal , she is acidotic. She is in no distress currently; however. We will then plan 09/13/2017, hemodialysis catheter and placement of right arm dialysis fistula or graft. I have discussed the ris ks and benefits of surgery including infection, bleeding, reoperation and thrombus of the fistula or graft, possible revisional surgery, possibly transposition and she consents. 2. Pacemaker, left subclavian vein. 3. Chronic anemia. 4. History of tobacco abuse. 5. Chronic obstructive pulmonary disease. 6. Peripheral artery disease. 7. History of left fem-pop bypass by Dr. Zaheer Horn, 11/2015, 8 mm ringed Hawley-Victoriano, greater saphe nous vein inadequate for conduit.
[2017-09-10] MEDS ORDERED: Clopidogrel Bisulfate 300 MG TAB PO SCH (17:30)
[2017-09-10] MEDS ORDERED: Carvedilol 6.25 MG TAB PO SCH (18:00)
[2017-09-10] MEDS ORDERED: Heparin 25,000 units/D5W 500 ML IVPB SCH (18:30)
[2017-09-10] MEDS ORDERED: Heparin 10,000 UNITS/ 10 ML VIAL SLOW IVP SCH (18:30)
[2017-09-10 18:48] LABS: Hemoglobin 10.2 g/dL (12.0-16.0); Platelet Count 163 thou/uL (130-400)
--- NOTE | 2017-09-10 18:54 | OP ---
PREOPERATIVE DIAGNOSES: Dyspnea, end-stage renal disease, poor IV access, pacemaker in left subclavi an vein. POSTOPERATIVE DIAGNOSES: Dyspnea, end-stage renal disease, poor IV access, pacemaker in left subclav ngozi vein. PROCEDURE: Right femoral vein Trialysis catheter. SURGEON: Dr. Timbo Arteaga. ANESTHESIA: 1% Xylocaine. PROCEDURE IN DETAIL: At the patient's bedside, her right groin was clipped of hair, prepared with Ch loraPrep, draped in routine fashion. Local anesthetic infiltrated into skin and subcutaneous tissue about the operative site. 1% Xylocaine was used. Trocar catheter cannulated the femoral vein and J- wire threaded. Trocar catheter removed. Skin was incised and enlarged sharply. Smaller and medium sized dilators were placed over the J-wire into the femoral vein and removed. Dialysis catheter was placed over the distal port of the femoral vein and secured with 2 interrupted sutures of 3-0 nylon. J-wire removed. Each port aspirated blood and flushed with heparinized saline solution. Patient to lerated the procedure well.
[2017-09-10 19:25] LABS: CKMB 7.2 ng/mL (0-6.6); Troponin I 1.821 ng/mL (< 0.028)
[2017-09-10] MEDS ORDERED: hydrALAZINE 10 MG TAB PO SCH (21:00)
[2017-09-10] MEDS: Cyclobenzaprine 10 MG TAB PO SCH (21:58)
[2017-09-10] MEDS: Rosuvastatin 20 MG TAB PO SCH (21:58)
[2017-09-10] MEDS: Nicotine 14 MG PATCH TD SCH (21:59)
--- NOTE | 2017-09-10 22:08 | CON ---
DATE OF CONSULTATION: 09/10/2017 HISTORY OF PRESENT ILLNESS: The patient is a 77-year-old woman with a history of cardiomyopathy and chronic renal failure who presents with chest discomfort and dyspnea. The patient has a previous history of pacemaker placement in 2007 for bradycardia. She also has a history of peripheral vascular disease. The patient has a history of congestive heart failure and a known low ejection fraction. She was recently in the hospital with respiratory failure. She had an echocardiogram revealed ejection fraction of 20%. The patient has chronic renal failure and it was felt best for her to be placed on medical therapy. She had previously suffered a non-Q-wave myocardial infarction approximately a year ago. The patient was discharged and several days later returned with increasing dyspnea. She was in congestive heart failure. The patient subsequently has been diuresed. She yesterday reported having substernal chest discomfort and was noted to have elevated cardiac enzymes. The patient denies having any present chest discomfort. PAST MEDICAL HISTORY: 1. Cardiomyopathy. 2. History non-Q-wave myocardial infarction. 3. Hypertension. 4. Hyperlipidemia. 5. Peripheral vascular disease. 6. Diabetes mellitus. 7. Chronic renal failure. PAST SURGICAL HISTORY: Hysterectomy, left femoral popliteal bypass, thyroidectomy. SOCIAL HISTORY: Long history of tobacco abuse. FAMILY HISTORY: Positive family history of heart disease. ALLERGIES: None. MEDICATIONS: See nursing list. REVIEW OF SYSTEMS: Ten point system noticeable for increasing dyspnea. PHYSICAL EXAMINATION: GENERAL: This is an obese woman in mild distress. Blood pressure 148/84. NECK: Full. LUNGS: A few crackles bilateral. HEART: Regular rate and rhythm, normal S1, S2. ADBDOMEN: Mildly distended. EXTREMITIES: Showed severe bilateral edema. SKIN: Warm and dry. NEUROLOGIC: Nonfocal. VASCULAR: Radial pulses are 2+. LABORATORY DATA: White blood cell count 12.9, hemoglobin 10.1, hematocrit 32.0 , platelets were 174. Sodium is 147, potassium 3.5, chloride 116, bicarbonate 58, BUN 3.8. CPK MB was 8.2. Troponin 1.5. EKG revealed wandering atrial pacemaker with a marked ST-T wave abnormality suggestive of ischemia. IMPRESSION: 1. Non-Q-wave myocardial infarction. 2. Congestive heart failure. 3. Severe cardiomyopathy. 4. Peripheral vascular disease. 5. Chronic renal failure. 6. Hypertension. 7. Tobacco abuse. 8. Dyslipidemia. 9. History of pacemaker placement. This woman has suffered a non-Q-wave myocardial infarction. EKG revealed evidence of probable severe ischemia. Would add Plavix to her medical regimen. We will restart the patient on nitrates and beta-hong therapy. The patient 's prognosis is very guarded. We will follow this patient with you through her hospitalization. RADHA
[2017-09-10 22:20] LABS: CKMB 6.4 ng/mL (0-6.6)
[2017-09-10 22:23] LABS: Critical Call Chem Troponin I RESULT DECREASING; Troponin I 1.496 ng/mL (< 0.028)
[2017-09-11 06:14] LABS: Anion Gap 17 mmol/L (10-20); BUN (Urea Nitrogen) 63 mg/dL (9.8-20.1); Calc. Creatinine Clearance 15 mL/min (70-130); Calcium 9.2 mg/dL (7.8-10.44); Carbon Dioxide 15 mmol/L (23-31); Chloride 117 mmol/L (98-107); Estimated GFR-MDRD 12; Glucose 120 mg/dL (83-110); Potassium 4.1 mmol/L (3.5-5.1); Sodium 145 mmol/L (136-145)
[2017-09-11 06:22] LABS: Band 2 % (5-11); Hemoglobin 10.1 g/dL (12.0-16.0); Lymphocytes 3 % (21-51); MDiff Complete? YES; Mean Corpuscular HGB CONC 31.3 g/dL (32.0-36.0); Mean Corpuscular Hemoglobin 31.5 pg (27.0-31.0); Mean Platelet Volume 9.2 fL (7.4-10.4); Monocytes 2 % (0-10); Neutrophil 93 % (42-75); PLT Morphology Comment Appears Decreased; Platelet Count 119 thou/uL (130-400); RBC Distribution Width 15.1 % (11.5-14.5); Red Blood Cell (RBC) Count 3.21 mill/uL (4.20-5.40); White Blood Cell (WBC) Count 12.5 thou/uL (4.8-10.8)
--- NOTE | 2017-09-11 06:33 | PDOC.FM ---
- Subjective Subjective: Patient states she had a good night and is ready to go home. Dr. Estrada saw this patient and told her she didn't need the life vest any longer. She said that she had no problems and slept over night. This AM she was in dialysis. No other concerns. - Objective Vital Signs & Weight: Vital Signs (12 hours) Temp Pulse Resp BP BP Pulse Ox 09/11/17 04:00 96.4 F L 94 22 H 156/72 H 93 L 09/11/17 00:00 96.3 F L 74 18 139/81 100 09/10/17 21:58 68 146/87 H 09/10/17 20:00 96.2 F L 68 20 146/87 H 98 Weight Weight 84.368 kg Most Recent Monitor Data Heart Rate from ECG 67 NIBP 146/65 NIBP BP-Mean 74 Respiration from ECG 21 SpO2 95 I&O: 09/09/17 09/10/17 09/11/17 06:59 06:59 06:59 Intake Total 1560 960 360 Output Total 1550 1350 400 Balance 10 -390 -40 Result Diagrams: 09/11/17 05:07 09/11/17 05:07 <Toni Jaing - Last Filed: 09/11/17 11:13> - Objective Vital Signs & Weight: Vital Signs (12 hours) Temp Pulse Resp BP BP Pulse Ox 09/11/17 15:57 79 107/74 09/11/17 11:35 79 18 135/74 09/11/17 10:29 134/72 09/11/17 10:28 94 134/72 09/11/17 08:15 96.0 F L 80 18 134/72 97 09/11/17 08:00 96.0 F L 94 18 97 Weight Weight 84.368 kg Most Recent Monitor Data Heart Rate from ECG 67 NIBP 146/65 NIBP BP-Mean 74 Respiration from ECG 21 SpO2 95 I&O: 09/10/17 09/11/17 09/12/17 06:59 06:59 06:59 Intake Total 960 360 Output Total 1350 400 Balance -390 -40 Result Diagrams: 09/11/17 05:07 09/11/17 05:07 <Virgie Jasso - Last Filed: 09/11/17 16:51> Phys Exam - Physical Examination HEENT: moist MMs Respiratory: no wheezing, clear to auscultation bilateral Cardiovascular: RRR Gastrointestinal: soft, non-tender, no distention, positive bowel sounds Musculoskeletal: pulses present, edema present Neurological: non-focal, moves all 4 limbs Psychiatric: normal affect <Toni Jiang - Last Filed: 09/11/17 11:13> Dx/Plan (1) Altered mental status Code(s): R41.82 - ALTERED MENTAL STATUS, UNSPECIFIED Status: Acute QualifierTitle: Altered mental status type: delirium Qualified Code(s): R41.0 - Disorientation, unspecified (2) Right lower lobe pneumonia Code(s): J18.1 - LOBAR PNEUMONIA, UNSPECIFIED ORGANISM Status: Acute (3) CHF exacerbation Code(s): I50.9 - HEART FAILURE, UNSPECIFIED Status: Acute QualifierTitle: Congestive heart failure type: combined Qualified Code(s) : I50.43 - Acute on chronic combined systolic (congestive) and diastolic ( congestive) heart failure (4) CKD (chronic kidney disease) stage 3, GFR 30-59 ml/min Status: Chronic (5) COPD (chronic obstructive pulmonary disease) Status: Chronic QualifierTitle: COPD type: COPD with acute lower respiratory infection Qualified Code(s): J44.0 - Chronic obstructive pulmonary disease with acute lower respiratory infection (6) Elevated brain natriuretic peptide (BNP) level Code(s): R79.89 - OTHER SPECIFIED ABNORMAL FINDINGS OF BLOOD CHEMISTRY Status : Chronic - Plan Plan: 1. RLL PNA - Pt was without supplemental O2 all day yesterday and has been able to maintain her O2 sat. - afebrile - resp rate 18-20 - Tolerating PO abx well - blood cx negative - resp viral panel is negative 2. CHF exacerbation - net diuresis of 470mL - This is an effect of decreased input, not increased output. - fluid restriction is being met - life vest is in place. EF 20-35% 3. CKD IV - Dr Anderson has been consulted. HD is now being recommended dt worsening kidney fxn. - HD - Renal dosing for all abx 4. AMS - New change this morning. Pt is A&O x4, however is hallucinating - CXR, UA, blood cx, urine ex, trop/ckmb, ekg - It is possible that this is hospital related delirium, however will look for organic cause 4. Prolonged QT - currently stable at ~0.440 - Dr. Estrada believes non-Q wave etiology and no longer needs life vest. Will initiate beta hong and nitrate therapy. 5. HTN - Pt has been elevated for the past day - Continue to monitor and consider adjusting meds if pt does not have HD soon. 6. CAD - continue home statin and aspirin 7. hypernatremia - resolved with HD 8. 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 pt needs HD Dispo: pt is stable, but CKD is worsening. Will go for permanent HD placement on Wednesday. <Toni Jiang - Last Filed: 09/11/17 11:13> Attending Addendum - Attending Addendum I personally evaluated the patient and discussed the management with Dr. Jiang. I agree with the History, Examination, Assessment and Plan documented above with any addition or exceptions noted below. The patient was able to tolerate dialysis for the first time today. She will get a tunneled dialysis catheter placed on Wednesday. Pt sufferd a Non Q-wave VA. Appreciate cardiology recommendations. pt now on plavix. Continue supportive care. <Virgie Jasso - Last Filed: 09/11/17 16:51>
[2017-09-11] MEDS: Calcitriol 0.25 MCG CAP PO SCH (10:28)
[2017-09-11] MEDS: hydrALAZINE 10 MG TAB PO SCH ×3 (10:28→20:24)
[2017-09-11] MEDS: Cefdinir 300 MG CAP PO SCH (10:28)
[2017-09-11] MEDS: Aspirin 81 mg Enteric Coated Tablet PO SCH (10:29)
[2017-09-11] MEDS: Carvedilol 6.25 MG TAB PO SCH ×2 (10:29→17:24)
[2017-09-11] MEDS: Clopidogrel Bisulfate 75 MG TAB PO SCH (10:30)
[2017-09-11] MEDS: Enoxaparin Sodium 40 MG/0.4 ML SYRINGE SC SCH (10:30)
[2017-09-11] MEDS: Azithromycin 250 MG TAB PO SCH (10:30)
[2017-09-11] MEDS: Ferrous Sulfate 325 MG TAB PO SCH ×2 (10:30→17:24)
[2017-09-11] MEDS: Famotidine 20 MG TAB PO SCH (10:31)
[2017-09-11] MEDS: Potassium Chloride 20 MEQ TAB PO SCH (10:32)
[2017-09-11] MEDS: Furosemide 100 MG/10 ML VIAL SLOW IVP SCH (10:32)
[2017-09-11] MEDS: Sodium Bicarbonate Tab 325 MG TAB PO SCH (10:33)
[2017-09-11] MEDS ORDERED: Losartan 25 MG TAB PO SCH (17:15)
[2017-09-11] MEDS: Nicotine 14 MG PATCH TD SCH (17:25)
--- NOTE | 2017-09-11 18:18 | PDOC.EVN ---
Event Note - Event Note Event Note: Call at 16:00 on 09/11/17 Residents called to bedside to evaluate patient for increased work of breathing. Dr. Carter and Dr. Fregoso at bedside. Patient was initially satting 90% on 2L. Oxygen increased to 3 L and O2 sat increased to 97%. Patient was asymptomatic. Denies chest pain, difficulty breathing, and had no complaints. Patient was A&OX4, in no acute distress, Lung exam was significant for decreased breath sounds over RLL, but lungs were otherwise unremarkable from prior exams. Vitals: 97% on 3 L, Pulse 76, BP 123/77. Plan is to continue to monitor. Patient stable at time of exam. Continue current management. Please notify residents if status changes.
--- NOTE | 2017-09-11 18:58 | PRG ---
DATE OF SERVICE: 09/11/2017 RENAL MEDICINE SUBJECTIVE: Ms. Maya is a 77-year-old black female who was admitted for shortness of breath. She has concomitant CHF/pneumonia. Currently on p.o. antibiotics as well as diuretics. Due to the wors ening renal dysfunction as well as improved CHF, I decided to initiate dialysis. She received her fi rst dialysis today with removal about 1 liter of fluid today. She is actually complaining of shortness of breath early this morning. OBJECTIVE: VITAL SIGNS: Blood pressure is 156/72, heart rate 94, respiratory rate 22, temperature 96.4, pulse o x 93%. GENERAL: Noted to be awake, supine, comfortable, not in distress. SKIN: Adequate turgor. HEENT: She has pinkish conjunctivae, anicteric sclerae. NECK: No neck mass, no carotid bruits, no JVD. CHEST: No deformities. LUNGS: Decreased breath sounds. Occasional crackles. HEART: Normal sinus rhythm. No murmur, no gallops, no rubs. ABDOMEN: Globular, soft, nontender, no masses. EXTREMITIES: Positive for edema. MEDICATIONS: Medications of 09/11/2017 was reviewed. LABORATORY DATA: Laboratories of 09/11/2017 were reviewed; white count 12.5, hemoglobin 10.1. Sodium 145, potassium 4.1, chloride 117, carbon dioxide 15, BUN 63, creatinine 4.19, glucose 120, sarah cium 9.2. ASSESSMENT AND PLAN: 1. Chronic renal failure/acute kidney injury - hemodialysis has been initiated due to the worsening renal dysfunction as well as due to the volume overload. She received her first dialysis today - 1 l iter of fluid was removed today. Due to the initiation of dialysis, I have discontinued her Lasix, p otassium, and sodium bicarbonate. 2. Congestive heart failure - max out fluid removal with dialysis as tolerated. She is again schedu led for dialysis in a.m. I have also started Losartan 25 mg tab at bedtime. 3. Anemia, continuing weekly Epogen with this patient. Overall, prognosis remains guarded. ADDENDUM: Please note that the patient will have a cuffed dialysis catheter placed this coming [place] [employer] Check base met and CBC in a.m.
[2017-09-11] MEDS: Cyclobenzaprine 10 MG TAB PO SCH (20:24)
[2017-09-11] MEDS: Rosuvastatin 20 MG TAB PO SCH (20:25)
[2017-09-12 06:07] LABS: #Lymphocytes 1.1 thou/uL (1.20-3.40); #Monocytes 0.5 thou/uL (0.11-0.59); #Neutrophils 7.1 thou/uL (1.40-6.50); %Basophils 0.1 % (0.0-1.0); %Eosinophils 0.1 % (0.0-10.0); %Monocytes 5.8 % (0.0-10.0); Hemoglobin 9.5 g/dL (12.0-16.0); Mean Corpuscular HGB CONC 31.3 g/dL (32.0-36.0); Mean Corpuscular Hemoglobin 31.4 pg (27.0-31.0); Mean Platelet Volume 9.1 fL (7.4-10.4); Platelet Count 139 thou/uL (130-400); RBC Distribution Width 15.2 % (11.5-14.5); Red Blood Cell (RBC) Count 3.01 mill/uL (4.20-5.40); White Blood Cell (WBC) Count 8.8 thou/uL (4.8-10.8)
[2017-09-12 06:10] LABS: PLT Morphology Comment Appears Adequate
[2017-09-12 06:12] LABS: Anion Gap 16 mmol/L (10-20); BUN (Urea Nitrogen) 63 mg/dL (9.8-20.1); Calc. Creatinine Clearance 14 mL/min (70-130); Calcium 8.9 mg/dL (7.8-10.44); Carbon Dioxide 20 mmol/L (23-31); Chloride 112 mmol/L (98-107); Estimated GFR-MDRD 12; Glucose 125 mg/dL (83-110); Sodium 144 mmol/L (136-145)
--- NOTE | 2017-09-12 06:30 | PDOC.FM ---
- Subjective Subjective: Patient states she had an eventful night. She said she was having good rest, but then around 1AM when she was getting up to use the rest room felt very weak and went down onto the floor. The nurse was in with her at this time and helped her slide to the floor. The nurse states no injury occurred. The patient does not describe any injury either. She notes no sob, chest pain, n/v/d. Dr. Anderson has told her that she will need extermination supervisor dialysis and she will go for that again today. She states after dialysis yesterday her breathing improved and her leg swelling improved as well. - Objective Vital Signs & Weight: Vital Signs (12 hours) Temp Pulse Resp BP Pulse Ox 09/12/17 04:00 98.4 F 74 18 117/69 98 09/12/17 00:00 97.2 F L 72 18 108/59 L 95 09/11/17 20:24 77 09/11/17 20:00 96.9 F L 73 20 118/68 96 Weight Weight 84.323 kg Most Recent Monitor Data Heart Rate from ECG 67 NIBP 146/65 NIBP BP-Mean 74 Respiration from ECG 21 SpO2 95 I&O: 09/10/17 09/11/17 09/12/17 06:59 06:59 06:59 Intake Total 675 640 3902 Output Total 4212 567 2231 Balance -390 -40 400 Result Diagrams: 09/12/17 05:30 09/12/17 05:30 <Toni Jiang - Last Filed: 09/12/17 07:29> - Objective Vital Signs & Weight: Vital Signs (12 hours) Temp Pulse Resp BP BP Pulse Ox 09/12/17 15:10 96.7 F L 83 19 103/67 96 09/12/17 15:08 64 103/67 09/12/17 13:31 99 09/12/17 13:26 64 20 99 09/12/17 13:00 96.5 F L 72 18 106/72 94 L 09/12/17 09:32 120/76 09/12/17 09:29 86 120/76 09/12/17 08:00 97.9 F 86 19 95 09/12/17 07:52 97.9 F 86 19 120/76 95 Weight Weight 84.323 kg Most Recent Monitor Data Heart Rate from ECG 67 NIBP 146/65 NIBP BP-Mean 74 Respiration from ECG 21 SpO2 95 I&O: 09/11/17 09/12/17 09/13/17 06:59 06:59 06:59 Intake Total 360 1400 Output Total 400 1000 Balance -40 400 Result Diagrams: 09/12/17 05:30 09/12/17 05:30 <LouisaVirgie - Last Filed: 09/12/17 16:48> Phys Exam - Physical Examination HEENT: moist MMs Neck: no nodes Respiratory: no wheezing, clear to auscultation bilateral Cardiovascular: RRR, no significant murmur Gastrointestinal: soft, non-tender, no distention, positive bowel sounds Musculoskeletal: edema present 2+ up to shins, improved from yesterday Neurological: non-focal, normal sensation, moves all 4 limbs Lymphatic: no nodes Psychiatric: normal affect, A&O x 3 <Toni Jiang - Last Filed: 09/12/17 07:29> Dx/Plan (1) Altered mental status Code(s): R41.82 - ALTERED MENTAL STATUS, UNSPECIFIED Status: Acute QualifierTitle: Altered mental status type: delirium Qualified Code(s): R41.0 - Disorientation, unspecified (2) Right lower lobe pneumonia Code(s): J18.1 - LOBAR PNEUMONIA, UNSPECIFIED ORGANISM Status: Acute (3) CHF exacerbation Code(s): I50.9 - HEART FAILURE, UNSPECIFIED Status: Acute QualifierTitle: Congestive heart failure type: combined Qualified Code(s) : I50.43 - Acute on chronic combined systolic (congestive) and diastolic ( congestive) heart failure (4) CKD (chronic kidney disease) stage 3, GFR 30-59 ml/min Status: Chronic (5) COPD (chronic obstructive pulmonary disease) Status: Chronic QualifierTitle: COPD type: COPD with acute lower respiratory infection Qualified Code(s): J44.0 - Chronic obstructive pulmonary disease with acute lower respiratory infection (6) Elevated brain natriuretic peptide (BNP) level Code(s): R79.89 - OTHER SPECIFIED ABNORMAL FINDINGS OF BLOOD CHEMISTRY Status : Chronic - Plan Plan: 1. RLL PNA - Pt was without supplemental O2 all day yesterday and has been able to maintain her O2 sat. - afebrile - resp rate 18-20 - Tolerating PO abx well - blood cx negative - resp viral panel is negative 2. CHF exacerbation - This is an effect of decreased input, not increased output. - fluid restriction is being met - Will help diuresis with HD - Initiated Losartan - Lasix d/c per Dr. Anderson's recs 3. CKD IV - Dr Anderson has been consulted. HD is now being recommended dt worsening kidney fxn. - HD - Renal dosing for all abx 4. AMS - New change this morning. Pt is A&O x4, however is hallucinating - CXR, UA, blood cx, urine ex, trop/ckmb, ekg - It is possible that this is hospital related delirium, however will look for organic cause - Resolved, back to baseline 4. Prolonged QT - currently stable at ~0.440 - Dr. Estrada believes non-Q wave etiology and no longer needs life vest. Will initiate beta hong and nitrate therapy. 5. HTN - Pt has been elevated for the past day - Continue to monitor and consider adjusting meds if pt does not have HD soon. 6. CAD - continue home statin and aspirin 7. hypernatremia - resolved with HD 8. 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 pt needs HD Dispo: Guarded, patient will go for permanent HD placement on Wednesday. <Toni Jiang - Last Filed: 09/12/17 07:29> Attending Addendum - Attending Addendum I personally evaluated the patient and discussed the management with Dr. Jiang. I agree with the History, Examination, Assessment and Plan documented above with any addition or exceptions noted below. The patient is doing well. No injury after sliding to the floor overnight. Will have additional dialysis today. Getting tunneled dialysis catheter tomorrow. <Virgie Jasso - Last Filed: 09/12/17 16:48>
[2017-09-12] MEDS ORDERED: Losartan 25 MG TAB PO SCH (09:00)
[2017-09-12] MEDS: hydrALAZINE 10 MG TAB PO SCH ×3 (09:29→20:12)
[2017-09-12] MEDS: Clopidogrel Bisulfate 75 MG TAB PO SCH (09:29)
[2017-09-12] MEDS: Calcitriol 0.25 MCG CAP PO SCH (09:29)
[2017-09-12] MEDS: Azithromycin 250 MG TAB PO SCH (09:29)
[2017-09-12] MEDS: Famotidine 20 MG TAB PO SCH (09:29)
[2017-09-12] MEDS: Cefdinir 300 MG CAP PO SCH (09:29)
[2017-09-12] MEDS: Enoxaparin Sodium 40 MG/0.4 ML SYRINGE SC SCH (09:31)
[2017-09-12] MEDS: Ferrous Sulfate 325 MG TAB PO SCH ×2 (09:32→17:39)
[2017-09-12] MEDS: Carvedilol 6.25 MG TAB PO SCH ×2 (09:32→17:39)
[2017-09-12] MEDS: Aspirin 81 mg Enteric Coated Tablet PO SCH (09:33)
[2017-09-12] MEDS ORDERED: Heparin 1,000 UNITS/ML VIAL ONE (11:11)
--- NOTE | 2017-09-12 11:25 | PRG ---
DATE OF SERVICE: 09/12/2017 RENAL MEDICINE SUBJECTIVE: Ms. Maya is a 77-year-old black female who was admitted for shortness of breath. She has pneumonia/CHF. Due to the worsening renal dysfunction, we initiated dialysis. She is currently undergoing dialysis. My plan is to do another treatment with her for fluid removal. No new complai nts. She tells me that shortness of breath is little better. The patient is still manifesting inter mittent confusion. OBJECTIVE: VITAL SIGNS: Blood pressure is 120/76, heart rate 86, respiratory rate 19, temperature 97.9, pulse o ximetry 95%. GENERAL: Noted to be awake, supine, comfortable, and not in overt distress. HEENT: Slightly pale conjunctivae, anicteric sclerae. NECK: No neck mass, no carotid bruits, no JVD. CHEST: No deformities. LUNGS: Decreased breath sounds. HEART: Normal sinus rhythm. No murmur, no gallops, no rubs. ABDOMEN: Globular, soft, nontender, no masses. EXTREMITIES: Positive for edema, no deformities. MEDICATIONS: Of 09/12/2017 reviewed. LABORATORY DATA: Of 09/12/2017, white count 8.8, hemoglobin 9.5, hematocrit 30.2, platelet count 139 ,000. Sodium 144, potassium 4, chloride 112, carbon dioxide 20, BUN 63, creatinine 4.27, glucose 125 , calcium is 8.9. ASSESSMENT AND PLAN: 1. Chronic renal failure/end-stage renal disease - hemodialysis has been initiated. My plan is to d o a 3-hour hemodialysis today. Again, max out fluid removal as tolerated by this patient. 2. Congestive heart failure/decreased ejection fraction - losartan has been initiated. Maxing out f luid removal. 3. Pneumonia, on p.o. antibiotics. 4. Anemia - patient is on weekly Epogen. Awaiting jail placement and outpatient dialysis placement. Agree with current management.
[2017-09-12] MEDS: Nicotine 14 MG PATCH TD SCH (17:39)
[2017-09-12 18:54] LABS: Hemoglobin 10.1 g/dL (12.0-16.0); Platelet Count 140 thou/uL (130-400)
[2017-09-12] MEDS: Cyclobenzaprine 10 MG TAB PO SCH (20:11)
[2017-09-12] MEDS: Rosuvastatin 20 MG TAB PO SCH (20:12)
[2017-09-12] MEDS ORDERED: READ PPD TEST SITE PO SCH (21:00)
[2017-09-13] MEDS ORDERED: CEFAZOLIN/Water 2 GM/20 ML SYRINGE SLOW IVP SCH ×2 (03:30→11:46)
[2017-09-13 05:38] LABS: Anion Gap 17 mmol/L (10-20); BUN (Urea Nitrogen) 52 mg/dL (9.8-20.1); Calc. Creatinine Clearance 16 mL/min (70-130); Calcium 8.7 mg/dL (7.8-10.44); Carbon Dioxide 22 mmol/L (23-31); Chloride 107 mmol/L (98-107); Estimated GFR-MDRD 14; Glucose 114 mg/dL (83-110); Sodium 142 mmol/L (136-145)
[2017-09-13 05:50] LABS: Hemoglobin 9.8 g/dL (12.0-16.0); Lymphocytes 21 % (21-51); MDiff Complete? YES; Mean Corpuscular HGB CONC 31.1 g/dL (32.0-36.0); Mean Corpuscular Hemoglobin 30.9 pg (27.0-31.0); Mean Corpuscular Volume 99.4 fl (81.0-99.0); Mean Platelet Volume 9.4 fL (7.4-10.4); Monocytes 7 % (0-10); Neutrophil 72 % (42-75); Nucleated RBC 1 % (0); Platelet Count 152 thou/uL (130-400); RBC Distribution Width 15.3 % (11.5-14.5); Red Blood Cell (RBC) Count 3.19 mill/uL (4.20-5.40)
--- NOTE | 2017-09-13 06:25 | PDOC.FM ---
- Subjective Subjective: Pt was in OR, however per nursing pt has been fairly confused all weekend as she has been since Wednesday. She is scheduled to have tunneled cath today. - Objective MAR Reviewed: Yes Vital Signs & Weight: Vital Signs (12 hours) Temp Pulse Resp BP BP Pulse Ox 09/13/17 05:23 98.3 F 65 20 93/53 L 96 09/13/17 00:00 98.5 F 68 20 105/58 L 96 09/12/17 20:12 66 114/58 L 09/12/17 20:00 97.4 F L 66 20 114/58 L 96 Weight Weight 85.502 kg Most Recent Monitor Data Heart Rate from ECG 67 NIBP 146/65 NIBP BP-Mean 74 Respiration from ECG 21 SpO2 95 I&O: 09/11/17 09/12/17 09/13/17 06:59 06:59 06:59 Intake Total 360 1400 880 Output Total 400 1000 1400 Balance -40 400 -520 Result Diagrams: 09/13/17 04:40 09/13/17 04:40 EKG Reviewed by me: Yes <Glen Clark - Last Filed: 09/13/17 11:33> - Objective Vital Signs & Weight: Vital Signs (12 hours) Temp Pulse Resp BP Pulse Ox 09/13/17 07:20 96.3 F L 64 88/48 L 09/13/17 05:23 98.3 F 65 20 93/53 L 96 09/13/17 04:00 97.7 F 86 20 101/59 L 96 Weight Weight 85.502 kg Most Recent Monitor Data Heart Rate from ECG 67 NIBP 146/65 NIBP BP-Mean 74 Respiration from ECG 21 SpO2 95 I&O: 09/12/17 09/13/17 09/14/17 06:59 06:59 06:59 Intake Total 1400 880 Output Total 1000 1400 Balance 400 -520 Result Diagrams: 09/13/17 04:40 09/13/17 04:40 <Marek Elias - Last Filed: 09/13/17 12:18> Phys Exam - Physical Examination Pt in OR, unable to examine pitting edema to the knees bl <Glen Clark - Last Filed: 09/13/17 11:33> Dx/Plan (1) Right lower lobe pneumonia Code(s): J18.1 - LOBAR PNEUMONIA, UNSPECIFIED ORGANISM Status: Acute QualifierTitle: Pneumonia type: due to unspecified organism Qualified Code(s): J18.1 - Lobar pneumonia, unspecified organism (2) CHF exacerbation Code(s): I50.9 - HEART FAILURE, UNSPECIFIED Status: Acute QualifierTitle: Congestive heart failure type: combined Qualified Code(s) : I50.43 - Acute on chronic combined systolic (congestive) and diastolic ( congestive) heart failure (3) CKD (chronic kidney disease) stage 3, GFR 30-59 ml/min Status: Chronic (4) COPD (chronic obstructive pulmonary disease) Status: Chronic QualifierTitle: COPD type: COPD with acute lower respiratory infection Qualified Code(s): J44.0 - Chronic obstructive pulmonary disease with acute lower respiratory infection (5) Elevated brain natriuretic peptide (BNP) level Code(s): R79.89 - OTHER SPECIFIED ABNORMAL FINDINGS OF BLOOD CHEMISTRY Status : Chronic (6) Altered mental status Code(s): R41.82 - ALTERED MENTAL STATUS, UNSPECIFIED Status: Acute QualifierTitle: Altered mental status type: delirium Qualified Code(s): R41.0 - Disorientation, unspecified - Plan Plan: 1. RLL PNA - Pt has required O2 for the past 24 hours. This should improve as she has fluid removed via HD - afebrile - resp rate 18-20 - Tolerating PO abx well - blood cx negative - resp viral panel is negative 2. CHF exacerbation - Net diuresis of at least 520ml yesterday. Voids were not measured, however pt had 1400ml pulled off in HD - fluid restriction is being met - Initiated Losartan - Lasix d/c per Dr. Anderson's recs 3. CKD IV - HD. Pt getting permanent graft today - Renal dosing for all abx 4. AMS - Mental status varies. Pt has not hallucinated over the weekend, however has been difficult to arouse - Cx have been negative - Resolved, back to baseline 4. Prolonged QT - currently stable at ~0.440 - Dr. Estrada believes non-Q wave etiology and no longer needs life vest. Will initiate beta hong and nitrate therapy. 5. HTN - Controlled. Continue home meds 6. CAD - continue home statin and aspirin 7. hypernatremia - resolved with HD 8. 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 pt needs HD Dispo: Guarded, patient will go for tunneled cath today <Glen Clark - Last Filed: 09/13/17 11:33> Attending Addendum - Attending Addendum I personally evaluated the patient and discussed the management with Dr. Clark. I agree with the History, Examination, Assessment and Plan documented above with any addition or exceptions noted below. Patient here with ESRD and CHF exacerbation with superimposed pneumonia. She continues on fluid restriction with dialysis to remove fluid as tolerated. She is feeling somewhat improved. She is having surgery today for more permanent HD access. Cardiology on board for her severe decrease in EF and potential for arrhythmia. <Marek Elias - Last Filed: 09/13/17 12:18>
[2017-09-13] MEDS ORDERED: Fentanyl 100 MCG/2 ML VIAL ONE (08:57)
[2017-09-13] MEDS ORDERED: Lidocaine 2% PF 5 ML VIAL ONE (09:03)
[2017-09-13] MEDS ORDERED: Bupivacaine/Epinephrine 0.25% 30 ML VIAL ONE (09:03)
[2017-09-13] MEDS ORDERED: Heparin 10,000 UNITS/1 ML VIAL ONE (09:03)
[2017-09-13] MEDS ORDERED: Sodium Chloride 0.9% 10 ML ONE (09:03)
[2017-09-13] MEDS ORDERED: Heparin 5,000 UNITS/ML VIAL ONE (09:03)
[2017-09-13] MEDS ORDERED: Protamine Sulfate 50 MG/5 ML VIAL ONE (09:03)
[2017-09-13] MEDS ORDERED: CEFAZOLIN/Water 2 GM/20 ML SYRINGE ONE (09:16)
[2017-09-13] MEDS ORDERED: Ketamine 50 MG/ML VIAL ONE (09:47)
--- NOTE | 2017-09-13 10:14 | PRG ---
DATE OF SERVICE: 09/13/2017 SUBJECTIVE: Ms. Maya, this morning on Wednesday is confused. She will not converse with me. I have spoken with her nurse and she has been like that all weekend long. Progress notes do not reflect th is. This morning, the patient will not converse with me and is not oriented. She does move spontane ously and look at me. She was scheduled for right arm dialysis fistula, most likely prosthetic graft and hemodialysis catheter, but she is not fit for anesthesia for this procedure. She has a known ca rdiomyopathy with cardiac ejection fraction of 20%-25%, left subclavian vein pacemaker. Cardiology h as been following her, Dr. Estrada. Dr. Shirley saw her initially, but signed off. I called Dr. Renny osuna this morning and informed her of her condition and the fact that he should see her again. Plan is to place a hemodialysis catheter and a central line and hold off placing her right arm dialysis a ccess to a future date when she is more stable. She has a right femoral vein Trialysis catheter.
--- NOTE | 2017-09-13 11:27 | OP ---
PREOPERATIVE DIAGNOSES: End-stage renal disease, left subclavian vein pacemaker, congestive heart fa ilure, 20%-25% ejection fraction, dyspnea, hypoxia (not medically safe for right arm fistula or graft today and we will plan that in 48 hours), poor IV access. POSTOPERATIVE DIAGNOSES: End-stage renal disease, left subclavian vein pacemaker, congestive heart f ailure, 20%-25% ejection fraction, dyspnea, hypoxia (not medically safe for right arm fistula or jane t today and we will plan that in 48 hours), poor IV access. PROCEDURES: Right IJ cuffed tunnel hemodialysis catheter, left IJ central line, ultrasound fluorosco py used. SURGEON: Dr. Timbo Arteaga ANESTHESIA: Intravenous sedation and local 0.25% Marcaine with epinephrine, 30 mL, mixed with 2% Xyl ocaine, 10 mL. Of note, this morning we will plan placement also for her right arm fistula graft. She, however, was hypoxic with mental status changes and had been confused over the weekend and this portion of the pr ocedure canceled. We will plan placement of cuffed tunneled dialysis catheter, right IJ and left IJ central line and defer placement of right arm fistula or graft for another 48 hours for medical stabi lity PROCEDURE IN DETAIL: Patient taken to the operating room where under intravenous sedation, neck and chest prepared with ChloraPrep and draped in routine fashion. Local anesthetic mixture infiltrated i nto skin and subcutaneous tissue about the operative site. Using ultrasound guidance, the right and left internal jugular vein was cannulated with trocar catheter and J-wire threaded. Trocar catheter removed. Skin incised and enlarged sharply at J wire entrance site and stab incision made over the r ight chest infraclavicular. Using the tunneling device, precurved angiodynamics cuffed tunnel hemodi alysis catheter tunneled between the two incisions, placing the fabric cuff beneath the skin exit sit e over the right chest and the catheter secured with 2 interrupted sutures of 3-0 nylon. Smaller and medium sized dilators placed over the J-wire into the internal jugular vein and removed. Dilator an d pull-away sheath placed over the J-wire into the superior vena cava and dilator and J-wire removed. Catheter placed through the pull-away sheath. Pull-away sheath removed. Platysma approximated wit h 4-0 Monocryl, skin with subdermal 4-0 Monocryl and DermaGlue applied. Each port aspirated blood an d flushed saline solution and heparinized saline solution 1000 units heparin per mL indicated volume of the port. Seldinger technique used to place a triple lumen catheter on the left, removed the J-wire, securing t he catheter with 3-0 nylon. Each port aspirated with blood and flushed with saline solution and ster ile dressing applied. Fluoroscopic images revealed good placement of both lines. The patient tolera cliff the procedure well.
--- NOTE | 2017-09-13 12:23 | RAD ---
CHEST ONE VIEW: History: Catheter placement. Comparison: 09-10-17 FINDINGS: Interval placement of catheter with tip at the mid SVC. Left IJ central venous catheter, tip also in the SVC. Heart size is enlarged. Moderate sized pleural effusions. Moderate pulmonary edema. No pneumothorax. Severe degenerative disease at both shoulder joints. IMPRESSION: 1. Cardiomegaly with moderate edema and moderate sized pleural effusions. 2. Interval placement of left IJ central venous catheter and dialysis catheter without complication. POS: BREANN
--- NOTE | 2017-09-13 12:28 | CON ---
DATE OF CONSULTATION: 09/13/2017 She was readmitted on 09/10/2017. She has seen Dr. Shirley in the past. Apparently has end-stage re nal disease. She was to have a hemodialysis catheter inserted. Apparently she was taken to the OR where she had a left chest IJ placed in and a right subclavian cat heter inserted. Apparently a fistula was to be planned because she was hypotensive and hypoxic. She was transferred back to the ICU. The surgery was apparently terminated. I am told she was given 20 mg of ketamine. Upon arrival to the ICU, she was hypotensive, blood pressure 88/48, pulse 65, sats were in the 90s. Respiratory 23, she was encephalopathic. She is arousable with painful stimuli and suctioning. Otherwise, at this stage, we are unable to get any additional information. PAST MEDICAL HISTORY: Pertinent for end-stage renal disease, coronary artery disease, congestive hea rt failure, tobacco abuse, COPD. Thyroid nodule, atrial fibrillation, ejection fraction 20%, congest abigail heart failure, coronary artery disease. MEDICATIONS FROM HOME: Includes amlodipine 10, aspirin, Ceftin, Coreg 12.5, Epogen, Pletal 100, ISMO 60, Lasix, bicarbonate, Crestor 20, ranitidine, Nicoderm, Catapres. ALLERGIES: None. REVIEW OF SYSTEMS: Otherwise, difficult to obtain. PHYSICAL EXAMINATION: VITAL SIGNS: Noted her sats are 93-96 on 3 liters, pulse 64, temperature 99, blood pressure 88/48. CHEST: Chest revealed decreased breath sounds, no wheezing. CARDIAC: Normal S1, S2. No gallops. ABDOMEN: Soft, no masses. X-ray shows possibly right-sided infiltrate. IMPRESSION: 1. Chronic obstructive pulmonary disease. 2. Pneumonia, possibly aspiration. 3. Renal failure. 4. Hypotension. PLAN: I will antibiotics by mouth until she is able to swallow. Try to avoid intubation. Blo od gases show adequate oxygenation with normal acid base balance. I ordered a cortisol level. Aggressive neb treatments. Maintain the systolic at 90. I will follow. I will notify Dr. Shirley. Please note this is a 40 minute critical care time.
--- NOTE | 2017-09-13 12:33 | PDOC.CTH ---
<Chikis Cordon - Last Filed: 09/13/17 12:31> Cardiology Progress Note - Subjective The pt was tx from post-op to ICU due to AMS and apnea for more than 40 secs at Post-op. She responded to pain stimulation - Objective Vital Signs Temp Pulse Resp BP Pulse Ox 09/13/17 07:20 96.3 F L 64 88/48 L 09/13/17 05:23 98.3 F 65 20 93/53 L 96 09/13/17 04:00 97.7 F 86 20 101/59 L 96 Weight 188 lb 8 oz 09/12/17 09/13/17 09/14/17 06:59 06:59 06:59 Intake Total 1400 880 Output Total 1000 1400 Balance 400 -520 - Physical Examination Neck: no JVD present Lungs: other: (diminished at bases) Heart: RRR Abdomen: soft Extremities: other: (diminished in BLE) - Telemetry Telemetry Rhythm: SR - Labs Result Diagrams: 09/13/17 04:40 09/13/17 04:40 Troponin/CKMB CK-MB (CK-2) 6.4 ng/mL (0-6.6) 09/10/17 21:44 Troponin I 1.496 ng/mL (< 0.028) H* 09/10/17 21:44 - Assessment/Plan 1. NSTEMI - Stable; on BBlocker, Plavix and ASA; cont. monitor on tele 2. RLL PNA - on IV antibiotic; managed by PCP 3. Acute on Chronic systolic HF - Echo on 08/25/17 showed EF 20-25%; Lasix d/c per Dr. Anderson's recs; cont. monitor 4. CKD - HD access placement with tunneled cath today 5. HTN - Hypotensive; cont. monitor 6. AMS - has been difficult to arouse since she came to ICU from postop. 7. Hyperlipidemia - on Statin 8. Hx of PM placement in 2007 - last PM interrogation showed normal function 9. DM type 2 - on ACHS blood glucose check 10. PVD with Hx of Lt Fem-pop bypass - stable; cont. monitor 11. Current smoker - MAR reviewed Review of Systems - Review of Systems Constitutional: reports: see HPI EENTM: reports: see HPI Respiratory: reports: see HPI Cardiac (ROS): reports: see HPI ABD/GI: reports: see HPI <Kim Liz Fazal - Last Filed: 09/13/17 17:27> Cardiology Progress Note - Objective Vital Signs Temp Pulse Resp BP Pulse Ox 09/13/17 15:30 65 09/13/17 13:53 65 14 09/13/17 13:07 100 09/13/17 11:20 97.4 F L 65 14 09/13/17 07:20 96.3 F L 64 88/48 L Weight 188 lb 8 oz 09/12/17 09/13/17 09/14/17 06:59 06:59 06:59 Intake Total 1400 880 250 Output Total 1000 1400 Balance 400 -520 250 - Labs Result Diagrams: 09/13/17 04:40 09/13/17 04:40 Troponin/CKMB CK-MB (CK-2) 6.4 ng/mL (0-6.6) 09/10/17 21:44 Troponin I 1.496 ng/mL (< 0.028) H* 09/10/17 21:44 - Assessment/Plan Pt. seen and eval. by me. I agree with the A/P by the [employer]OC[employer]. At this time she is on a BI-Pap mask. Still lethargic . Plan for dialysis tomorrow. poor prognosis. We will continue to follow with you.
[2017-09-13] MEDS: Carvedilol 6.25 MG TAB PO SCH ×2 (13:35→17:30)
[2017-09-13] MEDS: Ferrous Sulfate 325 MG TAB PO SCH ×2 (13:36→17:30)
[2017-09-13] MEDS: Famotidine 20 MG TAB PO SCH (13:39)
[2017-09-13] MEDS: Azithromycin 250 MG TAB PO SCH (13:39)
[2017-09-13] MEDS: Clopidogrel Bisulfate 75 MG TAB PO SCH (13:39)
[2017-09-13] MEDS: Calcitriol 0.25 MCG CAP PO SCH (13:39)
[2017-09-13] MEDS: Aspirin 81 mg Enteric Coated Tablet PO SCH (13:39)
[2017-09-13] MEDS: Cefepime 1 GM, Admixture Fee 1 EACH in Sterile Water 10 ML SLOW IVP SCH (13:40)
[2017-09-13] MEDS: Cefdinir 300 MG CAP PO SCH (15:26)
[2017-09-13] MEDS: Enoxaparin Sodium 40 MG/0.4 ML SYRINGE SC SCH (15:27)
[2017-09-13] MEDS ORDERED: ePHEDrine/0.9% NaCl/PF SYRINGE 50 mg/10 ml ONE (16:41)
[2017-09-13] MEDS ORDERED: PHENYLEPHRINE-NS 100 MCG/ML 10 ML SYRINGE ONE (16:41)
[2017-09-13 18:13] LABS: ALV-art Gradient 121.665 (0-20); Actual Bicarbonate (HCO3a) 18.7 mEq/L (22-26); Base Excess (BEa) -5.2 mEq/L (0 (+/-) 2.5); CO2 Tension 30.7 mmHg (35.0-45.0); Calcium, Ionized 1.2 mmol/L (1.12-1.30); Hematocrit-ABG 30.9 % (36.0-47.0); Hemoglobin (Hb) 9.9 g/dL (12.0-16.0); O2 Tension (PaO2) 67.8 mmHg (80.0-100.0); Puncture Site LRA
[2017-09-13] MEDS: Rosuvastatin 20 MG TAB PO SCH (19:45)
[2017-09-13] MEDS: Epoetin (ESRD) 20,000 UNITS/ML SC SCH (21:32)
[2017-09-13] MEDS: Nicotine 14 MG PATCH TD SCH (21:32)
[2017-09-14 05:17] LABS: Anion Gap 18 mmol/L (10-20); BUN (Urea Nitrogen) 62 mg/dL (9.8-20.1); Calc. Creatinine Clearance 13 mL/min (70-130); Calcium 8.4 mg/dL (7.8-10.44); Carbon Dioxide 21 mmol/L (23-31); Chloride 108 mmol/L (98-107); Estimated GFR-MDRD 11; Glucose 78 mg/dL (83-110); Potassium 4.5 mmol/L (3.5-5.1); Sodium 142 mmol/L (136-145)
[2017-09-14 05:56] LABS: Band 7 % (5-11); Hemoglobin 9.4 g/dL (12.0-16.0); Lymphocytes 11 % (21-51); MDiff Complete? YES; Mean Corpuscular HGB CONC 31.8 g/dL (32.0-36.0); Mean Corpuscular Hemoglobin 31.7 pg (27.0-31.0); Mean Corpuscular Volume 99.5 fl (81.0-99.0); Mean Platelet Volume 9.2 fL (7.4-10.4); Monocytes 6 % (0-10); Neutrophil 76 % (42-75); Platelet Count 148 thou/uL (130-400); Red Blood Cell (RBC) Count 2.96 mill/uL (4.20-5.40); White Blood Cell (WBC) Count 6.8 thou/uL (4.8-10.8)
--- NOTE | 2017-09-14 08:41 | PDOC.FM ---
- Subjective Subjective: Since surgery yesterday pt has been difficult to arouse. Over night pt was not responsive to verbal questioning, however would withdraw from pain. This am she will respond to yes/no questions. Per nursing, she was agitated last night and pulled at her BiPAP mask and lines and needed soft restraints. Her vitals have been stable since moving to ICU from PACU and being put on BiPAP. - Objective MAR Reviewed: Yes Vital Signs & Weight: Vital Signs (12 hours) Temp Pulse Resp 09/14/17 04:00 97.9 F 09/14/17 02:19 65 09/13/17 23:53 65 16 09/13/17 23:00 97.9 F 09/13/17 22:06 65 Weight Weight 85.366 kg Most Recent Monitor Data Heart Rate from ECG 65 NIBP 129/47 NIBP BP-Mean 83 Respiration from ECG 19 SpO2 93 I&O: 09/13/17 09/14/17 09/15/17 06:59 06:59 06:59 Intake Total 880 431.8 Output Total 1400 0 Balance -520 431.8 Result Diagrams: 09/14/17 04:00 09/14/17 04:00 <Glen Clark - Last Filed: 09/14/17 08:38> - Objective Vital Signs & Weight: Vital Signs (12 hours) Temp Pulse Resp Pulse Ox 09/14/17 10:54 66 09/14/17 08:59 65 09/14/17 08:56 65 16 09/14/17 08:00 97.9 F 67 17 95 09/14/17 04:00 97.9 F 09/14/17 02:19 65 09/13/17 23:53 65 16 Weight Weight 85.366 kg Most Recent Monitor Data Heart Rate from ECG 65 NIBP 129/47 NIBP BP-Mean 83 Respiration from ECG 19 SpO2 93 I&O: 09/13/17 09/14/17 09/15/17 06:59 06:59 06:59 Intake Total 880 431.8 Output Total 1400 0 Balance -520 431.8 Result Diagrams: 09/14/17 04:00 09/14/17 04:00 <Marek Elias - Last Filed: 09/14/17 11:38> Phys Exam - Physical Examination Unable to determine pts status dt difficulty in arousal HEENT: PERRLA, moist MMs, sclera anicteric Neck: no nodes, no JVD Good air movement. No rhonchi. Mild rales in lower lobes, R in particular Cardiovascular: RRR, no significant murmur Gastrointestinal: soft, non-tender, no distention 2+ pitting edema to knee Withdraws from pain. Will track with eyes/head. Will attempt to follow commands, however is very lethargic Deviation from normal: unable to determine status Skin: no rash, normal turgor <Glen Clark - Last Filed: 09/14/17 08:38> Dx/Plan (1) Right lower lobe pneumonia Code(s): J18.1 - LOBAR PNEUMONIA, UNSPECIFIED ORGANISM Status: Acute QualifierTitle: Pneumonia type: due to unspecified organism Qualified Code(s): J18.1 - Lobar pneumonia, unspecified organism (2) CHF exacerbation Code(s): I50.9 - HEART FAILURE, UNSPECIFIED Status: Acute QualifierTitle: Congestive heart failure type: combined Qualified Code(s) : I50.43 - Acute on chronic combined systolic (congestive) and diastolic ( congestive) heart failure (3) CKD (chronic kidney disease) stage 3, GFR 30-59 ml/min Status: Chronic (4) COPD (chronic obstructive pulmonary disease) Status: Chronic QualifierTitle: COPD type: COPD with acute lower respiratory infection Qualified Code(s): J44.0 - Chronic obstructive pulmonary disease with acute lower respiratory infection (5) Elevated brain natriuretic peptide (BNP) level Code(s): R79.89 - OTHER SPECIFIED ABNORMAL FINDINGS OF BLOOD CHEMISTRY Status : Chronic (6) Altered mental status Code(s): R41.82 - ALTERED MENTAL STATUS, UNSPECIFIED Status: Acute QualifierTitle: Altered mental status type: delirium Qualified Code(s): R41.0 - Disorientation, unspecified - Plan Plan: 1. CHF exacerbation - Pt currently requiring BiPAP. Will attempt to wean today. Pulm has been consulted, appreciate their recommendation with management - Pt was unable to have HD yesterday dt surgery. Net fluid gain of 430 mL. Pt will likely have HD today - fluid restriction is being met - Speech consult if unable to wean BiPAP this morning. Hold PO meds until that time. Dt recent NSTEMI, I want do not want to miss anti platelet meds if possible. Will give ASA NV today. 2. CKD IV - Dr Anderson managing HD. - Pt was unable to have permanent graft yesterday dt declining status, however did have tunneled cath placed. - Renal dosing for all abx 3. RLL PNA - Pt has required O2 for the past 24 hours. This should improve as she has fluid removed via HD - afebrile - resp rate 18-20 - Tolerating PO abx well - blood cx negative - resp viral panel is negative 4. AMS - Mental status varies. Pt has been generally somnolent since this weekend. - Cx have been negative. 4. Prolonged QT - currently stable at ~0.440 - Dr. Estrada believes non-Q wave etiology and no longer needs life vest. Will initiate beta hong and nitrate therapy. 5. HTN - Controlled. Continue home meds 6. CAD - continue home statin and aspirin 7. hypernatremia - resolved with HD 8. 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 pt needs HD Dispo: Guarded, patient will go for tunneled cath today <Glen Clark - Last Filed: 09/14/17 08:38> Attending Addendum - Attending Addendum I personally evaluated the patient and discussed the management with Dr. Clark. I agree with the History, Examination, Assessment and Plan documented above with any addition or exceptions noted below. Patient admitted to CCU yesterday after her HD catheter placement. Fistula placement had to be aborted due to abnormal vitals. She is currently requiring BiPap therapy, likely a result of her fluid overload. She was unable to have HD yesterday, but is undergoing today. We hope that with the 3L planned removal today that her respiratory function will improve. She continues on antibiotics for possible pneumonia, and Pulm is on board the case. Her BP is improved, but mentation continues to wax/wane. She possibly has delirium, and meds that could exacerbate this have been stopped. Will continue to monitor and appreciate specialist input. Condition guarded at this time. <Marek Elias - Last Filed: 09/14/17 11:38>
--- NOTE | 2017-09-14 08:59 | PDOC.CTH ---
<Chikis Cordon - Last Filed: 09/14/17 08:53> Cardiology Progress Note - Subjective the pt seen and examined. No overnight events. Still lethargic and responds to pain stimulation only. On Bipap at this moment. - ROS not able to obtain ROS - Objective Vital Signs Temp Pulse Resp 09/14/17 04:00 97.9 F 09/14/17 02:19 65 09/13/17 23:53 65 16 09/13/17 23:00 97.9 F 09/13/17 22:06 65 Weight 188 lb 3.2 oz 09/13/17 09/14/17 09/15/17 06:59 06:59 06:59 Intake Total 880 431.8 Output Total 1400 0 Balance -520 431.8 - Physical Examination Neck: no JVD present Lungs: other: (diminished at bases) Abdomen: soft Extremities: other: (No edema) - Telemetry Telemetry Rhythm: V paced - Labs Result Diagrams: 09/14/17 04:00 09/14/17 04:00 Troponin/CKMB CK-MB (CK-2) 6.4 ng/mL (0-6.6) 09/10/17 21:44 Troponin I 1.496 ng/mL (< 0.028) H* 09/10/17 21:44 - Assessment/Plan 1. NSTEMI - Stable; on BBlocker, Plavix and ASA; cont. monitor on tele 2. RLL PNA - on Bipap which she will have weaning trial this AM; on IV antibiotic; managed by PCP 3. Acute on Chronic systolic HF - Echo on 08/25/17 showed EF 20-25%; Lasix d/c per Dr. Anderson's recs; cont. monitor 4. CKD - HD access placement with tunneled cath today 5. HTN - Hypotensive; cont. monitor 6. AMS - has been difficult to arouse since she came to ICU from postop. 7. Hyperlipidemia - on Statin 8. Hx of PM placement in 2007 - last PM interrogation showed normal function 9. DM type 2 - on ACHS blood glucose check 10. PVD with Hx of Lt Fem-pop bypass - stable; cont. monitor 11. Current smoker - MAR reviewed Review of Systems - Review of Systems Constitutional: reports: see HPI EENTM: reports: see HPI Respiratory: reports: see HPI Cardiac (ROS): reports: see HPI ABD/GI: reports: see HPI <Kim Liz Fazal - Last Filed: 09/14/17 17:56> Cardiology Progress Note - Objective Vital Signs Temp Pulse Resp BP Pulse Ox 09/14/17 16:10 118/61 09/14/17 15:31 66 09/14/17 15:30 66 16 09/14/17 11:42 114/58 L 09/14/17 10:54 66 09/14/17 08:59 65 09/14/17 08:56 65 16 09/14/17 08:00 97.9 F 67 17 95 Admit Weight 196 lb Weight 188 lb 3.2 oz 09/13/17 09/14/17 09/15/17 06:59 06:59 06:59 Intake Total 880 431.8 Output Total 1400 0 Balance -520 431.8 - Labs Result Diagrams: 09/14/17 17:07 09/14/17 17:07 Troponin/CKMB CK-MB (CK-2) 6.4 ng/mL (0-6.6) 09/10/17 21:44 Troponin I 1.496 ng/mL (< 0.028) H* 09/10/17 21:44 - Assessment/Plan Pt. seen and eval. by me. I agree with the A/P by the FORKL[facility] PICKER.Still little response. Chest clear. RRR.
[2017-09-14] MEDS ORDERED: Aspirin 300 MG Suppository PR SCH (09:00)
[2017-09-14] MEDS ORDERED: Cefepime 1 GM in Sodium Chloride 0.9% 100 ML IVPB SCH (09:00)
--- NOTE | 2017-09-14 10:12 | PRG ---
DATE OF SERVICE: 09/14/2017 RENAL MEDICINE SUBJECTIVE: Ms. Maya is a 77-year-old black female with chronic renal failure and had worsening r enal dysfunction. For that reason, has been initiated on dialysis. I am at the bedside supervising her dialysis. Please note, we held off the dialysis yesterday due to the low blood pressure. She ny s a new cuffed dialysis catheter placed. The patient still noted to be intermittently confused. OBJECTIVE: VITAL SIGNS: Blood pressure is 129/47, heart rate 65, respiratory rate 19. GENERAL EXAM: Awake, confused, not in overt distress, but she is on CPAP. HEENT: She has slightly pale conjunctivae and anicteric sclerae. NECK: No neck mass, no carotid bruits, no JVD. CHEST: No deformities. LUNGS: Decreased breath sounds. HEART: Normal sinus rhythm. No murmur, no gallops, no rubs. ABDOMEN: Globular, soft, nontender, no masses. EXTREMITIES: No edema or deformities. MEDICATIONS: Medications of 09/14/2017 reviewed. LABORATORY DATA: Laboratories of 09/14/2017, white count 6.8, hemoglobin 9.4, sodium 142, potassium 4.5, chloride 108, carbon dioxide 21, BUN 62, creatinine 4.7, glucose 78, calcium 8.4. ASSESSMENT AND PLAN: 1. End-stage renal disease/chronic renal failure - currently undergoing dialysis. My plan is to do a 3-hour hemodialysis today. Fluid removal only as tolerated by the patient. 2. Congestive heart failure - Cardiology is following. Please note losartan has been discontinued d ue to the low blood pressure yesterday. Please note hydralazine is also discontinued. 3. Anemia, continuing weekly Epogen. Overall, prognosis remains guarded with this patient.
[2017-09-14] MEDS ORDERED: Famotidine/PF 20 mg/2ml Vial SLOW IVP SCH (11:15)
[2017-09-14] MEDS: Famotidine/PF 20 mg/2ml Vial SLOW IVP SCH (11:34)
[2017-09-14] MEDS: Carvedilol 6.25 MG TAB PO SCH ×2 (11:42→16:10)
[2017-09-14] MEDS: Ferrous Sulfate 325 MG TAB PO SCH ×2 (11:43→16:09)
[2017-09-14] MEDS: Cefepime 1 GM, Admixture Fee 1 EACH in Sterile Water 10 ML SLOW IVP SCH (13:12)
--- NOTE | 2017-09-14 15:36 | RAD ---
ABDOMEN ONE VIEW 09/14/17 HISTORY: Dobhoff placement. COMPARISON: None. FINDINGS: Dobhoff tube tip in gastric fundus. IMPRESSION: Dobhoff tube tip in gastric fundus. POS: OFF
[2017-09-14] MEDS: Calcitriol 0.25 MCG CAP PO SCH (16:13)
[2017-09-14] MEDS: Clopidogrel Bisulfate 75 MG TAB PO SCH (16:13)
[2017-09-14] MEDS: Aspirin 81 mg Enteric Coated Tablet PO SCH (16:13)
[2017-09-14 17:17] LABS: Hemoglobin 10.1 g/dL (12.0-16.0); Platelet Count 157 thou/uL (130-400)
[2017-09-14] MEDS ORDERED: Dextrose 50% Abboject 50 ML SYRINGE ONE (17:27)
[2017-09-14 17:30] LABS: Glucose 79 mg/dL (83-110)
[2017-09-14] MEDS: Nicotine 14 MG PATCH TD SCH (17:33)
[2017-09-14] MEDS ORDERED: Dextrose 5% in Water 1,000 ML IV PRN (17:37)
[2017-09-14] MEDS ORDERED: Dextrose 50% Abboject 50 ML SYRINGE IVP PRN (17:37)
[2017-09-14] MEDS ORDERED: Sodium Chloride 0.9% 250 ML 250 ML IV SCH (22:00)
[2017-09-14] MEDS: Rosuvastatin 20 MG TAB PO SCH (22:00)
[2017-09-14] MEDS ORDERED: Sodium Chloride 0.9% 250 ML IV SCH (22:15)
[2017-09-15 05:34] LABS: #Monocytes 0.4 thou/uL (0.11-0.59); #Neutrophils 5.3 thou/uL (1.40-6.50); %Basophils 0.1 % (0.0-1.0); %Eosinophils 0.3 % (0.0-10.0); %Lymphocytes 14.1 % (21.0-51.0); %Monocytes 6.5 % (0.0-10.0); Hemoglobin 9.6 g/dL (12.0-16.0); Mean Corpuscular HGB CONC 31.9 g/dL (32.0-36.0); Mean Corpuscular Hemoglobin 31.4 pg (27.0-31.0); Mean Corpuscular Volume 98.5 fl (81.0-99.0); Mean Platelet Volume 8.7 fL (7.4-10.4); Platelet Count 151 thou/uL (130-400); RBC Distribution Width 14.7 % (11.5-14.5); Red Blood Cell (RBC) Count 3.04 mill/uL (4.20-5.40); White Blood Cell (WBC) Count 6.7 thou/uL (4.8-10.8)
[2017-09-15 06:02] LABS: Anion Gap 15 mmol/L (10-20); BUN (Urea Nitrogen) 48 mg/dL (9.8-20.1); Calc. Creatinine Clearance 16 mL/min (70-130); Calcium 8.6 mg/dL (7.8-10.44); Carbon Dioxide 24 mmol/L (23-31); Chloride 104 mmol/L (98-107); Estimated GFR-MDRD 13; Glucose 142 mg/dL (83-110); Potassium 3.8 mmol/L (3.5-5.1); Sodium 139 mmol/L (136-145)
[2017-09-15 06:18] LABS: HBCM Index 0.08 S/CO (0-0.79); Hep A IgM AB Non-Reactive (NonReactive); Hep A IgM S/CO 0.24 S/CO (0-0.79); Hep B Surf Ag Non-Reactive S/CO (NonReactive); Hep C IgG Ab Non-Reactive (NonReactive); Hep C Index 0.54 S/CO (0-0.79); Hepatitis B Core IGM Abs Non-Reactive (NonReactive)
--- NOTE | 2017-09-15 06:58 | PDOC.FM ---
- Subjective Subjective: Pt is much more alert this morning, however unable to answer questions dt BiPAP. Per nursing, she had on low BG reading last night that resolved with an amp of D50. BP has been largely stable. She has tolerated the mast and tube feeds well. Her agitation has improved from last night. - Objective MAR Reviewed: Yes Vital Signs & Weight: Vital Signs (12 hours) Temp Pulse Resp Pulse Ox 09/15/17 04:00 98.1 F 09/15/17 02:35 65 09/15/17 00:22 67 24 H 09/15/17 00:00 98.4 F 09/14/17 22:44 68 09/14/17 20:00 98.1 F 67 24 H 96 09/14/17 19:00 98.1 F Weight Admit Weight 88.904 kg Weight 83.2 kg Most Recent Monitor Data Heart Rate from ECG 65 NIBP 92/47 NIBP BP-Mean 64 Respiration from ECG 21 SpO2 96 I&O: 09/13/17 09/14/17 09/15/17 06:59 06:59 06:59 Intake Total 880 431.8 985 Output Total 1400 0 0 Balance -520 431.8 985 Result Diagrams: 09/15/17 05:15 09/15/17 05:15 Radiology Reviewed by me: Yes (NG tube in place in gastric fundus) <Glen Clark - Last Filed: 09/15/17 06:56> - Objective Vital Signs & Weight: Vital Signs (12 hours) Temp Pulse Resp BP 09/15/17 11:35 110/65 09/15/17 11:03 67 09/15/17 08:00 97.0 F L 09/15/17 07:33 65 09/15/17 07:32 65 20 09/15/17 04:00 98.1 F 09/15/17 02:35 65 09/15/17 00:22 67 24 H Weight Admit Weight 88.904 kg Weight 83.2 kg Most Recent Monitor Data Heart Rate from ECG 66 NIBP 110/65 NIBP BP-Mean 104 Respiration from ECG 20 SpO2 98 I&O: 09/14/17 09/15/17 09/16/17 06:59 06:59 06:59 Intake Total 431.8 985 30 Output Total 0 0 0 Balance 431.8 985 30 Result Diagrams: 09/15/17 05:15 09/15/17 05:15 <Marek Elias - Last Filed: 09/15/17 12:29> Phys Exam - Physical Examination HEENT: PERRLA, moist MMs Neck: no nodes Rales in bases b/l Cardiovascular: RRR, no significant murmur Gastrointestinal: soft, non-tender 2+ pitting edema to knee b/l Neurological: moves all 4 limbs PERRLA, EOMI, equal strength and plantar flexion b/l Skin: no rash <Glen Clark - Last Filed: 09/15/17 06:56> Dx/Plan (1) Right lower lobe pneumonia Code(s): J18.1 - LOBAR PNEUMONIA, UNSPECIFIED ORGANISM Status: Acute QualifierTitle: Pneumonia type: due to unspecified organism Qualified Code(s): J18.1 - Lobar pneumonia, unspecified organism (2) CHF exacerbation Code(s): I50.9 - HEART FAILURE, UNSPECIFIED Status: Acute QualifierTitle: Congestive heart failure type: combined Qualified Code(s) : I50.43 - Acute on chronic combined systolic (congestive) and diastolic ( congestive) heart failure (3) CKD (chronic kidney disease) stage 3, GFR 30-59 ml/min Status: Chronic (4) COPD (chronic obstructive pulmonary disease) Status: Chronic QualifierTitle: COPD type: COPD with acute lower respiratory infection Qualified Code(s): J44.0 - Chronic obstructive pulmonary disease with acute lower respiratory infection (5) Elevated brain natriuretic peptide (BNP) level Code(s): R79.89 - OTHER SPECIFIED ABNORMAL FINDINGS OF BLOOD CHEMISTRY Status : Chronic (6) Altered mental status Code(s): R41.82 - ALTERED MENTAL STATUS, UNSPECIFIED Status: Acute QualifierTitle: Altered mental status type: delirium Qualified Code(s): R41.0 - Disorientation, unspecified - Plan Plan: 1. CHF exacerbation - Pt currently requiring BiPAP. Unable to wean yesterday, will attempt to wean today. Pulm has been consulted, appreciate their recommendation with management - Pt had HD yesterday with 2.9 L pulled off. - fluid restriction is being met, on trickle feed via NG - Dt recent NSTEMI, I want do not want to miss anti platelet meds if possible. Will give ASA NC today. 2. CKD IV - Dr Anderson managing HD. - Pt was unable to have permanent graft yesterday dt declining status, however did have tunneled cath placed. - Renal dosing for all abx 3. RLL PNA - continue IV abx - vitals have improved, however dt continued respiratory failure will continue to treat 4. AMS - Mental status varies. Pt is much more interactive today than yesterday. Unable to determine A&O status. Pt will follow commands and understands simple questions. 4. Prolonged QT - currently stable at ~0.440 - Dr. Estrada believes non-Q wave etiology and no longer needs life vest. Will initiate beta hong and nitrate therapy. 5. HTN - Controlled. Continue home meds 6. CAD - continue home statin and aspirin 7. hypernatremia - resolved with HD 8. 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 pt needs HD Dispo: Guarded, will continue to watch respiratory status. Hopefully with continued diuresis, pt will improve. <Glen Clark - Last Filed: 09/15/17 06:56> Attending Addendum - Attending Addendum I personally evaluated the patient and discussed the management with Dr. Clark. I agree with the History, Examination, Assessment and Plan documented above with any addition or exceptions noted below. Patient somewhat improved this morning. Her mentation is better and she more awake. Undergoing HD at this time. She has Dobhoff tube placed to begin nutrition support. We hope that her mentation and respiratory status will continue to improve as HD is able to take fluid off. Wean Bipap as tolerated. BP improved. <Marek Elias - Last Filed: 09/15/17 12:29>
--- NOTE | 2017-09-15 08:12 | PDOC.CTH ---
<Chikis Cordon - Last Filed: 09/15/17 08:06> Cardiology Progress Note - Subjective The pt seen and examined. No overnight events. She is more arousable than yesterday. Per RN report, she followed commands last night. However, this AM, she was still unable to follow any commands. - ROS not able to obtain ROS - Objective Vital Signs Temp Pulse Resp 09/15/17 07:33 65 09/15/17 07:32 65 20 09/15/17 04:00 98.1 F 09/15/17 02:35 65 09/15/17 00:22 67 24 H 09/15/17 00:00 98.4 F 09/14/17 22:44 68 Admit Weight 196 lb Weight 183 lb 6.793 oz 09/14/17 09/15/17 09/16/17 06:59 06:59 06:59 Intake Total 431.8 985 Output Total 0 0 Balance 431.8 985 - Physical Examination Neck: no JVD present Lungs: other: (coase and diminished at bases) Abdomen: soft Extremities: other: (no edema) - Telemetry Telemetry Rhythm: V paced with PVCs - Labs Result Diagrams: 09/15/17 05:15 09/15/17 05:15 Troponin/CKMB CK-MB (CK-2) 6.4 ng/mL (0-6.6) 09/10/17 21:44 Troponin I 1.496 ng/mL (< 0.028) H* 09/10/17 21:44 - Assessment/Plan 1. NSTEMI - Stable; on BBlocker, on Plavix and ASA 81mg; cont. monitor on tele 2. RLL PNA - still on Bipap; she failed weaning off from Bipap yesterday; on IV antibiotic; managed by PCP 3. Acute on Chronic systolic HF - Echo on 08/25/17 showed EF 20-25%; Lasix d/c per Dr. Anderson's recs; cont. monitor 4. CKD - s/p HD access placement with tunneled cath; she has day 4 HD today 5. HTN - stable; cont. monitor 6. AMS - more arousable than yesterday 7. Hyperlipidemia - on Statin 8. Hx of PM placement in 2007 - last PM interrogation showed normal function 9. DM type 2 - on ACHS blood glucose check 10. PVD with Hx of Lt Fem-pop bypass - stable; cont. monitor 11. Current smoker - MAR reviewed Review of Systems - Review of Systems Constitutional: reports: see HPI EENTM: reports: see HPI Respiratory: reports: see HPI Cardiac (ROS): reports: see HPI ABD/GI: reports: see HPI : reports: see HPI Musculoskeletal: reports: see HPI <Kim Liz - Last Filed: 09/15/17 16:14> Cardiology Progress Note - Objective Vital Signs Temp Pulse Resp BP Pulse Ox 09/15/17 13:56 66 21 H 99 09/15/17 12:00 97.3 F L 09/15/17 11:50 99 09/15/17 11:35 110/65 09/15/17 11:03 67 09/15/17 08:00 97.0 F L 09/15/17 07:33 65 09/15/17 07:32 65 20 Admit Weight 196 lb Weight 183 lb 6.793 oz 09/14/17 09/15/17 09/16/17 06:59 06:59 06:59 Intake Total 431.8 985 130 Output Total 0 0 0 Balance 431.8 985 130 - Labs Result Diagrams: 09/15/17 05:15 09/15/17 05:15 Troponin/CKMB CK-MB (CK-2) 6.4 ng/mL (0-6.6) 09/10/17 21:44 Troponin I 1.496 ng/mL (< 0.028) H* 09/10/17 21:44 - Assessment/Plan Pt. seen and eval. by me. I agree with the A/P by the CREDIT REVIEW ANALYST. On my visit she is more arousable. She remains on the BIPAP mask. She denies any pain.
[2017-09-15] MEDS ORDERED: Heparin 10,000 UNITS/ 10 ML VIAL ONE (09:18)
--- NOTE | 2017-09-15 09:40 | PRG ---
DATE OF SERVICE: 09/15/2017 SUBJECTIVE: Ms. Maya is a 77-year-old black female with chronic renal failure and dialysis has be en initiated. She has become hemodynamically unstable in the last several days. She is undergoing d ialysis today. I am at the bedside supervising her dialysis. She was also noted to be hypoxemic and currently on BiPAP. PHYSICAL EXAMINATION: VITAL SIGNS: Blood pressure is 105/58, heart rate 65, respiratory rate 17. GENERAL: The patient is lethargic, arousable on BiPAP. SKIN: Adequate turgor. HEENT: She has slightly pale conjunctivae, anicteric sclerae. NECK: No neck mass, no carotid bruits, no JVD. CHEST: No deformities. LUNGS: Decreased breath sounds. HEART: Normal sinus rhythm. No murmurs, no gallops, no rubs. ABDOMEN: Globular, soft, nontender, no masses. EXTREMITIES: No edema. MEDICATIONS: Medications of 09/15/2017 was reviewed. LABORATORY DATA: Laboratories of 09/15/2017; white count 6.7, hemoglobin 9.6, hematocrit 29.9. Sodi um 139, potassium 3.8, chloride 104, carbon dioxide 24, BUN 48, creatinine 4.03, calcium 8.6, glucose 135. ASSESSMENT AND PLAN: Chronic renal failure/end-stage renal disease - my plan is to do a 3-hour hemod ialysis. Fluid removal of about 2 liters will be done. In addition, I have decided to again resume back her dialysis tomorrow for another 3-hour session for fluid removal. Consider doing daily dialys is for fluid removal secondary to volume overload with this patient. Overall, prognosis remains guar ded with this patient. Continue supportive care.
[2017-09-15] MEDS: Ferrous Sulfate 325 MG TAB PO SCH ×2 (11:35→17:12)
[2017-09-15] MEDS: Aspirin 81 mg Enteric Coated Tablet PO SCH (11:35)
[2017-09-15] MEDS: Calcitriol 0.25 MCG CAP PO SCH (11:35)
[2017-09-15] MEDS: Carvedilol 6.25 MG TAB PO SCH ×2 (11:35→17:04)
[2017-09-15] MEDS: Clopidogrel Bisulfate 75 MG TAB PO SCH (11:35)
--- NOTE | 2017-09-15 12:31 | PRG ---
DATE OF SERVICE: 09/14/2017 SERVICE: Pulmonary Medicine. INTERVAL HISTORY: The patient remains encephalopathic. She is breathing comfortably. Otherwise, th ere has been no interval change to her condition. Her blood pressures remain marginal. She is katina ating dialysis, however. OBJECTIVE: HEENT: Normocephalic, atraumatic. Sclerae are white, conjunctivae pink. Oral and nasal mucosa is d ry. No lesions. LUNGS: Decent air entry. I do not appreciate a prolonged expiratory phase. Rhonchi are present maureen ar with cough. HEART: Normal rate, regular. ABDOMEN: Soft, nontender, nondistended. Bowel sounds are positive. MUSCULOSKELETAL: No cyanosis or clubbing. No pitting in the bilateral lower extremities. NEUROLOGIC: Grossly nonfocal. LABORATORY DATA: Hemoglobin 10.1, platelets 157,000. Blood sugar ranges from 45-135. Creatinine 4. 76, BUN 62. Bicarbonate 21, chloride 108. Sodium is normal. Cortisol level is also unremarkable. Blood cultures x4, urine culture negative to date. The respiratory virus panel is unremarkable. IMAGIN. X-ray of the abdomen demonstrates good position for the enteric catheter. 2. Chest x-ray demonstrates bibasilar infiltrates, and/or atelectasis. There is likely a right-side d pleural effusion. Large heart with AICD pacemaker/defibrillator in place. An indwelling tunneled catheter is present and terminates in decent position. Left-sided IJ is also in good position. ASSESSMENT: 1. Acute hypoxic respiratory failure, resolving. 2. Metabolic encephalopathy. 3. Chronic systolic and diastolic heart failure. 4. Healthcare-associated pneumonia, currently on antibiotics. PLAN: We will continue supportive care. We will give the patient BiPAP breaks 3 times daily and inc rease as tolerated. She looks to me to be extraordinarily dry. As such, I will initiate some volume resuscitation. Pulmonary Critical Care will continue to follow while she remains in this location. Critical care time: 30 minutes.
[2017-09-15] MEDS: Dextrose 5 %-0.45 % NaCl 1,000 ML IV SCH (12:35)
--- NOTE | 2017-09-15 12:53 | PRG ---
DATE OF SERVICE: 09/13/2017 SERVICE: Pulmonary Medicine. INTERVAL HISTORY: The patient is doing really quite well from a respiratory standpoint. She cannot provide any additional elements of the history. She is a little bit more awake today. She remains s omnolent, but is following some simple commands and responding. Otherwise, there has been no interva l change to her condition. We are going to work on giving her some more breaks off BiPAP today. PHYSICAL EXAMINATION: VITAL SIGNS: Afebrile, pulse 66, blood pressure 110/65, respirations 20, saturation 98% on 27% FiO2. GENERAL: The patient is somnolent. HEENT: Normocephalic, atraumatic. Sclerae are white, conjunctivae pink. Oral and nasal mucosa dry. HEART: Normal rate. Regular. LUNGS: There is no prolonged expiratory phase. Rhonchi are present but no wheezing. ABDOMEN: Soft, nontender, nondistended. Bowel sounds are positive. MUSCULOSKELETAL: No cyanosis or clubbing. No pitting in the bilateral lower extremities. NEUROLOGIC: Grossly nonfocal. LABORATORY DATA: WBC 6.7, hemoglobin 9.6, platelets 151,000. Creatinine 4.03, BUN 48. Basic metabo lic profile is otherwise unremarkable. Blood sugar was low at 45 and is up trending to 135 after 2 a mps of D50. Blood cultures x2, respiratory virus panel, urine cultures negative to date. ASSESSMENT: 1. Acute hypoxic respiratory failure, resolving. 2. Chronic systolic and diastolic heart failure (currently hypovolemic). 3. End-stage renal disease on hemodialysis. 4. Healthcare-associated pneumonia, status post full course of antibiotics. 5. Metabolic encephalopathy, improving. PLAN: The patient appropriately got a couple liters of fluid yesterday. We have been having some lo w blood sugar issues over the past 24 hours, and so I am going to start up D5 half NS at 50 an hour. This is going to supplement her tube feeds, which she is tolerating quite well. Rectal aspirin will be discontinued. I will give her BiPAP breaks 3 times daily and increase as tolerated.
[2017-09-15] MEDS: Cefepime 1 GM, Admixture Fee 1 EACH in Sterile Water 10 ML SLOW IVP SCH (12:57)
[2017-09-15] MEDS: Nicotine 14 MG PATCH TD SCH (18:00)
[2017-09-15] MEDS: Rosuvastatin 20 MG TAB PO SCH (21:32)
[2017-09-16] MEDS: Dextrose 5 %-0.45 % NaCl 1,000 ML IV SCH ×2 (01:18→14:34)
[2017-09-16 05:40] LABS: Anion Gap 13 mmol/L (10-20); BUN (Urea Nitrogen) 32 mg/dL (9.8-20.1); Calc. Creatinine Clearance 18 mL/min (70-130); Calcium 8.2 mg/dL (7.8-10.44); Carbon Dioxide 27 mmol/L (23-31); Chloride 102 mmol/L (98-107); Estimated GFR-MDRD 16; Glucose 146 mg/dL (83-110); Potassium 3.4 mmol/L (3.5-5.1); Sodium 139 mmol/L (136-145)
[2017-09-16 06:09] LABS: Hemoglobin 9.5 g/dL (12.0-16.0); Lymphocytes 15 % (21-51); MDiff Complete? YES; Mean Corpuscular HGB CONC 31.5 g/dL (32.0-36.0); Mean Corpuscular Hemoglobin 31.1 pg (27.0-31.0); Mean Corpuscular Volume 98.7 fl (81.0-99.0); Mean Platelet Volume 9.1 fL (7.4-10.4); Monocytes 4 % (0-10); Neutrophil 81 % (42-75); PLT Morphology Comment Appears Adequate; Platelet Count 142 thou/uL (130-400); RBC Distribution Width 14.5 % (11.5-14.5); Red Blood Cell (RBC) Count 3.06 mill/uL (4.20-5.40); White Blood Cell (WBC) Count 7.2 thou/uL (4.8-10.8)
[2017-09-16] MEDS: Carvedilol 6.25 MG TAB PO SCH ×2 (08:46→17:32)
[2017-09-16] MEDS: Clopidogrel Bisulfate 75 MG TAB PO SCH (08:47)
[2017-09-16] MEDS: Ferrous Sulfate 325 MG TAB PO SCH ×2 (08:47→17:32)
[2017-09-16] MEDS: Aspirin 81 mg Enteric Coated Tablet PO SCH (08:47)
[2017-09-16] MEDS: Famotidine/PF 20 mg/2ml Vial SLOW IVP SCH (08:47)
[2017-09-16] MEDS: Calcitriol 0.25 MCG CAP PO SCH (08:47)
--- NOTE | 2017-09-16 08:52 | PDOC.FM ---
- Subjective Subjective: Pt doing much better this morning. She is interactive and states that she is feeling much better. Per nursing, there were no acute events over night and mentation has continuously improved over the past 24 hours. - Objective Vital Signs & Weight: Vital Signs (12 hours) Temp Pulse Pulse Pulse Resp BP BP 09/16/17 08:46 96/67 09/16/17 07:52 65 65 111/74 09/16/17 07:46 65 20 09/16/17 07:35 98.3 F 64 36 H 09/16/17 04:00 98.4 F 09/16/17 00:33 67 20 09/16/17 00:00 98.3 F BP Pulse Ox Pulse Ox Pulse Ox 09/16/17 08:46 09/16/17 07:52 103/77 100 98 09/16/17 07:46 09/16/17 07:35 100 09/16/17 04:00 09/16/17 00:33 96 09/16/17 00:00 Weight Admit Weight 88.904 kg Weight 83 kg Most Recent Monitor Data Heart Rate from ECG 68 NIBP 132/67 NIBP BP-Mean 75 Respiration from ECG 17 SpO2 98 I&O: 09/15/17 09/16/17 09/17/17 06:59 06:59 06:59 Intake Total 985 1285 Output Total 0 0 Balance 985 1285 Result Diagrams: 09/16/17 05:15 09/16/17 05:15 <Glen Clark - Last Filed: 09/16/17 08:50> - Objective Vital Signs & Weight: Vital Signs (12 hours) Temp Pulse Pulse Pulse Resp BP BP 09/16/17 08:46 96/67 09/16/17 07:52 65 65 111/74 09/16/17 07:46 65 20 09/16/17 07:35 98.3 F 64 36 H 09/16/17 04:00 98.4 F BP Pulse Ox Pulse Ox Pulse Ox 09/16/17 08:46 09/16/17 07:52 103/77 100 98 09/16/17 07:46 09/16/17 07:35 100 09/16/17 04:00 Weight Admit Weight 88.904 kg Weight 83 kg Most Recent Monitor Data Heart Rate from ECG 68 NIBP 132/67 NIBP BP-Mean 75 Respiration from ECG 17 SpO2 98 I&O: 09/15/17 09/16/17 09/17/17 06:59 06:59 06:59 Intake Total 985 1285 Output Total 0 0 Balance 985 1285 Result Diagrams: 09/16/17 05:15 09/16/17 05:15 <Marek Elias - Last Filed: 09/16/17 12:41> Phys Exam - Physical Examination Constitutional: NAD HEENT: PERRLA, moist MMs Neck: no nodes mild rales in bases Cardiovascular: RRR, no significant murmur Gastrointestinal: soft, non-tender, no distention pitting to knee, improved Neurological: non-focal, normal sensation, moves all 4 limbs Lymphatic: no nodes Psychiatric: normal affect, A&O x 3 Skin: no rash Deviation from normal: HD cath and central line in place and clean <Glen Clark - Last Filed: 09/16/17 08:50> Dx/Plan (1) Right lower lobe pneumonia Code(s): J18.1 - LOBAR PNEUMONIA, UNSPECIFIED ORGANISM Status: Acute QualifierTitle: Pneumonia type: due to unspecified organism Qualified Code(s): J18.1 - Lobar pneumonia, unspecified organism (2) CHF exacerbation Code(s): I50.9 - HEART FAILURE, UNSPECIFIED Status: Acute QualifierTitle: Congestive heart failure type: combined Qualified Code(s) : I50.43 - Acute on chronic combined systolic (congestive) and diastolic ( congestive) heart failure (3) CKD (chronic kidney disease) stage 3, GFR 30-59 ml/min Status: Chronic (4) COPD (chronic obstructive pulmonary disease) Status: Chronic QualifierTitle: COPD type: COPD with acute lower respiratory infection Qualified Code(s): J44.0 - Chronic obstructive pulmonary disease with acute lower respiratory infection (5) Elevated brain natriuretic peptide (BNP) level Code(s): R79.89 - OTHER SPECIFIED ABNORMAL FINDINGS OF BLOOD CHEMISTRY Status : Chronic (6) Altered mental status Code(s): R41.82 - ALTERED MENTAL STATUS, UNSPECIFIED Status: Acute QualifierTitle: Altered mental status type: delirium Qualified Code(s): R41.0 - Disorientation, unspecified - Plan Plan: 1. CHF exacerbation - Pt off of BiPAP with sat of 98 on 3L - Major contributor has been ESRD, pt scheduled for HD again today. - fluid restriction is being met, on trickle feed via NG - Pt likely ready to move to tele today 2. CKD IV - Dr Anderson managing HD. - Renal dosing for all abx - likely HD today, will look for Dr Arteaga recs for placement of permanent graft 3. RLL PNA - continue IV abx - consider moving to PO after O2 requirement stops 4. AMS - Marked improvement today. She is able to hold a conversation today and is A&O x2. Unaware of the year. 4. Prolonged QT - currently stable at ~0.440 - Dr. Estrada believes non-Q wave etiology and no longer needs life vest. Will initiate beta hong and nitrate therapy. 5. HTN - Controlled. Continue home meds 6. CAD - continue home statin and aspirin 7. hypernatremia - resolved with HD 8. 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 pt needs HD Dispo: Guarded, will continue to watch respiratory status. She has made good improvement over the past day <Glen Clark - Last Filed: 09/16/17 08:50> Attending Addendum - Attending Addendum I personally evaluated the patient and discussed the management with Dr. Clark. I agree with the History, Examination, Assessment and Plan documented above with any addition or exceptions noted below. Patient with drastic improvement overnight. She has successfully been weaned off BiPap and her mentation is back near baseline. She will be transferred from CCU today, to Tele due to her frequent PVCs. Awaiting further recs from Renal regarding HD therapy. She has completed a 10 day course of abx and those will be stopped today. <Marek Elias - Last Filed: 09/16/17 12:41>
--- NOTE | 2017-09-16 09:36 | PRG ---
DATE OF SERVICE: 09/16/2017 SUBJECTIVE: Ms. Maya is a 77-year-old black female being followed by the Renal Service for her ch ronic renal failure/ESRD. She received dialysis yesterday for 3 hours. Fluid removal was done. Thi s morning the patient is noted to be much improved. She is breathing better. We will be holding her dialysis today. The patient denies any chest pain or any worsening shortness of breath. She is now noted to be more alert. She is also off BiPAP. PHYSICAL EXAMINATION: VITAL SIGNS: Blood pressure is ranging from 96/67-103/77. Heart rate 65, pulse ox 100%, respiratory rate 20, temperature 98.3. GENERAL: Awake, alert, supine, comfortable, not in distress. SKIN: Adequate turgor. HEENT: Slightly pale conjunctivae, anicteric sclerae. NECK: No neck mass, no carotid bruits, no JVD. CHEST: No deformities. LUNGS: Decreased breath sounds. HEART: Normal sinus rhythm. No murmur, no gallops, no rubs. ABDOMEN: Globular, soft, nontender, no masses. EXTREMITIES: Trace edema. MEDICATIONS: 09/16/2017 - Reviewed. LABORATORY: 09/16/2017 - White count 7.2, hemoglobin 9.5, hematocrit 30.2. Sodium 139, potassium 3. 4, chloride 102, carbon dioxide 27, BUN 32, creatinine 3.4, glucose 146, calcium 8.2. ASSESSMENT AND PLAN: 1. Chronic renal failure/end-stage renal disease, stable. No indication for any dialytic interventi on today. I will reschedule her back on her regular Wednesday, Wednesday, Wednesday dialysis. Again, flui d removal only as tolerated. 2. Anemia - currently on weekly Epogen. 3. Shortness of breath - combination of pneumonia and congestive heart failure. Currently on IV an tibiotics. Optimize hemodynamics with this patient. Overall I agree with current management.
--- NOTE | 2017-09-16 10:18 | PRG ---
DATE OF SERVICE: 09/16/2017 SERVICE: Pulmonary Medicine. INTERVAL HISTORY: The patient is doing great from a respiratory standpoint. Mentation prather, things have improved dramatically. She is awake and alert. She indicates she is in no distress, respirator y issues or chest discomfort. Otherwise, there has been no interval change to her condition. PHYSICAL EXAMINATION: VITAL SIGNS: Afebrile, pulse 65, blood pressure 111/74, respirations 20, saturation 100% on 2 liters nasal cannula. GENERAL: Patient is awake, alert, no apparent distress. LUNGS: Excellent air entry. There are no crackles, rhonchi or wheezing. HEART: Normal rate, regular. ABDOMEN: Soft, nontender, nondistended. Bowel sounds are positive. MUSCULOSKELETAL: No cyanosis or clubbing. No pitting in the bilateral lower extremities. NEUROLOGIC: Grossly nonfocal. LABORATORY DATA: WBC 7.2, hemoglobin 9.5, platelets 142,000. Neutrophils 81%, lymphocyte count is 1 5%. Creatinine 3.40, BUN 32. Basic metabolic profile is otherwise unremarkable. Potassium 3.4. Ur ine culture, blood culture x4, and respiratory virus panel are all unremarkable. ASSESSMENT: 1. Acute hypoxic respiratory failure, improving. 2. Metabolic encephalopathy, resolved to baseline. 3. End-stage renal disease. 4. Chronic systolic and diastolic heart failure, currently nearly euvolemic, perhaps on the dry side still. 5. Healthcare-associated pneumonia, status post full course of antibiotics. PLAN: The patient is doing fantastic from a mentation standpoint. As such, she can be transitioned out of the ICU. I see no reason for her to be continued on antibiotics. My suspicion is that previo us pneumonia was fully treated but the thing that brought her back to ICU was more metabolic encephal opathy. I will continue to follow when she goes to the floor.
--- NOTE | 2017-09-16 12:54 | PDOC.CTH ---
<Chikis Cordon - Last Filed: 09/16/17 12:56> Cardiology Progress Note - Subjective The pt seen and examined. No overnight events. No cardiac complaints. She is on 3LNC and can follow commands and answered questions correctly. She denied SOB or CP or discomfort in her chest - Objective Vital Signs Temp Pulse Pulse Pulse Resp BP BP 09/16/17 08:46 96/67 09/16/17 07:52 65 65 111/74 09/16/17 07:46 65 20 09/16/17 07:35 98.3 F 64 36 H 09/16/17 04:00 98.4 F BP Pulse Ox Pulse Ox Pulse Ox 09/16/17 08:46 09/16/17 07:52 103/77 100 98 09/16/17 07:46 09/16/17 07:35 100 09/16/17 04:00 Admit Weight 196 lb Weight 182 lb 15.739 oz 09/15/17 09/16/17 09/17/17 06:59 06:59 06:59 Intake Total 985 1285 Output Total 0 0 Balance 985 1285 - Physical Examination General/Neuro: alert & oriented x3 Neck: no JVD present Lungs: other: (diminished at bases) Heart: RRR (murmur) Abdomen: soft Extremities: other: (no edema) - Telemetry Telemetry Rhythm: V paced - Labs Result Diagrams: 09/16/17 05:15 09/16/17 05:15 Troponin/CKMB CK-MB (CK-2) 6.4 ng/mL (0-6.6) 09/10/17 21:44 Troponin I 1.496 ng/mL (< 0.028) H* 09/10/17 21:44 - Assessment/Plan 1. NSTEMI - Stable; on BBlocker, on Plavix and ASA 81mg; cont. monitor on tele 2. RLL PNA - stable with NC at this time; no longer on IV antibiotic; managed by PCP 3. Acute on Chronic systolic HF - Echo on 08/25/17 showed EF 20-25%; Lasix d/c per Dr. Anderson's recs; cont. monitor 4. CKD - s/p HD access placement with tunneled cath; she will have HD on Wed, Wed, and Wednesday: possible AV fistula placement by [facility] in the future 5. HTN - stable; cont. monitor 6. AMS - improving and now she can eat; but still on wrist restraints 7. Hyperlipidemia - on Statin 8. Hx of PM placement in 2007 - last PM interrogation showed normal function 9. DM type 2 - on ACHS blood glucose check 10. PVD with Hx of Lt Fem-pop bypass - stable; cont. monitor 11. Current smoker - MAR reviewed Review of Systems - Review of Systems Constitutional: reports: no symptoms reported EENTM: reports: no symptoms reported Respiratory: reports: no symptoms reported Cardiac (ROS): reports: no symptoms reported ABD/GI: reports: no symptoms reported : reports: no symptoms reported Musculoskeletal: reports: no symptoms reported <Kim Liz - Last Filed: 09/16/17 18:02> Cardiology Progress Note - Objective Vital Signs Temp Pulse Pulse Pulse Resp BP BP 09/16/17 16:11 97.5 F L 87 16 09/16/17 15:12 96.5 F L 78 18 09/16/17 14:00 96.5 F L 78 18 09/16/17 12:56 68 25 H 09/16/17 12:00 98.4 F 09/16/17 08:46 96/67 09/16/17 07:52 65 65 111/74 09/16/17 07:46 65 20 09/16/17 07:35 98.3 F 64 36 H BP BP Pulse Ox Pulse Ox Pulse Ox 09/16/17 16:11 137/68 95 09/16/17 15:12 96 09/16/17 14:00 157/76 H 96 09/16/17 12:56 09/16/17 12:00 09/16/17 08:46 09/16/17 07:52 103/77 100 98 09/16/17 07:46 09/16/17 07:35 100 Admit Weight 196 lb Weight 182 lb 15.739 oz 09/15/17 09/16/17 09/17/17 06:59 06:59 06:59 Intake Total 985 1285 110 Output Total 0 0 0 Balance 985 1285 110 - Labs Result Diagrams: 09/16/17 05:15 09/16/17 05:15 Troponin/CKMB CK-MB (CK-2) 6.4 ng/mL (0-6.6) 09/10/17 21:44 Troponin I 1.496 ng/mL (< 0.028) H* 09/10/17 21:44 - Assessment/Plan Pt. seen and eval. by me. I agree with the A/P by the HIGH HEEL BUILDER. She is more alert and feeling better. Continue present management.Chest: decreased BS throughout. tele: /V- pacing, occasionally has NSR with /VS.
[2017-09-16] MEDS: Cefepime 1 GM, Admixture Fee 1 EACH in Sterile Water 10 ML SLOW IVP SCH (14:34)
[2017-09-16] MEDS: Nicotine 14 MG PATCH TD SCH (17:32)
--- NOTE | 2017-09-16 19:21 | EKG ---
Test Reason : ROUTINE Blood Pressure : / mmHG Vent. Rate : 067 BPM Atrial Rate : 060 BPM P-R Int : 000 ms QRS Dur : 148 ms QT Int : 484 ms P-R-T Axes : 000 -62 120 degrees QTc Int : 511 ms Ventricular-paced rhythm with occasional Premature ventricular complexes Abnormal ECG When compared with ECG of 05-SEP-2017 22:49, (Unconfirmed) Premature ventricular complexes are now Present Confirmed by RAJ RACHEL (2) on 09/16/2017 7:21:12 PM Referred By: CHING Confirmed By:RAJ RACHEL
--- NOTE | 2017-09-16 19:25 | EKG ---
Test Reason : ? Blood Pressure : / mmHG Vent. Rate : 065 BPM Atrial Rate : 042 BPM P-R Int : 000 ms QRS Dur : 138 ms QT Int : 468 ms P-R-T Axes : 000 -61 115 degrees QTc Int : 486 ms Electronic ventricular pacemaker When compared with ECG of 06-SEP-2017 03:04, (Unconfirmed) Premature ventricular complexes are no longer Present Vent. rate has decreased BY 2 BPM Confirmed by RAJ RACHEL (2) on 09/16/2017 7:24:41 PM Referred By: CHING Confirmed By:RAJ RACHEL
[2017-09-16] MEDS: Famotidine 20 MG TAB PO SCH (19:35)
--- NOTE | 2017-09-16 19:40 | EKG ---
Test Reason : Blood Pressure : / mmHG Vent. Rate : 089 BPM Atrial Rate : 117 BPM P-R Int : 000 ms QRS Dur : 092 ms QT Int : 468 ms P-R-T Axes : 000 051 241 degrees QTc Int : 569 ms Atrial fibrillation with premature ventricular or aberrantly conducted complexes T wave abnormality, consider inferior ischemia or digitalis effect T wave abnormality, consider anterolateral ischemia or digitalis effect Prolonged QT Abnormal ECG When compared with ECG of 06-SEP-2017 19:00, (Unconfirmed) Atrial fibrillation has replaced Electronic ventricular pacemaker Confirmed by RAJ RACHEL (2) on 09/16/2017 7:39:28 PM Referred By: HAYES Confirmed By:RAJ RACHEL
--- NOTE | 2017-09-16 19:41 | EKG ---
Test Reason : Blood Pressure : / mmHG Vent. Rate : 081 BPM Atrial Rate : 100 BPM P-R Int : 000 ms QRS Dur : 088 ms QT Int : 410 ms P-R-T Axes : 000 041 261 degrees QTc Int : 476 ms Atrial fibrillation with occasional ventricular-paced complexes T wave abnormality, consider inferior ischemia T wave abnormality, consider anterolateral ischemia Prolonged QT Abnormal ECG When compared with ECG of 10-SEP-2017 11:36, (Unconfirmed) Electronic ventricular pacemaker has replaced Atrial fibrillation Confirmed by RAJ RACHEL (2) on 09/16/2017 7:40:45 PM Referred By: HAYES Confirmed By:RAJ RACHEL
[2017-09-16] MEDS: Rosuvastatin 20 MG TAB PO SCH (20:26)
[2017-09-17] MEDS: Dextrose 5 %-0.45 % NaCl 1,000 ML IV SCH ×2 (01:53→18:41)
[2017-09-17 06:36] LABS: #Lymphocytes 1.2 thou/uL (1.20-3.40); #Monocytes 0.5 thou/uL (0.11-0.59); #Neutrophils 5.1 thou/uL (1.40-6.50); %Basophils 0.1 % (0.0-1.0); %Eosinophils 0.4 % (0.0-10.0); %Lymphocytes 17.4 % (21.0-51.0); %Monocytes 7.4 % (0.0-10.0); %Neutrophils 74.7 % (42.0-75.0); Hemoglobin 9.7 g/dL (12.0-16.0); Mean Corpuscular HGB CONC 31.6 g/dL (32.0-36.0); Mean Corpuscular Hemoglobin 31.3 pg (27.0-31.0); Mean Corpuscular Volume 98.9 fl (81.0-99.0); Mean Platelet Volume 8.9 fL (7.4-10.4); Platelet Count 154 thou/uL (130-400); RBC Distribution Width 14.6 % (11.5-14.5); Red Blood Cell (RBC) Count 3.09 mill/uL (4.20-5.40); White Blood Cell (WBC) Count 6.8 thou/uL (4.8-10.8)
[2017-09-17 06:39] LABS: Anion Gap 15 mmol/L (10-20); BUN (Urea Nitrogen) 38 mg/dL (9.8-20.1); Calc. Creatinine Clearance 14 mL/min (70-130); Calcium 8.3 mg/dL (7.8-10.44); Carbon Dioxide 25 mmol/L (23-31); Chloride 102 mmol/L (98-107); Estimated GFR-MDRD 12; Glucose 137 mg/dL (83-110); Potassium 3.6 mmol/L (3.5-5.1); Sodium 138 mmol/L (136-145)
--- NOTE | 2017-09-17 08:22 | PDOC.FM ---
- Subjective Subjective: Pt states that she is feeing better today, however she still complains of continued SOB. She has no other specific complaints and denies other symptoms in ROS. Per nursing, she has been hallucinating during the night and pulls at her IV lines. When not hallucinating, she is typically only A&O to location and self. - Objective Vital Signs & Weight: Vital Signs (12 hours) Temp Pulse Resp BP Pulse Ox 09/17/17 07:25 68 18 147/83 H 09/17/17 04:00 97.6 F 72 20 137/70 09/16/17 23:39 98 Weight Admit Weight 88.904 kg Weight 77.791 kg Most Recent Monitor Data Heart Rate from ECG 72 NIBP 136/71 NIBP BP-Mean 111 Respiration from ECG 23 SpO2 89 I&O: 09/16/17 09/17/17 09/18/17 06:59 06:59 06:59 Intake Total 1285 1625 Output Total 0 0 Balance 1285 1625 Result Diagrams: 09/17/17 06:08 09/17/17 06:08 <Glen Clark - Last Filed: 09/17/17 08:18> - Objective Vital Signs & Weight: Vital Signs (12 hours) Temp Pulse Resp BP Pulse Ox 09/17/17 07:25 68 18 147/83 H 09/17/17 04:00 97.6 F 72 20 137/70 09/16/17 23:39 98 Weight Admit Weight 89 kg Weight 77.791 kg Most Recent Monitor Data Heart Rate from ECG 72 NIBP 136/71 NIBP BP-Mean 111 Respiration from ECG 23 SpO2 89 I&O: 09/16/17 09/17/17 09/18/17 06:59 06:59 06:59 Intake Total 1285 1625 Output Total 0 0 Balance 1285 1625 Result Diagrams: 09/17/17 06:08 09/17/17 06:08 <Marek Elias - Last Filed: 09/17/17 11:37> Phys Exam - Physical Examination Constitutional: NAD HEENT: PERRLA, moist MMs Neck: no nodes, no JVD Respiratory: clear to auscultation bilateral Cardiovascular: RRR, no significant murmur Gastrointestinal: soft, non-tender, no distention, positive bowel sounds Musculoskeletal: no edema, pulses present Neurological: non-focal, normal sensation, moves all 4 limbs Psychiatric: normal affect Deviation from normal: A&O x2 person and place. Pt is confused and loses train of thought while speaking Skin: no rash <Glen Clark - Last Filed: 09/17/17 08:18> Dx/Plan (1) Right lower lobe pneumonia Code(s): J18.1 - LOBAR PNEUMONIA, UNSPECIFIED ORGANISM Status: Resolved QualifierTitle: Pneumonia type: due to unspecified organism Qualified Code(s): J18.1 - Lobar pneumonia, unspecified organism (2) CHF exacerbation Code(s): I50.9 - HEART FAILURE, UNSPECIFIED Status: Acute QualifierTitle: Congestive heart failure type: combined Qualified Code(s) : I50.43 - Acute on chronic combined systolic (congestive) and diastolic ( congestive) heart failure (3) COPD (chronic obstructive pulmonary disease) Status: Chronic QualifierTitle: COPD type: COPD with acute lower respiratory infection Qualified Code(s): J44.0 - Chronic obstructive pulmonary disease with acute lower respiratory infection (4) Elevated brain natriuretic peptide (BNP) level Code(s): R79.89 - OTHER SPECIFIED ABNORMAL FINDINGS OF BLOOD CHEMISTRY Status : Chronic (5) Altered mental status Code(s): R41.82 - ALTERED MENTAL STATUS, UNSPECIFIED Status: Acute QualifierTitle: Altered mental status type: delirium Qualified Code(s): R41.0 - Disorientation, unspecified (6) ESRD (end stage renal disease) Code(s): N18.6 - END STAGE RENAL DISEASE Status: Chronic - Plan Plan: 1. CHF exacerbation - O2 98% on 2L - Major contributor has been ESRD, pt now on MWF HD schedule - Dt previous PVCs, will continue tele - pt has continued SOB, will consider repeat CXR if symptoms worsen 2. CKD IV - Dr Anderson managing HD. - Pt will likely need permanent graft at some point. 3. RLL PNA - resolved 4. AMS - Mental status is unchanged from yesterday - Pt has not returned to baseline from admission - no clear organic cause. Likely hospital related delirium. Consider brain imaging if there is no improvement - open windows during day, close at night. Attempt to have sitter/family at bedside 4. Prolonged QT - currently stable at ~0.440 - Dr. Estrada believes non-Q wave etiology and no longer needs life vest. Will initiate beta hong and nitrate therapy. 5. HTN - Controlled. Continue home meds 6. CAD - continue home statin and aspirin 7. hypernatremia - resolved with HD 8. 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 pt needs HD 9. Deconditioning - PT eval, pt will needed SNF/rehab Dispo: Guarded, will continue to monitor improvement. Consider discharge as resp and mental status improves <Glen Clark - Last Filed: 09/17/17 08:18> Attending Addendum - Attending Addendum I personally evaluated the patient and discussed the management with Dr. Clark. I agree with the History, Examination, Assessment and Plan documented above with any addition or exceptions noted below. Patient continues to do well. She is receiving HD today. Her mentation is stable , not quite back to baseline. We are in the process of arranging rehab for this patient once she is cleared to be discharged. Her O2 status is improved and her volume status is better. We are stopping antibiotics on her as no evidence of infection. Consult PT/OT to help with deconditioning. <Marek Elias - Last Filed: 09/17/17 11:37>
[2017-09-17] MEDS: Ferrous Sulfate 325 MG TAB PO SCH (10:14)
[2017-09-17] MEDS: Carvedilol 6.25 MG TAB PO SCH ×2 (10:14→17:24)
--- NOTE | 2017-09-17 11:01 | PDOC.CTH ---
<LeenaChikis hermosillo - Last Filed: 09/17/17 11:03> Cardiology Progress Note - Subjective The Pt seen and examined. No overnight events. No cardiac complaints. She is undergoing HD at this moment. She is alerted and oriented to self, place and situation. However, she is easy to doze off. However, she has been hallucinating during the night and pulls at her IV lines. Still on bilat wrist restraints. - Objective Vital Signs Temp Pulse Resp BP Pulse Ox 09/17/17 07:25 68 18 147/83 H 09/17/17 04:00 97.6 F 72 20 137/70 09/16/17 23:39 98 Admit Weight 196 lb 3.382 oz Weight 171 lb 8 oz 09/16/17 09/17/17 09/18/17 06:59 06:59 06:59 Intake Total 1285 1625 Output Total 0 0 Balance 1285 1625 - Physical Examination General/Neuro: alert & oriented x3 Neck: no JVD present Lungs: CTA (diminished at bases) Heart: RRR Abdomen: soft Extremities: other: (1+ pitting edema to bilat foot) - Telemetry Telemetry Rhythm: V paced - Labs Result Diagrams: 09/17/17 06:08 09/17/17 06:08 Troponin/CKMB CK-MB (CK-2) 6.4 ng/mL (0-6.6) 09/10/17 21:44 Troponin I 1.496 ng/mL (< 0.028) H* 09/10/17 21:44 - Assessment/Plan 1. NSTEMI - Stable; on BBlocker, on Plavix and ASA 81mg; cont. monitor on tele 2. RLL PNA - stable with NC at this time; no longer on IV antibiotic; managed by PCP 3. Acute on Chronic systolic HF - Echo on 08/25/17 showed EF 20-25%; Lasix d/c per Dr. Anderson's recs; cont. monitor 4. CKD - s/p HD access placement with tunneled cath; she will have HD on Wed, Wed, and Wednesday; possible AV fistula placement 5. HTN - stable; cont. monitor 6. AMS - improving and now she can eat; but still on wrist restraints 7. Hyperlipidemia - on Statin 8. Hx of PM placement in 2007 - last PM interrogation showed normal function 9. DM type 2 - on ACHS blood glucose check 10. PVD with Hx of Lt Fem-pop bypass - stable; cont. monitor 11. Current smoker - smoking cessation education given to the pt MAR reviewed Review of Systems - Review of Systems Constitutional: reports: no symptoms reported EENTM: reports: no symptoms reported Respiratory: reports: no symptoms reported Cardiac (ROS): reports: no symptoms reported ABD/GI: reports: no symptoms reported : reports: no symptoms reported Musculoskeletal: reports: no symptoms reported <Kim Liz - Last Filed: 09/17/17 15:41> Cardiology Progress Note - Objective Vital Signs Temp Pulse Resp BP Pulse Ox 09/17/17 13:57 84 18 97 09/17/17 13:15 98.7 F 68 18 138/67 09/17/17 11:00 96.1 F L 84 18 97 09/17/17 10:55 96.1 F L 74 18 150/82 H 09/17/17 07:25 68 18 147/83 H 09/17/17 04:00 97.6 F 72 20 137/70 Admit Weight 196 lb 3.382 oz Weight 171 lb 8 oz 09/16/17 09/17/17 09/18/17 06:59 06:59 06:59 Intake Total 1285 1625 Output Total 0 0 Balance 1285 1625 - Labs Result Diagrams: 09/17/17 06:08 09/17/17 06:08 Troponin/CKMB CK-MB (CK-2) 6.4 ng/mL (0-6.6) 09/10/17 21:44 Troponin I 1.496 ng/mL (< 0.028) H* 09/10/17 21:44 - Assessment/Plan Pt. seen and eval. by me. I agree with the A/P by the WARD ATTENDANT. She is more alert but still confused. She denies any cardiac complaints.She is more stable after dialysis.
[2017-09-17] MEDS: Calcitriol 0.25 MCG CAP PO SCH (11:02)
[2017-09-17] MEDS: Clopidogrel Bisulfate 75 MG TAB PO SCH (11:02)
[2017-09-17] MEDS: Famotidine/PF 20 mg/2ml Vial SLOW IVP SCH (11:02)
[2017-09-17] MEDS: Aspirin 81 mg Enteric Coated Tablet PO SCH (11:03)
[2017-09-17] MEDS ORDERED: Heparin 1,000 UNITS/ML VIAL ONE (11:11)
[2017-09-17] MEDS ORDERED: CEFAZOLIN/Water 2 GM/20 ML SYRINGE SLOW IVP SCH (12:00)
--- NOTE | 2017-09-17 12:23 | PRG ---
DATE OF SERVICE: 09/17/2017 SERVICE: Renal Medicine. SUBJECTIVE: Ms. Maya is a 77-year-old black female who was initiated on dialysis due to volume ov erload. She is undergoing dialysis. I am at the bedside, supervising her dialysis. She still goes into intermittent confusion. OBJECTIVE: VITAL SIGNS: Blood pressure 147/83, heart rate 68, respiratory rate 18. GENERAL: Awake, confused, not in overt distress. SKIN: Adequate turgor. HEENT: Pinkish conjunctivae, anicteric sclerae. NECK: No neck mass, no carotid bruits, no JVD. CHEST: No deformities. LUNGS: Decreased breath sounds. HEART: Normal sinus rhythm. No murmur, no gallops, no rubs. ABDOMEN: Globular, soft, nontender, no masses. EXTREMITIES: No edema, no deformities. MEDICATIONS: Of 09/17/2017 was reviewed. LABORATORY DATA: Of 09/17/2017, white count 6.8, hemoglobin 9.7, sodium 138, potassium 3.6, chloride 102, carbon dioxide 25, BUN 38, creatinine 4.2, glucose 137, calcium 8.3. ASSESSMENT AND PLAN: 1. Chronic renal failure/end-stage renal disease - patient undergoing hemodialysis. Continue Wednesday , Wednesday, Wednesday dialysis with this patient. We will do a fluid removal only as tolerated by the patient. No changes will be made with her current potassium bath. 2. Anemia - on weekly Epogen. 3. Shortness of breath, clinically improved - underlying congestive heart failure and pneumonia. 4. Patient continues to be on antibiotics. Overall, prognosis remains guarded. Continue supportive c are.
--- NOTE | 2017-09-17 12:28 | PRG ---
DATE OF SERVICE: 09/17/2017 Dana Maya has come out of the unit, is on the telemetry floor. She is more alert. I have pl anned a right arm dialysis fistula graft earlier this week, but unable do so because of exacerbation of her congestive heart failure symptoms. The plan at this time is Wednesday to place a right arm dialy sis fistula or graft. I have discussed with the patient and explained the risks and benefits. We wi ll plan this mid morning Wednesday. I have spoken with Dr. Román Anderson who will arrange dialysis on instead of Wednesday. From a surgical standpoint, the patient can be discharged home after dialys is access Wednesday, either the same day or the next day.
[2017-09-17] MEDS: Nicotine 14 MG PATCH TD SCH (17:24)
[2017-09-17] MEDS: Rosuvastatin 20 MG TAB PO SCH (20:03)
--- NOTE | 2017-09-18 06:45 | PDOC.FM ---
- Subjective Subjective: Pt states that she feels well today. She states that her breathing is better and denies SOB, CP, n/v, or any pain. Pt has been confused at night per nursing and has needed soft restraints dt pulling at lines. There were no acute events over night. - Objective Vital Signs & Weight: Vital Signs (12 hours) Temp Pulse Resp BP Pulse Ox 09/18/17 03:36 97.3 F L 71 14 163/80 H 93 L 09/17/17 23:15 95 09/17/17 20:00 96.3 F L 72 18 108/65 99 09/17/17 19:06 80 18 95 Weight Admit Weight 89 kg Weight 78.471 kg Most Recent Monitor Data Heart Rate from ECG 72 NIBP 136/71 NIBP BP-Mean 111 Respiration from ECG 23 SpO2 89 I&O: 09/16/17 09/17/17 09/18/17 06:59 06:59 06:59 Intake Total 1285 1625 1186 Output Total 0 0 2400 Balance 1285 1625 -1214 Result Diagrams: 09/17/17 06:08 09/17/17 06:08 <Glen Clark - Last Filed: 09/18/17 06:43> - Objective Vital Signs & Weight: Vital Signs (12 hours) Temp Pulse Pulse Pulse Resp BP BP 09/18/17 15:40 96.7 F L 69 26 H 09/18/17 13:28 70 16 09/18/17 12:00 70 18 09/18/17 11:47 69 69 146/88 H 09/18/17 08:32 98.3 F 153/80 H 09/18/17 07:12 71 20 09/18/17 07:10 98.3 F 71 18 09/18/17 07:05 69 16 BP BP Pulse Ox 09/18/17 15:40 169/95 H 98 09/18/17 13:28 99 09/18/17 12:00 153/74 H 09/18/17 11:47 109/73 09/18/17 08:32 09/18/17 07:12 153/80 H 99 09/18/17 07:10 99 09/18/17 07:05 99 Weight Admit Weight 89 kg Weight 78.471 kg Most Recent Monitor Data Heart Rate from ECG 72 NIBP 136/71 NIBP BP-Mean 111 Respiration from ECG 23 SpO2 89 I&O: 09/17/17 09/18/17 09/19/17 06:59 06:59 06:59 Intake Total 1625 1186 Output Total 0 2400 Balance 1625 -1214 Result Diagrams: 09/18/17 07:17 09/18/17 07:17 <Otis Mitchell - Last Filed: 09/18/17 17:10> Phys Exam - Physical Examination Constitutional: NAD HEENT: moist MMs Neck: no JVD Crackles in both bases that clear after a cough. Cardiovascular: RRR, no significant murmur Gastrointestinal: soft, non-tender, no distention, positive bowel sounds Musculoskeletal: no edema Neurological: non-focal, normal sensation, moves all 4 limbs Deviation from normal: Pt is difficult to arouse. A&O varies, typically oriented to person/place Skin: no rash <Glen Clark - Last Filed: 09/18/17 06:43> Dx/Plan (1) Right lower lobe pneumonia Code(s): J18.1 - LOBAR PNEUMONIA, UNSPECIFIED ORGANISM Status: Resolved QualifierTitle: Pneumonia type: due to unspecified organism Qualified Code(s): J18.1 - Lobar pneumonia, unspecified organism (2) CHF exacerbation Code(s): I50.9 - HEART FAILURE, UNSPECIFIED Status: Resolved QualifierTitle: Congestive heart failure type: combined Qualified Code(s) : I50.43 - Acute on chronic combined systolic (congestive) and diastolic ( congestive) heart failure (3) COPD (chronic obstructive pulmonary disease) Status: Chronic QualifierTitle: COPD type: COPD with acute lower respiratory infection Qualified Code(s): J44.0 - Chronic obstructive pulmonary disease with acute lower respiratory infection (4) Elevated brain natriuretic peptide (BNP) level Code(s): R79.89 - OTHER SPECIFIED ABNORMAL FINDINGS OF BLOOD CHEMISTRY Status : Chronic (5) Altered mental status Code(s): R41.82 - ALTERED MENTAL STATUS, UNSPECIFIED Status: Acute QualifierTitle: Altered mental status type: delirium Qualified Code(s): R41.0 - Disorientation, unspecified (6) ESRD (end stage renal disease) Code(s): N18.6 - END STAGE RENAL DISEASE Status: Chronic - Plan Plan: 1. CHF exacerbation - O2 98% on 2L - Major contributor has been ESRD, pt now on MWF HD schedule - Dt previous PVCs, will continue tele - attempt to wean off O2 today 2. CKD IV - Dr Anderson managing HD. - Pt scheduled for graft on Wednesday, will get HD tomorrow. 3. RLL PNA - resolved 4. AMS - Mental status is unchanged from yesterday. Will check on her again later in the morning, she was more oriented during the day yesterday. - Likely hospital related delirium exacerbated by uremia - open windows during day, close at night. Attempt to have sitter/family at bedside 4. Prolonged QT - currently stable at ~0.440 - Cards has been consulted, appreciate their recommendation 5. HTN - Controlled. Continue home meds 6. CAD - continue home statin and aspirin 7. hypernatremia - resolved with HD 8. 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 pt needs HD 9. Deconditioning - PT eval, pt will needed SNF/rehab Dispo: Guarded, will continue to monitor improvement. Consider discharge as resp and mental status improves <Glen Clark - Last Filed: 09/18/17 06:43> Attending Addendum - Attending Addendum I personally evaluated the patient and discussed the management with Dr. Clark. I agree with and repeated the History, Examination, Assessment and Plan documented above with any addition or exceptions noted below. Patient doing well this morning, sleeping. No complaints at all, including cp/ sob/n/v/f/c/dr/abd pain. Patient tolerating HD well, planning on fistula Wednesday and hopefully discharge subsequently. BP a bit elevated and can increase control. Hgb stable on epo. Replete K. Glucose at goal while in hospital. Delirious with appropriate precautions initiated. DVT/GI ppx. <Otis Mitchell - Last Filed: 09/18/17 17:10>
[2017-09-18] MEDS: Dextrose 5 %-0.45 % NaCl 1,000 ML IV SCH ×2 (07:11→23:42)
[2017-09-18 07:40] LABS: Anion Gap 12 mmol/L (10-20); BUN (Urea Nitrogen) 27 mg/dL (9.8-20.1); Calc. Creatinine Clearance 16 mL/min (70-130); Calcium 8.5 mg/dL (7.8-10.44); Carbon Dioxide 27 mmol/L (23-31); Chloride 102 mmol/L (98-107); Estimated GFR-MDRD 15; Glucose 132 mg/dL (83-110); Potassium 3.2 mmol/L (3.5-5.1); Sodium 138 mmol/L (136-145)
[2017-09-18 07:59] LABS: #Eosinphils 0.1 thou/uL (0.0-0.7); #Monocytes 0.5 thou/uL (0.11-0.59); #Neutrophils 4.6 thou/uL (1.40-6.50); %Basophils 0.1 % (0.0-1.0); %Eosinophils 0.9 % (0.0-10.0); %Monocytes 7.4 % (0.0-10.0); %Neutrophils 75.6 % (42.0-75.0); Anisocytosis SLIGHT = 6-15 cells (100X) (0-5/hpf); Hemoglobin 9.7 g/dL (12.0-16.0); MDiff Complete? YES; Mean Corpuscular HGB CONC 30.9 g/dL (32.0-36.0); Mean Corpuscular Hemoglobin 30.5 pg (27.0-31.0); Mean Corpuscular Volume 98.5 fl (81.0-99.0); Mean Platelet Volume 8.8 fL (7.4-10.4); PLT Morphology Comment Appears Adequate; Platelet Count 165 thou/uL (130-400); Poikilocytosis SLIGHT = 6-15 cells (100X) (0-5/hpf); Polychromasia MODERATE = 3-4 cells (100X) (0-2/hpf); RBC Distribution Width 14.6 % (11.5-14.5); Red Blood Cell (RBC) Count 3.17 mill/uL (4.20-5.40); Schistocytes SLIGHT = 2-5 cells (100X) (0-1/hpf); Target Cells SLIGHT = 2-5 cells (100X) (0-1/hpf); White Blood Cell (WBC) Count 6.1 thou/uL (4.8-10.8)
[2017-09-18] MEDS: Calcitriol 0.25 MCG CAP PO SCH (08:26)
[2017-09-18] MEDS: Famotidine/PF 20 mg/2ml Vial SLOW IVP SCH (08:31)
[2017-09-18] MEDS: Clopidogrel Bisulfate 75 MG TAB PO SCH (08:32)
[2017-09-18] MEDS: Carvedilol 6.25 MG TAB PO SCH ×2 (08:32→18:13)
[2017-09-18] MEDS: Aspirin 81 mg Enteric Coated Tablet PO SCH (08:33)
--- NOTE | 2017-09-18 10:28 | PRG ---
DATE OF SERVICE: 09/18/2017 RENAL MEDICINE SUBJECTIVE: Ms. Maya is a 77-year-old black female, who is being followed up by the [facility] for her maintenance hemodialysis. She was initiated on dialysis several days ago due to the worseni ng renal dysfunction and volume overload. Everything this morning is much better. She is feeling st ronger. She underwent dialysis yesterday without any difficulty. The plan is to dialyze her this coming Wednesday since on Wednesday. Dr. Arteaga will do an AV fistula. Rylie santiago voices no other complaints. PHYSICAL EXAMINATION: VITAL SIGNS: Blood pressure is 153/80, heart rate 71, respiratory rate 20, pulse ox 99%. GENERAL: Awake, supine, comfortable, not in overt distress. SKIN: Adequate turgor. HEENT: Slightly pale conjunctivae, anicteric sclerae. NECK: No neck mass, no carotid bruits, no JVD. CHEST: No deformities. LUNGS: Decreased breath sounds. HEART: Normal sinus rhythm. No murmurs, no gallops, no rubs. ABDOMEN: Globular, soft, nontender, no masses. EXTREMITIES: Positive for edema, no deformities. MEDICATIONS: Medications of 09/18/2017 was reviewed. LABORATORY DATA: Laboratories of 09/18/2017; white count 6.1, hemoglobin 9.7, hematocrit 31.3. Sodi um 138, potassium 3.2, chloride 102, carbon dioxide 27, BUN 27, creatinine 3.58, glucose 132, and sarah cium 8.5. ASSESSMENT AND PLAN: 1. Chronic renal failure/end-stage renal disease, continuing 3 times a week hemodialysis. My plan i s to do a Wednesday dialysis since the patient will undergo surgery on Wednesday and will not receive any d ialysis. Again, fluid removal only as tolerated. 2. Hypertension, resolved. Once the BP is more stabilized, consider starting back losartan 25 mg ta b once a day. 3. Shortness of breath - underlying congestive heart failure and pneumonia. Doing well and clinical ly much improved. Losartan will eventually be introduced. 4. Anemia on weekly Epogen. Overall, agree with current management. We will recheck base met and CBC in a.m.
[2017-09-18] MEDS ORDERED: Potassium Chloride 40 MEQ in Premix Bag 1 BAG IVPB SCH (11:00)
[2017-09-18] MEDS: Nicotine 14 MG PATCH TD SCH (18:17)
[2017-09-18] MEDS: Rosuvastatin 20 MG TAB PO SCH (21:07)
[2017-09-19 05:29] LABS: #Basophils 0.1 thou/uL (0.0-0.2); #Lymphocytes 0.7 thou/uL (1.20-3.40); #Monocytes 0.4 thou/uL (0.11-0.59); #Neutrophils 5.4 thou/uL (1.40-6.50); %Basophils 0.8 % (0.0-1.0); %Eosinophils 0.1 % (0.0-10.0); %Lymphocytes 10.4 % (21.0-51.0); %Monocytes 6.4 % (0.0-10.0); %Neutrophils 82.2 % (42.0-75.0); Hemoglobin 9.7 g/dL (12.0-16.0); Mean Corpuscular HGB CONC 31.8 g/dL (32.0-36.0); Mean Corpuscular Hemoglobin 31.6 pg (27.0-31.0); Mean Corpuscular Volume 99.2 fl (81.0-99.0); Mean Platelet Volume 9.1 fL (7.4-10.4); Platelet Count 175 thou/uL (130-400); RBC Distribution Width 14.7 % (11.5-14.5); Red Blood Cell (RBC) Count 3.07 mill/uL (4.20-5.40); White Blood Cell (WBC) Count 6.6 thou/uL (4.8-10.8)
[2017-09-19 05:40] LABS: Anion Gap 14 mmol/L (10-20); BUN (Urea Nitrogen) 33 mg/dL (9.8-20.1); Calc. Creatinine Clearance 15 mL/min (70-130); Calcium 8.5 mg/dL (7.8-10.44); Carbon Dioxide 24 mmol/L (23-31); Chloride 103 mmol/L (98-107); Estimated GFR-MDRD 13; Glucose 152 mg/dL (83-110); Potassium 3.7 mmol/L (3.5-5.1); Sodium 137 mmol/L (136-145)
--- NOTE | 2017-09-19 05:57 | PDOC.FM ---
- Subjective Subjective: Pt is interactive and states that she is feeling well. She also states that her SOB has been improving. She denies symptoms such as chest pain, dizziness, heart palpitation, n/v. There were no acute events over night. ROS was negative for new symptoms. - Objective MAR Reviewed: Yes Vital Signs & Weight: Vital Signs (12 hours) Temp Pulse Resp BP BP Pulse Ox 09/19/17 04:06 92 L 09/19/17 04:00 97.6 F 67 20 137/75 92 L 09/19/17 00:35 72 16 93 L 09/19/17 00:01 94 L 09/19/17 00:00 97.9 F 74 20 132/87 94 L 09/18/17 23:46 20 94 L 09/18/17 21:05 97.9 F 94 24 H 148/98 H 93 L 09/18/17 19:12 89 18 93 L 09/18/17 18:13 169/95 H Weight Admit Weight 89 kg Weight 82.6 kg Most Recent Monitor Data Heart Rate from ECG 72 NIBP 136/71 NIBP BP-Mean 111 Respiration from ECG 23 SpO2 89 I&O: 09/17/17 09/18/17 09/19/17 06:59 06:59 06:59 Intake Total 1625 1186 2274 Output Total 0 2400 0 Balance 1625 -1214 2274 Result Diagrams: 09/19/17 05:13 09/19/17 05:13 <Glen Clark - Last Filed: 09/19/17 07:22> - Objective Vital Signs & Weight: Vital Signs (12 hours) Temp Pulse Resp BP Pulse Ox 09/19/17 07:26 91 L 09/19/17 07:22 24 H 84 L 09/19/17 06:39 92 16 99 09/19/17 04:06 92 L 09/19/17 04:00 97.6 F 67 20 137/75 92 L 09/19/17 00:35 72 16 93 L 09/19/17 00:01 94 L 09/19/17 00:00 97.9 F 74 20 132/87 94 L 09/18/17 23:46 20 94 L Weight Admit Weight 89 kg Weight 82.6 kg Most Recent Monitor Data Heart Rate from ECG 72 NIBP 136/71 NIBP BP-Mean 111 Respiration from ECG 23 SpO2 89 I&O: 09/18/17 09/19/17 09/20/17 06:59 06:59 06:59 Intake Total 1186 2384 Output Total 2400 0 Balance -1214 2384 Result Diagrams: 09/19/17 05:13 09/19/17 05:13 <Otis Mitchell - Last Filed: 09/19/17 11:09> Phys Exam - Physical Examination Constitutional: NAD HEENT: PERRLA, moist MMs Neck: no JVD, full ROM mild rales in bases Cardiovascular: RRR, no significant murmur Gastrointestinal: soft, non-tender, no distention, positive bowel sounds Musculoskeletal: no edema Neurological: non-focal, normal sensation, moves all 4 limbs Psychiatric: A&O x 3 Deviation from normal: Pt is more interactive than yesterday, A&O X2-3 Skin: no rash <Glen Clark - Last Filed: 09/19/17 07:22> Dx/Plan (1) Right lower lobe pneumonia Code(s): J18.1 - LOBAR PNEUMONIA, UNSPECIFIED ORGANISM Status: Resolved QualifierTitle: Pneumonia type: due to unspecified organism Qualified Code(s): J18.1 - Lobar pneumonia, unspecified organism (2) CHF exacerbation Code(s): I50.9 - HEART FAILURE, UNSPECIFIED Status: Resolved QualifierTitle: Congestive heart failure type: combined Qualified Code(s) : I50.43 - Acute on chronic combined systolic (congestive) and diastolic ( congestive) heart failure (3) COPD (chronic obstructive pulmonary disease) Status: Chronic QualifierTitle: COPD type: COPD with acute lower respiratory infection Qualified Code(s): J44.0 - Chronic obstructive pulmonary disease with acute lower respiratory infection (4) Elevated brain natriuretic peptide (BNP) level Code(s): R79.89 - OTHER SPECIFIED ABNORMAL FINDINGS OF BLOOD CHEMISTRY Status : Chronic (5) Altered mental status Code(s): R41.82 - ALTERED MENTAL STATUS, UNSPECIFIED Status: Acute QualifierTitle: Altered mental status type: delirium Qualified Code(s): R41.0 - Disorientation, unspecified (6) ESRD (end stage renal disease) Code(s): N18.6 - END STAGE RENAL DISEASE Status: Chronic - Plan Plan: 1. CHF exacerbation - O2 mid 90s on 2-3L - Major contributor has been ESRD, pt now on MWF HD schedule - Dt previous PVCs, will continue tele - Pt has been difficult to wean from O2, she was net positive in fluid intake yesterday. Will stop IVF. Recheck breathing status after HD today 2. CKD IV - Dr Anderson managing HD. - Pt scheduled for graft on Wednesday, will get HD today. 3. RLL PNA - resolved 4. AMS - Mental status is improving, pt is more or less at baseline - Likely hospital related delirium exacerbated by uremia - open windows during day, close at night. Attempt to have sitter/family at bedside - HD today should improve BUN 4. Prolonged QT - currently stable at ~0.440 - Cards has been consulted, appreciate their recommendation 5. HTN - Mild elevation yesterday. Will reevaluate after HD today - She may need to be restarted on ARB 6. CAD - continue home statin and aspirin 7. hypernatremia - resolved with HD 8. 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 pt needs HD 9. Deconditioning - PT eval, pt will needed SNF/rehab Dispo: Stable, will continue to monitor improvement. Consider discharge following placement of HD graft <Glen Clark - Last Filed: 09/19/17 07:22> Attending Addendum - Attending Addendum I personally evaluated the patient and discussed the management with Dr. Clark. I agree with and repeated the History, Examination, Assessment and Plan documented above with any addition or exceptions noted below. Patient in good spirits this morning in dialysis. She is feeling good except for her shortness of breath. Denies cp/n/v/f/c. Acute hypoxic respiratory failure - improving overall. She is quite wheezing this AM, will order neb and continue dialysis in light of below. Continue O2 PRN. BiPAP if any worsening. Acute on chronic heart failure - improving as well CKD now on dialysis - appreciate renal's management DVT and GI ppx <Otis Mitchell - Last Filed: 09/19/17 11:09>
--- NOTE | 2017-09-19 10:54 | PRG ---
DATE OF SERVICE: 09/19/2017 RENAL MEDICINE SUBJECTIVE: Ms. Maya is undergoing dialysis. I am at the bedside supervising her dialysis. We h imanie advanced her dialysis day to Wednesday since Wednesday she would have surgery. My plan is to dialyze donte er again this coming Wednesday. No new complaints today. She is feeling better. She is more awake. OBJECTIVE: VITAL SIGNS: Blood pressure is 137/75, heart rate is 92, respiratory rate 16, pulse ox 99%. GENERAL: Awake, alert, comfortable, not in distress. SKIN: Adequate turgor. HEENT: She has pinkish conjunctivae, anicteric sclerae. NECK: No neck mass, no carotid bruits, no JVD. CHEST: No deformities. LUNGS: Clear breath sounds. HEART: Normal sinus rhythm. No murmur, no gallops, no rubs. ABDOMEN: Globular, soft, nontender, no masses. EXTREMITIES: No edema, no deformities. MEDICATIONS: Of 09/19/2017 was reviewed. LABORATORY DATA: 09/19/2017, white count 6.6, hemoglobin 9.7, sodium 137, potassium 3.7, chloride 10 3, carbon dioxide 24, BUN 33, creatinine 4.07, glucose 152, and calcium 8.5. ASSESSMENT AND PLAN: 1. Chronic renal failure/end-stage renal disease, stable. Continue current 3 times a week hemodialy sis. Fluid removal as tolerated. We will give maintenance heparin dosing at 500 units per hour whil e on dialysis. Fluid removal only as tolerated by the patient. 2. Anemia, on weekly Epogen. 3. Shortness of breath secondary to congestive heart failure/pneumonia, clinically improving. The p atient is scheduled for an AV fistula in a.m. Overall, I agree with current management.
[2017-09-19] MEDS ORDERED: Heparin 1,000 UNITS/ML VIAL ONE (11:11)
[2017-09-19] MEDS: Aspirin 81 mg Enteric Coated Tablet PO SCH (14:59)
[2017-09-19] MEDS: Famotidine/PF 20 mg/2ml Vial SLOW IVP SCH (14:59)
[2017-09-19] MEDS: Calcitriol 0.25 MCG CAP PO SCH (14:59)
[2017-09-19] MEDS: Clopidogrel Bisulfate 75 MG TAB PO SCH (14:59)
[2017-09-19] MEDS: Carvedilol 6.25 MG TAB PO SCH ×2 (15:00→18:31)
[2017-09-19] MEDS: Nicotine 14 MG PATCH TD SCH (20:03)
[2017-09-19] MEDS: Rosuvastatin 20 MG TAB PO SCH (20:03)
--- NOTE | 2017-09-20 05:14 | PDOC.FM ---
- Subjective Subjective: Patient is still experiencing AMS at times. Per the nurse, the patient was agitated and did not sleep at all overnight. She is still requiring O2 especially while sleeping. She was oriented to person, but not to place or time at time of this interview. She states she is in her mother's house in [address]. She denies chest pain, sob, or n/v/d. She notes that she will be going with Dr. Anderson this morning for a procedure. No other complaints offered this morning. - Objective Vital Signs & Weight: Vital Signs (12 hours) Temp Pulse Resp BP BP Pulse Ox 09/20/17 04:00 93 18 160/85 H 09/20/17 00:34 84 20 92 L 09/19/17 20:00 97.0 F L 79 18 141/63 H 09/19/17 19:28 89 18 93 L 09/19/17 18:31 160/84 H Weight Admit Weight 89 kg Weight 82.6 kg Most Recent Monitor Data Heart Rate from ECG 72 NIBP 136/71 NIBP BP-Mean 111 Respiration from ECG 23 SpO2 89 I&O: 09/18/17 09/19/17 09/20/17 06:59 06:59 06:59 Intake Total 1186 2384 120 Output Total 2400 0 1999 Balance -1219 2384 -1880 Result Diagrams: 09/20/17 03:57 09/20/17 03:57 <Toni Jiang - Last Filed: 09/20/17 07:32> - Objective Vital Signs & Weight: Vital Signs (12 hours) Temp Pulse Resp BP BP Pulse Ox 09/20/17 11:21 96.8 F L 75 18 135/71 93 L 09/20/17 09:22 137/77 09/20/17 09:20 96.8 F L 75 18 93 L 09/20/17 09:18 97.7 F 73 16 134/82 95 09/20/17 07:00 78 18 99 09/20/17 04:00 93 18 160/85 H Weight Admit Weight 89 kg Weight 80 kg Most Recent Monitor Data Heart Rate from ECG 72 NIBP 136/71 NIBP BP-Mean 111 Respiration from ECG 23 SpO2 89 I&O: 09/19/17 09/20/17 09/21/17 06:59 06:59 06:59 Intake Total 2384 120 Output Total 0 1999 Balance 2384 -1880 Result Diagrams: 09/20/17 03:57 09/20/17 03:57 <Adilia Chao - Last Filed: 09/20/17 13:29> Phys Exam - Physical Examination HEENT: PERRLA, moist MMs Neck: no nodes Respiratory: no wheezing, clear to auscultation bilateral Cardiovascular: RRR, no significant murmur Gastrointestinal: soft, non-tender, no distention, positive bowel sounds Musculoskeletal: no edema, pulses present Neurological: non-focal, normal sensation, moves all 4 limbs Lymphatic: no nodes Deviation from normal: A&0 x 1 Skin: no rash <Toni Jiang - Last Filed: 09/20/17 07:32> Dx/Plan (1) Right lower lobe pneumonia Code(s): J18.1 - LOBAR PNEUMONIA, UNSPECIFIED ORGANISM Status: Resolved QualifierTitle: Pneumonia type: due to unspecified organism Qualified Code(s): J18.1 - Lobar pneumonia, unspecified organism (2) COPD (chronic obstructive pulmonary disease) Status: Chronic QualifierTitle: COPD type: COPD with acute lower respiratory infection Qualified Code(s): J44.0 - Chronic obstructive pulmonary disease with acute lower respiratory infection (3) Altered mental status Code(s): R41.82 - ALTERED MENTAL STATUS, UNSPECIFIED Status: Acute QualifierTitle: Altered mental status type: delirium Qualified Code(s): R41.0 - Disorientation, unspecified (4) Elevated brain natriuretic peptide (BNP) level Code(s): R79.89 - OTHER SPECIFIED ABNORMAL FINDINGS OF BLOOD CHEMISTRY Status : Chronic (5) ESRD (end stage renal disease) Code(s): N18.6 - END STAGE RENAL DISEASE Status: Chronic - Plan Plan: 1. CHF exacerbation - O2 mid 90s on 2-3L - Major contributor has been ESRD, pt now on MWF HD schedule - SR on tele overnight. - Pt has been difficult to wean from O2. Continue O2 requirement until improved. 2. CKD IV - Dr Anderson managing HD. - Pt scheduled for graft/fistula today. - will get HD today through port 3. RLL PNA - resolved 4. AMS - Mental status is improving, pt is more or less at baseline - Likely hospital related delirium exacerbated by uremia - open windows during day, close at night. Attempt to have sitter/family at bedside - BUN improved from 33 -> 23 today 4. Prolonged QT - currently stable at ~0.440 - Cards has been consulted, appreciate their recommendation 5. HTN - Mild elevation yesterday. Will reevaluate after HD today - She may need to be restarted on ARB 6. CAD - continue home statin and aspirin 7. hypernatremia - resolved with HD 8. Hyperchloridemia - resolved with HD 9. Deconditioning - PT eval, pt will needed SNF/rehab Dispo: Stable, will continue to monitor improvement. Consider discharge following placement of HD graft <Toni Jiang - Last Filed: 09/20/17 07:32> Attending Addendum - Attending Addendum I personally evaluated the patient and discussed the management with Dr. Jiang I agree with the History, Examination, Assessment and Plan documented above with any addition or exceptions noted below- Patient denies any complaints; intermittently confused per nursing. Afebrile VSS A/P: 1) ESRD- plan for AV fistula today; continue HD as per nephrology, 2) Volume overload- improved with HD, 3) NSTEMI- on ASA and bet hong; Continue current meds, 4) CAP- resovled; off abx currently <Adilia Chao - Last Filed: 09/20/17 13:29>
[2017-09-20 05:21] LABS: #Lymphocytes 0.9 thou/uL (1.20-3.40); #Monocytes 0.6 thou/uL (0.11-0.59); #Neutrophils 5.7 thou/uL (1.40-6.50); %Basophils 0.5 % (0.0-1.0); %Eosinophils 0.2 % (0.0-10.0); %Lymphocytes 12.1 % (21.0-51.0); %Monocytes 8.3 % (0.0-10.0); %Neutrophils 78.8 % (42.0-75.0); Hemoglobin 9.7 g/dL (12.0-16.0); Mean Corpuscular HGB CONC 32.4 g/dL (32.0-36.0); Mean Corpuscular Volume 98.8 fl (81.0-99.0); Mean Platelet Volume 9.2 fL (7.4-10.4); Platelet Count 188 thou/uL (130-400); RBC Distribution Width 14.7 % (11.5-14.5); Red Blood Cell (RBC) Count 3.02 mill/uL (4.20-5.40); White Blood Cell (WBC) Count 7.3 thou/uL (4.8-10.8)
[2017-09-20 05:34] LABS: Anion Gap 15 mmol/L (10-20); BUN (Urea Nitrogen) 23 mg/dL (9.8-20.1); Calc. Creatinine Clearance 18 mL/min (70-130); Calcium 8.9 mg/dL (7.8-10.44); Carbon Dioxide 26 mmol/L (23-31); Chloride 100 mmol/L (98-107); Estimated GFR-MDRD 16; Glucose 109 mg/dL (83-110); Potassium 3.7 mmol/L (3.5-5.1); Sodium 137 mmol/L (136-145)
--- NOTE | 2017-09-20 06:39 | PRG ---
DATE OF SERVICE: 09/20/2017 SUBJECTIVE: Ms. Maya is a 77-year-old black female with chronic renal failure, initiated on dial ysis due to volume overload. She was also admitted for reasons of CHF and pneumonia. Clinically imp roving over time. She received dialysis yesterday with fluid removal. She is due for an AV fistula placement today. For this reason, we will not do any dialysis today. No new complaints. No chest pain, shortness of breath. PHYSICAL EXAMINATION: VITAL SIGNS: Blood pressure 160/85, heart rate 93, respiratory rate 18, pulse ox 92%. GENERAL: Awake, supine, comfortable. SKIN: Adequate turgor. HEENT: She has pinkish conjunctivae, anicteric sclerae. NECK: No neck mass, no carotid bruits, no JVD. CHEST: No deformities. LUNGS: Clear breath sounds. No wheezing, no crackles. HEART: Normal sinus rhythm. No murmur, no gallops or rubs. ABDOMEN: Globular, soft, nontender. EXTREMITIES: Trace edema. MEDICATIONS: 09/20/2017 - Reviewed. LABORATORY: 09/20/2017 - White count 7.2, hemoglobin 9.7, sodium 137, potassium 3.7, chloride 100, c arbon dioxide 26, BUN 23, creatinine 3.39, glucose 109, calcium 8.9. ASSESSMENT AND PLAN: 1. Chronic renal failure/end-stage renal disease - tolerating hemodialysis. Continue 3 times a week hemodialysis. No indication for any dialytic intervention today. There is a planned AV fistula kevin cement today by her surgeon. 2. Anemia, continuing current Epogen regimen. No changes to be made. 3. Shortness of breath - multifactorial - underlying congestive heart failure and pneumonia. Clinic ally, much improved in the last several days. Overall, prognosis remains guarded. Continue to recheck basic metabolic panel and CBC in a.m.
[2017-09-20] MEDS: Carvedilol 6.25 MG TAB PO SCH (09:22)
[2017-09-20] MEDS: Aspirin 81 mg Enteric Coated Tablet PO SCH (09:23)
[2017-09-20] MEDS: Famotidine/PF 20 mg/2ml Vial SLOW IVP SCH (09:24)
[2017-09-20] MEDS ORDERED: CEFAZOLIN/Water 2 GM/20 ML SYRINGE ONE ×2 (12:29→14:52)
[2017-09-20] MEDS ORDERED: Fentanyl 100 MCG/2 ML VIAL ONE (12:40)
[2017-09-20] MEDS ORDERED: Protamine Sulfate 50 MG/5 ML VIAL ONE (12:41)
[2017-09-20] MEDS ORDERED: Bupivacaine/Epinephrine 0.25% 30 ML VIAL ONE (12:41)
[2017-09-20] MEDS ORDERED: Heparin 5,000 UNITS/ML VIAL ONE (12:41)
[2017-09-20] MEDS ORDERED: Protamine Sulfate 250 MG/25 ML VIAL ONE (12:41)
[2017-09-20] MEDS ORDERED: PROPOFOL 200 MG/20 ML VIAL ONE (13:29)
[2017-09-20] MEDS ORDERED: EPINEPHrine 1 MG/10 ML Abboject SYRINGE ONE ×2 (13:29→14:52)
[2017-09-20] MEDS ORDERED: PHENYLEPHRINE-NS 100 MCG/ML 10 ML SYRINGE ONE (13:29)
[2017-09-20] MEDS ORDERED: ePHEDrine/0.9% NaCl/PF SYRINGE 50 mg/10 ml ONE (13:29)
[2017-09-20] MEDS ORDERED: Heparin 10,000 UNITS/ 10 ML VIAL ONE (13:29)
[2017-09-20] MEDS ORDERED: Phenylephrine 10 MG/NS 250 ML 250 ML ONE ×2 (14:10→15:23)
[2017-09-20] MEDS ORDERED: Sodium Bicarb 50 MEQ/50 ML Abboject 8.4% SYRINGE ONE (14:55)
--- NOTE | 2017-09-20 15:20 | OP ---
DATE OF PROCEDURE: 09/20/2017 PREOPERATIVE DIAGNOSES: End-stage renal disease, severe chronic obstructive pulmonary disease, and c ardiomyopathy, 20%-25% ejection fraction, pacemaker left subclavian vein, iatrogenic thrombosis, righ t upper arm cephalic vein due to nursing IV access and phlebotomy with blood draws. PROCEDURE PERFORMED: Right arm primary fistula with thrombectomy using a 5 Sheree catheter and ante cubital vein to side proximal radial artery, artery was of excellent caliber. Venous outflow cephali c vein with poor collateral to the basilic vein may exist and fistula established to see what would d evelop as only other option would be a graft and she has chronically low blood pressure. ANESTHESIA: General LMA anesthesia. Local 0.25% Marcaine with epinephrine, 30 mL, mixed with Xyloca ine, 10 mL. PROCEDURE IN DETAIL: Patient was taken to the operating room where under general LMA anesthesia. A pulse oximeter was difficult to acquire but was acquired with a nasal pulse oximeter. Incision was m viola just below the antecubital fossa longitudinally in the proximal forearm, carried down through the skin and subcutaneous tissue and the antecubital vein was identified, had thrombus in it. There was a perforating branch that looked small. The antecubital vein was of excellent caliber, but was thro mbosed. Patient was given 5000 units of heparin intravenously. Antecubital vein on the hand side wa s clamped and ligated with 2-0 silk tie and divided and thrombus removed from it. 5 Guevara catheter a ttempted to replace up the cephalic vein upper arm, but it would not pass. There was a collateral br anch to the basilic vein. This was patent. These were then flushed with heparinized saline solution and then patient was given 5000 units of heparin intravenously. Proximal radial arteries dissected free, was of excellent caliber and good quality without arteriosclerotic disease. Proximal artery pr oximally and distally and clamped with a vascular clamp and longitudinal arteriotomy made sharply and elongated with Rosales scissors and end vein likewise spatulated for 2 cm anastomosis, created with co ntinuous suture of 6-0 Prolene. At completion of the anastomosis, subcutaneous tissues approximated with 3-0 Monocryl, skin with subdermal 4-0 Monocryl and DermaGlue applied. Surgicel had been applied . Patient tolerated the procedure well.
[2017-09-20] MEDS ORDERED: Acetaminophen 500 MG TAB PO PRN (15:24)
[2017-09-20] MEDS ORDERED: Norepinephrine 16 MG in Dextrose 5% in Water 234 ML IVPB SCH ×2 (15:30)
[2017-09-20] MEDS ORDERED: Sodium Chloride 0.9% 1,000 ML IV SCH (15:30)
--- NOTE | 2017-09-20 15:37 | RAD ---
SINGLE VIEW OF THE CHEST: Comparison: 09-13-17 History: Ventilated patient with respiratory failure. FINDINGS: Single view of the chest shows an enlarged cardiomediastinal silhouette. An endotracheal tube is seen with the tip approximately 1.6 cm from the franki. The pacemaker is unchanged in position. The other lines and tubes are unchanged in position. There is a veil-like opacity in the right thorax which li villa represents a moderate layering pleural effusion. IMPRESSION: 1. Slightly low lying endotracheal tube. Recommend withdrawing approximately 1 cm. 2. Moderate right pleural effusion. 3. Cardiomegaly. POS: [facility]
[2017-09-20] MEDS: Epoetin (ESRD) 20,000 UNITS/ML SC SCH (15:39)
[2017-09-20 15:52] LABS: Actual Bicarbonate (HCO3a) 16.3 mEq/L (22-26); Base Excess (BEa) -9.6 mEq/L (0 (+/-) 2.5); CO2 Tension 35.4 mmHg (35.0-45.0); Hematocrit-ABG 25.3 % (36.0-47.0); Hemoglobin (Hb) 7.7 g/dL (12.0-16.0); O2 Tension (PaO2) 81.6 mmHg (80.0-100.0); pH, Arterial 7.28 (7.35-7.45)
[2017-09-20 15:53] LABS: Puncture Site L.B.
[2017-09-20 15:59] LABS: Hemoglobin 8.7 g/dL (12.0-16.0); Mean Corpuscular HGB CONC 30.4 g/dL (32.0-36.0); Mean Corpuscular Hemoglobin 31.3 pg (27.0-31.0); Mean Platelet Volume 8.6 fL (7.4-10.4); Platelet Count 156 thou/uL (130-400); RBC Distribution Width 14.7 % (11.5-14.5); Red Blood Cell (RBC) Count 2.79 mill/uL (4.20-5.40); White Blood Cell (WBC) Count 8.3 thou/uL (4.8-10.8)
[2017-09-20 16:14] LABS: Anion Gap 19 mmol/L (10-20); BUN (Urea Nitrogen) 30 mg/dL (9.8-20.1); Calc. Creatinine Clearance 16 mL/min (70-130); Calcium 8.2 mg/dL (7.8-10.44); Carbon Dioxide 18 mmol/L (23-31); Chloride 104 mmol/L (98-107); Estimated GFR-MDRD 15; Glucose 68 mg/dL (83-110); Potassium 4.3 mmol/L (3.5-5.1); Sodium 137 mmol/L (136-145)
[2017-09-20 16:16] LABS: Anisocytosis SLIGHT = 6-15 cells (100X) (0-5/hpf); Band 5 % (5-11); Lymphocytes 20 % (21-51); MDiff Complete? YES; Macrocytosis SLIGHT = 6-15 cells (100X) (0-5/hpf); Metamyelocyte 1 % (0-0); Monocytes 8 % (0-10); Neutrophil 66 % (42-75); Nucleated RBC 5 % (0); Ovalocytes SLIGHT = 2-5 cells (100X) (0-1/hpf); PLT Morphology Comment Appears Adequate; Polychromasia MODERATE = 3-4 cells (100X) (0-2/hpf); Schistocytes SLIGHT = 2-5 cells (100X) (0-1/hpf); Target Cells SLIGHT = 2-5 cells (100X) (0-1/hpf)
[2017-09-20 16:24] LABS: CKMB 4.1 ng/mL (0-6.6); Troponin I 0.256 ng/mL (< 0.028)
[2017-09-20] MEDS ORDERED: Dextrose 50% Abboject 50 ML SYRINGE ONE (16:24)
[2017-09-20] MEDS: Calcitriol 0.25 MCG CAP PO SCH (16:42)
[2017-09-20] MEDS: Clopidogrel Bisulfate 75 MG TAB PO SCH (16:42)
[2017-09-20] MEDS ORDERED: Phenylephrine 10 MG/NS 250 ML 250 ML IVPB SCH (16:45)
--- NOTE | 2017-09-20 16:46 | PDOC.EVN ---
Event Note - Event Note Event Note: Received a page from a Nurse and also a phone call from Dr. Arteaga regarding this patient. This patient coded intraoperatively during a procedure to have an AV fistula placed for hemodialysis. The details of the code event have not been made readily available this time. This patient was hospitalized in August for CHF exacerbation as well as an WINSOME. This patient was treated and then was re-hospitalized for sepsis secondary Hospital Acquired Pneumonia, Acute hypoxic respiratory failure, and Acute on chronic congestive heart failure. The patient was adequately treated for her infection, but had continual worsening of her renal function and at that time it was opted to plan for fpc HD. All things considered, especially her recent hospitalizations her reduced EF CHF, ESRD on HD, and deterioration of her overall health this patient has a very guarded prognosis. This patient's family have decided to make her a DNR at this time, but have not decided to withdraw care until they are able to speak with this patient's other sister who will be available later today. Per the family medicine team, [facility], care will be transferred to our current ICU 2nd year resident, Dr. Ananda Fregoso. Again this patient has a very guarded prognosis. <Toni Jiang - Last Filed: 09/20/17 16:36> Attending Addendum - Attending Addendum I personally evaluated the patient and discussed the management with Dr. Jiang on 09/20/17. Events during surgery noted. Patient seen in ICU, intubated; not following commands. Afebrile BP 100/60s P65 Lungs-CTA b/l CV-RRR, no murmur Abd- soft, nt/nd Ext- no edema Neuro- moves all extremities spontaneously; not following commands; withdraws to pain Labs: reviewed A/P: 1) Cardiac arrest s/p ROSC- continue supportive care; situation discussed with family by Dr. Arteaga and patient made DNR. 2) ESRD- s/p fistula placement- continue HD as per nephrology 3) Resp failure- pulmonary consulted; Continue vent support. <Adilia Chao - Last Filed: 09/27/17 15:07>
--- NOTE | 2017-09-20 16:51 | PRG ---
DATE OF SERVICE: 09/20/2017 SUBJECTIVE: Ms. Maya underwent right arm primary fistula. During the operation preoperatively, john santiago had trouble obtaining saturations, but were able to obtain saturation using a pediatric pulse oxime ter nasal. Patient was given LMA anesthesia and local. She did not have any narcotics. We complete d her right arm fistula and were removed over to her bed when she became pulseless. CPR initiated. She was given pressors and then bicarbonate and then we obtained a pulse again. She was transferred to ICU on the ventilator. Notified Pulmonary Medicine. I talked to the family regarding code status , in fact I was talking to the family about her poor prognosis with severe COPD, tobacco abuse till t he time of this admission, cardiomyopathy, pacemaker, ejection fraction 20-25%, renal failure, and he r overall poor prognosis. I was asked the family to consider code status and DNR status. The family stated they would talk to the remainder of the family. During that conversation, I was notified. T vanessa were doing CPR on the patient as they were transferring over to her bed postprocedural. Communic ation with the family was made again reiterating her poor prognosis and that they should make decisio ns regarding her care. I have given them my cell phone number and I would talk to the patient's daug hter in [place] if necessary by phone. I have notified Dr. Shirley and Dr. Gary. Currently the patient is in ICU on the ventilator and her pressures are 120.
[2017-09-20] MEDS: Nicotine 14 MG PATCH TD SCH (19:52)
--- NOTE | 2017-09-20 20:12 | RAD ---
PORTABLE AP CHEST RADIOGRAPH: Date: 09-20-17 History: Patient coded. Comparison: 09-20-17 at 1522 hours. FINDINGS: Endotracheal tube and tunneled right internal jugular vein hemodialysis catheter as well as dual-lead left subclavian cardiac pacemaking device remain in place and unchanged in position. There has been interval placement of a nasogastric tube, but the most distal portion of the nasogastric tube is not imaged on this exam. Cardiac silhouette remains enlarged. There are small bilateral pleural effusions . Pulmonary vasculature is increased. No other interval change. IMPRESSION: 1. Cardiomegaly with pulmonary vascular congestion. 2. Increased perihilar interstitial disease, greater on the left. This could be related to asymmetric pulmonary edema. 3. Bilateral pleural effusions. POS: [facility]
--- NOTE | 2017-09-20 21:49 | CON ---
DATE OF CONSULTATION: 09/20/2017 HISTORY OF PRESENT ILLNESS: Ms. Maya is a 77-year-old female who went to the OR for dialysis acce ss. She had pulseless electrical activity in the perioperative period. She subsequently has been in tubated and transferred to the Critical Care Unit. I was consulted to assist in her management. She is on pressors. She is receiving volume resuscitation at this time. She is not awake. PAST MEDICAL HISTORY: Not obtainable from the patient, but obtained from reviewing records. Past me dical history is remarkable for, 1. End-stage renal disease. 2. History of coronary disease. 3. History of cardiomyopathy. 4. History of obstructive lung disease. 5. History of thyroid nodule. 6. History of atrial fibrillation. 7. History of 20% ejection fraction. 8. History of hypertension. MEDICATIONS: Medications earlier in this hospitalization include amiodarone, aspirin, Ceftin, Coreg, Epogen, Pletal, Ismo, Lasix, bicarb, Crestor, ranitidine, nicotine patch, and Catapres. ALLERGIES: There were no reported drug allergies. SOCIAL HISTORY: The patient claimed to be a nonsmoker when she was admitted, but has a history of sm oking according to old records reviewed. She is not a daily drinker or drug user. PAST SURGICAL HISTORY: Remarkable for hysterectomy (total), colonoscopy in the past, fem-pop bypass in the past, hysterectomy, thyroidectomy, and pacemaker placement in 2012. On 09/06/2017, she was 5 feet 9 inches, 189 pounds. REVIEW OF SYSTEMS: Not obtainable because of the patient's intubation. PHYSICAL EXAMINATION: VITAL SIGNS: Blood pressure 105/63, heart rate 65, oximetry is 92. Respiratory rates per mechanical ventilation, this returned from 18 to 24 after the blood gas was reviewed. HEENT: Pupils are sluggish. Sclerae are anicteric. NECK: Without lymphadenopathy. LUNGS: Remarkable for rhonchi bilaterally. HEART: Regular rhythm. S1 and S2 are normal. ABDOMEN: Soft and nontender. EXTREMITIES: Without asymmetry. LABORATORY DATA: White count 8.3, hemoglobin 8.7, platelets 156. Sodium 137, potassium 4.3, chloride 104, bicarbonate 18, BUN 30, creatinine 3.66, glucose 68. She ac tually had a glucose of 46 at 1624 hours. This was treated with D50. There is no chest x-ray done since surgery. This has been ordered by me. IMPRESSION: Respiratory failure after a code in the operating room. Palliative care people met with the family and they wanted her to be a DO NOT RESUSCITATE patient. T his order has been entered. We will order a chest radiograph and do a blood gas in the morning. We will continue to volume resuscitate her. Post-code blood gas showed a pH of 7.28, pCO2 of 35, and pO2 of 81. She will probably need dialysis tomorrow. Family wants to continue with that. Critical care time was 30 minutes.
[2017-09-21] MEDS ORDERED: Dextrose 10% in Water 1,000 ML IV SCH (00:30)
[2017-09-21 05:36] LABS: #Monocytes 0.8 thou/uL (0.11-0.59); #Neutrophils 7.5 thou/uL (1.40-6.50); %Basophils 0.1 % (0.0-1.0); %Lymphocytes 10.9 % (21.0-51.0); %Monocytes 8.4 % (0.0-10.0); %Neutrophils 80.6 % (42.0-75.0); Hemoglobin 8.6 g/dL (12.0-16.0); Mean Corpuscular HGB CONC 31.5 g/dL (32.0-36.0); Mean Corpuscular Hemoglobin 30.8 pg (27.0-31.0); Mean Corpuscular Volume 97.8 fl (81.0-99.0); Mean Platelet Volume 8.5 fL (7.4-10.4); Platelet Count 209 thou/uL (130-400); RBC Distribution Width 14.7 % (11.5-14.5); Red Blood Cell (RBC) Count 2.79 mill/uL (4.20-5.40); White Blood Cell (WBC) Count 9.3 thou/uL (4.8-10.8)
[2017-09-21 05:53] LABS: Anion Gap 16 mmol/L (10-20); BUN (Urea Nitrogen) 36 mg/dL (9.8-20.1); Calc. Creatinine Clearance 15 mL/min (70-130); Calcium 7.9 mg/dL (7.8-10.44); Carbon Dioxide 23 mmol/L (23-31); Chloride 103 mmol/L (98-107); Estimated GFR-MDRD 13; Glucose 139 mg/dL (83-110); Potassium 3.7 mmol/L (3.5-5.1); Sodium 138 mmol/L (136-145)
[2017-09-21 05:56] LABS: ALT (SGPT) 36 U/L (8-55); AST (SGOT) 73 U/L (5-34); Albumin 2.4 g/dL (3.4-4.8); Alkaline Phosphatase 103 U/L (40-150); Bilirubin, Direct 0.4 mg/dL (0.1-0.3); Bilirubin, Total 0.6 mg/dL (0.2-1.2); Protein, Total 5.1 g/dL (6.0-8.3)
[2017-09-21 05:57] LABS: CKMB 5.1 ng/mL (0-6.6)
[2017-09-21 06:03] LABS: Troponin I 0.581 ng/mL (< 0.028)
--- NOTE | 2017-09-21 08:51 | PDOC.FM ---
- Subjective Subjective: Patient awake this morning. She is not following commands, but is taking spontaneous breaths on the ventilator. Noticeable discomfort with deep suctioning of ETT. Retrieval of thick, dark secretions with suctioning. Pressures are stable with levophed. - Objective Vital Signs & Weight: Vital Signs (12 hours) Temp Pulse Resp BP Pulse Ox 09/21/17 08:15 70 96/55 L 09/21/17 08:14 68 21 H 98 09/21/17 08:00 98.3 F 17 09/21/17 04:00 98.2 F 22 H 09/21/17 02:25 65 100/65 09/21/17 00:49 69 91/57 L 09/21/17 00:00 97.9 F 09/20/17 23:59 22 H Weight Admit Weight 89 kg Weight 80.059 kg Most Recent Monitor Data Heart Rate from ECG 64 NIBP 96/55 NIBP BP-Mean 74 Respiration from ECG 22 SpO2 98 I&O: 09/20/17 09/21/17 09/22/17 06:59 06:59 06:59 Intake Total 120 2912.9 Output Total 2000 0 Balance -1880 2912.9 Result Diagrams: 09/21/17 04:00 09/21/17 04:00 <Ananda Fregoso - Last Filed: 09/21/17 08:49> - Objective Vital Signs & Weight: Vital Signs (12 hours) Temp Pulse Pulse Pulse Resp BP BP 09/21/17 11:58 16 09/21/17 11:23 71 136/66 09/21/17 10:15 71 73 109/58 L 09/21/17 10:00 17 09/21/17 08:15 70 96/55 L 09/21/17 08:14 68 21 H 09/21/17 08:00 98.3 F 70 17 09/21/17 04:00 98.2 F 22 H 09/21/17 02:25 65 100/65 BP Pulse Ox Pulse Ox Pulse Ox 09/21/17 11:58 09/21/17 11:23 09/21/17 10:15 100/55 L 99 97 09/21/17 10:00 09/21/17 08:15 09/21/17 08:14 98 09/21/17 08:00 99 09/21/17 04:00 09/21/17 02:25 Weight Admit Weight 89 kg Weight 80.059 kg Most Recent Monitor Data Heart Rate from ECG 69 NIBP 90/56 NIBP BP-Mean 62 Respiration from ECG 13 SpO2 99 I&O: 09/20/17 09/21/17 09/22/17 06:59 06:59 06:59 Intake Total 120 2912.9 Output Total 2000 0 Balance -1880 2912.9 Result Diagrams: 09/21/17 04:00 09/21/17 04:00 <Tina Briones - Last Filed: 09/21/17 13:11> Phys Exam - Physical Examination HEENT: moist MMs Neck: no nodes, supple Respiratory: no wheezing, no rales Cardiovascular: RRR, no significant murmur Gastrointestinal: no distention Musculoskeletal: no edema chest tenderness 2/2 CPR does not follow commands; withdraws from pain; + gag reflex Skin: no rash <Ananda Fregoso - Last Filed: 09/21/17 08:49> Dx/Plan (1) Acute respiratory failure with hypoxia Code(s): J96.01 - ACUTE RESPIRATORY FAILURE WITH HYPOXIA Status: Acute Plan: s/p cardiac arrest in OR with Dr. Arteaga Intubated and started on levophed- VSS ABG pending this AM continue management per Pulm (2) ESRD (end stage renal disease) Code(s): N18.6 - END STAGE RENAL DISEASE Status: Chronic Plan: AV fistula placed yesterday Continue to dialyze per Nephro (3) Anemia Code(s): D64.9 - ANEMIA, UNSPECIFIED Status: Chronic Plan: Hg stable at 8.6 Monitor daily with possible transfusion if drops below 7.0 (4) Hyperlipidemia Code(s): E78.5 - HYPERLIPIDEMIA, UNSPECIFIED Status: Chronic QualifierTitle: Hyperlipidemia type: unspecified Qualified Code(s): E78.5 - Hyperlipidemia, unspecified Plan: hold rosuvastatin while intubated (5) COPD (chronic obstructive pulmonary disease) Status: Chronic QualifierTitle: COPD type: COPD with acute lower respiratory infection Qualified Code(s): J44.0 - Chronic obstructive pulmonary disease with acute lower respiratory infection Plan: continue duonebs - Plan Plan: Plan: -patients secretions are very thick this morning, she will need another day on the vent before weaning is attempted -possible dialysis today, per Nephro -clarify treatment goals with family today after meeting with palliative care <Ananda Fregoso - Last Filed: 09/21/17 08:49> Attending Addendum - Attending Addendum I personally evaluated the patient and discussed the management with Dr. Fregoso. I agree with the History, Examination, Assessment and Plan documented above with any addition or exceptions noted below. On my exam patient followed simple commands by squeezing my hands and appropriately nodded yes and no to questions. s/p PEA in perioperative period s/p AV fistula with ROSC ESRD Systolic and diastolic CHF - Continue vent support per pulmonology. Neurologically appears to be improving. <Tina Briones - Last Filed: 09/21/17 13:11>
--- NOTE | 2017-09-21 09:04 | PRG ---
DATE OF SERVICE: 09/21/2017 SERVICE: Pulmonary Medicine INTERVAL HISTORY: The patient is doing really well from a respiratory standpoint. This morning she is following commands. She is awake and alert. She does not appear to be in any significant distres s. Otherwise, there has been no interval change to her condition. PHYSICAL EXAMINATION: VITAL SIGNS: Afebrile, pulse 70, blood pressure 96/55, respirations 22, saturation 98% on 27% FiO2 a nd a PEEP of 5. GENERAL: The patient is awake, alert, no apparent distress. LUNGS: Excellent air entry. There are crackles present. Rhonchi are also present. I do not apprec iate a prolonged expiratory phase or wheezing. HEART: Normal rate, regular. ABDOMEN: Soft, nontender, nondistended. Bowel sounds are positive. MUSCULOSKELETAL: No cyanosis or clubbing. There is no pitting in the bilateral lower extremities. NEUROLOGIC: Grossly nonfocal. LABORATORY DATA: WBC 9.3, hemoglobin 8.6, platelets 209,000. Sodium 138, potassium 3.7. Creatinine 4.01. Basic metabolic profile is otherwise unremarkable. Troponin is up trending 0.581 Direct frederic irubin is 0.4 and total bilirubin level is normal. Overnight blood sugar was 46. IMAGING: Chest x-ray demonstrates likely bilateral pleural effusions which are layering. Otherwise, I do not appreciate an acute cardiopulmonary abnormality. Endotracheal tube is in good position. ASSESSMENT: 1. Acute hypoxic respiratory failure. 2. Metabolic encephalopathy, improved. 3. PEA arrest in the immediate postop period. 4. End-stage renal disease. 5. Chronic systolic and diastolic heart failure. 6. Healthcare-associated pneumonia, status post full course of antibiotics. PLAN: Multiple ventilator adjustments have been made. The patient has extraordinarily heavy secret ions and they have bloody tinge to them. As such, I do not think that she will be able to handle the secretions if she were extubated. I will leave her intubated for an additional 24 hours unless the patient's family decides to transition her over to comfort care only. Supportive measures will be co ntinued. Since she is waking up so nicely, we will provide her with a small dose of propofol if need ed to takes the edge off. Critical care time: 30 minutes.
[2017-09-21] MEDS ORDERED: Propofol 500 MG/50 ML VIAL IV PRN (09:11)
--- NOTE | 2017-09-21 09:26 | RAD ---
CHEST ONE VIEW: History: Dyspnea. Follow up. Comparison: 09-20-17 FINDINGS: Cardiac silhouette is magnified and enlarged. Pulmonary vasculature remains engorged with bilateral p erihilar infiltrates. Lung bases are predominately obscured by pleural fluid. Mediastinum is midline. Lines and tubes are unchanged in position. collection systems consultant leads overlie the chest. IMPRESSION: CHF and bilateral pleural fluid are stable compared to the previous exam. POS: [facility]
--- NOTE | 2017-09-21 09:44 | PRG ---
DATE OF SERVICE: 09/21/2017 SUBJECTIVE: The events over the last 24 hours was noted. The patient underwent dialysis access plac ement yesterday. After the said procedure she was noted to develop pulseless electrical activity in the perioperative period. She was subsequently intubated and placed on ventilator support. This morning, the patient is awake, can follows simple commands. She is noted to be intubated. OBJECTIVE: VITAL SIGNS: Blood pressure 106/54, heart rate 69, pulse ox 100%. GENERAL: Intubated, following commands, awake, not in overt distress. SKIN: Adequate turgor. HEENT: She has slightly pale conjunctivae, anicteric sclerae. NECK: No neck mass. No carotid bruits, no JVD. CHEST: No deformities. LUNGS: Decreased breath sounds. HEART: Normal sinus rhythm. No murmur, no gallops, no rubs. ABDOMEN: Globular, soft, nontender, no masses. EXTREMITIES: She has trace edema. MEDICATIONS: 09/21/2017 - Reviewed. LABORATORY: 09/21/2017 - White count 9.2, hemoglobin 8.6. Sodium 138, potassium 3.7, chloride 103, carbon dioxide 23, BUN 36, creatinine 4.01, glucose 139, calcium 7.9. Troponin I 0.581. Chest x-ray of 09/21/2017 pending. ASSESSMENT AND PLAN: 1. End-stage renal disease/chronic renal failure - stable. No indication for any dialytic intervent ion. We will reschedule her back tomorrow for her 3 hour hemodialysis. Continue Wednesday, Wednesday, Wednesday dialysis. No indication for any dialytic intervention. 2. Status post cardiorespiratory arrest, clinically much improved. The patient is opening eyes and can follow simple commands. 3. Congestive heart failure, clinically improved. 4. Pneumonia - on IV antibiotics. 5. Anemia, currently on weekly Epogen. I had a long discussion with the family regarding diagnosis and prognosis. Overall, prognosis remain s guarded with this patient.
[2017-09-21] MEDS: Aspirin 81 mg Enteric Coated Tablet PO SCH (10:00)
[2017-09-21] MEDS: Famotidine/PF 20 mg/2ml Vial SLOW IVP SCH (10:00)
[2017-09-21] MEDS ORDERED: Propofol 1,000 MG/100 ML VIAL IV ONE (11:10)
[2017-09-21] MEDS: Dextrose 10% in Water 1,000 ML IV SCH (11:52)
[2017-09-21] MEDS: Propofol 1,000 MG/100 ML VIAL IV PRN ×2 (11:53→20:18)
--- NOTE | 2017-09-21 17:24 | PRG ---
DATE OF SERVICE: 09/21/2017 SUBJECTIVE: Ms. Maya is doing well today. Ms. Maya is on the ventilator, has not been able to be weaned from the ventilator yet today. She has a good thrill and bruit in her right forearm fistu la. Surgical wound looks good. ASSESSMENT AND PLAN: 1. End-stage renal disease, functioning fistula right arm. We will have to reevaluate this in the f uture to find out if this will develop and if it does, then she may need a secondary operation in the next 4-6 weeks. 2. Severe chronic obstructive pulmonary disease with ongoing tobacco abuse. 3. Congestive heart failure with pacemaker, cardiac ejection fraction 20%-25%. 4. Respiratory failure, on the ventilator. 5. Deconditioning. Overall, patient's prognosis is poor with multiple organ failure, cardiac, Renal and Pulmonary. I had to communicate with the family that I made her DNR. Whether they want to with draw care or not is the future decision. At this point, I would recommend seeing in my office in 4-6 weeks and I will be available to see her as needed this hospitalization. Call if needed.
[2017-09-22 06:08] LABS: Anion Gap 18 mmol/L (10-20); BUN (Urea Nitrogen) 45 mg/dL (9.8-20.1); Calc. Creatinine Clearance 13 mL/min (70-130); Calcium 8.1 mg/dL (7.8-10.44); Carbon Dioxide 19 mmol/L (23-31); Chloride 102 mmol/L (98-107); Estimated GFR-MDRD 11; Glucose 134 mg/dL (83-110); Potassium 3.9 mmol/L (3.5-5.1); Sodium 135 mmol/L (136-145)
[2017-09-22 06:34] LABS: Band 4 % (5-11); Hemoglobin 9.1 g/dL (12.0-16.0); Lymphocytes 16 % (21-51); MDiff Complete? YES; Mean Corpuscular HGB CONC 33.5 g/dL (32.0-36.0); Mean Corpuscular Hemoglobin 32.8 pg (27.0-31.0); Mean Platelet Volume 8.5 fL (7.4-10.4); Monocytes 11 % (0-10); Neutrophil 69 % (42-75); Nucleated RBC 1 % (0); PLT Morphology Comment Appears Adequate; Platelet Count 187 thou/uL (130-400); Red Blood Cell (RBC) Count 2.79 mill/uL (4.20-5.40); White Blood Cell (WBC) Count 10.5 thou/uL (4.8-10.8)
[2017-09-22] MEDS: Aspirin 81 mg Enteric Coated Tablet PO SCH (08:26)
[2017-09-22] MEDS: Famotidine 20 MG TAB PO SCH (08:27)
[2017-09-22] MEDS: Dextrose 10% in Water 1,000 ML IV SCH (08:32)
--- NOTE | 2017-09-22 08:32 | PDOC.CTH ---
<Chikis Cordon - Last Filed: 09/22/17 08:34> Cardiology Progress Note - Subjective The pt seen and examined. No overnight events. The pt opens her eyes; however , she is still very drowsy and lethargic. She cannot follow any commands. - Objective Vital Signs Temp Pulse Resp BP 09/22/17 07:50 72 107/61 09/22/17 07:00 97.9 F 09/22/17 06:00 20 09/22/17 04:00 97.9 F 20 09/22/17 02:23 67 127/66 09/22/17 02:00 18 09/22/17 00:27 67 81/48 L 09/22/17 00:00 98.2 F 19 09/21/17 22:03 70 119/56 L 09/21/17 22:00 13 Admit Weight 196 lb 3.382 oz Weight 177 lb 9.6 oz 09/21/17 09/22/17 09/23/17 06:59 06:59 06:59 Intake Total 2912.9 1279.3 Output Total 0 200 0 Balance 2912.9 1079.3 0 - Physical Examination Neck: no JVD present Lungs: other: (coases and diminished at bases) Heart: RRR Extremities: other: (no edema) - Telemetry Telemetry Rhythm: V paced - Labs Result Diagrams: 09/22/17 04:55 09/22/17 04:55 Troponin/CKMB CK-MB (CK-2) 5.1 ng/mL (0-6.6) 09/21/17 04:00 Troponin I 0.581 ng/mL (< 0.028) H* 09/21/17 04:00 - Assessment/Plan 1. Acute Resp. failure 2ndary to S/p Cardiac arrest in OR on 09/20/17 - still intubated; CPap trial at this moment; DNR 2. NSTEMI - Stable; on ASA 81mg; holding BBlocker, on Plavix; cont. monitor on tele 3. Acute on Chronic systolic HF - Echo on 08/25/17 showed EF 20-25%; Lasix d/c per Dr. Anderson's recs; cont. monitor 4. ESRD - s/p AV fistula placement on 09/20/17; undergoing HD today; HD on Wed, Wed, and Wednesday; managed by loom mechanic 5. HTN - on Levophed; cont. monitor 6. AMS - on wrist restraints due to Intubation with vent sedation 7. Hyperlipidemia - Statin is on hold at this moment 8. Hx of PM placement in 2007 - last PM interrogation showed normal function 9. DM type 2 - on ACHS blood glucose check 10. PVD with Hx of Lt Fem-pop bypass - stable; cont. monitor 11. Anemia - stable with Epogen weekly 11. Current smoker - MAR reviewed * Possible Palliative care meeting with the pt's family Review of Systems - Review of Systems Constitutional: reports: see HPI EENTM: reports: see HPI Respiratory: reports: see HPI Cardiac (ROS): reports: see HPI ABD/GI: reports: see HPI : reports: see HPI Musculoskeletal: reports: see HPI Neurological: reports: see HPI <Kim Liz - Last Filed: 09/22/17 11:30> Cardiology Progress Note - Objective Vital Signs Temp Pulse Resp BP 09/22/17 10:29 69 126/63 09/22/17 07:50 72 107/61 09/22/17 07:00 97.9 F 09/22/17 06:00 20 09/22/17 04:00 97.9 F 20 09/22/17 02:23 67 127/66 09/22/17 02:00 18 09/22/17 00:27 67 81/48 L 09/22/17 00:00 98.2 F 19 Admit Weight 196 lb 3.382 oz Weight 177 lb 9.6 oz 09/21/17 09/22/17 09/23/17 06:59 06:59 06:59 Intake Total 2912.9 1279.3 Output Total 0 200 0 Balance 2912.9 1079.3 0 - Labs Result Diagrams: 09/22/17 04:55 09/22/17 04:55 Troponin/CKMB CK-MB (CK-2) 5.1 ng/mL (0-6.6) 09/21/17 04:00 Troponin I 0.581 ng/mL (< 0.028) H* 09/21/17 04:00 - Assessment/Plan Pt. seen and eval. by me. I agree with the A/P by the MANUFACTURING ENGINEER PAINT. However, she is more alert at this time and is following some commands. The monitor indicates atrial flutter with a 3:1 block. She is still intubated but seems comfortable. Undergoing dialysis.
--- NOTE | 2017-09-22 10:07 | PRG ---
DATE OF SERVICE: 09/22/2017 SERVICE: Renal Medicine. SUBJECTIVE: Ms. Maya is a 77-year-old black female with chronic renal failure/end-stage renal dis ease - currently has been placed on maintenance hemodialysis due to volume overload. In the last few days, patient after surgery underwent cardiorespiratory arrest. This morning, she is mentating [facility], able to follow commands; however, she is still intubated. She is currently undergoing dialysis. I am at the bedside, supervising her dialysis. OBJECTIVE: VITAL SIGNS: Blood pressure is 118/81, heart rate 84, respiratory rate 17, pulse ox 100%. GENERAL: Awake, alert, comfortable, not in distress. The patient is intubated on ventilatory suppor t. HEENT: Slightly pale conjunctivae, anicteric sclerae. NECK: No neck mass, no carotid bruits, no JVD. CHEST: No deformities. LUNGS: Decreased breath sounds. HEART: Normal sinus rhythm. No murmur, no gallops, no rubs. ABDOMEN: Globular, soft, nontender. EXTREMITIES: No edema. MEDICATIONS: Of 09/22/2017 was reviewed. LABORATORY DATA: Of 09/22/2017, white count 10.5, hemoglobin 9.1, platelet count 187,000. Sodium 13 5, potassium 3.9, chloride 102, carbon dioxide 19, BUN 45, creatinine 4.64, glucose 134, calcium 8.1. ASSESSMENT AND PLAN: 1. Chronic renal failure - patient has been initiated on hemodialysis. We will continue 3 times a w [facility]. My plan is to do a 3-hour hemodialysis with about 2-3 liters of fluid removal as t olerated. 2. Anemia, continuing weekly Epogen. 3. Status post cardiorespiratory arrest, clinically much improved, still intubated. Pulmonary is fo llowing for possible extubation. Overall, agree with current management.
--- NOTE | 2017-09-22 10:07 | PRG ---
DATE OF SERVICE: 09/22/2017 SERVICE: Pulmonary Medicine. INTERVAL HISTORY: The patient is doing fine from a respiratory standpoint. Her oxygen requirements are essentially minimal. She is on very little support on the ventilator. She cannot provide additi onal elements of the history, because she is currently intubated and sedated. PHYSICAL EXAMINATION: VITAL SIGNS: Afebrile, pulse 72, blood pressure 118/81, respirations 17, saturation 100% on 27% FIO2 and PEEP of 5. GENERAL: The patient is intubated and sedated. HEENT: Normocephalic, atraumatic. Sclerae are white, conjunctivae pink. Oral and nasal mucosa is m oist without lesions. LUNGS: Decent air entry. Dependent crackles are minimal. She has got excellent air entry with no p rolonged expiratory phase. HEART: Normal rate, regular. MUSCULOSKELETAL: No cyanosis or clubbing. She has no pitting in the bilateral lower extremities. NEUROLOGIC: Grossly nonfocal. LABORATORY DATA: WBC 10.5, hemoglobin 9.1, platelets 187,000. BUN 45 and up-trending, creatinine 4. 64, but otherwise, basic metabolic profile was essentially unremarkable. Blood cultures x4, respirat ory virus panel, urine culture are all unremarkable. ASSESSMENT: 1. Acute hypoxic respiratory failure, resolving. 2. Metabolic encephalopathy, improved. 3. Pulseless electrical activity arrest in the immediate postoperative period. 4. End-stage renal disease, on hemodialysis. 5. Chronic systolic and diastolic heart failure. 6. Healthcare-associated pneumonia, status post full course of antibiotics. PLAN: The patient will be given a sedation holiday. We will put her on a CPAP trial. If she tolera misty this well, she will be considered for extubation following dialysis. Otherwise, supportive measu res will be continued. Pulmonary and Critical Care will continue to follow. Critical care time: 30 minutes.
--- NOTE | 2017-09-22 11:23 | PDOC.FM ---
- Subjective Subjective: Patient awake and alert this morning. She is following commands and answering yes/no questions appropriately. She is undergoing dialysis at this time. Hopeful , extubation this afternoon. - Objective MAR Reviewed: Yes Vital Signs & Weight: Vital Signs (12 hours) Temp Pulse Resp BP 09/22/17 10:29 69 126/63 09/22/17 07:50 72 107/61 09/22/17 07:00 97.9 F 09/22/17 06:00 20 09/22/17 04:00 97.9 F 20 09/22/17 02:23 67 127/66 09/22/17 02:00 18 09/22/17 00:27 67 81/48 L 09/22/17 00:00 98.2 F 19 Weight Admit Weight 89 kg Weight 80.558 kg Most Recent Monitor Data Heart Rate from ECG 84 NIBP 118/81 NIBP BP-Mean 113 Respiration from ECG 17 SpO2 100 I&O: 09/21/17 09/22/17 09/23/17 06:59 06:59 06:59 Intake Total 2912.9 1279.3 Output Total 0 200 0 Balance 2912.9 1079.3 0 Result Diagrams: 09/22/17 04:55 09/22/17 04:55 <Ananda Fregoso - Last Filed: 09/22/17 11:21> - Objective Vital Signs & Weight: Vital Signs (12 hours) Temp Pulse Resp BP Pulse Ox 09/22/17 15:00 98.6 F 09/22/17 13:52 72 21 H 2 L 09/22/17 13:18 74 09/22/17 12:00 28 H 99 09/22/17 11:00 97.9 F 09/22/17 10:29 69 126/63 09/22/17 10:00 18 09/22/17 08:00 97.7 F 72 21 H 97 09/22/17 07:50 72 107/61 09/22/17 07:00 97.9 F 09/22/17 06:00 20 09/22/17 04:00 97.9 F 20 Weight Admit Weight 89 kg Weight 80.558 kg Most Recent Monitor Data Heart Rate from ECG 75 NIBP 110/62 NIBP BP-Mean 83 Respiration from ECG 23 SpO2 98 I&O: 09/21/17 09/22/1709/23/18 06:59 06:59 06:59 Intake Total 2912.9 1279.3 37 Output Total 0 200 0 Balance 2912.9 1079.3 37 Result Diagrams: 09/22/17 04:55 09/22/17 04:55 <Tina Briones - Last Filed: 09/22/17 15:59> Phys Exam - Physical Examination Constitutional: NAD HEENT: moist MMs Neck: no nodes, supple Respiratory: no wheezing Cardiovascular: RRR, no significant murmur Gastrointestinal: soft, no distention Psychiatric: normal affect <Ananda Fregoso - Last Filed: 09/22/17 11:21> Dx/Plan (1) Acute respiratory failure with hypoxia Code(s): J96.01 - ACUTE RESPIRATORY FAILURE WITH HYPOXIA Status: Acute Plan: s/p cardiac arrest in OR with Dr. Arteaga on 09/20/17 Intubated and on levophed continue management per Pulm SBT this morning with extubation planned this afternoon (2) ESRD (end stage renal disease) Code(s): N18.6 - END STAGE RENAL DISEASE Status: Chronic Plan: AV fistula placed yesterday Continue to dialyze per Nephro- MWF (3) Anemia Code(s): D64.9 - ANEMIA, UNSPECIFIED Status: Chronic Plan: Hg stable at 9.1 Monitor daily with possible transfusion if drops below 7.0 (4) Hyperlipidemia Code(s): E78.5 - HYPERLIPIDEMIA, UNSPECIFIED Status: Chronic QualifierTitle: Hyperlipidemia type: unspecified Qualified Code(s): E78.5 - Hyperlipidemia, unspecified Plan: hold rosuvastatin while intubated (5) COPD (chronic obstructive pulmonary disease) Status: Chronic QualifierTitle: COPD type: COPD with acute lower respiratory infection Qualified Code(s): J44.0 - Chronic obstructive pulmonary disease with acute lower respiratory infection Plan: continue duonebs - Plan Plan: Plan: -dialysis today -extubation today <nAanda Fregoso - Last Filed: 09/22/17 11:21> Attending Addendum - Attending Addendum I personally evaluated the patient and discussed the management with Dr. Fregoso I agree with the History, Examination, Assessment and Plan documented above with any addition or exceptions noted below. Acute respiratory failure- spontaneous breathing trial and extubation per pulm ESRD- dialysis today Hypotension- still on levophed. Wean as tolerated. Cardiomyopathy- stable. <Tina Briones - Last Filed: 09/22/17 15:59>
[2017-09-22] MEDS ORDERED: Heparin 10,000 UNITS/ 10 ML VIAL ONE (14:01)
[2017-09-23 05:37] LABS: Anion Gap 14 mmol/L (10-20); BUN (Urea Nitrogen) 32 mg/dL (9.8-20.1); Calc. Creatinine Clearance 17 mL/min (70-130); Calcium 8.2 mg/dL (7.8-10.44); Carbon Dioxide 25 mmol/L (23-31); Chloride 100 mmol/L (98-107); Estimated GFR-MDRD 15; Glucose 107 mg/dL (83-110); Potassium 3.9 mmol/L (3.5-5.1); Sodium 135 mmol/L (136-145)
[2017-09-23 06:32] LABS: Hemoglobin 8.6 g/dL (12.0-16.0); Mean Corpuscular HGB CONC 30.9 g/dL (32.0-36.0); Mean Corpuscular Hemoglobin 30.1 pg (27.0-31.0); Mean Corpuscular Volume 97.5 fl (81.0-99.0); Mean Platelet Volume 8.4 fL (7.4-10.4); Platelet Count 169 thou/uL (130-400); RBC Distribution Width 14.7 % (11.5-14.5); Red Blood Cell (RBC) Count 2.85 mill/uL (4.20-5.40)
[2017-09-23 06:46] LABS: Band 3 % (5-11); Lymphocytes 21 % (21-51); MDiff Complete? YES; Monocytes 6 % (0-10); Neutrophil 70 % (42-75)
[2017-09-23] MEDS ORDERED: Epoetin (ESRD) 10,000 UNITS/ML VIAL SC SCH (08:25)
--- NOTE | 2017-09-23 09:03 | PRG ---
DATE OF SERVICE: 09/23/2017 SUBJECTIVE: Ms. Maya is a 77-year-old black female who was admitted for shortness of breath. She was found to be in CHF as well as pneumonia. During her hospitalization, the patient has gone into acute respiratory failure and had to be intubated and placed on ventilator support. This morning she is extubated and feeling better. She underwent dialysis yesterday without any difficulty. PHYSICAL EXAMINATION: VITAL SIGNS: Blood pressure is 104/62, heart rate 70, respiratory rate 34, pulse ox 90%. GENERAL: Awake, alert, comfortable, not in distress. SKIN: Adequate turgor. HEENT: Pinkish conjunctivae. Anicteric sclerae. NECK: No neck mass, no carotid bruits, no JVD. CHEST: No deformities. LUNGS: Decreased breath sounds. HEART: Normal sinus rhythm. No murmur, no gallops, no rubs. ABDOMEN: Globular, soft, nontender, no masses. EXTREMITIES: Trace edema. MEDICATIONS: 09/23/2017 - Reviewed. LABORATORY: 09/23/2017 - White count 8, hemoglobin 8.6. Sodium 135, potassium 3.9, chloride 100, ca rbon dioxide 25, BUN 32, creatinine 3.63, glucose 107, calcium 8.2. ASSESSMENT AND PLAN: 1. Anemia, slightly lower hemoglobin. My plan is to increase Epogen to 10,000 units subcu every day starting today. 2. End-stage renal disease/chronic renal failure, currently on dialysis. Tolerating dialysis regime n, continuing 3 times a week hemodialysis with 3-hour dialysis session with this patient. 3. Congestive heart failure/pneumonia, clinically improved. Continue supportive care. In the near future, we could always restart the patient back on the PATRICIA inhibitor, ARB as long as the blood pressure will tolerate this. Currently, blood pressure is too low to initiate this.
[2017-09-23] MEDS: Dextrose 10% in Water 1,000 ML IV SCH (09:53)
[2017-09-23] MEDS: Aspirin 81 mg Enteric Coated Tablet PO SCH (09:57)
[2017-09-23] MEDS: Famotidine 20 MG TAB PO SCH (09:57)
--- NOTE | 2017-09-23 10:33 | PDOC.FM ---
- Subjective Subjective: Patient doing well this morning. Smiling and answering questions. A&0x3 VSS, MAP is borderline appropriate - Objective MAR Reviewed: Yes Vital Signs & Weight: Vital Signs (12 hours) Temp Pulse Resp Pulse Ox 09/23/17 07:35 79 20 09/23/17 05:00 97.9 F 09/23/17 04:00 94 L 09/23/17 01:00 97.8 F 09/23/17 00:33 74 23 H 09/22/17 23:28 96 09/22/17 23:00 98 F Weight Admit Weight 89 kg Weight 82 kg Most Recent Monitor Data Heart Rate from ECG 70 NIBP 104/62 NIBP BP-Mean 70 Respiration from ECG 34 SpO2 90 I&O: 09/22/17 09/23/17 09/24/17 06:59 06:59 06:59 Intake Total 1279.3 722 Output Total 200 0 Balance 1079.3 722 Result Diagrams: 09/23/17 04:20 09/23/17 04:20 <Ananda Fregoso - Last Filed: 09/23/17 10:31> - Objective Vital Signs & Weight: Vital Signs (12 hours) Temp Pulse Resp Pulse Ox 09/23/17 14:50 77 20 93 L 09/23/17 11:00 97.5 F L 09/23/17 08:00 97.7 F 79 20 96 09/23/17 07:35 79 20 09/23/17 07:00 97.8 F 09/23/17 05:00 97.9 F 09/23/17 04:00 94 L Weight Admit Weight 89 kg Weight 82 kg Most Recent Monitor Data Heart Rate from ECG 72 NIBP 113/58 NIBP BP-Mean 91 Respiration from ECG 16 SpO2 92 I&O: 09/22/17 09/23/17 09/24/17 06:59 06:59 06:59 Intake Total 1279.3 722 Output Total 200 0 0 Balance 1079.3 722 0 Result Diagrams: 09/23/17 04:20 09/23/17 04:20 <Tina Briones - Last Filed: 09/23/17 15:36> Phys Exam - Physical Examination Constitutional: NAD HEENT: moist MMs Neck: supple, full ROM coarse rhochi bilaterally Cardiovascular: RRR, no significant murmur Gastrointestinal: soft, no distention Neurological: normal sensation, moves all 4 limbs Psychiatric: normal affect <Ananda Fregoso - Last Filed: 09/23/17 10:31> Dx/Plan (1) Acute respiratory failure with hypoxia Code(s): J96.01 - ACUTE RESPIRATORY FAILURE WITH HYPOXIA Status: Acute Plan: s/p cardiac arrest in OR with Dr. Arteaga on 09/20/17 -Intubated and required levophed MAPs are now above 70 without pressor support Extubated 09/22/17 and is breathing well today (2) ESRD (end stage renal disease) Code(s): N18.6 - END STAGE RENAL DISEASE Status: Chronic Plan: AV fistula placed by Dr. Arteaga Continue to dialyze per Nephro- MWF Epogen increased per Nephro (3) Anemia Code(s): D64.9 - ANEMIA, UNSPECIFIED Status: Chronic Plan: Hg stable at 8.6 Monitor daily with possible transfusion if drops below 7.0 Epogen increased per nephro (4) COPD (chronic obstructive pulmonary disease) Status: Chronic QualifierTitle: COPD type: COPD with acute lower respiratory infection Qualified Code(s): J44.0 - Chronic obstructive pulmonary disease with acute lower respiratory infection Plan: continue duonebs - Plan Plan: Plan: -move to floor -placement likely needed at [facility] <Ananda Fregoso - Last Filed: 09/23/17 10:31> Attending Addendum - Attending Addendum I personally evaluated the patient and discussed the management with Dr. Fregoso. I agree with the History, Examination, Assessment and Plan documented above with any addition or exceptions noted below. Extubated and off pressors-stable for transfer to the floor. Will need placement for deconditioning. <Tina Briones - Last Filed: 09/23/17 15:36>
[2017-09-23] MEDS ORDERED: Dextrose 5% in Water 1,000 ML IV SCH (12:00)
--- NOTE | 2017-09-23 12:05 | PRG ---
DATE OF SERVICE: 09/23/2017 SERVICE: Pulmonary Medicine. INTERVAL HISTORY: The patient is doing fine from a respiratory standpoint once again. She is breath ing comfortably. She has no complaints of fevers, chills, nausea or vomiting. There were no signifi cant overnight events. She has been weaned down to 1 liter nasal cannula, and she looks very comfort able once again. PHYSICAL EXAMINATION: VITAL SIGNS: Afebrile, pulse 72, blood pressure 113/58, respirations 16, saturation 92% on 1 liter n cindy cannula. GENERAL: The patient is awake, alert, in no apparent distress. LUNGS: Decreased air entry with no prolonged expiratory phase, wheezing or crackles. HEART: Normal rate, regular. ABDOMEN: Soft, nontender, nondistended. Bowel sounds are positive. MUSCULOSKELETAL: No cyanosis or clubbing. No pitting in the bilateral lower extremities. NEUROLOGIC: Grossly nonfocal. LABORATORY DATA: WBC 8.0, hemoglobin 8.6, platelets 169,000. BUN count is 3% within normal neutroph il count. Creatinine 3.63, basic metabolic profile is otherwise unremarkable. Microbiology includin g blood cultures x4, urine culture negative to date. Respiratory virus panel is also unremarkable. ASSESSMENT: 1. Acute hypoxic respiratory failure, resolving. 2. Metabolic encephalopathy, resolved to baseline. 3. Pulseless electrical activity in the immediate postoperative period. 4. End-stage renal disease, on hemodialysis. 5. Chronic systolic and diastolic heart failure. 6. Healthcare-associated pneumonia, status post full course of antibiotics. PLAN: The patient is once again returned to her baseline. We will transition out of the IMCU to the telemetry unit given her recent pulseless electrical activity arrest. Pulmonary will continue to fo llow up for the time being, but in 24 hours, she remains stable, disposition to her nursing facility can be considered.
--- NOTE | 2017-09-23 15:53 | PDOC.CTH ---
Cardiology Progress Note - Subjective Pt. seen and eval. javier guevara me. More alert today. Somewhat confused but significantly better.She complains of back pain ( perhaps due to the CPR ) - ROS not able to obtain ROS - Objective Vital Signs Temp Pulse Resp Pulse Ox 09/23/17 14:50 77 20 93 L 09/23/17 11:00 97.5 F L 09/23/17 08:00 97.7 F 79 20 96 09/23/17 07:35 79 20 09/23/17 07:00 97.8 F 09/23/17 05:00 97.9 F 09/23/17 04:00 94 L Admit Weight 196 lb 3.382 oz Weight 180 lb 12.465 oz 09/22/17 09/23/17 09/24/17 06:59 06:59 06:59 Intake Total 1279.3 722 Output Total 200 0 0 Balance 1079.3 722 0 - Physical Examination General/Neuro: other: (alert, not oriented.) Neck: no JVD present Lungs: CTA, unlabored respirations Heart: RRR Abdomen: NT/ND - Labs Result Diagrams: 09/23/17 04:20 09/23/17 04:20 Troponin/CKMB CK-MB (CK-2) 5.1 ng/mL (0-6.6) 09/21/17 04:00 Troponin I 0.581 ng/mL (< 0.028) H* 09/21/17 04:00 - Assessment/Plan 1. Acute Resp. failure 2ndary to S/p Cardiac arrest in OR on 09/20/17 - Extubated. talking and answers some questions. 2. NSTEMI - Stable; on ASA 81mg; holding BBlocker, on Plavix; cont. monitor 3. Acute on Chronic systolic HF - Echo on 08/25/17 showed EF 20-25%; Pt. on hemodialysis for vol. control and renal function. 4. ESRD - s/p AV fistula placement on 09/20/17; undergoing HD on Wed, Wed, and Wednesday; managed by visual education director 5. HTN - on Levophed; cont. monitor 6. AMS - improved somewhat. 7. Hyperlipidemia - Statin is on hold at this moment 8. Hx of PM placement in 2007 - last PM interrogation showed normal function 9. DM type 2 - on ACHS blood glucose check 10. PVD with Hx of Lt Fem-pop bypass - stable; cont. monitor 11. Anemia - stable with Epogen weekly 11. 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
--- NOTE | 2017-09-24 07:14 | PRG ---
DATE OF SERVICE: 09/24/2017 SERVICE: Renal Medicine. SUBJECTIVE: Ms. Maya is feeling better. She is a 77-year-old black female who was admitted for p neumonia/congestive heart failure. She has also been initiated on dialysis. Currently, she is at th e dialysis. We are doing dialysis with her for at least 3 hours with fluid removal only as tolerated . She voices no new complaints. She tells me she is feeling better. Please note, she is status pos t AV fistula placement. PHYSICAL EXAMINATION: VITAL SIGNS: Blood pressure is 123/68, heart rate 74, respiratory rate 20, temperature 98.8, pulse o x 94%. GENERAL: Noted to be awake, alert, comfortable, not in distress. SKIN: Adequate turgor. HEENT: She has slightly pale conjunctivae, anicteric sclerae. NECK: No neck mass, no carotid bruits, no JVD. CHEST: No deformities. LUNGS: Decreased breath sounds. HEART: Normal sinus rhythm. No murmur, no gallops, no rubs. ABDOMEN: Globular, soft, nontender, no masses. EXTREMITIES: No edema, no deformities. MEDICATIONS: Of 09/24/2017 was reviewed. LABORATORY DATA: Of 09/23/2017, white count 2, hemoglobin 8.6. Sodium 135, potassium 3.9, chloride 100, carbon dioxide 25, BUN 32, creatinine 3.63, calcium 8.2. ASSESSMENT AND PLAN: 1. End-stage renal disease/chronic renal failure, currently undergoing 3 times a week hemodialysis. The plan is to do Wednesday, Wednesday, Wednesday dialysis with 3-hour regimen. Please note that we will attempt around 1-2 liters of fluid only as tolerated. 2. Congestive heart failure, clinically much improved. Fluid removal with dialysis. My bias is to challenge her with lisinopril 2.5 mg tab once a day due to the decreased EF. 3. Anemia. We recently increased her Epogen to10,000 units subcutaneously every week. 4. Pneumonia, on antibiotics. Agree with current management.
[2017-09-24] MEDS ORDERED: Lisinopril 2.5 MG TAB PO SCH (09:00)
--- NOTE | 2017-09-24 11:06 | PDOC.FM ---
- Subjective Subjective: Patient awake and happy this morning. A&O x 1. No acute events overnight. Denies CP, SOB, abdominal pain. - Objective MAR Reviewed: Yes Vital Signs & Weight: Vital Signs (12 hours) Temp Pulse Resp BP Pulse Ox 09/24/17 04:00 98.8 F 74 20 123/68 94 L 09/24/17 00:00 98.2 F 90 18 110/80 93 L 09/23/17 23:57 94 L Weight Admit Weight 89 kg Weight 88.904 kg Most Recent Monitor Data Heart Rate from ECG 72 NIBP 113/58 NIBP BP-Mean 91 Respiration from ECG 16 SpO2 92 I&O: 09/23/17 09/24/17 09/25/17 06:59 06:59 06:59 Intake Total 722 253 Output Total 0 0 Balance 722 253 Result Diagrams: 09/23/17 04:20 09/23/17 04:20 <Ananda Fregoso - Last Filed: 09/24/17 11:04> - Objective Vital Signs & Weight: Vital Signs (12 hours) Temp Pulse Resp BP Pulse Ox 09/24/17 04:00 98.8 F 74 20 123/68 94 L 09/24/17 00:00 98.2 F 90 18 110/80 93 L 09/23/17 23:57 94 L Weight Admit Weight 89 kg Weight 88.904 kg Most Recent Monitor Data Heart Rate from ECG 72 NIBP 113/58 NIBP BP-Mean 91 Respiration from ECG 16 SpO2 92 I&O: 09/23/17 09/24/17 09/25/17 06:59 06:59 06:59 Intake Total 722 253 Output Total 0 0 Balance 722 253 Result Diagrams: 09/23/17 04:20 09/23/17 04:20 <Tina Briones - Last Filed: 09/24/17 11:14> Phys Exam - Physical Examination Constitutional: NAD HEENT: PERRLA, sclera anicteric Neck: no nodes, supple Respiratory: no wheezing, no rales Cardiovascular: RRR, no significant murmur Gastrointestinal: soft, no distention Musculoskeletal: no edema Neurological: moves all 4 limbs Psychiatric: normal affect <Ananda Fregoso - Last Filed: 09/24/17 11:04> Dx/Plan (1) Acute respiratory failure with hypoxia Code(s): J96.01 - ACUTE RESPIRATORY FAILURE WITH HYPOXIA Status: Resolved Plan: s/p cardiac arrest in OR with Dr. Arteaga on 09/20/17 -Intubated and required levophed MAPs are now above 70 without pressor support Extubated 09/22/17 and is breathing well today (2) ESRD (end stage renal disease) Code(s): N18.6 - END STAGE RENAL DISEASE Status: Chronic Plan: AV fistula placed by Dr. Arteaga Continue to dialyze per Nephro- MWF Epogen increased per Nephro (3) Anemia Code(s): D64.9 - ANEMIA, UNSPECIFIED Status: Chronic Plan: Hg stable at 8.6, transfuse if drops below 7.0 Epogen increased per nephro (4) COPD (chronic obstructive pulmonary disease) Status: Chronic QualifierTitle: COPD type: COPD with acute lower respiratory infection Qualified Code(s): J44.0 - Chronic obstructive pulmonary disease with acute lower respiratory infection Plan: continue duonebs - Plan Plan: Plan: -waiting on [facility] and dialysis, patient will need extensive rehab -family is grateful and in agreement with plan <Ananda Fregoso - Last Filed: 09/24/17 11:04> Attending Addendum - Attending Addendum I personally evaluated the patient and discussed the management with Dr. Fregoso. I agree with the History, Examination, Assessment and Plan documented above with any addition or exceptions noted below. Acute hypoxic respiratory failure-resolved. Now on 1L O2. Continue to wean ESRD- dialysis M,W,F per nephro s/p cardiac arrest with CPR and ROSC- neurologically at baseline. cardiomyopathy- stable -await rehab placement for PT for deconditioning. <Tina Briones - Last Filed: 09/24/17 11:14>
[2017-09-24] MEDS: Famotidine 20 MG TAB PO SCH (11:59)
[2017-09-24] MEDS: Aspirin 81 mg Enteric Coated Tablet PO SCH (11:59)
[2017-09-24 13:01] VITALS: BMI 28.9
--- NOTE | 2017-09-24 13:55 | PDOC.CTH ---
<Chikis Cordon - Last Filed: 09/24/17 13:56> Cardiology Progress Note - Subjective The pt seen and examined. No overnight events. No cardiac complaints. She is undergoing HD at this moment without any difficulties. - Objective Vital Signs Temp Pulse Resp BP BP Pulse Ox 09/24/17 11:58 69 126/70 09/24/17 11:00 97.6 F 69 18 126/70 09/24/17 04:00 98.8 F 74 20 123/68 94 L Admit Weight 196 lb 3.382 oz Weight 196 lb 09/23/17 09/24/17 09/25/17 06:59 06:59 06:59 Intake Total 722 253 Output Total 0 0 Balance 722 253 - Physical Examination General/Neuro: alert & oriented x3 Neck: no JVD present Lungs: other: (diminished at bases) Abdomen: soft Extremities: other: (No edema) - Telemetry Telemetry Rhythm: V paced; underline Afib - Labs Result Diagrams: 09/23/17 04:20 09/23/17 04:20 Troponin/CKMB CK-MB (CK-2) 5.1 ng/mL (0-6.6) 09/21/17 04:00 Troponin I 0.581 ng/mL (< 0.028) H* 09/21/17 04:00 - Assessment/Plan 1. Acute Resp. failure 2ndary to S/p Cardiac arrest in OR on 09/20/17 - on 1LNC ; talking and answers some questions. 2. NSTEMI - Stable; on ASA 81mg; holding BBlocker, on Plavix; cont. monitor 3. Acute on Chronic systolic HF - Echo on 08/25/17 showed EF 20-25%; Pt. on hemodialysis for vol. control and renal function. 4. ESRD - s/p AV fistula placement on 09/20/17; undergoing today; HD on Wed, Wed , and Wednesday; managed by reading intervention teacher 5. HTN - stable with Lisinopril; cont. monitor 6. AMS - improved somewhat. 7. Hyperlipidemia - Statin is on hold at this moment 8. Hx of PM placement in 2007 - last PM interrogation showed normal function 9. DM type 2 - on ACHS blood glucose check 10. PVD with Hx of Lt Fem-pop bypass - stable; cont. monitor 11. 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382 oz Weight 196 lb 09/23/17 09/24/17 09/25/17 06:59 06:59 06:59 Intake Total 722 253 Output Total 0 0 Balance 722 253 - Labs Result Diagrams: 09/23/17 04:20 09/23/17 04:20 Troponin/CKMB CK-MB (CK-2) 5.1 ng/mL (0-6.6) 09/21/17 04:00 Troponin I 0.581 ng/mL (< 0.028) H* 09/21/17 04:00 - Assessment/Plan Pt. seen and eval. by me. I agree with the A/P by the [employer]GAL LEGAL SECRETARY.Continue to monitor.
[2017-09-24] MEDS ORDERED: Heparin 10,000 UNITS/ 10 ML VIAL ONE (14:00)
--- NOTE | 2017-09-24 15:33 | PRG ---
DATE OF SERVICE: 09/24/2017 SERVICE: Pulmonary Medicine. INTERVAL HISTORY: The patient is doing fine from a respiratory standpoint. She is on half liter abbe al cannula and breathing quite comfortably. She denies any current shortness of breath or chest disc omfort. She is wearing a big smile and is otherwise in no apparent distress. PHYSICAL EXAMINATION: VITAL SIGNS: Afebrile, pulse 72, blood pressure 126/70, respirations 18, saturation 95% on 1 liter n cindy cannula. GENERAL: Patient is awake, alert, in no apparent distress. LUNGS: Decent air entry. There is no prolonged expiratory phase or wheezing present. HEART: Normal rate, regular. ABDOMEN: Soft, nontender, nondistended. Bowel sounds are positive. MUSCULOSKELETAL: No cyanosis or clubbing. There is no pitting in the bilateral lower extremities. She continues to have some skin tenting throughout. GENITOURINARY: No Guevara catheter in place. NEUROLOGIC: Grossly nonfocal. LABORATORY DATA: WBC 8.0, hemoglobin 8.6, and platelets 169,000. Blood sugar ranges from 95-113. C reatinine 3.63 from yesterday. Blood cultures x4, respiratory virus panel, and urine culture are all unremarkable. ASSESSMENT: 1. Acute hypoxic respiratory failure, resolving. 2. Metabolic encephalopathy, currently at baseline. 3. Pulseless electrical activity in the immediate postop period, returned to baseline. 4. End-stage renal disease, on hemodialysis. 5. Chronic systolic and diastolic heart failure. 6. Healthcare-associated pneumonia, status post full course of antibiotics. DISCUSSION AND PLAN: I have signed off of this patient on two separate occasions. She will subseque ntly get a little too dry with dialysis as her p.o. intake is quite poor and she will end up back in the unit for various issues. As such, we need to pay particular attention to her dry weight and make certain that we are not pushing her below this. Because of her fragile state and previous decompens ations x3, Pulmonary or Critical Care will continue to follow intermittently during this hospital sta y.
[2017-09-24 18:11] VITALS: BP 133/75; TEMP 98.4
[2017-09-25] MEDS ORDERED: Clopidogrel Bisulfate 75 MG TAB PO SCH (09:00)
--- NOTE | 2017-09-27 10:36 | DIS-2 ---
DATE OF ADMISSION: 09/06/2017 DATE OF DISCHARGE: 09/24/2017 RESIDENT: Ananda Fregoso M.D. ADMITTING ATTENDING: Otis Mitchell MD DISCHARGE ATTENDING: Tina Briones M.D. CONSULTS: 1. Nephrology. 2. Pulmonology/Critical Care. 3. General Surgery. 4. Cariology. PROCEDURES: 1. Right IJ cuffed tunnel hemodialysis catheter, left IJ central line performed by Dr. Timbo Arteaga. 2. On 09/20 an AV fistula was placed for hemodialysis. During the operation, the patient went into PEA and was coded for approximately 5 minutes in the OR. She was stabilized and transferred to the CCU. PRIMARY DIAGNOSES: 1. Cardiogenic shock status post cardiac arrest. 2. New onset end-stage renal disease, requiring hemodialysis. 3. Acute hypoxic respiratory failure secondary to right lower lobe pneumonia. 4. Acute congestive heart failure exacerbation. 5. Non-ST elevation myocardial infarction. SECONDARY DIAGNOSES: 1. QT prolongation. 2. Thyroid nodules/mass. 3. Coronary artery disease. 4. Hypertension 5. Atrial fibrillation. 6. Dyslipidemia. 7. Systolic congestive heart failure with ejection fraction of 20%-25%. DISCHARGE MEDICATIONS: 1. Tramadol 100 mg p.o. daily p.r.n. for pain. 2. Flexeril 5 mg p.o. at bedtime. 3. Ranitidine 150 mg p.o. b.i.d. 4. Crestor 10 p.o. at bedtime. 5. Ferrous sulfate 300 mg p.o. b.i.d. with meals. 6. Aspirin 81 mg p.o. daily. 7. Plavix 75 mg p.o. daily. 8. Lisinopril 2.5 mg p.o. daily. DISCONTINUED MEDICATIONS: 1. Hydralazine 25 mg p.o. t.i.d. 2. Lasix 20 mg p.o. daily. 3. Ceftin 250 mg p.o. q.12 hours. 4. Potassium chloride 20 mEq p.o. daily. 5. Amlodipine 2 mg p.o. daily. 6. Calcitriol 0.25 mcg p.o. daily. 7. Carvedilol 12.5 mg p.o. b.i.d. 8. Clonidine 0.2 mg p.o. b.i.d. 9. Imdur 60 mg p.o. daily. 10. Cilostazol 100 mg p.o. b.i.d. HISTORY OF PRESENT ILLNESS AND HOSPITAL COURSE: This is a 77-year-old female with a recent discharge 5 days prior to this admission. At that time, she was diagnosed with new onset congestive heart failure with ejection fraction of 20%- 25%. She was discharged home on a LifeVest after diuresis and was stable. She presents for this admission with worsening shortness of breath and lower extremity edema. The patient was evaluated by the Nephrology and found to be end-stage renal disease, requiring hemodialysis. General Surgery was consulted and patient was given a temporary dialysis catheter with AV fistula placement; however, patient coded while receiving AV fistula. Fistula was placed and patient required intensive care in CCU. She continued pneumonia treatment with vancomycin, gentamicin, and cefepime. She continued to be diuresed with BiPAP p.r.n. However, the patient became hemodynamically unstable with inability to tolerate dialysis due to hypotension. Her dry weights indicated that she was volume down prior to discharge. For this reason, the primary team in conjunction with several specialists decided to hold her Lasix upon discharge. She had not received her Carvedilol in the days prior to discharge and was still hypotensive so the decision was made to discontinue it indefinitely. Her volume status and blood pressure were very volatile throughout her stay. The patient was stabilized after cardiac arrest and was evaluated by physical therapy and occupational therapy. It was deemed that she would need significant rehabilitation and was discharged to [facility]. DISPOSITION: Stable. DISCHARGE INSTRUCTIONS: 1. Location: [facility]. 2. Diet: Heart healthy, renal. 3. Activity: As tolerated. 4. Followup: With PCP upon discharge from inpatient rehabilitation. RADHA
--- NOTE | 2017-10-16 17:33 | EKG ---
Test Reason : Blood Pressure : / mmHG Vent. Rate : 067 BPM Atrial Rate : 066 BPM P-R Int : 000 ms QRS Dur : 138 ms QT Int : 476 ms P-R-T Axes : 000 -52 126 degrees QTc Int : 502 ms Electronic ventricular pacemaker Confirmed by YANIRA DIAZ ([id number]), medical editor ROSIE QUINONES ([id number]) on 10/16/2017 5:32:23 PM Referred By: Confirmed By:YANIRA DIAZ
== END 2017-09-24 18:53 | DRG 853 ==
LOC: ERS 22:41 → CCU 09-06 01:48 → 2NO 09-07 01:37 → CCU 09-13 09:25 → 2NO 09-16 13:54 → CCU 09-20 15:15 → 2NO 09-23 13:00
PROVIDERS: ADMIT Emergency Medicine; ATTEND Emergency Medicine
PROC: 5A09557 Assistance with Respiratory Ventilation, Greater than 96 Consecutive Hours, Continuous Positive Airway Pressure (ICD-10-PCS; 2017-09-06)
PROC: 06HN33Z Insertion of Infusion Device into Left Femoral Vein, Percutaneous Approach (ICD-10-PCS; 2017-09-10)
PROC: 5A1D70Z Performance of Urinary Filtration, Intermittent, Less than 6 Hours Per Day (ICD-10-PCS; 2017-09-11)
PROC: 05HM33Z Insertion of Infusion Device into Right Internal Jugular Vein, Percutaneous Approach (ICD-10-PCS; 2017-09-16)
PROC: 031B0ZF Bypass Right Radial Artery to Lower Arm Vein, Open Approach (ICD-10-PCS; principal; 2017-09-20)
PROC: 5A1945Z Respiratory Ventilation, 24-96 Consecutive Hours (ICD-10-PCS; 2017-09-20)
PROC: 0BH17EZ Insertion of Endotracheal Airway into Trachea, Via Natural or Artificial Opening (ICD-10-PCS; 2017-09-20)
DX: A41.9 Sepsis, unspecified organism (principal); N18.6 End stage renal disease; J96.01 Acute respiratory failure with hypoxia; I21.4 Non-ST elevation (NSTEMI) myocardial infarction; R57.0 Cardiogenic shock; G93.41 Metabolic encephalopathy; J18.1 Lobar pneumonia, unspecified organism; I13.2 Hypertensive heart and chronic kidney disease with heart failure and with stage 5 chronic kidney disease, or end stage renal disease; I48.2 Chronic atrial fibrillation; I50.43 Acute on chronic combined systolic (congestive) and diastolic (congestive) heart failure; J44.0 Chronic obstructive pulmonary disease with (acute) lower respiratory infection; E87.0 Hyperosmolality and hypernatremia; I82.613 Acute embolism and thrombosis of superficial veins of upper extremity, bilateral; T80.1XXA Vascular complications following infusion, transfusion and therapeutic injection, initial encounter; E87.8 Other disorders of electrolyte and fluid balance, not elsewhere classified; D64.9 Anemia, unspecified; I45.81 Long QT syndrome; I73.9 Peripheral vascular disease, unspecified; E78.5 Hyperlipidemia, unspecified; I25.10 Atherosclerotic heart disease of native coronary artery without angina pectoris; K21.9 Gastro-esophageal reflux disease without esophagitis; F17.210 Nicotine dependence, cigarettes, uncomplicated; R74.8 Abnormal levels of other serum enzymes; Z99.2 Dependence on renal dialysis; Z91.19 Patient's noncompliance with other medical treatment and regimen; Z95.0 Presence of cardiac pacemaker; Z66 Do not resuscitate; Z83.3 Family history of diabetes mellitus; Z82.49 Family history of ischemic heart disease and other diseases of the circulatory system; Z80.9 Family history of malignant neoplasm, unspecified; Y84.8 Other medical procedures as the cause of abnormal reaction of the patient, or of later complication, without mention of misadventure at the time of the procedure; Y92.239 Unspecified place in hospital as the place of occurrence of the external cause
CPT/HCPCS: 36415; 36416; 51702; 71010; 71045; 71046; 74018; 80048; 80053; 80074; 80076; 80202; 81001; 81003; 81015; 82533; 82553; 82805; 83605; 83880; 84484; 85007; 85025; 85027; 85730; 86580; 87040; 87086; 87340; 87633; 90935; 93005; 93010; 93798; 93970; 94002; 94003; 94640; 94660; 94760; 96365; 96366; 96368; 96375; 99292; A4216; C1752; C1769; G0257; G0365; G8978-GP-CK; G8978-GP-CN; G8979-GP-CK; G8979-GP-CL; G8980-GP-CK; G8987-GO-CJ; G8987-GO-CL; G8987-GO-CN; G8988-GO-CI; G8988-GO-CJ; G8988-GO-CK; G8996-GN-CL; G8997-GN-CK; J0171; J0692; J1580; J1642; J1644; J1650; J1940; J2001; J2543; J2704; J2720; J3010; J3370; J3480; J7050; J7070; J7620; P9045; P9047; Q4081; S0028

== ENCOUNTER 2017-09-26 09:59 | Inpatient (IN) | payer MEDICARE, OTHER ==
[2017-09-26] MEDS ORDERED: fentaNYL Citrate/PF 2,000 MCG in Sodium Chloride 0.9% 60 ML IV SCH ×2 (10:20→14:50)
--- NOTE | 2017-09-26 10:34 | RAD ---
CHEST 1 VIEW: HISTORY: Dyspnea. Followup. COMPARISON: 09/26/15. FINDINGS: Cardiac silhouette is magnified and enlarged. Pulmonary vasculature remains engorged with dense biba silar infiltrates. Mediastinum is midline. Right internal jugular dialysis catheter remains in plac e. Endotracheal catheter is partially visualized with tip over the level of the mid to lower trachea. I t is predominantly obscured by metallic monitoring devices. There are prominent degenerative changes of each shoulder. IMPRESSION: 1. Pulmonary edema appears similar to the previous exam. 2. Interval intubation. POS: [facility]
[2017-09-26 11:19] LABS: CKMB 4.4 ng/mL (0-6.6)
[2017-09-26 11:26] LABS: Band 29 % (5-11); Crenated RBC SLIGHT = 1-5 cells (100X) (None Seen); Hemoglobin 8.9 g/dL (12.0-16.0); Lymphocytes 16 % (21-51); MDiff Complete? YES; Mean Corpuscular HGB CONC 30.2 g/dL (32.0-36.0); Mean Corpuscular Hemoglobin 30.1 pg (27.0-31.0); Mean Corpuscular Volume 99.6 fl (81.0-99.0); Mean Platelet Volume 8.5 fL (7.4-10.4); Monocytes 2 % (0-10); Neutrophil 53 % (42-75); Platelet Count 131 thou/uL (130-400); Polychromasia SLIGHT = 2-3 cells (100X) (0-2/hpf); RBC Distribution Width 14.7 % (11.5-14.5); Red Blood Cell (RBC) Count 2.95 mill/uL (4.20-5.40); Schistocytes SLIGHT = 2-5 cells (100X) (0-1/hpf); White Blood Cell (WBC) Count 8.8 thou/uL (4.8-10.8)
[2017-09-26 11:27] LABS: Troponin I 0.481 ng/mL (< 0.028)
[2017-09-26 11:30] LABS: pH, Arterial 7.32 (7.35-7.45)
[2017-09-26 11:31] LABS: Actual Bicarbonate (HCO3a) 20.5 mEq/L (22-26); Base Excess (BEa) -5.2 mEq/L (0 (+/-) 2.5); CO2 Tension 40.5 mmHg (35.0-45.0); Calcium, Ionized 1.1 mmol/L (1.12-1.30); Hematocrit-ABG 31.3 % (36.0-47.0); Hemoglobin (Hb) 9.3 g/dL (12.0-16.0); O2 Tension (PaO2) 62.7 mmHg (80.0-100.0)
[2017-09-26 11:32] LABS: Analyzer IN Cardio ER; Puncture Site LRA
[2017-09-26 11:44] LABS: ALT (SGPT) 13 U/L (8-55); AST (SGOT) 19 U/L (5-34); Albumin 2.3 g/dL (3.4-4.8); Alkaline Phosphatase 109 U/L (40-150); Anion Gap 22 mmol/L (10-20); BUN (Urea Nitrogen) 46 mg/dL (9.8-20.1); Bilirubin, Total 0.9 mg/dL (0.2-1.2); CK (CPK) 32 U/L (29-168); Calc. Creatinine Clearance 0 mL/min (70-130); Calcium 7.6 mg/dL (7.8-10.44); Carbon Dioxide 16 mmol/L (23-31); Chloride 104 mmol/L (98-107); Estimated GFR-MDRD 12; Globulin 2.5 g/dL (2.4-3.5); Glucose 72 mg/dL (83-110); Potassium 4.1 mmol/L (3.5-5.1); Protein, Total 4.8 g/dL (6.0-8.3); Sodium 138 mmol/L (136-145)
[2017-09-26] MEDS ORDERED: Cefepime 2 GM/10 ML SYR ONE (12:03)
--- NOTE | 2017-09-26 12:12 | RAD ---
SINGLE VIEW OF THE CHEST: COMPARISON: 09/26/17. HISTORY: Central line placement. FINDINGS: A single view of the chest shows an enlarged but stable cardiomediastinal silhouette. The endotrache al tube and dialysis catheter are unchanged in position. No new central venous catheter is appreciat ed. There appear to be moderate bilateral pleural effusions with adjacent atelectasis versus infiltr ates. IMPRESSION: 1. Unchanged position of lines and tubes. 2. Moderate bilateral pleural effusions with adjacent atelectasis versus infiltrates. POS: [facility]
[2017-09-26 12:32] LABS: Bilirubin Small (Negative); Blood, Urine Moderate (Negative); Clarity CLOUDY (Clear); Glucose, Urine (Dipstick) Negative (Negative); Leukocyte Moderate (Negative); Nitrite Negative (Negative); Protein, Urine (Dipstick) 300 mg/dL (Neg-Trace); Urobilinogen 0.2 mg/dL (0.2-1.0)
[2017-09-26 12:35] LABS: Bacteria/HPF 1+ HPF (None Seen); Squamous Epithelial 0-3 HPF (0-3); WBC/HPF 21-50 HPF (0-3)
[2017-09-26 12:36] LABS: Pathc Cast-AUWi Flag 2.98 (0-2.49); Yeast-AUWi Flag 780.6 (0-25.0)
[2017-09-26 12:44] LABS: Hyaline Casts/LPF NONE SEEN LPF (0-3 Hyaline); Other Casts/LPF None Seen LPF (0-3 Hyaline); Yeast-All Forms 4+ HPF (None Seen)
[2017-09-26 14:13] LABS: Troponin I 0.648 ng/mL (< 0.028)
[2017-09-26] MEDS ORDERED: Bisacodyl 10 MG SUPP PR PRN (14:42)
[2017-09-26] MEDS ORDERED: Cefepime 2 GM in Sodium Chloride 0.9% 100 ML IVPB SCH (14:42)
[2017-09-26] MEDS ORDERED: CCU Electrolyte Replacement 1 EACH IVPB ONE (14:42)
[2017-09-26] MEDS ORDERED: Acetaminophen 325 MG Suppository PR PRN (14:42)
[2017-09-26] MEDS ORDERED: Sedation Protocol FS ONE (14:42)
[2017-09-26] MEDS ORDERED: Potassium Phosphate 15 MMOL in Sodium Chloride 0.9% 250 ML 250 ML IV PRN (14:48)
[2017-09-26] MEDS ORDERED: Potassium Phosphate 9 MMOL in Sodium Chloride 0.9% 100 ML IVPB PRN (14:48)
[2017-09-26] MEDS ORDERED: Potassium Chloride 40 MEQ in Premix Bag 1 BAG IVPB PRN (14:48)
[2017-09-26] MEDS ORDERED: CCU ELECTROLYTE REPLACEMENT PROTOCOL FS PRN (14:48)
[2017-09-26] MEDS ORDERED: Magnesium 2 GM/NS 0.9% 100 ML 2 GM in Premix Bag 1 BAG IVPB PRN (14:48)
[2017-09-26] MEDS ORDERED: Potassium Phosphate 12 MMOL in Sodium Chloride 0.9% 250 ML 250 ML IV PRN (14:48)
[2017-09-26] MEDS ORDERED: Potassium Chloride 40 MEQ in Sodium Chloride 0.9% 250 ML 250 ML IVPB PRN (14:48)
[2017-09-26] MEDS ORDERED: Potassium Chloride 20 MEQ TAB PO PRN (14:48)
[2017-09-26] MEDS ORDERED: Magnesium Oxide 400 MG TAB PO PRN ×2 (14:48)
[2017-09-26] MEDS ORDERED: Propofol 1,000 MG/100 ML VIAL IV PRN (14:50)
[2017-09-26] MEDS ORDERED: Lorazepam 2 MG/ML VIAL SLOW IVP PRN (14:50)
[2017-09-26] MEDS ORDERED: Morphine 2 MG/ML SYRINGE SLOW IVP PRN (14:50)
[2017-09-26] MEDS ORDERED: Fentanyl BOLUS 250 ML IVPB PRN (14:50)
[2017-09-26] MEDS ORDERED: DISCONTINUE PREVIOUS NARCOTIC PAIN MEDICATIONS AND BENZODIAZEPINES FS SCH (14:50)
[2017-09-26] MEDS ORDERED: Vancomycin HCl 1.25 GM in Sodium Chloride 0.9% 250 ML 250 ML IVPB SCH (15:00)
[2017-09-26] MEDS ORDERED: Vancomycin HCl 750 MG in Sodium Chloride 0.9% 250 ML 250 ML IVPB SCH (15:00)
[2017-09-26] MEDS ORDERED: Vancomycin HCl 1 GM in Premix Bag 1 BAG IVPB SCH ×2 (15:00→21:00)
[2017-09-26] MEDS ORDERED: Vancomycin HCl 500 MG in Sodium Chloride 0.9% 100 ML IVPB SCH (15:00)
[2017-09-26] MEDS ORDERED: Vancomycin Sliding Scale 1 EACH FS ONE (15:00)
[2017-09-26] MEDS ORDERED: HOLD VANCOMYCIN FOR LEVEL >20 FS SCH (15:00)
[2017-09-26 15:17] LABS: Lactic Acid 3.9 mmol/L (0.5-2.2)
[2017-09-26 15:18] LABS: Vancomycin, Random 18.3 ug/mL (See Comment)
[2017-09-26] MEDS ORDERED: Norepinephrine 8 MG/250 ML BAG IVPB PRN (16:57)
[2017-09-26] MEDS ORDERED: Heparin 10,000 UNITS/ 10 ML VIAL ONE (16:57)
[2017-09-26 17:08] LABS: Troponin I 0.787 ng/mL (< 0.028)
--- NOTE | 2017-09-26 17:18 | PRG ---
DATE OF SERVICE: 09/26/2017 SUBJECTIVE: Ms. Maya is a 77-year-old black female with known history of ESRD, currently on maint enance hemodialysis and transferred from the rehabilitation to the hospital. She was noted to be in acute respiratory distress early this morning. There she was found to be in acute respiratory failur e and was intubated and placed on ventilator support. We are being consulted for an emergent hemodia lysis for this patient. Chest x-ray did show some bilateral pleural effusion with questionable atele ctasis and increased lung markings. She is currently undergoing emergent hemodialysis. My plan is t o do a 2-hour dialysis treatment, the first hour being hemodialysis and the second hour being ultrafi ltration. Fluid removal is being done as tolerated by the patient. OBJECTIVE: VITAL SIGNS: Blood pressure is noted to be at 91/70, heart rate 70. GENERAL: The patient is sedated, intubated, and on ventilator support. SKIN: Adequate turgor. HEENT: Slightly pale conjunctivae, anicteric sclerae. NECK: No neck mass, no carotid bruits, no JVD. CHEST: No deformities. LUNGS: Decreased breath sounds. HEART: Normal sinus rhythm. No murmur, no gallops, no rubs. ABDOMEN: Globular, soft, nontender. EXTREMITIES: No edema. MEDICATIONS: Of 09/26/2017 was reviewed. Please note the patient is on empiric IV antibiotics and c urrently also on pressor support - Levophed. LABORATORY STUDIES: Of 09/26/2017: White count 8.8, hemoglobin 8.9, sodium 138, potassium 4.1, chlo ride 104, carbon dioxide 16, BUN 46, creatinine 4.19. Lactic acid 4.7, recheck it became 3.9. AST 1 9, ALT 13. Troponin I of 0.648, albumin is 2.3. Chest x-ray of 09/26/2017 showed pulmonary edema and bilateral pleural effusion. ASSESSMENT AND PLAN: 1. Congestive heart failure - emergent hemodialysis. Attempting about 1.5 liter fluid removal. I w ill do another hemodialysis with this patient tomorrow morning. We were limited in the fluid removal due to the current hypotensive episode with this patient. Please note she is currently on Levophed support. 2. ? pneumonia - currently on empiric IV antibiotics. 3. Anemia. Resume back Epogen at 7,500 units subcutaneously every week. Overall prognosis remains guarded.
[2017-09-26] MEDS ORDERED: Epoetin (ESRD) 20,000 UNITS/ML SC SCH (18:00)
[2017-09-26] MEDS: Heparin 5,000 UNITS/ML VIAL SC SCH ×2 (18:04→20:30)
[2017-09-26] MEDS: Ipratropium Bromide 2.5 ml Neb NEB SCH (18:47)
--- NOTE | 2017-09-26 20:14 | HP-2 ---
CODE STATUS: FULL; unable to get in touch with next of kin to validate in- hospital DNR. PRIMARY CARE PHYSICIAN: Dr. Whitman at [facility] ATTENDING Dr. Myke Nunez. RESIDENT: Dr. Rose Saldana. CHIEF COMPLAINT: Shortness of breath and difficulty breathing. HISTORY OF PRESENT ILLNESS: This is a 77-year-old female with past medical history of systolic congestive heart failure with an ejection fraction of 20-25% , verified in 08/2017, hypertension, atrial fibrillation, hyperlipidemia, CKD stage 4, who [facility] to concerns for difficulty breathing. The patient was apparently satting 80% on 6 liters of O2. Of note, she has a dialysis catheter, had received dialysis during her recent hospitalization for which she was just discharged a few days ago. Per [facility], she has not had any dialysis since discharge from hospital. Additionally, patient does have a LifeVest and [facility] reports that this LifeVest has not been working. Patient did have a recent hospitalization at which time she had an NSTEMI and coded requiring resuscitation. At that time, family was making decisions to discontinue care; however, the patient made a turn around and thus they opted to continue with care and have patient go to [facility] for further recovery. In the ER, the patient was started on antibiotics for presumed hospital-acquired pneumonia. She was also given fluid bolus for hypotension. Her blood pressure was 80/50 at presentation. PAST MEDICAL HISTORY: 1. Coronary artery disease. 2. Systolic congestive heart failure with ejection fraction of 20-25%, verified in 08/2017. 3. Hypertension. 4. Atrial fibrillation. 5. Hyperlipidemia. 6. Chronic kidney disease stage 4. 7. Thyroid nodule. PAST SURGICAL HISTORY: 1. Hysterectomy. 2. Thyroidectomy. 3. Surgery on left leg vein. ALLERGIES: No known drug allergies. MEDICATIONS: Based on prior H&P, patient's medications include, 1. Amlodipine 10 mg daily. 2. Aspirin 81 mg daily. 3. Calcitriol 0.25 mcg daily. 4. Carvedilol 12.5 mg b.i.d. 5. Cefuroxime 250 mg b.i.d. 6. Danazol 100 mg b.i.d. 7. Clonidine 0.2 mg b.i.d. 8. Flexeril 5 mg p.o. daily. 9. Procrit 7500 mg subcu q.7 days. 10. Ferrous sulfate 325 mg b.i.d. 11. Lasix 20 mg daily. 12. Hydralazine 25 mg t.i.d. 13. Isosorbide mononitrate 60 mg daily. 14. Nicotine 14 mg transdermal patch daily. 15. Potassium chloride 20 mEq daily. 16. Ranitidine 150 mg b.i.d., 17. Rosuvastatin 20 mg daily. 18. Sodium bicarbonate 650 mg t.i.d. 19. Tramadol 100 mg p.r.n. FAMILY HISTORY: Noncontributory. SOCIAL HISTORY: The patient smokes a half pack per day for greater than 10 years. Apparently, the patient quit days prior to her most recent hospitalization which occurred in early September. This information was obtained from a prior H&P. At that time, she also denied alcohol or drug use. REVIEW OF SYSTEMS: Unable to obtain due to sedation and intubation. PHYSICAL EXAMINATION: VITAL SIGNS: Blood pressure initially 80/50, repeat after bolus of fluids 96/80 , pulse 70, respiratory rate 12; they are having difficulty with pulse ox due to poor perfusion. An ABG was performed to evaluate oxygen saturation. Current weight 80 kilograms. GENERAL: Patient was intubated and sedated. HEENT: Eyes, pupils equally round and reactive to light and accommodation. Conjunctivae within normal limits. NECK: Supple. No thyromegaly. CARDIOVASCULAR: The patient is in atrial fibrillation, rate controlled. Radial pulses 1+. RESPIRATORY: Patient is on ventilator. She has decreased breath sounds, left greater than right. SKIN: Warm and dry. Fingertips do appear to have a bluish hue. ABDOMEN: Soft, bowel sounds positive all 4 quadrants. No appreciable masses or distention. EXTREMITIES: No clubbing, cyanosis. The patient does have 2+ pitting edema diffusely throughout, worse on the upper thighs and abdomen, unable to flip patient, but it is likely that she also has pitting edema on the back due to gravity. MUSCULOSKELETAL: Structure within normal limit. NEUROLOGIC: The patient is intubated and sedated. LABORATORY DATA: 1. CBC reveals a white blood cell count 8.1, hemoglobin 8.9, hematocrit 29.4, platelets 131. 2. CMP: Sodium 138, potassium 4.1, chloride 104, bicarbonate 16, BUN 46, creatinine 4.19, glucose 72, calcium 7.6, total protein 4.8, albumin 2.3, AST 19 , ALT 13, alkaline phosphatase 109. 3. CK-MB 4.4, troponin 0.481. 4. BNP is 6297.5. 5. Lactic acid 4.7. 6. Flu negative. 7. Band 29%. 8. ABG shows pH 7.32, bicarbonate of 40.5, and oxygen is 62.7. 9. EKG shows atrial fibrillation. T-wave inversions in the inferior leads and prolonged QT. 10. Chest x-ray shows moderate bilateral pleural effusions with atelectasis. ASSESSMENT AND PLAN: This is a 77-year-old female with past medical history of systolic congestive heart failure, coronary artery disease, atrial fibrillation , hypertension that presents with shortness of breath and difficulty breathing. 1. Acute hypoxic respiratory failure secondary to congestive heart failure exacerbation and possible hospital-acquired pneumonia. Patient is status post intubation. She will be admitted to ICU on ventilator support. Chest x-ray does show bilateral pleural effusions. Dr. Anderson with Nephrology was consulted and she was taken for emergent dialysis where they intended to take off 3L of fluid. Her last echo was in 08/2017 which showed an ejection fraction of 20-25% . The patient was given a LifeVest, but apparently this LifeVest has not been working per [facility]. BNP was 6297.5. The patient was sent for dialysis and we will continue with Nephrology recommendations. Additionally, we will schedule DuoNebs p.r.n., place the patient on strict I's and O's. Patient was started on Levaquin, vancomycin and cefepime in the emergency department for presumed hospital-acquired pneumonia contributing to current acute hypoxic respiratory failure. We will continue these medications until blood cultures result. Procalcitonin is also pending at this time. 2. Congestive heart failure exacerbation. See plan as above regarding dialysis and Nephrology recommendations. 3. Hypertension. Blood pressure was low on presentation, the patient was fluid resuscitated in the emergency department and blood pressure has been responding appropriately. Patient does have dialysis catheter in place. If necessary, we will place a central line for further pressure support. 4. Chronic kidney disease stage 4. We will be sure to renally dose medications. 5. Coronary artery disease. EKG did show atrial fibrillation, rate controlled with prolonged QT and troponins are mildly elevated at 0.481. We will continue to trend troponins and evaluate the patient. She did have an NSTEMI the last time she presented, for which she coded and required resuscitation. 6. Hyperlipidemia. Continue home medications when tolerating p.o. 7. Atrial fibrillation. Continue aspirin and monitoring. Patient is not currently on rate control medication. 8. Venous thromboembolism prophylaxis, heparin. DISPOSITION AND LENGTH OF HOSPITAL STAY: 3 days. Symptomatic medications will be provided. History and physical exam as well as management discussed with Dr. Nunez. RADHA
[2017-09-26 21:37] LABS: Lactic Acid 5.7 mmol/L (0.5-2.2)
[2017-09-26 21:44] LABS: CKMB 5.4 ng/mL (0-6.6)
[2017-09-26] MEDS ORDERED: Heparin 25,000 units/D5W 500 ML IVPB SCH (21:45)
[2017-09-26] MEDS ORDERED: Heparin 10,000 UNITS/ 10 ML VIAL SLOW IVP SCH (21:45)
[2017-09-26 21:49] LABS: Critical Call Chem Troponin I RESULT DECREASING; Troponin I 0.727 ng/mL (< 0.028)
[2017-09-26 21:59] LABS: Hemoglobin 10.2 g/dL (12.0-16.0); Platelet Count 122 thou/uL (130-400)
[2017-09-26 22:00] LABS: PTT 36.1 SEC (22.9-36.1); Prothrombin Time 23.6 SEC (12.0-14.7)
--- NOTE | 2017-09-26 23:48 | ADD-HP ---
ADDENDUM Please see the history and physical done by Dr. Saldana for which I concur. HISTORY OF PRESENT ILLNESS: This is an unfortunate 77-year-old female who was just [facility] prior to an ER visit this morning where she had a prolonged hospital stay for anastacio estive heart failure, cardiac arrest for which she is on a ventilator for a while, dialysis and other medical problems, but it sounds like she was doing better, was weaned off oxygen and was sent to [facility] rehab 2 days before, but then this morning, got acutely more short of breath. O2 sat was 8 0% on 6 liters while seen in the emergency room. In the ER, it was noted that she was in respiratory distress and was quickly intubated and is now on a ventilator and stable. Chest x-ray showed clear volume overload and congestive heart failure exacerbation. PAST MEDICAL HISTORY: All per the technology intern's history and physical for which I concur. CURRENT MEDICATIONS: All per the technology intern's history and physical for which I concur. PAST SURGICAL HISTORY: All per the technology intern's history and physical for which I concur. ALLERGIES: All per the technology intern's history and physical for which I concur. SOCIAL HISTORY: All per the technology intern's history and physical for which I concur. REVIEW OF SYSTEMS: All per the technology intern's history and physical for which I concur. PHYSICAL EXAMINATION: VITAL SIGNS: Initial blood pressure a little bit low in the 80s/50s, but it has come up with some in tubation and supported that way, currently on a ventilator, feeling fairly comfortably as sedated. HEENT: Conjunctivae are slightly pale. Sclerae are anicteric. Oropharynx, she is intubated. LUNGS: Chest has decreased breath sounds throughout, crackles at the bases. CARDIOVASCULAR: Regular rate and rhythm. Pulse rate is a little bit slow around 60 and occasional e ctopic beats. ABDOMEN: Soft, nontender, nondistended. EXTREMITIES: Show trace to 1+ pitting edema but a little bit of that even anasarca. She pits a anastasia le bit around her thighs and even around her abdomen. LABORATORY DATA: Chest x-ray shows bilateral pleural effusions and pulmonary infiltrates. CBC shows normal white count at 8.8, hemoglobin is 8.9. Blood gas after intubation, pH 7.32, pCO2 down to 40, pO2 62. Initial chemistries does have a high lactic acid level. Troponin is really high at 0.48, b ut that is actually trending downward from a week ago and she was in the hospital. Creatinine is 4.19 that sounds like she . Sodium and potassium are okay. Urine did show quite a bit of white bl ood cells . ASSESSMENT AND PLAN: 1. Acute respiratory failure from congestive heart failure exacerbation, systolic congestive heart f ailure: Plan is to obviously have her on the unit, intubated on the ventilator. We will get Cardiol ogy back involved as well as Pulmonary. May need to consider Palliative Care help as it sounds like she was not out of hospital DNR but maybe not an in hospital DNR. We will need to explore that furth er and seek family's wishes. Obviously, the prognosis is extremely poor with someone needing intubat ions for respiratory failure [id number] within the couple of weeks. We will watch blood pressure c losely, trying to avoid pressors if we can, continue Lasix and watch potassium and kidney function. 2. Renal failure. We will get renal input. She does have a dialysis catheter but may need to be ac utely dialyzed on top of the congestive heart failure and volume overload. 3. Obesity. 4. Questionable urinary tract infection. 5. Questionable pneumonia. We will certainly cover with an antibiotic in the meantime, in the emerg ency room, received vancomycin, Levaquin, and cefepime and probably continue those. The patient has a very poor prognosis.
--- NOTE | 2017-09-26 23:57 | CON ---
DATE OF SERVICE: 09/26/2017 SUBJECTIVE: A 77-year-old female with end-stage renal disease. I have reviewed the records from rec ent admissions. She had recently hospitalization complicated by several trips to the critical care [facility]. She was discharged on Wednesday and is back today, has been intubated. Review of chest radiograph, she has mild pulmonary edema. Her ejection fraction is 20%. She never has been out of the hospital long enough to get into an outpatient dialysis setting. It is unclear to me what her "dry weight is." She was weighed on the sling scale and she is admitted to the ICU today. PAST MEDICAL HISTORY: Remarkable for hypertension, atrial fibrillation, lipid disorder, renal failur e, coronary artery disease, thyroid nodule, vascular access procedures, hysterectomy, thyroidectomy, and surgery on a vein in her left leg. ALLERGIES: She has no drug allergies. She is on 19 medicines prior to admission. I will not re-dictate these, but these have been reviewed . FAMILY HISTORY: Negative for lung disease in early age. She is a smoker, but has not smoked since s he was admitted to the hospital. She is not a drinker or drug user. REVIEW OF SYSTEMS: Not obtainable. There is no family in the room when I evaluated. PHYSICAL EXAMINATION: GENERAL: They were getting ready to start dialysis. VITAL SIGNS: Blood pressure was 105 systolic, heart rate was in the 80s, respiratory rate per mechan ical ventilation. HEENT: Pupils are react. Sclerae is anicteric. NECK: Supple. LUNGS: Clear anteriorly. HEART: Regular rhythm. ABDOMEN: Soft. EXTREMITIES: Without asymmetry. LABORATORY DATA: White count 8.8, hemoglobin 8.9, platelets 131. Sodium 138, potassium 4.1, chloride 104, bicarb 16, BUN 46, creatinine 4.19. Blood gas 7.32, CO2 of 40, PO2 of 62 that was at 10:55 this morning. As mentioned, chest radiographs reviewed by me showed bilateral effusions and mild infiltrates bilaterally. IMPRESSION: 1. Respiratory failure, recurrent. 2. Severe cardiomyopathy. 3. End-stage renal disease. Given the frequency for admission to the ICU. I would suspect that her prognosis for any type of long-term survival was quite poor. Palliative care should be involved in her care might be time to consider hospice. Critical care time 30 minutes.
[2017-09-27] MEDS ORDERED: Cefepime 2 GM in Sodium Chloride 0.9% 100 ML IVPB SCH
[2017-09-27] MEDS: Ipratropium Bromide 2.5 ml Neb NEB SCH ×3 (00:42→14:15)
[2017-09-27] MEDS ORDERED: Sodium Chloride 0.9% 250 ML IV SCH (00:45)
--- NOTE | 2017-09-27 00:50 | PDOC.EVN ---
Event Note - Event Note Event Note: Pt seen multiple times for BP. BP continues to be low. Have gone up on levophed repeatedly. Lactic Acid elevated. Am going to give a fluid bolus of 250 ml to see if helps.
[2017-09-27] MEDS ORDERED: Norepinephrine 8 MG/0.9% NS 250 ML ONE (02:25)
[2017-09-27 04:41] LABS: Lactic Acid 5.2 mmol/L (0.5-2.2)
[2017-09-27 04:47] LABS: AST (SGOT) 27 U/L (5-34); Albumin 2.4 g/dL (3.4-4.8); Alkaline Phosphatase 108 U/L (40-150); Anion Gap 23 mmol/L (10-20); BUN (Urea Nitrogen) 48 mg/dL (9.8-20.1); Bilirubin, Total 1.1 mg/dL (0.2-1.2); Calc. Creatinine Clearance 14 mL/min (70-130); Calcium 8.1 mg/dL (7.8-10.44); Carbon Dioxide 18 mmol/L (23-31); Chloride 101 mmol/L (98-107); Estimated GFR-MDRD 12; Globulin 2.9 g/dL (2.4-3.5); Glucose 73 mg/dL (83-110); Potassium 4.7 mmol/L (3.5-5.1); Protein, Total 5.3 g/dL (6.0-8.3); Sodium 137 mmol/L (136-145)
[2017-09-27 04:52] LABS: ALT (SGPT) 14 U/L (8-55)
[2017-09-27 05:30] LABS: Acanthocytes SLIGHT = 1-5 cells (100X) (None Seen); Anisocytosis SLIGHT = 6-15 cells (100X) (0-5/hpf); Band 53 % (5-11); Crenated RBC SLIGHT = 1-5 cells (100X) (None Seen); Hemoglobin 9.7 g/dL (12.0-16.0); Lymphocytes 10 % (21-51); MDiff Complete? YES; Mean Corpuscular HGB CONC 31.4 g/dL (32.0-36.0); Mean Corpuscular Hemoglobin 31.1 pg (27.0-31.0); Mean Corpuscular Volume 98.9 fl (81.0-99.0); Mean Platelet Volume 8.9 fL (7.4-10.4); Metamyelocyte 5 % (0-0); Monocytes 1 % (0-10); Myelocyte 2 % (0-0); Neutrophil 29 % (42-75); Nucleated RBC 5 % (0); Platelet Count 127 thou/uL (130-400); RBC Distribution Width 14.7 % (11.5-14.5); Red Blood Cell (RBC) Count 3.13 mill/uL (4.20-5.40); White Blood Cell (WBC) Count 10.5 thou/uL (4.8-10.8)
[2017-09-27 05:53] LABS: PTT 173.2 SEC (22.9-36.1)
[2017-09-27] MEDS: Norepinephrine 8 MG/0.9% NS 250 ML IVPB PRN ×2 (08:45→14:11)
[2017-09-27] MEDS ORDERED: Famotidine/PF 20 mg/2ml Vial SLOW IVP SCH (09:00)
--- NOTE | 2017-09-27 10:16 | PDOC.FM ---
- Subjective Subjective: Patient receiving dialysis this morning. Requiring 24mcg of Levophed to maintain appropriate MAP. Intubated and sedated on vent - Objective MAR Reviewed: Yes Vital Signs & Weight: Vital Signs (12 hours) Temp Pulse Resp BP Pulse Ox 09/27/17 09:15 16 09/27/17 08:09 85 115/58 L 09/27/17 08:07 85 19 98 09/27/17 08:00 19 09/27/17 07:00 97.7 F 09/27/17 06:00 19 09/27/17 04:00 98.7 F 18 09/27/17 02:47 76 09/27/17 02:00 20 09/27/17 00:42 77 19 97 09/27/17 00:00 98.1 F 21 H 09/26/17 22:22 77 Weight Weight 86.9 kg Most Recent Monitor Data Heart Rate from ECG 90 NIBP 89/44 NIBP BP-Mean 68 Respiration from ECG 20 SpO2 98 I&O: 09/26/17 09/27/17 09/28/17 06:59 06:59 06:59 Intake Total 1059 Output Total 115 Balance 944 Result Diagrams: 09/27/17 04:05 09/27/17 04:05 <Ananda Fregoso - Last Filed: 09/27/17 11:44> - Objective Vital Signs & Weight: Vital Signs (12 hours) Temp Pulse Resp BP Pulse Ox 09/27/17 14:16 113 H 128/79 09/27/17 14:15 113 H 30 H 93 L 09/27/17 14:00 36 H 09/27/17 12:17 96 75/39 L 09/27/17 12:00 97.9 F 29 H Weight Admit Weight 86.636 kg Weight 86.9 kg Most Recent Monitor Data Heart Rate from ECG 111 NIBP 151/97 NIBP BP-Mean 108 Respiration from ECG 36 SpO2 96 I&O: 09/26/17 09/27/17 09/28/17 06:59 06:59 06:59 Intake Total 1059 Output Total 115 Balance 944 Result Diagrams: 09/27/17 04:05 09/27/17 04:05 <Virgie Jasso - Last Filed: 09/27/17 22:28> Phys Exam - Physical Examination HEENT: moist MMs Neck: supple Respiratory: no wheezing a-fib, rate controlled Gastrointestinal: soft, no distention 1+ pitting edema of BLE <Ananda Fregoso - Last Filed: 09/27/17 11:44> Dx/Plan (1) Acute respiratory failure with hypoxia Code(s): J96.01 - ACUTE RESPIRATORY FAILURE WITH HYPOXIA Status: Resolved Plan: Patient recently intubated last week Likely multifactorial etiology 2/2 HCAP and CHF exacerbation -BNP was greater than 6000 -Continue Vanc, Levaquin, and Cefepime Pulmonary managing vent (2) HCAP (healthcare-associated pneumonia) Code(s): J18.9 - PNEUMONIA, UNSPECIFIED ORGANISM Status: Acute Plan: Continue antibiotics, duonebs MAPs are borderline with pressor support -may need to add dobutamine gtt to maintain perfusion (3) ESRD (end stage renal disease) Code(s): N18.6 - END STAGE RENAL DISEASE Status: Chronic Plan: Emergently dialyzed in the ER upon admission, removed 2L Dialysis this morning, attempt to remove an additional 1.5 liters (4) CHF exacerbation Code(s): I50.9 - HEART FAILURE, UNSPECIFIED Status: Resolved QualifierTitle: Congestive heart failure type: combined Qualified Code(s) : I50.43 - Acute on chronic combined systolic (congestive) and diastolic ( congestive) heart failure Plan: BNP greater than 6000 Continue dialysis regimen - Plan Plan: Plan: -dialysis this morning -vent management per Pulm -monitor pressures with likely addition of dobutamine gtt -palliative is meeting with family today -code status has been changed to DNR per MPOA wishes <Ananda Fregoso - Last Filed: 09/27/17 11:44> Attending Addendum - Attending Addendum I personally evaluated the patient and discussed the management with Dr. Fregoso. I agree with the History, Examination, Assessment and Plan documented above with any addition or exceptions noted below. Patient is being changed to DNR after discussion of code status with family. Pt will likely be extubated after dialysis. Palliative consulted for goals of care. Pt's condition is grave. Hypotensive and tachycardic while undergoing dialysis. <Virgie Jasso - Last Filed: 09/27/17 22:28>
[2017-09-27 10:27] LABS: Vancomycin, Random 12.9 ug/mL (See Comment)
--- NOTE | 2017-09-27 10:42 | PRG ---
DATE OF SERVICE: 09/27/2017 SERVICE: Pulmonary Medicine. INTERVAL HISTORY: The patient is doing fine from a respiratory standpoint. She is breathing comfortably. Her oxygen requirements are quite low. Otherwise , there has been no interval change to her condition. She is currently on hemodialysis and is not tolerating it too terribly well because of low blood pressures. She does not look to be in any significant distress. PHYSICAL EXAMINATION: VITAL SIGNS: Afebrile, pulse 89/44, respirations 18, saturation 98% on 37% FiO2 and a PEEP of 5. GENERAL: The patient is awake, alert, no apparent distress. LUNGS: Decent air entry. Dependent crackles are present. HEART: Normal rate, regular. ABDOMEN: Soft, nontender, nondistended. Bowel sounds are positive. MUSCULOSKELETAL: No cyanosis or clubbing. I do not appreciate any pitting in the bilateral lower extremities. NEUROLOGIC: Grossly nonfocal. LABORATORY DATA: WBC 10.5, hemoglobin 9.7, platelets 127,000. Band count is up trending to 53%. INR 2.0. Creatinine 4.47, BUN 48. Anion gap 23 with a bicarbonate of 18. AST and ALT are unremarkable. Lactate is 5.2 and gently down trending. A pH 7.32, pCO2 40, pO2 62. Blood cultures x2 and influenza was unremarkable. Sputum culture is also negative. ASSESSMENT: 1. Acute hypoxic respiratory failure. 2. Acute on chronic systolic heart failure. 3. Severe mitral regurgitation. 4. End-stage renal disease. PLAN: The patient has now had four separate decompensations over a very short period of time. Each episode has been precipitated by high blood pressure. My suspicion is that she is having high blood pressure with functional mitral regurgitation becomes more pronounced whenever her blood pressures are elevated. This causes acute decompensation in her respiratory status. With mechanical ventilation, she actually improves very dramatically with each episode. Her long-term prognosis is quite bleak as I do not see a way that we are going to prevent future episodes. Agree with palliative care discussion moving forward about transitioning the patient ultimately over comfort care only. After dialysis, we will give her spontaneous breathing trial and if she meets criteria, extubation will be considered. Critical care time: 30 minutes. [facility] CENTERFlores
--- NOTE | 2017-09-27 11:22 | PDOC.EVN ---
Event Note - Event Note Event Note: After extensive discussions with palliative care last week, the family determined it was is in accord with Ms. Maya's wishes to have a DNR status. Upon admission last night, her DNR was revoked and full code status was ordered per sister's wishes. I spoke with patients sister this morning about prognosis and half-way care needs. She states "Dana would not want to live like this". Patient has been admitted to the ICU multiple times since the beginning of the year and sister recognizes her poor prognosis. She would like to make the patient DNR at this time.
[2017-09-27] MEDS ORDERED: Cefepime 0.5 GM, Admixture Fee 1 EACH in Sterile Water 5 ML SLOW IVP SCH ×2 (12:00→17:00)
[2017-09-27 12:44] VITALS: TEMP 97.9
--- NOTE | 2017-09-27 12:48 | PRG ---
DATE OF SERVICE: 09/27/2017 RENAL MEDICINE SUBJECTIVE: Ms. Maya is undergoing hemodialysis/ultrafiltration. She was admitted due to congest abigail heart failure. She underwent dialysis yesterday and we were able to remove about 1.5 liters. Du e to the low blood pressure, she is currently on pressor support. Initial BP was 115/53. We did ___ __ of normal saline prior to initiating dialysis. She remains relatively unchanged. PHYSICAL EXAMINATION: VITAL SIGNS: Blood pressure is 115/58, heart rate 85, respiratory rate 19, pulse ox 98%. GENERAL: The patient is not following commands. Spontaneous eye opening and intubated on ventilator support. HEENT: She has slightly pale conjunctivae, anicteric sclerae. NECK: No neck mass, no carotid bruits, no JVD. CHEST: No deformities. LUNGS: Decreased breath sounds. HEART: Normal sinus rhythm. No murmurs, no gallops, no rubs. ABDOMEN: Globular, soft, nontender, no masses. EXTREMITIES: No edema. MEDICATIONS: Medications of 09/27/2017 was reviewed. LABORATORY DATA: Laboratories of 09/27/2017; white count 10.5, hemoglobin 9.7, hematocrit was 31. S odium 137, potassium 4.7, chloride 101, carbon dioxide 18, BUN 48, creatinine 4.47, glucose 73, and c alcium 8.1. AST is 27, ALT 14, albumin 2.4. ASSESSMENT AND PLAN: 1. Shortness of breath/congestive heart failure - emergent dialysis was done yesterday with fluid re moval. We will attempt fluid removal only as tolerated by the patient. 2. End-stage renal disease. Continue current Wednesday, Wednesday, and Wednesday dialysis. So far, belkis nt relatively on the hypotensive side. Her fluid removal is depending on how her blood pressure is d uring the dialysis. 3. The patient's overall prognosis remains poor and guarded. Continue supportive care.
[2017-09-27 14:18] VITALS: BP 128/79
[2017-09-27 14:26] VITALS: BMI 31.8
--- NOTE | 2017-09-28 06:29 | DS-2 ---
DATE OF ADMISSION: 09/26/2017 DATE OF : 09/27/2017 TIME OF : 1540. CAUSE OF : Massive pulmonary edema. ATTENDING PHYSICIAN: Dr. Virgie Jasso. RESIDENT: Dr. Joshua Miguel. PRIMARY DIAGNOSES: 1. Massive pulmonary edema. 2. End-stage renal disease. 3. Congestive heart failure with an ejection fraction of 15% to 20%. 4. Healthcare Associated Pneumonia SECONDARY DIAGNOSES: 1. Chronic obstructive pulmonary disease. 2. Coronary artery disease. 3. Recent cardiac arrest during AV fistula placement. HOSPITAL COURSE: Ms. Dana Maya was a very pleasant 77-year-old female who had been in and out of the hospital significantly in the last 2 months. Over this time, she developed and was diagnosed with end-stage renal disease and started on dialysis. She also developed congestive heart failure with an ejection fraction of 15% to 20%. In earlier hospitalization, she had an NSTEMI that was medically managed. During previous hospitalization, during placement of AV fistula for long-term dialysis, she had a cardiac arrest event. CPR was done and patient had ROSC and was transferred to ICU. She recovered partially from this event and was discharged, but with significant chronic illnesses present. She, because of her end-stage renal disease and her congestive heart failure, quickly developed pulmonary edema, which caused acute hypoxic respiratory failure. She was readmitted and dialysis could not meet demand of removing fluid and respiratory failure progressed . The patient's power of storage facility housekeeper, her sister was at bedside throughout these hospitalizations and helped to make decisions for her when she was not able . Family decided, consistent with her recent hospitalization when she was awake and could answer for herself that she wanted to be DNR status. Her respiration continued to slow until they stopped and subsequently her heart stopped shortly after. I was at bedside at time of and all families questions were answered. RADHA
--- NOTE | 2017-09-30 15:35 | PQF ---
CLOVIS QUEEN RUSSEL B MD [id number] CLINICAL DOCUMENTATION CLARIFICATION FORM: POST DISCHARGE Addendum to original discharge summary date: ____ Late entry note date: __ DATE: 09/30/2017 ATTN: DR. THOMAS Please exercise your independent, professional judgment in responding to the clarification form. Clinical indicators are provided on the bottom of this form for your review Please check appropriate box(s): [ ] Sepsis due to: (Pna, UTI, gangrenous gall bladder, etc.) Due to: [ ] Device (please specify) [ ] Implant [ ] Graft [ ] Infusion [ ] SIRS due to non-infectious process (please specify etiology) [ ] with organ dysfunction [ ] without organ dysfunction [ ] Severe sepsis with acute organ dysfunction of: (Examples: respiratory failure, encephalopathy, acute kidney failure, other) [ ] Localized infection without sepsis [ ] Other diagnosis [ ] Unable to determine In addition, please specify: Present on Admission (POA): [ ] Yes [ ] No [ ] Unable to determine For continuity of documentation, please document condition throughout progress notes and discharge summary. Thank You. CLINICAL INDICATORS - SIGNS / SYMPTOMS / LABS: VITALS: BP 80/50, PULSE: 70, RR: 12 WBC: 09/26 BLOOD CULTURE: NEGATIVE ER: SEPSIS, RESPIRATORY FAILURE H&P: QUESTIONABLE UTI ACUTE HYPOXIC RESPIRATORY FAILURE HCAP DS - CHF MASSIVE PULMONARY EDEMA ACUTE HYPOXIC RESPIRATORY FAILURE RISK FACTORS: Pneumonia, UTI MASSIVE PULMONARY EDEMA CHF TREATMENTS: Initiation Sepsis Protocol Daily CBC Blood/sputum/wound cultures (This form is maintained as a part of the permanent medical record) 2015 [employer], [employer] All Rights Reserved Jennifer Martínez, VIRGIL, [employer] [email or web address] [phone] MTDD
--- NOTE | 2017-10-02 18:41 | EKG ---
Test Reason : Blood Pressure : / mmHG Vent. Rate : 077 BPM Atrial Rate : 267 BPM P-R Int : 000 ms QRS Dur : 098 ms QT Int : 472 ms P-R-T Axes : 000 053 207 degrees QTc Int : 534 ms Atrial fibrillation with a competing junctional pacemaker Prolonged QT Abnormal ECG Confirmed by LYNDA FRASER, LAWANDA ([id number]), assistant editor ROSIE QUINONES ([id number]) on 10/02/2017 6:40:31 PM Referred By: Confirmed By:LAWANDA HOWELL MD
--- NOTE | 2017-10-04 16:23 | PQF ---
CLOVIS QUEEN RUSSEL B MD [id number] U-[id number] CLINICAL DOCUMENTATION CLARIFICATION FORM: POST DISCHARGE Addendum to original discharge summary date: ____ Late entry note date: __ DATE: 10/04/2017 ATTN: DR. THOMAS Please exercise your independent, professional judgment in responding to the clarification form. Clinical indicators are provided on the bottom of this form for your review Please check appropriate box(s): [ ] Shock (please further specify type): [ ] Hypovolemic [ ] Cardiogenic [ ] Septic [ ] Hemorrhagic due to: [ ] Trauma [ ] Surgery [ ] Anaphylactic (please specify etiology) [ ] Neurogenic Shock [ ] [id number] Shock (please specify etiology) [ ] Shock Unspecified [ ] Other diagnosis [ ] Unable to determine In addition, please specify: Present on Admission (POA): [ ] Yes [ ] No [ ] Unable to determine For continuity of documentation, please document condition throughout progress notes and discharge summary. Thank You. CLINICAL INDICATORS - SIGNS / SYMPTOMS / LABS: LACTIC ACID 09-26 @ 1048 4.7 09-26 @ 1450 3.9 09-26 @ 2108 5.7 09-26 @ 2351 5.6 09-26 @ 0405 5.2 H&P: BP IN ER 80/50 09-27 BP 75/39 PN 09-27: REQUIRING 24 MCG OF LEVOPHED TO MAINTAIN APPROPRIATE MAP. RISK FACTORS: H&P: PNA; ACUTE RESPIRATORY FAILURE; ACUTE ON CHRONIC SYSTOLIC CHF / ESRD DC'D FROM HOSPITAL 2 DAYS PRIOR TO THIS ER VISIT W/ PROLONGED HOSPITAL STAY - CARDIAC ARREST PN 09-27 - HCAP TREATMENTS: MAR - LEVOPHED IV 09-26 / 09-27 NS BOLUS X 250ML 09-27 VANCOMYCIN IV 09-26 ICU MONITORING / VENTILATOR (This form is maintained as a part of the permanent medical record) 2014 [employer] All Rights Reserved Jennifer Martínez, VIRGIL, [employer] [email or web address] [phone] [facility] [place] [facility]
== END 2017-09-27 15:40 | disposition expired | DRG 208 ==
LOC: ERS 09:59 → CCU 13:37
PROVIDERS: ADMIT Family Medicine; ATTEND Family Medicine
PROC: 0BH17EZ Insertion of Endotracheal Airway into Trachea, Via Natural or Artificial Opening (ICD-10-PCS; principal; 2017-09-26)
PROC: 5A1935Z Respiratory Ventilation, Less than 24 Consecutive Hours (ICD-10-PCS; 2017-09-26)
PROC: 5A1D70Z Performance of Urinary Filtration, Intermittent, Less than 6 Hours Per Day (ICD-10-PCS; 2017-09-26)
DX: J96.01 Acute respiratory failure with hypoxia (principal); I50.23 Acute on chronic systolic (congestive) heart failure; J18.9 Pneumonia, unspecified organism; J81.1 Chronic pulmonary edema; I12.0 Hypertensive chronic kidney disease with stage 5 chronic kidney disease or end stage renal disease; I48.91 Unspecified atrial fibrillation; I42.9 Cardiomyopathy, unspecified; I95.3 Hypotension of hemodialysis; N18.6 End stage renal disease; J44.0 Chronic obstructive pulmonary disease with (acute) lower respiratory infection; Z79.82 Long term (current) use of aspirin; F17.210 Nicotine dependence, cigarettes, uncomplicated; I25.10 Atherosclerotic heart disease of native coronary artery without angina pectoris; E78.5 Hyperlipidemia, unspecified; I34.0 Nonrheumatic mitral (valve) insufficiency; D64.9 Anemia, unspecified; Z66 Do not resuscitate; Y95 Nosocomial condition; R00.0 Tachycardia, unspecified; Z78.1 Physical restraint status; E66.9 Obesity, unspecified; I25.2 Old myocardial infarction; Z68.32 Body mass index [BMI] 32.0-32.9, adult
CPT/HCPCS: 31500; 36415; 36556; 51702; 71045; 80053; 80202; 81003; 81015; 82553; 82805; 83605; 83880; 84145; 85007; 85027; 85610; 85730; 86850; 86900; 86901; 87040; 87070; 87205; 87804; 90935; 93005; 94002; 94003; 94640; 94760; 96361; 96365; 96366; 96368; 96374; 96375; A4216; G0257; J0692; J1644; J1956; J3010; J3370; J7050; J7644; Q4081